=== PATIENT | female | born 1955 | race Caucasian/White ===

== ENCOUNTER → 2024-07-04 | Outpatient (CLI) | payer MEDICARE, SELFPAY ==
--- NOTE | 2024-07-04 11:53 | US_ITS ---
EXAM: US Retroperitoneal Limited, Renal CLINICAL INDICATION: UTI TECHNIQUE: Real-time limited ultrasound of the retroperitoneum with image documentation. COMPARISON: No relevant prior studies available. FINDINGS: RIGHT KIDNEY: 4 mm right renal pelvic calculus without obstruction. Right renal cyst measuring up to 1.9 cm. The right kidney measures 11.5 x 5.1 x 5.0 cm. LEFT KIDNEY: Unremarkable. No stones. No hydronephrosis. The left kidney measures 12.2 x 4.6 x 5.3 cm. BLADDER: Anechoic lesion anterior to the urinary bladder measuring up to 0.9 cm could be a cyst or diverticulum. Bladder wall thickening which may be due to the decompressed state of the bladder or due to cystitis. Urinary bladder wall measures up to 5.5 mm thick. OTHER FINDINGS: Prevoid volume 187 cc. Postvoid volume 28 cc. US/Kidney and Bladder IMPRESSION: 1. Anechoic lesion anterior to the urinary bladder measuring up to 0.9 cm coul d be a cyst or diverticulum. 2. Bladder wall thickening which may be due to the decompressed state of the b ladder or due to cystitis. 3. 4 mm right renal pelvic calculus without obstruction. Reading [facility]
== END | disposition home or self-care (01) ==
PROVIDERS: PCP Family Medicine; Referring Provider Urology; Visit Provider Urology
DX: N39.0 Urinary tract infection, site not specified (principal)
CPT/HCPCS: 76770

== ENCOUNTER → 2024-12-11 | Outpatient (CLI) | payer MEDICARE, SELFPAY ==
--- NOTE | 2024-12-11 06:34 | CT_ITS ---
PROCEDURE: CT ABD/PELVIS W/WO CONTRAST 12/11/2024 REASON FOR EXAM: ABNORMAL ULTRASOUND, UTI TECHNIQUE: CT ABD/PELVIS W/WO CONTRAST Coronal and Sagittal reconstruction series were provided. CONTRAST: Isovue-300 VOLUME: 100 mL One or more dose reduction techniques were used (e.g., Automated exposure control, adjustment of the mA and/or kV according to patient size, use of iterative reconstruction technique. RADIATION DOSE SUMMARY: CTDlvol: 24.1 mGy DLP: 2441.86 mGycm COMPARISON: Prior ultrasound of the kidneys dated July 04, 2024. FINDINGS: Lung bases: Findings suggestive of localized scarring in the left lower lobe. Liver: Small hepatic cysts. Gallbladder: Unremarkable Spleen: Normal size. Pancreas: Normal size without evidence of mass surrounding inflammation or ductal dilation. Adrenals: Unremarkable Kidneys: There is a 1.8 cm cyst in the upper pole of the right kidney. Layering calcific density seen along its dependent portion. Bladder: The urinary bladder is not completely distended. No abnormality is seen. Reproductive Organs: Prior hysterectomy. Adnexal regions are unremarkable. Bowel: Colonic diverticulosis without diverticulitis. Appendix: Unremarkable Lymph nodes: Unremarkable. Vasculature: Mild diffuse atherosclerotic calcifications are noted. Peritoneum / Retroperitoneum: Unremarkable Bones: Mild degenerative changes. Loss of the normal lumbar lordosis. CT/CT Abd/Pelvis W/WO Contrast IMPRESSION: Small cyst in the upper pole of the right kidney with layering calcification. The urinary bladder is not completely distended although it is unremarkable. Sigmoid diverticulosis. Small hepatic cysts. Reading Location: [id number]
--- OUTSIDE RECORDS SUMMARY | 2024-12-11 06:36 | XMS RPT_ITS | CCD ---
Author Organization [facility] Care Team Providers Care Aluminum Hydroxide Process Operator Name Role Phone Pearl Jasper Cotton Primary Care Provider TU, FLORA Attending Unavailable RODRÍGUEZ OLIVO Consulting Unavailable PEARL JASPER Cotton Primary Care Unavailable TU, FLORA Admitting Unavailable RODRÍGUEZ CHANDRA Consulting Unavailable SHYLA WRIGHT, CODING CLERK Admitting Unavailable CENSHYLA Baeza, CODING CLERK Attending Unavailable PEARL JASPER Cotton Primary Care Unavailable CENESHYLA, CODING CLERK Admitting Unavailable CENSHYLA Baeza, CODING CLERK Attending Unavailable PEARL JASPER Cotton Primary Care Unavailable SOUTH, FLORA Attending Unavailable SOUTH, FLORA Admitting Unavailable SOUTH, FLORA Attending Unavailable PAERL JASPER Cotton Primary Care Unavailable TU, FLORA Admitting Unavailable Pearl Jasper Cotton Primary Care Provider Leonor Rodas PA-C Unavailable Flora Mae MD Unavailable Pearl XIAO Jasper Cotton Primary Care Provider Pearl Jasper Cotton Primary Care Provider Leonor Rodas PA-C Unavailable Flora Mae MD Unavailable Pearl Jasper Cotton Primary Care Provider Leonor Rodas PA-C Unavailable Flora Mae MD Unavailable Pearl XIAO Jasper Cotton Primary Care Provider Pearl XIAO Jasper Cotton Primary Care Provider Pearl XIAO Jasper Cotton Primary Care Provider [phone] Pearl XIAO, Jasper Harry Primary Care Provide r Pearl XIAO, Jasper Primary Care Provider MIOJASPER Linda Primary Care Unavail able JOSSELYN OWUSU Referring Unavailable PETRILLA, JASPER HARRY Primary Care Unavail able JOSSELYN OWUSU Referring Unavailable Sung GARCIA, Shanel Rutherford Unavailable Pearl XIAO, Dr. Hutchinson Primary Care Provider [phone] Sung GARCIA, Dr. Ugarte Attending Provider Sung GARCIA, Dr. Ugarte Referring Provider [phone] Tu GARCIA, Flora Bernard Unavailable Pearl XIAO, Dr. Hutchinson Primary Care Provider Sung GARCIA, Dr. Ugarte Attending Provider Pearl XIAO, Dr. Hutchinson Referring Provider PETRIEVAA, JASPER Primary Care Unavailable PETRILLA, JASPER Attending Unavailable [facility]LL[facility], [facility] Primary Care Unavailable PETRILLA, JASPER Attending Unavailable PETRILLA, [facility] Primary Care Unavailable PETRILLA, JASPER Attending Unavailable PETRILLA, JASPER Referring Unavailable PETRILLA, [facility] Primary Care Unavailable PETRILLA, JASPER Attending Unavailable PETRILLA, JASPER Primary Care Unavailable PETRILLA, [facility] Primary Care Unavailable Petrilla, [place] Primary Care Unavailable Shanel Almaraz Referring Unavailable Shanel Almaraz Attending Unavailable Hieulla, Jasper Primary Care Unavailable Shanel Almaraz Referring Unavailable Shanel Almaraz Attending Unavailable Petrilla, Jasper Referring Unavailable Petrilla, [place] Primary Care Unavailable Shanel Almaraz Attending Unavailable Allergies Allergy Classification Reported Allergen(s) Allergy Type Date of Onset Reaction(s) Facility (20 sources) Chlorpheniramine / Phenylephrine Drug Allergy 6 [facility] Work Phone: (2 sources) Chlorpheniramine Drug Allergy 5 mouth sores [facility] (2 sources) Codeine Drug Allergy 5 mouth sores [facility] (2 sources) dihydrocodeine Drug Allergy 5 mouth sores [facility] (2 sources) Phenylephrine Drug Allergy 5 mouth sores [facility] (2 sources) Pseudoephedrine Drug Allergy 5 mouth sores [facility] (1 source) Chlorpheniramine Drug Allergy 5 [facility] Repository (1 source) Codeine Drug Allergy 5 [facility] (1 source) dihydrocodeine Drug Allergy 5 [facility] (1 source) Phenylephrine Drug Allergy 5 [facility] (1 source) Pseudoephedrine Drug Allergy 5 [facility] Repository Medications Current Medications Medication Drug Class(es) Dates Sig (Normalized) Sig (Original) 8 hr acetaminophen 650 mg extended release oral tablet (20 sources) acetaminophen (Tylenol 8 Hour) 650 MG ER tablet Active alendronic acid 35 mg oral tablet (7 sources) Bisphosphonate Start: 06-05-2024 End: 06-05-2025 take 1 tablet by mouth in the morning alendronate (Fosamax) 35 MG tablet Take 1 tablet (35 mg) by mouth every 7 days. Take in the morning with a full glass of water, on an empty stomach, and do not take anything else by mouth or lie down for the next 30 min. 12 tablet 3 06/05/2024 06/05/2025 Active aspirin 81 mg delayed release oral tablet (20 sources) Platelet Aggregation Inhibitor, Nonsteroidal Anti-inflammatory Drug aspirin 81 MG EC tablet Every 24 hours. Active take 1 tablet by mouth once payal y aspirin, enteric coated (ASPIRIN, ENTERIC COATED) 81 mg EC tablet Take 1 tablet by mouth once daily. Active take 1 tablet by mouth once payal y aspirin 81 MG tablet Take 81 mg by mouth daily 0 Active Comment on above: Take 1 tablet by suzanne th once daily. atenolol 50 mg oral tablet (5 sources) beta-Adrenergic Abhinav Start: 04-03-20 End: 01-19-20 atenolol (TENORMIN) 50 MG tablet One each AM 90 tablet 1 10/01/2021 Active Comment on above: Take 50 mg by mouth once daily. atorvastatin 40 mg oral tablet (20 sources) HMG-CoA Reductase Inhibitor Start: 09-02-19 End: 06-05-19 25 take 1 tablet by mouth once daily Atorvastatin 40 mg tablet Active 40 mg PO daily November 19, 2024 12:00am Comment on above: Take 1 tablet by suzanne th daily at bedtime. calcium ascorbate 500 mg oral tablet (1 source) Start: 11-20-19 25 take 1 tablet by mouth twice daily Ascorbate Calcium (Vitamin C) 500 mg tablet Active 500 mg PO TWICE A DAY November 19, 2024 12:00am celecoxib 100 mg oral capsule (20 sources) Nonsteroidal Anti-inflammatory Drug Start: 12-04-19 23 take 1 capsule by mouth once daily as needed celecoxib (CeleBREX) 100 MG capsule take 1 capsule by mouth q day prn with food 90 capsule 1 12/03/2022 Active Start: 06-25-2022 End: 12-03-2022 take 1 capsule by mouth twice daily celecoxib (CeleBREX) 100 MG capsule take 1 capsule by mouth twice a day if needed 0 06/25/2022 12/03/2022 Discontinued (Reorder) cholecalciferol 0.125 mg ora l tablet (20 sources) Vitamin D cholecalciferol (D3-5) 5,000 Units tablet Take by mouth. Active End: 05-30-2024 take 1 tablet by mouth once daily cholecalciferol (VITAMIN D3) 5,000 unit tab Take 5,000 Units by mouth daily 05/30/2024 Discontinued (Other) Comment on above: Take 5,000 Units by mouth daily chondroitin sulfates 40 mg/ml / glucosamine hydrochloride 50 mg/ml oral solution (1 source) Glucosamine-Jorge droitin 7994-0949 MG/30ML LIQD Take by mouth 0 Active clotrimazole 10 mg/ml topical cream (20 sources) Azole Antifungal Start: 06-05-2024 clotrimazole (Lotrimin) 1 % cream Apply topically 2 times daily. 60 g 1 06/05/2024 Active End: 06-05-2024 clotrimazole (Lotrimin) 1 % cream Apply topically 2 times daily. 06/05/2024 Discontinued (Reorder) fluticasone propionate 0.05 mg/actuat metered dose nasal spray (20 sources) Corticosteroid Start: 06-06-2024 End: 06-06-2025 take 1 spray(s) nasal route once daily fluticasone (Flonase) 50 MCG/ACT nasal spray Administer 1 spray into each nostril daily. Shake gently. Before first use, prime pump. After use, clean tip and replace cap. 16 g 3 06/06/2024 06/06/2025 Active Start: 06-05-2024 End: 06-05-2025 take 27.5 ug nasal route once daily fluticasone (Flonase Sensimist) 27.5 MCG/SPRAY nasal spray Administer 1-2 sprays into each nostril daily. 10 g 3 06/05/2024 06/06/2024 Discontinued (Formulary change) Start: 09-21-2019 End: 05-25-2023 fluticasone (FLONASE) 50 mcg/actuation nasal spray Use 1 [place] in each nostril as needed. 0 09/21/2019 05/25/2023 Discontinued Start: 09-21-2019 fluticasone (F LONASE) 50 MCG/ACT nasal spray 2 sprays by Nasal route daily 3 Bottle 3 03/21/2020 Active Comment on above: Use 1 [place] in each nostril as needed. hydrALAZINE hydrochloride 25 mg oral tablet (20 sources) Arteriolar Vasodilator Start: End: take 1 tablet by mouth three times daily Hydralazine 25 mg tablet Active 25 mg PO THREE TIMES A DAY November 19, 2024 12:00am Start: 01-10-2024 End: 06-05-2024 hydrALAZINE (Apresoline) 25 MG tablet Indications: Essential hypertension Increase to one TID 270 tablet 1 01/10/2024 06/05/2024 Discontinued (Therapy completed) Start: 12-06-2023 End: 01-10-2024 hydrALAZINE (Apresoline) 25 MG tablet Indications: Essential hypertension One BID 180 tablet 1 12/06/2023 01/10/2024 Discontinued Start: 11-08-2023 End: 01-07-2024 take 1 tablet by mouth twice daily hydrALAZINE (Apresoline) 10 MG tablet Indications: Essential hypertension Take 1 tablet (10 mg) by mouth 2 times daily. 60 tablet 1 11/08/2023 12/06/2023 Discontinued (Reorder) hydroCHLOROthiazide 25 mg oral tablet (11 sources) Thiazide Diuretic Start: 06-08-2024 hydroCHLOROthiazide (HYDRODiuril) 25 MG tablet Decrease to 1 every morning only 90 tablet 1 06/08/2024 Active Start: 06-05-2024 End: 06-08-2024 take 1 tablet by mouth twice daily hydroCHLOROthiazide (HYDRODiuril) 25 MG tablet Take 1 tablet (25 mg) by mouth 2 times daily. 180 tablet 1 06/05/2024 06/08/2024 Discontinued (Dose adjustment) Lutein (20 sources) LUTEIN PO Take b y mouth daily. Active mecobalamin (1 source) Start: 11-20-19 Mecobalamin (Vitamin B12) 500 mcg tablet,chewable Active ug PO November 19, 2024 12:00am 24 hr mirabegron 50 mg extended release oral tablet (1 source) beta3-Adrenergic Agonist Start: 11-13-19 take 1 tablet by mouth once daily, then take 1 tablet by mouth every twenty-four hours mirabegron ER (Myrbetriq) 50 MG 24 hr tablet Take 50 mg by mouth daily. 11/12/2024 Active montelukast 10 mg oral tablet (20 sources) Leukotriene Receptor Antagonist Start: 09-21-19 End: 06-05-19 take 1 tablet by mouth once daily Montelukast 10 mg tablet Active 10 mg PO daily November 19, 2024 12:00am Comment on above: Take 10 mg by mouth daily at bedtime. Multiple Vitamin (multivitamin) tablet (20 sources) take 1 tablet by mouth once daily Multiple Vitamin (multivitamin) tablet Take 1 tablet by mouth daily. Active multivit with minerals/lutein (MULTIVITAMIN 50 PLUS ORAL) (3 sources) multivit with minerals/lutein (MULTIVITAMIN 50 PLUS ORAL) Take 1 tablet by mouth as needed. Active Multivitamin tablet (1 source) Start: 11-20-19 Multivitamin tablet Active 1 {tbl} PO daily November 19, 2024 12:00am nitrofurantoin, macrocrystals 25 mg / nitrofurantoin, monohydrate 75 mg oral capsule (1 source) Nitrofuran Antibacterial Start: 11-20-19 take 1 capsule by mouth twice daily Nitrofurantoin Monohyd/M-Cryst 100 mg capsule Active 1 NMA PO TWICE A DAY 14 0 November 19, 2024 9:57am Farrell-3 Fatty Acids (OMEGA-3 FISH OIL PO) (3 sources) take 1 tablet by mouth once daily Farrell-3 Fatty Acids (OMEGA-3 FISH OIL PO) Take 1 tablet by mouth daily 0 Active omeprazole 40 mg delayed release oral capsule (20 sources) Proton Pump Inhibitor Start: 09-24-19 End: 06-05-19 take 1 capsule by mouth once daily omeprazole (PriLOSEC) [address] capsule Take 1 capsule (40 mg) by mouth daily. 90 capsule 1 06/05/2024 Active Start: 09-21-2019 take 1 capsule by mo uth once daily omeprazole 40 mg capsule Take 40 mg by mouth once daily. 0 09/21/2019 Active Comment on above: Take 40 mg by mouth once daily. Take 1 capsule by mo uth once daily. This will decrease the efficacy of your Plavix so you should not take this until after you are off Plavix. Omeprazole 40 mg capsule,delayed release(DR/EC) (1 source) Start: 5 take 1 capsule by mouth once daily Omeprazole 40 mg capsule,delayed release(DR/EC) Active 40 mg PO daily November 19, 2024 12:00am perindopril erbumine 8 mg oral tablet (20 sources) Angiotensin Converting Enzyme Inhibitor Start: 3 End: 5 Perindopril Erbumine 8 mg tablet Active mg PO November 19, 2024 12:00am Start: 12-24-2021 End: 06-11-2022 perindopril (Aceon) 8 MG tab let Every 24 hours. 0 12/24/2021 06/11/2022 Discontinued (Reorder) Start: 10-01-2021 perindopril (A CEON) 8 MG tablet Increase to one q AM and one half q PM 135 tablet 1 10/01/2021 Active Start: 09-21-2019 take 1 tablet by suzanne th once daily perindopril (ACEON) 8 MG tablet Take 1 tablet by mouth daily 90 tablet 1 09/21/2019 Active take 4 mg by mouth twice daily p erindopril (ACEON) 8 mg tablet Take 4 mg by mouth twice daily. Active Comment on above: Take 8 mg by mouth o nce daily. Take 4 mg by mouth t wice daily. red yeast rice 600 mg oral capsule (3 sources) Start: 09-21-2019 Red Yeast Rice Extract 600 MG CAPS 2 bid 100 capsule 5 09/21/2019 Active End: 05-25-2023 Red Yeast Rice Extract 600 m g cap 1 capsule. 0 05/25/2023 Discontinued Comment on above: 1 capsule. saccharomyces boulardii 250 mg oral capsule (1 source) Start: take 1 capsule by mouth twice daily Saccharomyces Boulardii (Daily Probiotic (S. Boulardii)) 250 mg capsule Active 250 mg PO TWICE A DAY November 19, 2024 12:00am sulfamethoxazole 800 mg / trimethoprim 160 mg oral tablet (4 sources) Dihydrofolate Reductase Inhibitor Antibacterial, Sulfonamide Antimicrobial Start: End: take 1 tablet by mouth twice daily sulfamethoxazole-tri methoprim (Bactrim DS) 800-160 MG tablet Indications: Acute cystitis without hematuria Take 1 tablet by mouth 2 times daily for 7 days. 14 tablet 11/11/2023 11/18/2023 Active tamsulosin hydrochloride 0.4 mg oral capsule (10 sources) alpha-Adrenergic Abhinav Start: End: take 1 capsule by mouth once daily tamsulosin (Flomax) 0.4 MG 24 hr capsule Take 0.4 mg by mouth daily. 0 06/12/2021 Active Comment on above: take [address] [facility] once daily Take 0.4 mg by mouth . triamcinolone acetonide 5 mg/ml topical cream (20 sources) Corticosteroid Start: End: triamcinolone (Kenalog) 0.5 % cream Apply topically 3 times daily. 45 g 1 06/05/2024 Active Start: 11-26-2021 End: 06-07-2023 triamcinolone (Kenalog) 0.5 % cream Apply 1 application topically 3 times daily. 0 11/26/2021 06/07/2023 Discontinued (Reorder) Comment on above: Apply 1 Application to affected area. ubidecarenone 100 mg oral tablet (20 sources) End: 05-30-2024 Coenzyme Q10 100 MG tablet Take by mouth daily. Active Comment on above: Take by mouth once d aily. Completed/Discontinued Medications Medication Drug Class(es) Dates Sig (Normalized) Sig (Original) aspirin 81 mg / calcium carbonate 777 mg oral tablet (2 sources) Platelet Aggregation Inhibitor, Nonsteroidal Anti-inflammatory Drug aspirin-calcium carbonate 81 mg-300 mg calcium(777 mg) tab Take 81 mg by mouth. 0 Active Comment on above: Take 81 mg by mouth. azelastine hydrochloride 0.5 mg/ml ophthalmic solution (2 sources) Histamine-1 Receptor Antagonist Start: 09-03-2019 take 1 drop(s) into the eye(s) twice daily Azelastine HCl (OPTIVAR) 0.05 % ophthalmic solution instill 1 drop into both eyes twice a day if needed 0 09/03/2019 Active Comment on above: instill 1 drop into both eyes twice a day if needed clindamycin 20 mg/ml vaginal cream (15 sources) Lincosamide Antibacterial Start: 05-29-2023 End: 12-06-2023 clindamycin (Cleocin) 2 % vaginal cream insert 1 applicatorful vaginally at bedtime for 7 days 05/30/2023 12/06/2023 Discontinued (Therapy completed) Comment on above: Use 1 Applicatorful vaginally daily at bedtime for 7 days. clopidogrel 75 mg oral tablet (1 source) [id number] Platelet Inhibitor Start: 09-01-2021 End: 01-18-2022 take 1 tablet by mouth once daily clopidogrel (PLAVIX) 75 mg tablet Take 1 tablet by mouth once daily for 21 days. 21 tablet 0 09/01/2021 01/18/2022 Discontinued Comment on above: Take 1 tablet by suzanne th once daily for 21 days. docosahexaenoic acid 120 mg / eicosapentaenoic acid 180 mg oral capsule (12 sources) End: 11-18-2023 omega-3 (Fish Oil) 1000 MG capsule 1 capsule Every 24 hours. 11/18/2023 Discontinued (Discontinued by another clinician) docosahexaenoic acid/epa (FISH OIL ORAL) (8 sources) End: 05-25-2023 docosahexaenoic acid/epa (FISH OIL ORAL) Take 1 tablet by mouth. 0 05/25/2023 Discontinued docosahexaenoic acid/epa (FISH OIL ORAL) Take 1 tablet by mouth. 0 Active Comment on above: Take 1 tablet by suzanne th. doxazosin 1 mg oral tablet (6 sources) alpha-Adrenergic Abhinav Start: 2021 End: 2023 take 1 tablet by mouth once daily doxazosin (CARDURA) 1 mg tablet TAKE 1 TABLET BY MOUTH NIGHTLY. 0 01/04/2022 05/25/2023 Discontinued Comment on above: TAKE 1 TABLET BY SUZANNE TH NIGHTLY. iopamidol (Isovue-370) 76 % injection 75 mL (2 sources) Start: 2023 End: 2023 take 75 mL intravenously once as needed 75 mL, IntraVENous, IMG once PRN, contrast, Starting on Lucila 11/10/23 at 1303, For 1 dose ketorolac tromethamine 10 mg oral tablet (3 sources) Nonsteroidal Anti-inflammatory Drug, Cyclooxygenase Inhibitor Start: 2021 take 1 tablet by mouth every six hours as needed keTORolac (TORADOL) 10 mg tablet Indications: Left ureteral stone , Hydronephrosis with urinary obstruction due to ureteral calculus Take 1 tablet by mouth every 6 hours as needed for up to 15 doses. 10 tablet 0 05/13/2021 Active Comment on above: Take 1 tablet by suzanne th every 6 hours as needed for up to 15 doses. lisinopril 5 mg oral tablet (5 sources) Angiotensin Converting Enzyme Inhibitor End: 2023 lisinopril (ZESTRIL, PRINIVIL) 5 mg tablet Take 1 tablet by mouth. 0 05/25/2023 Discontinued Comment on above: Take 1 tablet by suzanne th. naproxen sodium 220 mg oral tablet (3 sources) Nonsteroidal Anti-inflammatory Drug Start: 2021 Naproxen Sodium (ALEVE) 220 mg ORAL Tab Take by mouth as needed. 0 08/20/2021 Active Start: 08-31-2006 Naproxen Sodiu m (ALEVE) 220 mg ORAL Tab prn 0 08/31/2006 Active Comment on above: prn Take by mouth as nee ded. Nitrofurantoin Monohyd/M-Cryst 100 mg capsule (1 source) Start: End: take 1 capsule by mouth twice daily Nitrofurantoin Monohyd/M-Cryst 100 mg capsule Discontinued 1 NMA PO TWICE A DAY November 19, 2024 12:00am November 19, 2024 9:58am Potassium Chloride (2 sources) POTASSIUM CHLORI DE (KLOR-CON ORAL) Take by mouth. 0 Active Comment on above: Take by mouth. vitamin b12 0.1 mg oral tablet (5 sources) Vitamin B12 End: 4 cyanocobalamin (Vitamin B-12) 100 MCG tablet Take by mouth daily. 12/06/2023 Discontinued (Therapy completed) Problems Active Problems Problem Classification Problem Date Documented Date Episodic/Chronic Allergic reactions (3 sources) Atopic dermatitis; Translations: [Intrinsic (allergic) eczema] Onset: 2 06-05-2024 Chronic Cardiac dysrhythmias (1 source) Palpitations; Translations: [Palpitations] 06-07-2023 Episodic Conduction disorders (20 sources) Left bundle branch block; Translations: [Left bundle-branch block, unspecified] Onset: 0 02-14-2020 Chronic Disorders of lipid metabolism (20 sources) Mixed hypercholesterolemia and hypertriglyceridemia; Translations: [Hyperlipidemia, unspecified] Onset: 0 09-21-2019 Chronic Esophageal disorders (20 sources) Gastroesophageal reflux disease; Translations: [Gastro-esophageal reflux disease without esophagitis] Onset: 5 02-17-2015 Chronic Essential hypertension (20 sources) Essential hypertension; Translations: [Essential (primary) hypertension] Onset: 0 09-21-2019 Chronic Genitourinary congenital anomalies (20 sources) Multiple renal cysts; Translations: [Congenital multiple renal cysts] Onset: 5 10-10-2019 Chronic Genitourinary symptoms and ill-defined conditions (2 sources) Stress incontinence (female) (male); Translations: [Urge incontinence of urine] Onset: 1 11-13-2024 Chronic Genitourinary symptoms and ill-defined conditions (5 sources) Dysuria; Translations: [Dysuria] 11-08-2023 Episodic Heart valve disorders (20 sources) Non-rheumatic mitral regurgitation ; Translations: [Nonrheumatic mitral (valve) insufficiency] Onset: 4 06-07-2023 Chronic Heart valve disorders (1 source) Functional heart murmur ; Translations: [Benign and innocent cardiac murmurs] 11-13-2024 Episodic Menopausal disorders (2 sources) Atrophy of vagina; Translations: [Postmenopausal atrophic vaginitis] 05-25-2023 Chronic Nonspecific chest pain (5 sources) Chest pain; Translations: [Chest pain, unspecified] 11-08-2023 Episodic Osteoarthritis (20 sources) Degenerative joint disease of shoulder region; Translations: [Unspecified osteoarthritis, unspecified site] Onset: 5 02-17-2015 Chronic Other bone disease and musculoskeletal deformities (1 source) Osteopenia; Translations: [Other specified disorders of bone density and structure, unspecified site] 06-05-2024 Episodic Other circulatory disease (1 source) History of transient ischemic attack; Translations: [Personal history of transient ischemic attack (TIA), and cerebral infarction without residual deficits] 12-03-2022 Episodic Other congenital anomalies (1 source) Herniated urinary bladder 11-13-2024 Chroni c Other connective tissue disease (2 sources) Plantar fasciitis of left foot; Translations: [Plantar fasciitis of left foot] Onset: 4 02-16-2016 Other diseases of bladder and urethra (20 sources) Overactive bladder; Translations: [Overactive bladder] Onset: 0 02-14-2020 Chronic Other female genital disorders (1 source) Vaginal discharge; Translations: [Other specified noninflammatory disorders of vagina] 05-25-2023 Episodic Other lower respiratory disease (5 sources) Cough; Translations: [Subacute cough] 12-06-2023 Episodic Other nervous system disorders (20 sources) Carpal tunnel syndrome; Translations: [Carpal tunnel syndrome, unspecified upper limb] Onset: 5 02-17-2015 Chronic Other nutritional; endocrine; and metabolic disorders (4 sources) Obesity; Translations: [Other obesity due to excess calories] Onset: 2 09-01-2021 Chronic Other nutritional; endocrine; and metabolic disorders (9 sources) Obesity caused by energy imbalance; Translations: [Other obesity due to excess calories] Onset: 2 09-01-2021 Chronic Other nutritional; endocrine; and metabolic disorders (2 sources) Failure to lose weight; Translations: [Other symptoms and signs concerning food and fluid intake] 06-07-2023 Episodic Other screening for suspected conditions (not mental disorders or infectious disease) (4 sources) Imaging of genitourinary system abnormal; Translations: [Abnormal findings on diagnostic imaging of other specified body structures] Onset: 5 11-19-2024 Chronic Other screening for suspected conditions (not mental disorders or infectious disease) (20 sources) Patient encounter status; Translations: [Encounter for screening for malignant neoplasm of vagina] Onset: 4 Episodic Other upper respiratory disease (20 sources) Allergic rhinitis; Translations: [Allergic rhinitis, unspecified] Onset: 5 02-17-2015 Chronic Other upper respiratory disease (2 sources) Other allergic rhinitis; Translations: [Other allergic rhinitis] Onset: 2 Chronic Residual codes; unclassified (4 sources) Menopause present; Translations: [Asymptomatic menopausal state] Episodic Residual codes; unclassified (1 source) Asymptomatic menopausal state; Translations: [Menopause] Onset: 4 Episodic Transient cerebral ischemia (20 sources) Cerebral ischemia; Translations: [Transient cerebral ischemic attack, unspecified] Onset: 2 Chronic Unclassified (16 sources) Injury of cartilage; Translations: [Torn cartilage] Onset: 5 10-10-2019 Unclassified (2 sources) Blood Pressure Check; Translations: [Blood Pressure Check] Onset: 4 Unclassified (1 source) Subacute cough; Translations: [Subacute cough] Onset: 4 Urinary tract infections (3 sources) Recurrent urinary tract infection; Translations: [Urinary tract infection, site not specified] Onset: 5 11-13-2024 Episodic Past or Other Problems Problem Classification Problem Date Documented Da te Episodic/Chronic Allergic reactions (20 sources) Eczema; Translations: [Dermatitis, unspecified] Onset: 02-16-2016 02-16-2016 Episodic Benign neoplasm of uterus (1 source) Leiomyoma of uterus, unspecified; Translations: [LEIOMYOMA OF UTERUS UNSPECIFIED] Onset: 06-18-2020 Episodic Biliary tract disease (20 sources) Polyp of gallbladder; Translations: [Cholesterolosis of gallbladder] Onset: 02-16-2016 02-16-2016 Episodic Calculus of urinary tract (16 sources) Kidney stone; Translations: [Calculus of kidney] Onset: 08-31-2021 Episodic Diabetes mellitus without complication (20 sources) Prediabetes; Translations: [Prediabetes] Onset: 09-01-2021 09-01-2021 Episodic Genitourinary congenital anomalies (2 sources) Multiple renal cysts; Translations: [Multiple renal cysts] 02-17-2015 Episodic Immunizations and screening for infectious disease (2 sources) Contact with and (suspected) exposure to other viral communicable diseases; Translations: [CONTCT EXPS OT VIRL COMMUNICABL DZ] Onset: 06-16-2020 Episodic Inflammatory diseases of female pelvic organs (1 source) Inflammatory disease of cervix uteri; Translations: [INFLAMMATORY DISEASE CERVIX UTERI] Onset: 06-18-2020 Episodic Joint disorders and dislocations; trauma-related (3 sources) Tear of meniscus of knee; Translations: [Unspecified tear of unspecified meniscus, current injury, right knee, initial encounter] Onset: 02-17-2015 Resolved: 09-24-2016 09-24-2016 Episodic Malaise and fatigue (4 sources) Fatigue; Translations: [Other fatigue] Onset: 02-08-2024 02-08-2024 Episodic Other aftercare (1 source) FPC (current) use of aspirin; Translations: [RESIDENTIAL CURRENT USE OF ASPIRIN] Onset: 06-18-2020 Episodic Other aftercare (1 source) Other snf (current) drug therapy; Translations: [[facility] CUSTODIAN MANAGER CURRENT DRUG THERAPY] Onset: 06-18-2020 Episodic Other aftercare (14 sources) FPC current use of non-steroidal anti-inflammatory drug; Translations: [Encounter for therapeutic drug level monitoring] Onset: 06-07-2023 06-07-2023 Episodic Other bone disease and musculoskeletal deformities (3 sources) Other specified disorders of bone density and structure, unspecified site; Translations: [[facility] D/O BONE DEN STRUCT UNS SITE] Onset: 06-18-2020 Episodic Other connective tissue disease (16 sources) Calcaneal spur; Translations: [Calcaneal spur, unspecified foot] Onset: 03-28-2006 03-28-2006 Episodic Other connective tissue disease (16 sources) Plantar fasciitis; Translations: [Plantar fascial fibromatosis] Onset: 08-04-2006 10-10-2019 Episodic Other connective tissue disease (20 sources) Plantar fasciitis of left foot; Translations: [Plantar fascial fibromatosis] Onset: 04-18-2013 02-16-2016 Episodic Other connective tissue disease (7 sources) Weakness of face muscles; Translations: [Facial weakness] Onset: 08-31-2021 Resolved: 09-01-2021 09-01-2021 Episodic Other nervous system disorders (7 sources) Slurred speech; Translations: [Slurred speech] Onset: 08-31-2021 Resolved: 09-01-2021 09-01-2021 Episodic Prolapse of female genital organs (20 sources) Uterine prolapse; Translations: [Incomplete uterovaginal prolapse] Onset: 02-14-2020 Resolved: 06-07-2023 02-14-2020 Chronic Residual codes; unclassified (20 sources) Family history of malignant neoplasm of lung; Translations: [Family history of malignant neoplasm of trachea, bronchus and lung] Onset: 02-16-2016 02-16-2016 Episodic Residual codes; unclassified (20 sources) FH: Diabetes mellitus; Translations: [Family history of diabetes mellitus] Onset: 02-16-2016 02-16-2016 Episodic Residual codes; unclassified (20 sources) Family history of ischemic heart disease and other diseases of the circulatory system; Translations: [Family history of coronary arteriosclerosis] Onset: 02-16-2016 02-16-2016 Episodic Residual codes; unclassified (1 source) Family history of diabetes mellitus; Translations: [Family history of diabetes mellitus] Onset: 01-28-2022 Episodic Unclassified (3 sources) Patient encounter status 05-30-2024 Unclassified (1 source) Subacute cough; Translations: [Subacute cough] Onset: 12-06-2023 Results Test Name Value Interpretation Reference Range Facility 37 12-03-2024 37 Personalized Preventative Plan for Jovany OconnorKaleigh - 12/03/2024 Medicare offers a range of preventative health benefits. Some of the tests and screenings are paid in full while others may be subject to a deductible, co-insurance, and / or copay. Some of these benefits include a comprehensive review of your medical history including lifestyle, illnesses that may run in your family, and various assessments and screenings as appropriate. After reviewing your medical record and screening and assessments performed today, your provider may have ordered immunizations, labs, imaging, and / or referrals for you. A list of these orders (if applicable) as well as your Preventative Care list are included within your After Visit Summary for your review. Other Preventative Recommendations: A preventive eye exam by an seeing eye dog trainer is recommended every 1-2 years to screen for glaucoma, cataracts, macular degeneration, and other eye disorders. A preventive dental visit is recommended every 6 months. Try to get at least 150 minutes of exercise per week or 10,000 steps per day on a pedometer. You need 1200-1500mg of calcium and 9356-5540 international units of vitamin D per day. It is possible to meet your calcium requirement with diet alone, but a vitamin D supplement is usually necessary to meet this goal. When exposed to the sun, use a sunscreen that protects against both UVA and UVB radiation with an SPF of 30 or greater. Reapply every 2-3 hours or after sweating, drying off with a towel, or swimming. Always wear a seat belt when traveling in a car. Always wear a helmet when riding a bicycle or a motorcycle [facility] Office Visiton 12-03-2024 Follow-up visit [id number] Jovany Sommers 1955 F [facility] Provider Department Center 12/03/2024 [id number] ZAPIEN [facility] Family History Problem Relation Age of Onset Lung cancer Mother 60 Hypertension Mother Diabetes type II Mother Comments: oral rx Dementia Mother Colon polyps Mother COPD Mother 77 Comments: smoker Pacemaker Mother Lung cancer Father 64 Comments: smoker, age 67 Hypertension Sister Comments: alive age 77 Other Sister Comments: Spinal DDD w/neuropathy, alive age 60 Arthritis Sister Hypertension Sister Coronary artery disease Sister 55 Comments: CABG, alive age 74 Hypertension Sister Kidney disease Sister Diabetes Sister Comments: oral rx Cancer Sister Comments: ? primary stomach to liver at age 60 Prostate cancer Brother Coronary artery disease Brother Comments: stent, alive age 72, TAA Rheum arthritis Brother Hypertension Brother Comments: hx of Thor AA Cancer Maternal Grandmother Comments: breast Breast cancer Maternal Grandmother Diabetes type II Maternal Grandfather Diabetes Maternal Grandfather Diabetes type II Paternal Grandmother Diabetes Paternal Grandmother COPD Paternal Grandfather Family Status - Relation Status Age at Mother 67 Father 77 Sister Alive Sister Alive Sister Alive Sister 60 Brother Alive Maternal Grandmother Maternal Grandfather Paternal Grandmother Paternal Grandfather Level of Service:G0439 SD PPPS, SUBSEQ VISIT Reason for Visit and Comments: Medicare Annual Wellness Visit Subsequent [677] [facility] Progress Noteon 12-03-2024 Progress Note Orders: Lipid panel; Future TSH; Future Normal [facility] Progress Note Orders: Magnesium; Future Normal [facility] Progress Note [facility] [address] [address] [facility] [address] Dept: [phone] Dept Chief Complaint: Jovany Sommers is an 68 y.o. female here for an annual wellness visit. Patient with history of stable hypertension, hyperlipidemia and left bundle branch block. Dealing with overactive bladder issues. Will be getting a CT of her pelvis to eval a bladder diverticulum or mass. Assessment/Plan : Assessment & Plan LBBB (left bundle branch block) Orders: Magnesium; Future Essential hypertension Orders: CBC auto differential; Future Comprehensive metabolic panel; Future Gastroesophageal reflux disease without esophagitis Mixed hypercholesterolemia and hypertriglyceridemia Orders: Lipid panel; Future TSH; Future Encounter for subsequent annual wellness visit (AWV) in Medicare patient OAB (overactive bladder) Non-seasonal allergic rhinitis due to other allergic trigger Colon cancer screening Routine general medical examination at health care facility I have reviewed and reconciled the medication list with the patient today. Current Medications[1] Also reviewed during this visit: Med Hx The following health maintenance schedule was reviewed with the patient and provided in printed form in the after visit summary: Health Maintenance Topic Date Due Hepatitis C Screening Never done DTaP/Tdap/Td Vaccines (1 - Tdap) Never done Zoster Vaccines (1 of 2) Never done RSV Immunization for Adults (1 - Risk 60-74 years 1-dose series) Never done Diabetes Screening 09/01/2022 COVID-19 Vaccine ( - 2023- season) Never done Medicare Advantage Annual Wellness Visit 04/18/2024 Colorectal Cancer Screening 04/23/2024 Influenza Vaccine (1) 12/17/2024 Mammogram 03/30/2025 Depression Screening 11/30/2025 Lipid Panel 06/05/2029 Pneumococcal Vaccine: 50+ Years Completed Bone Density Scan Completed RSV Immunization under 20 Months Aged Out HIB Vaccines Aged Out Hepatitis B Vaccines Aged Out IPV Vaccines Aged Out Hepatitis A Vaccines Aged Out Meningococcal Vaccine Aged Out Rotavirus Vaccines Aged Out HPV Vaccines Aged Out Meningococcal B Vaccine Aged Out List of current healthcare providers: Patient Care Team: Jasper Zeng DO as PCP - General Orders Placed This Encounter Procedures CBC auto differential Standing Status: Future Number of Occurrences: 1 Expected Date: 12/03/2024 Expiration Date: 12/03/2025 Comprehensive metabolic panel Standing Status: Future Number of Occurrences: 1 Expected Date: 12/03/2024 Expiration Date: 12/03/2025 Lipid panel Standing Status: Future Number of Occurrences: 1 Expected Date: 12/03/2024 Expiration Date: 12/03/2025 Magnesium Standing Status: Future Number of Occurrences: 1 Expected Date: 12/03/2024 Expiration Date: 12/03/2025 TSH Standing Status: Future Number of Occurrences: 1 Expected Date: 12/03/2024 Expiration Date: 12/03/2025 Review of Systems overall she feels well. No constitutional symptoms. Allergies are well treated. No purulent phlegm or rhinorrhea. Denies exertional chest pain jaw pain or dyspnea. Blood pressure well at home. No breakthrough heartburn but she is due for colonoscopy and upper endoscopy. Bowels are regular. No melena or blood. No postmenopausal vaginal bleeding. Mammogram due in March. No new arthralgias. Physical Exam The physical exam is generally normal. Patient appears well, alert and oriented x 3, pleasant, cooperative. Vitals are as noted. Neck supple, no abnormal adenopathy, thyroid lesions or masses. No carotid bruits.. Lungs are clear to auscultation. Heart is regular, without murmurs, gallops or ectopy. Abdomen is soft, non tender, without masses, hepatosplenomegaly, or bruits. Normal BS evident. Extremities are normal without edema. Peripheral pulses are good. No worrisome skin lesions. Screening neurological exam is normal without focal deficits. Objective : BP 136/81 Pulse 77 Temp 36.5 ?C (97.7 ?F) (Temporal) Ht 5' 1.5 (1.562 m) Wt 157 lb (71.2 kg) SpO2 99% BMI 29.18 kg/m? No results found. Subjective : Health Risk Assessment: General: General In general, how would you say your health is?: (Patient-Rptd) (P) Good In the past 7 days, have you experienced any of the following: New or Increased Pain, New or Increased Fatigue, Loneliness, Social Isolation, Stress or Anger?: (Patient-Rptd) (P) No Do you get the social and emotional suppport you need?: (Patient-Rptd) (P) Yes Health Habits/Nutrition: Health Habits / Nutrition On average, how many days per week do you engage in moderate to strenous exercise (like a brisk walk)?: (Patient-Rptd) (P) 5 days On average, how man minutes do you engage in exercise at this level?: (Patient-Rptd) (P) 60 min Have you lost any weight without trying in the past 3 months? : (Patient-Rptd) (P) No (more content not included)... Normal [facility] Progress Note Orders: CBC auto differential; Future Comprehensive metabolic panel; Future Normal [facility] MR/Yvrose 11-19-2024 MR/LAURA [facility] [address], [address] [place] [address] OFFICE VISIT Date of Service: 11/19/24 MR#: [id number] Acct: [id number] Name: JOVANY SOMMERS Rep #: [id number] : 1955 Provider: Dr. Shanel Rangel i, MD Age/Sex: 68/F Location: [facility] Status: Signed Intake Vital Signs 11/19/24 09:43 Height 5 ft 1.5 in Weight: 160 lb BMI 29.7 BP 136/79 H Blood Pressure Location Lt radial Pulse 78 Intake Visit Reasons: MED F/U 3MO Chief Complaint: 3month medication and uti follow up Crm Administrator Required: No Accompanied by: Self Is patient in pain?: No Allergies chlorpheniramine (From [facility]) Allergy (Verified 11/19/24 09:38) mouth sores codeine (From [facility]) Allergy (Verified 11/19/24 09:38) mouth sores dihydrocodeine (From [facility]) Allergy (Verified 11/19/24 09:38) mouth sores phenylephrine (From [facility]) Allergy (Verified 11/19/24 09:38) mouth sores pseudoephedrine (From [facility]) Allergy (Verified 11/19/24 09:38) mouth sores Medications ???Medication ???Instructions ???Recorded ???Confirmed ???Type Saccharomyces boulardii 250 mg 250 mg PO BID 11/19/24 11/19/24 Hi story capsule (Daily Probiotic (S. boulardii)) ascorbate calcium (vitamin C) 500 500 mg PO BID 11/19/24 11/19/24 H istory mg tablet atorvastatin 40 mg tablet 40 mg PO QDAY 11/19/24 11/19/24 Hi story fluticasone propionate 50 1 spray intranasal QDAY 11/19/24 0 11/19/24 History mcg/actuation nasal spray,suspension hydralazine 25 mg tablet 25 mg PO TID 11/19/24 11/19/24 His tory mecobalamin (vitamin B12) 500 mcg mcg PO 11/19/24 11/19/24 History chewable tablet montelukast 10 mg tablet 10 mg PO QDAY 11/19/24 11/19/24 Hi story multivitamin 1 tab PO QDAY 11/19/24 11/19/24 Hi story nitrofurantoin 1 cap PO BID #14 caps 11/19/2408/10 Rx monohydrate/macrocrystal s 100 mg capsule omeprazole 40 mg capsule,delayed 40 mg PO QDAY 11/19/24 11/19/24 Hi story release perindopril erbumine 8 mg tablet mg PO 11/19/24 11/19/24 History Have you fallen in the past year?: No PFSH Medical History H/O mammogram Kidney stones Surgical History History of vaginal hysterectomy H/O colonoscopy History of carpal tunnel release Status post embolization of uterine artery S/P tonsillectomy H/O tubal ligation H/O knee surgery Family History Grandmother Breast cancer Mother Lung cancer Diabetes Cardiac pacemaker Heart disease Father Lung cancer Brother Prostate cancer Status post double vessel coronary artery bypass Heart disease Sister Liver cancer Diabetes Status post double vessel coronary artery bypass Heart disease Social History Smoking Status: Never smoker alcohol intake: never substance use type: does not use what type of physical activity do you participate in: walking frequency: 5-6 times per week duration: other do you feel safe at home: Yes HPI HPI Urology Chief Complaint: 3month medication and uti follow up Details: JOVANY SOMMERS, is a 68 F. She is here for medication follow up. She has been taking Gemtesa 75mg daily. She thinks this is what she is taking, but not 100% sure. She will check at home and call us with an update. She is not having side effects from the medication. She is able to walk and not wet her pants now! She is now voiding about 6-8 times during the day, and at least 2 times at night. She is dry! She would like to continue with this medication. She has not had any urinary tract infections since the last visit. She has not had any blood in the urine since the last visit. She stopped the estradiol cream as it caused her pain and bloating. She is taking vitamin C and probiotics. She has no new urologic concerns to discuss today. ROS Const Constitutional: No chills, fatigue, fever(s), headache(s), night sweats, weakness, weight change, abnormal sleep pattern or change in appetite Eyes Eyes: No change in vision ENT ENT: No headache(s) or dry mouth Resp Respiratory: No cough, chest congestion, shortness of breath or wheezing Cardio Cardiology: Positive for other (No chest pain.); No shortness of breath, irregular heart rhythm or lightheadedness Gastro GI: Positive for other (No nausea.); No abdominal pain, change in bowel habits, constipation, diarrhea or vomiting Musc Musculoskeletal: No abnormal gait Skin Skin: No yellowing of the eye, lesions, itchy eyes, rash or skin ulcer Neuro Neurology: No abnormal gait, confusion, dizziness, weakness, headache(s) or memory loss Psy (more content not included)... [facility] 36on 07-04-2024 36 Pt. Called and does not want to schedule screening colonoscopy at this time. Pt. States she will call back when she is ready to schedule. [facility] Kidney and Bladderon 025 Kidney and Bladder [facility] [address] [place] [address] Kidney and Bladder MR#: [id number] Acct: [id number] Name: JOVANY SOMMERS Rep #: [id number] : 1955 F 68 From: Rodríguez Husain MD PCP: Dr. Jasper Zeng DO Status: REG CLI Study: Kidney and Bladder Date of Exam: 07/04/24 Exam# [id number] Ordering Dr: Shanel Almaraz MD EXAM: US Retroperitoneal Limited, Renal CLINICAL INDICATION: UTI TECHNIQUE: Real-time limited ultrasound of the retroperitoneum with image documentation. COMPARISON: No relevant prior studies available. FINDINGS: RIGHT KIDNEY: 4 mm right renal pelvic calculus without obstruction. Right renal cyst measuring up to 1.9 cm. The right kidney measures 11.5 x 5.1 x 5.0 cm. LEFT KIDNEY: Unremarkable. No stones. No hydronephrosis. The left kidney measures 12.2 x 4.6 x 5.3 cm. BLADDER: Anechoic lesion anterior to the urinary bladder measuring up to 0.9 cm could be a cyst or diverticulum. Bladder wall thickening which may be due to the decompressed state of the bladder or due to cystitis. Urinary bladder wall measures up to 5.5 mm thick. OTHER FINDINGS: Prevoid volume 187 cc. Postvoid volume 28 cc. US/Kidney and Bladder IMPRESSION: 1. Anechoic lesion anterior to the urinary bladder measuring up to 0.9 cm could be a cyst or diverticulum. 2. Bladder wall thickening which may be due to the decompressed state of the bladder or due to cystitis. 3. 4 mm right renal pelvic calculus without obstruction. Reading Location: [facility] CC: Dr. Jasper Zeng DO; Dr. Shanel Almaraz MD Tunnel Heading Supervisor: Signed [facility] 36on 06-08-2024 36 Spoke with patient a nd advised, patient stated she needs refill on hydralazine. Medication pended for you're review. [facility] 36 S: [facility] nurse regarding medication question and concern B: Onset of symptoms/concern KEN 06/05/24 A: Calls regarding medication confusion. At [facility] 06/05/24, she was clarifying medication on arrival, and is home now and reviewing her medications and found a discrepancy. Thought she was taking hydrochlorothiazide and when she went home, she found she has been taking hydralazine 25 mg twice daily, and notes bottle reads three times daily. (Has 1 month left left of this) She was prescribed hydrochlorothiazide with this visit, but states she has not taken this since perhaps a cardiology [facility] visit? R: Message to provider for review and recommendation. Advised she will continue hydralazine twice daily until she hears back from provider. Patient understands care advice. No further needs at this time. Patient instructed to call back with new or worsening symptoms. Reason for Disposition Caller has NON-URGENT medicine question about med that PCP or specialist prescribed and triager unable to answer question Protocols used: Medication Question [facility] 36on 06-06-2024 36 Name of caller: [facility] Contact phone number: [phone] Relationship to Patient: [facility] Provider: [facility] Practice: [facility] Chief Complaint/Reason for Call: Tenisha called stating the Flonase sensimist is not covered by the patient's insurance. The covered brand is Fluticasone SD nasal spray 16gm rx 50 mcg. Ref #[id number] Best time of day caller can be reached: [phone] Patient advised that office/PCP has 24-48 business hours to return their call: no [facility] Office Visiton 06-05-2024 Follow-up visit [id number] Jovany Sommers 1955 F Date Provider Department Center 06/05/2024 [id number] ZENG [facility] Family History Problem Relation Age of Onset Lung cancer Mother 60 Hypertension Mother Diabetes type II Mother Comments: oral rx Dementia Mother Colon polyps Mother COPD Mother 77 Comments: smoker Pacemaker Mother Lung cancer Father 64 Comments: smoker Hypertension Sister Comments: alive age 77 Other Sister Comments: Spinal DDD w/neuropathy, alive age 60 Coronary artery disease Sister 55 Comments: CABG, alive age 74 Hypertension Sister Kidney disease Sister Diabetes Sister Comments: oral rx Cancer Sister Comments: ? primary stomach to liver at age 60 Prostate cancer Brother Coronary artery disease Brother Comments: stent, alive age 72, TAA Rheum arthritis Brother Hypertension Brother Cancer Maternal Grandmother Comments: breast Diabetes type II Maternal Grandfather Diabetes type II Paternal Grandmother COPD Paternal Grandfather Family Status - Relation Status Age at Mother 67 Father 77 Sister Alive Sister Alive Sister Alive Sister 60 Brother Alive Maternal Grandmother Maternal Grandfather Paternal Grandmother Paternal Grandfather Level of Service:25592 SD OFFICE/OUTPATIENT ESTABLISHED MOD MDM 30 MIN Reason for Visit and Comments: Follow-up [519238] - Med check Normal [facility] Progress Noteon 06-05-2024 Progress Note [facility] [address] [facility] [address] Visit type: Established Patient Reason for Visit: Follow-up (Med check) Assessment / Plan: Jovany was seen today for follow-up. Diagnoses and all orders for this visit: Essential hypertension (Primary) Comments: Stable, continue Aceon and hydrochlorothiazide Orders: - CBC auto differential; Future - Comprehensive metabolic panel; Future - CBC auto differential - Comprehensive metabolic panel Intrinsic eczema Gastroesophageal reflux disease without esophagitis Comments: Stable, continue Prilosec and GI referral Mixed hypercholesterolemia and hypertriglyceridemia Comments: Stable on Lipitor Orders: - Lipid panel; Future - Lipid panel Colon cancer screening Non-seasonal allergic rhinitis due to other allergic trigger Comments: Stable on Flonase and Singulair Osteopenia, unspecified location Comments: Noted, risk of bisphosphonate as discussed, begin Fosamax Family history of diabetes mellitus Other orders - atorvastatin (Lipitor) 40 MG tablet; Take 1 tablet (40 mg) by mouth daily. - hydroCHLOROthiazide (HYDRODiuril) 25 MG tablet; Take 1 tablet (25 mg) by mouth 2 times daily. - montelukast (Singulair) 10 MG tablet; Take 1 tablet (10 mg) by mouth Nightly. - omeprazole (PriLOSEC) [address] capsule; Take 1 capsule (40 mg) by mouth daily. - perindopril (Aceon) 8 MG tablet; Take 1 tablet (8 mg) by mouth 2 times daily. - clotrimazole (Lotrimin) 1 % cream; Apply topically 2 times daily. - triamcinolone (Kenalog) 0.5 % cream; Apply topically 3 times daily. - fluticasone (Flonase Sensimist) 27.5 MCG/SPRAY nasal spray; Administer 1-2 sprays into each nostril daily. - alendronate (Fosamax) 35 MG tablet; Take 1 tablet (35 mg) by mouth every 7 days. Take in the morning with a full glass of water, on an empty stomach, and do not take anything else by mouth or lie down for the next 30 min. Subjective: Patient ID: Jovany Sommers is a 68 y.o. female. HPI hypertension lipid management for patient that was found to have no coronary disease last year. She feels well. Recent mammogram noted. Did have a bone density showed persistent osteopenia. Has been on vitamin D and calcium and was not offered any alternate med. She is tries to stay active and stays healthy overall Review of Systems no recent earache sore throat or cough. Denies chest pain palpitations PND orthopnea claudication or edema. No breakthrough heartburn on her meds. Does not smoke or drink. Bowels are regular. Overdue for colonoscopy. No melena or blood constipation diarrhea. No postmenopausal vaginal bleeding. No breast complaints. Extreme rare use of Celebrex. Perhaps a half a dozen pills a year. Allergies Allergen Reactions Chlorpheniramine-Phenyle phrine Current Outpatient Medications on File Prior to Visit Medication Sig Dispense Refill acetaminophen (Tylenol 8 Hour) 650 MG ER tablet aspirin 81 MG EC tablet Every 24 hours. cholecalciferol (D3-5) 5,000 Units tablet Take by mouth. Coenzyme Q10 100 MG tablet Take by mouth daily. LUTEIN PO Take by mouth daily. Multiple Vitamin (multivitamin) tablet Take 1 tablet by mouth daily. [DISCONTINUED] atorvastatin (Lipitor) 40 MG tablet TAKE 1 TABLET DAILY 90 tablet 3 [DISCONTINUED] clotrimazole (Lotrimin) 1 % cream Apply topically 2 times daily. [DISCONTINUED] hydroCHLOROthiazide (HYDRODiuril) 25 MG tablet Take 25 mg by mouth twice a day. [DISCONTINUED] montelukast (Singulair) 10 MG tablet Take 1 tablet (10 mg) by mouth Nightly. 90 tablet 1 [DISCONTINUED] omeprazole (PriLOSEC) [address] capsule TAKE 1 CAPSULE DAILY 90 capsule 3 [DISCONTINUED] perindopril (Aceon) 8 MG tablet Take 1 tablet (8 mg) by mouth 2 times daily. 180 tablet 1 [DISCONTINUED] triamcinolone (Kenalog) 0.5 % cream Apply topically 3 times daily. 45 g 1 celecoxib (CeleBREX) 100 MG capsule take 1 capsule by mouth q day prn with food (Patient not taking: Reported on 06/05/2024) 90 capsule 1 [DISCONTINUED] hydrALAZINE (Apresoline) 25 MG tablet Increase to one TID (Patient not taking: Reported on 06/05/2024) 270 tablet 1 No current facility-administered medications on file prior to visit. Patient Active Problem List Diagnosis LBBB (left bundle branch block) OAB (overactive bladder) Osteoarthritis, shoulder Plantar fasciitis of left foot Allergic rhinitis Eczema Multiple renal cysts Family history of coronary artery disease Carpal tunnel syndrome Family history of diabetes mellitus Essential hypertension GERD (gastroesophageal reflux disease) Gall bladder polyp Family history of lung cancer Mixed hypercholesterolemia and hypertriglyceridemia TIA (transient ischemic attack) Nonrheumatic mitral valve regurgitation Encounter for monitoring NSAID therapy Primary osteoarthritis of knee Prediabetes Agatston CAC score, <100 Social History Tobacco (more content not included)... [facility] 36 05-15-2024 36 Recent Visits Date Type Provider Dept 12/06/23 Office Visit Jasper Zeng DO [facility] 11/08/23 Office Visit Thomas Fields PA-C [facility] 06/07/23 Office Visit Jasper Zeng DO [facility] Showing recent visits within past 365 days and meeting all other requirements Future Appointments Date Type Provider Dept 06/05/24 Appointment Jasper Zeng DO [facility] Showing future appointments within next 90 days and meeting all other requirements Requested Prescriptions Pending Prescriptions Disp Refills atorvastatin (Lipitor) 40 MG tablet [Pharmacy Med Name: ATORVASTATIN TABS 40MG] 90 tablet 3 Sig: TAKE 1 TABLET DAILY omeprazole (PriLOSEC) [address] capsule [Pharmacy Med Name: OMEPRAZOLE DR CAPS 40MG] 90 capsule 3 Sig: TAKE 1 CAPSULE DAILY Provider: Jasper Zeng DO Verified pharmacy: yes Verified day(s) supplied: yes Verified refill(s) needed (previous prescription showing no refills in chart): Yes Have you received any controlled medications from any other provider? No Overdue for visit: No If yes - patient scheduled? Yes Most recent labs completed in chart? Yes Cholesterol: Lab Results Component Value Date CHOLESTEROLT 144 12/06/2023 HDLCHOLESTER 52 12/06/2023 TRIGLYCERIDE 120 12/06/2023 LDLCHOLESTER 71 12/06/2023 CHOLHDLCRATI 2.8 12/06/2023 NONHDLCHOLES 92 12/06/2023 Normal [facility] 36on 05-01-2024 36 noted Normal [facility] 36 S: pt calling [facility] urinary frequency B: ongoing A: frequent urination. Pt states if she drinks enough water she does not have this problem. Has been ongoing since October 2023. Does not happen every day. Pushing fluids. Does urinate a lot when she does go. R: RN scheduled pt for first available on 05/08, also advised pt to call her urologist at [facility] for appt as well, pt voiced understanding. Reason for Disposition All other urine symptoms Protocols used: Urinary [id number]-FM Normal [facility] BD DXA - AXIAL SKELETONon BD DXA - AXIAL SKELETON * * *Final Report* * * DATE OF EXAM: Mar 30 2024 8:03AM [id number] - BD DXA - AXIAL SKELETON / PROCEDURE REASON: multiple diagnoses * * * * Physician Interpretation * * * * EXAMINATION: DXA BONE DENSITOMETRY BD DXA - AXIAL SKELETON PATIENT DEMOGRAPHICS: Age: 68 years, Gender: Female SCANNER INFORMATION: DXA Model: Placeword - TuTanda [id number] Date Scanned: 03/30/2024 8:03 AM CLINICAL HISTORY: DIAGNOSTIC Screening for osteoporosis Menopause . Postmenopausal. RISK FACTORS FOR OSTEOPOROSIS AND ASSOCIATED FRACTURES REPORTED BY THIS PATIENT: Please refer to Bone Health Questionnaire in the EMR CURRENT THERAPY: Please refer to Bone Health Questionnaire in the EMR TECHNICAL LIMITATIONS: Degenerative disease of the spine RESULTS: Lumbar spine (L1, L2, L4): 0.969 g/cm2, T-score -1.7, Z-score -0.3 Lumbar spine: 2021: 1.059 g/cm2 Statistically significant decrease Right Femoral Neck: 0.796 g/cm2, T-score -1.7, Z-score -0.3 Right Femoral Neck: 2021: 0.725 g/cm2 Statistically significant increase Right Total Hip: 0.878 g/cm2, T-score -1.0, Z-score 0.2 Right Total Hip: 2021: 0.811 g/cm2 Statistically significant increase Left Femoral Neck: 0.837 g/cm2, T-score -1.4, Z-score 0.0 Left Femoral Neck: 2021: 0.861 g/cm2 No statistically significant change Left Total Hip: 0.923 g/cm2, T-score -0.7, Z-score 0.5 Left Total Hip: 2021: 0.961 g/cm2 Statistically significant decrease CHANGE IS STATISTICALLY SIGNIFICANT IN THE SPINE OR HIP IF GREATER THAN OR EQUAL TO 0.04 g/cm2 VERTEBRAL FRACTURE ASSESSMENT Not performed. TRABECULAR BONE ASSESSMENT TBS not performed: not ordered IMPRESSION: THE LOWEST T-SCORE IS -1.7 IN THE SPINE AND RIGHT HIP 1) DIAGNOSIS (based on BMD alone): OSTEOPENIA Caution: Medical conditions other than osteoporosis may cause low bone density, such as osteomalacia or renal osteodystrophy. Clinical correlation is necessary. 2) FRACTURE RISK (based on FRAX): 10-year absolute fracture risk: - major osteoporotic fracture = 10.1 % - hip fracture = 1.5 % - A diagnosis of Osteoporosis, a 10 year probability of hip fracture greater than or equal to 3% or a 10 year probability of any major osteoporosis-related fracture greater than or equal to 20% should be considered for treatment. - DXA scanner generated FRAX calculations may slightly differ from online FRAX calculations due to differences in software versions. - All recommendations and calculations are to be considered as guidelines and should not replace sound clinical judgement - Caution: Fracture risk may be increased independent of BMD in patients with corticosteroid use, age greater than 65 years, or a history of prior fragility fracture. RECOMMENDATIONS: Follow-up in 2 years or as clinically indicated. Patients that are taking corticosteroids, are transplant recipients or have hyperparathyroidism should have annual follow-up. Follow-up scans should always be done on the same machine for accurate comparison. FOR MORE INFORMATION ABOUT DIAGNOSIS AND TREATMENT: [facility] Center for Osteoporosis and Metabolic Bone Disease:? www.ccf.org/arthritis/os addis National Osteoporosis Foundation:? www.nof.org International Society of Clinical Densitometry www.iscd.org Tunnel Heading Supervisor: MIKI Transcribe Date/Time: Apr 02 2024 10:44P Dictated by : CAITIE DOBBS MD This examination was interpreted and the report reviewed and electronically signed by: CAITIE DOBBS MD on Apr 02 2024 10:46PM EST [id number] -1.7 Normal [facility] MARIAJOSE SCREENING W TOMOon 03-30 MARIAJOSE SCREENING W DAVE * * *Final Report* * * DATE OF EXAM: Mar 30 2024 8:35AM [id number] - MARIAJOSE SCREENING W DAVE / PROCEDURE REASON: multiple diagnoses * * * * Physician Interpretation * * * * [facility] [address] [place] [address] #[id number] - MARIAJOSE SCREENING W DAVE HISTORY: Patient is 68 years old and is seen for screening and is asymptomatic in both breasts. Patient states no personal history of breast cancer. Patient states no personal history of other cancers. COMPARISON STUDIES: The present examination has been compared to a prior imaging study dated 03/26/2022 (mammogram). MAMMOGRAM TECHNIQUE: The study was acquired using full field digital technology and interpreted from soft copy. Digital Breast Tomosynthesis (DBT) images were obtained and used to assist in the interpretation of this examination. Computer-aided detection was utilized by the radiologist in the interpretation of this examination. MAMMOGRAM FINDINGS: The breasts are heterogeneously dense, which may obscure small masses. No suspicious masses, calcifications or other abnormalities are seen in either breast. There are no significant interval changes. IMPRESSION: There is no mammographic evidence of malignancy. Routine screening mammogram is recommended. Annual mammogram will be due in 1 year. BI-RADS Category 1: Negative RISK: Based on the Tyrer-Cuzick (TC) risk assessment model, this patient has a 5.6% lifetime risk of developing breast cancer, meaning they are at average risk for developing breast cancer. However, this is only an estimate based on available history provided on the patient's questionnaire. We encourage all patients to talk with their providers about these results, further recommendations for managing breast health, and appropriate supplemental screening options if the patient has dense breast tissue. Interpreting Radiologist: Joanna Flynn M.D. Electronically signed on: 04/02/2024 Tunnel Heading Supervisor: MONIQUE Transcribe Date/Time: Mar 30 2024 8:07A Dictated by : JOANNA FLYNN MD This examination was interpreted and the report reviewed and electronically signed by: JOANNA FLYNN MD on Apr 02 2024 7:12AM EST [id number] Normal [facility] Cobalamin (Vitamin B12) [Mas s/Vol]on 02-09-2024 [facility] - Chemistry and C hemistry - challengeon 02-09-2024 Cobalamin (Vitamin B12) [Mass/Vol] 430 pg/mL 200 - 1100 pg/mL [facility] Progress Noteon 02-08-2024 Progress Note The patient, Jovany Sommers, identity was verified by name and . Supervising provider for clinic visit: Dr. Jasper Zeng Chief Complaint Patient presents with Blood Pressure Check Reason for visit: Elevated BP Reading at last visit Jovany Sommers has validated current medications Patient states compliant with medications as written: Yes BP medication taken prior to this visit? Yes Are you having any symptoms? Yes - Current Blood Pressure: 138/76 Current Heart Rate:71 Did Blood Pressure need rechecked: no Second Blood Pressure Reading: Second Heart Rate: Assessment/Plan: Jovany was seen today for blood pressure check. Diagnoses and all orders for this visit: Essential hypertension - Vitamin B12; Future - Vitamin B12 normal Future Appointments Date Time Provider Department Center 06/05/2024 7:00 AM Jasper Zeng DO [facility] 12/06/2024 7:00 AM Jasper Zeng DO [facility] Cc'd provider blood pressure readings? Yes Normal [facility] Progress Note Blood pressure stabl e, no med changes Normal [facility] Progress Note Talked to patient an d relayed message and she verbalized understanding. Normal [facility] Progress Noteon 01-10-2024 Progress Note The patient, Jovany Sommers, identity was verified by name and . Supervising provider for clinic visit: Dr. Zeng Chief Complaint Patient presents with Blood Pressure Check Reason for visit: follow up on BP Jovany Sommers is taking medication list verified for HTN Patient states compliant with medications as written: Yes BP medication taken prior to this visit? Yes Are you having any symptoms? No Current Blood Pressure:139/82 Current Heart Rate:60 Did Blood Pressure need rechecked: no Second Blood Pressure Reading: Second Heart Rate: Assessment/Plan: There are no diagnoses linked to this encounter. normal Future Appointments Date Time Provider Department Center 06/05/2024 7:00 AM Jasper Zeng, DO [facility] 12/06/2024 7:00 AM Jasper Zeng, DO [facility] Cc'd provider blood pressure readings? Yes Patient came in today for BP: BP: 139/82 P- 60 Normal [facility] Progress Note Placed call to keshawn meléndez. Two patient identifers confirmed. Was able to speak to patient. All concerns in message have been addressed and she will increase her medication. Patient is scheduled for BP recheck 02/08/24 Normal [facility] Progress Note Blood pressure impro linda but her goal should be systolic less than 130 and diastolic less than 80. I recommend increasing hydralazine to 25 mg 3 times daily. Recheck blood pressure and pulse in another 4 weeks Normal [facility] - Chemistry and C hemistry - challengeon 12-07-2023 TSH Qn 1.23 m[IU]/L [facility] Lipid 1996 panelon 4 Cholesterol [Mass/Vol] 144 mg/dL [facility] - 200 mg/dL [facility] Cholesterol in HDL [Mass/Vol] 52 mg/dL > OR = 50 [facility] Cholesterol in LDL [Mass/Vol] 71 mg/dL mg/dL (calc) [facility] Comment on above: Reference range: <10 0 Desirable range <100 mg/dL for primary prevention; <70 mg/dL for patients with CHD or diabetic patients with > or = 2 CHD risk factors. LDL-C is now calculated using the Roshan-Mark calculation, which is a validated novel method providing better accuracy than the Friedewald equation in the estimation of LDL-C. Roshan SS et al. MARIA VICTORIA. 2013;310(19): 2470-4983 (http://education.[employer]/faq/TOB389) Cholesterol non HDL [Mass/Vol] 92 mg/dL [facility] Comment on above: For patients with di abetes plus 1 major ASCVD risk factor, treating to a non-HDL-C goal of <100 mg/dL (LDL-C of <70 mg/dL) is considered a therapeutic option. Cholesterol.total/Cho lesterol in HDL [Mass ratio] 2.8 {ratio} [facility] Triglyceride [Mass/Vol] 120 mg/dL [facility] - 150 mg/dL [facility] No Panel Informationon 12-06 [facility] XR Chest 2 Viewson No acute cardiopulmonary disease. Report Dictated on Electronically Signed By: Rj Cardozo MD Electronically Signed Date/Time: 12/07/2023 7:44 PM EDT [facility] Patient Name: JOVANY SOMMERS : 1955 Exam Date/Time: 12/06/2023 08:57 Procedure: XR CHEST 2 VIEWS Ordering Provider: ZENG EUGENE Reason For Exam: chest pain CHEST X-RAY PA/LATERAL CLINICAL INDICATION: chest pain Frontal and lateral plain films of the chest were obtained. COMPARISON: None FINDINGS: The cardiac silhouette is within normal limits. No focal consolidation is seen within the lungs. No pleural effusion or pneumothorax is identified. Degenerative changes of the thoracic spine are noted. [facility] Rj Cardozo MD - 12/07/2023 Patient Name: JOVANY SOMMERS : 1955 Exam Date/Time: 12/06/2023 08:57 Procedure: XR CHEST 2 VIEWS Ordering Provider: ZENG EUGENE Reason For Exam: chest pain CHEST X-RAY PA/LATERAL CLINICAL INDICATION: chest pain Frontal and lateral plain films of the chest were obtained. COMPARISON: None FINDINGS: The cardiac silhouette is within normal limits. No focal consolidation is seen within the lungs. No pleural effusion or pneumothorax is identified. Degenerative changes of the thoracic spine are noted. IMPRESSION: No acute cardiopulmonary disease. Report Dictated on Electronically Signed By: Rj Cardozo MD Electronically Signed Date/Time: 12/07/2023 7:44 PM EDT [facility] XR Chest 2 ViewsOrdered By: Rj Cardozo on 12-07-2023 [facility] Office Visiton 12-06-2023 Follow-up visit [id number] Jovany Sommers 1955 F Date Provider Department Center 12/06/2023 [id number] ZAPIEN [facility] Family History Problem Relation Age of Onset Lung cancer Mother 60 Hypertension Mother Diabetes type II Mother Comments: oral rx Dementia Mother Colon polyps Mother COPD Mother 77 Comments: smoker Pacemaker Mother Lung cancer Father 64 Comments: smoker Hypertension Sister Comments: alive age 77 Other Sister Comments: Spinal DDD w/neuropathy, alive age 60 Coronary artery disease Sister 55 Comments: CABG, alive age 74 Hypertension Sister Kidney disease Sister Diabetes Sister Comments: oral rx Cancer Sister Comments: ? primary stomach to liver at age 60 Prostate cancer Brother Coronary artery disease Brother Comments: stent, alive age 72 Rheum arthritis Brother Hypertension Brother Cancer Maternal Grandmother Comments: breast Diabetes type II Maternal Grandfather Diabetes type II Paternal Grandmother COPD Paternal Grandfather Family Status - Relation Status Age at Mother 67 Father 77 Sister Alive Sister Alive Sister Alive Sister 60 Brother Alive Maternal Grandmother Maternal Grandfather Paternal Grandmother Paternal Grandfather Level of Service:[id number] SD PPPS, SUBSEQ VISIT Reason for Visit and Comments: Medicare Annual Wellness Visit Subsequent [677] Normal [facility] SHS PATINSon 12-06-2023 PATINS BP ch 4 wks Personalized Preventative Plan for Jovany Sommers - 12/06/2023 Medicare offers a range of preventative health benefits. Some of the tests and screenings are paid in full while others may be subject to a deductible, co-insurance, and / or copay. Some of these benefits include a comprehensive review of your medical history including lifestyle, illnesses that may run in your family, and various assessments and screenings as appropriate. After reviewing your medical record and screening and assessments performed today, your provider may have ordered immunizations, labs, imaging, and / or referrals for you. A list of these orders (if applicable) as well as your Preventative Care list are included within your After Visit Summary for your review. Other Preventative Recommendations: A preventive eye exam by an seeing eye dog trainer is recommended every 1-2 years to screen for glaucoma, cataracts, macular degeneration, and other eye disorders. A preventive dental visit is recommended every 6 months. Try to get at least 150 minutes of exercise per week or 10,000 steps per day on a pedometer. You need 1200-1500mg of calcium and [id number] international units of vitamin D per day. It is possible to meet your calcium requirement with diet alone, but a vitamin D supplement is usually necessary to meet this goal. When exposed to the sun, use a sunscreen that protects against both UVA and UVB radiation with an SPF of 30 or greater. Reapply every 2-3 hours or after sweating, drying off with a towel, or swimming. Always wear a seat belt when traveling in a car. Always wear a helmet when riding a bicycle or a motorcycle Normal [facility] Progress Noteon 12-06-2023 Progress Note [facility] [address] [facility] [address] Dept: [phone] Dept Chief Complaint: Jovany Sommers is an 67 y.o. female here for an annual wellness visit. Hypertension lipid management patient with history of left bundle branch block. Recent cardiac workup noted. Normal renal Doppler as well. Overall she feels well. Blood pressure better at home in the 120 range. Assessment/Plan : Problem List Items Addressed This Visit LBBB (left bundle branch block) Essential hypertension Relevant Medications hydrALAZINE (Apresoline) 25 MG tablet GERD (gastroesophageal reflux disease) Mixed hypercholesterolemia and hypertriglyceridemia Relevant Orders TSH Lipid panel Nonrheumatic mitral valve regurgitation Other Visit Diagnoses Encounter for subsequent annual wellness visit (AWV) in Medicare patient - Primary Subacute cough Relevant Orders XR chest 2 views I have reviewed and reconciled the medication list with the patient today. Current Outpatient Medications Medication Sig Dispense Refill acetaminophen (Tylenol 8 Hour) 650 MG ER tablet aspirin 81 MG EC tablet Every 24 hours. atorvastatin (Lipitor) 40 MG tablet TAKE 1 TABLET DAILY (Patient taking differently: Take 40 mg by mouth every other day.) 90 tablet 1 celecoxib (CeleBREX) 100 MG capsule take 1 capsule by mouth q day prn with food 90 capsule 1 cholecalciferol (D3-5) 5,000 Units tablet Take by mouth. clotrimazole (Lotrimin) 1 % cream Apply topically 2 times daily. Coenzyme Q10 100 MG tablet Take by mouth daily. LUTEIN PO Take by mouth daily. Multiple Vitamin (multivitamin) tablet Take 1 tablet by mouth daily. omeprazole (PriLOSEC) [address] capsule TAKE 1 CAPSULE DAILY 90 capsule 1 triamcinolone (Kenalog) 0.5 % cream Apply topically 3 times daily. 45 g 1 hydrALAZINE (Apresoline) 25 MG tablet One BID 180 tablet 1 montelukast (Singulair) 10 MG tablet Take 1 tablet (10 mg) by mouth Nightly. 90 tablet 1 perindopril (Aceon) 8 MG tablet Take 1 tablet (8 mg) by mouth 2 times daily. 180 tablet 1 No current facility-administered medications for this visit. Also reviewed during this visit: Tobacco Surg Hx The following health maintenance schedule was reviewed with the patient and provided in printed form in the after visit summary: Health Maintenance Topic Date Due Hepatitis C Screening Never done DTaP/Tdap/Td Vaccines (1 - Tdap) Never done Zoster Vaccines (1 of 2) Never done RSV Immunization aged 60 or older (1 - 1-dose 60+ series) Never done Mammogram 11/14/2020 Diabetes Screening 09/01/2022 COVID-19 Vaccine ( - 2022-24 season) Never done Medicare Advantage Annual Wellness Visit Never done Colorectal Cancer Screening 04/23/2024 Influenza Vaccine (1) 12/18/2023 Depression Screening 12/05/2024 Lipid Panel 06/07/2028 Pneumococcal Vaccine: 65+ Years Completed Bone Density Scan Completed RSV Immunization under 20 Months Aged Out HIB Vaccines Aged Out Hepatitis B Vaccines Aged Out IPV Vaccines Aged Out Hepatitis A Vaccines Aged Out Meningococcal Vaccine Aged Out Rotavirus Vaccines Aged Out HPV Vaccines Aged Out List of current healthcare providers: Patient Care Team: Jasper Zeng DO as PCP - General Orders Placed This Encounter Procedures XR chest 2 views Standing Status: Future Standing Expiration Date: 12/05/2024 TSH Standing Status: Future Number of Occurrences: 1 Standing Expiration Date: 12/05/2024 Lipid panel Standing Status: Future Number of Occurrences: 1 Standing Expiration Date: 12/05/2024 Review of Systems no constitutional symptoms. Allergies and sometimes a dry cough. No pleuritic pain. No purulent phlegm or fever or wheezing. Takes Singulair daily. Due for panendoscopy in April. No dysphagia. History of acid reflux but minimal use of Celebrex. PPI is effective. No early satiety melena or blood. Bowels are regular. No lower abdominal pain. History of osteoporosis and will be getting bone density and mammogram this winter. No breast complaints. Some knee arthralgias. Otherwise trying to do exercise and eat properly. LDL is at goal. Physical Exam The physical exam is generally normal. Patient appears well, alert and oriented x 3, pleasant, cooperative. Vitals are as noted. No carotid bruits. Neck supple, no abnormal adenopathy, thyroid lesions or masses. Ears, nose and throat are normal without acute findings. Lungs are clear to auscultation. Heart is regular, without murmurs, gallops or ectopy. Abdomen is soft, non tender, without masses, hepatosplenomegaly, or bruits. Normal BS evident. Extremities are normal without edema. Peripheral pulses are fair. No worrisome skin lesions. Screening neurological exam is normal without focal deficits. Objective : BP (!) 148/88 Pulse 71 Temp 36.1 ?C (97 ?F) (Temporal) Ht 5' 1.5 (1.562 m (more content not included)... Normal [employer] [facility] XR Chest 2 Viewson 4 Radiology Study observation (narrative) [email or web address] No Panel InformationOrdered By: James Rodriguez on 11-14-2023 Ao mid PSV 78.4 cm/s [facility] Phone: L renal orig RI 0.63 [employer] [facility] Work Phone: Left Arcuate Renal Artery EDV 10.8 cm/s [facility] Phone: [phone] Left Arcuate Renal Artery PSV 27.8 cm/s [email or web address] Work Phone: [phone] Left Arcuate Renal Artery RI 0.61 [facility] Phone: [phone] Left kidney length 11.67 cm [email or web address] Work Phone: [phone] Left renal dist EDV 28.4 cm/s [facility] Phone: [phone] Left renal dist PSV 77.8 cm/s [facility] Phone: [phone] Left renal dist RAR 0.99 [facility] Phone: Left Renal Dist RI 0.63 [facility] Work Phone: Left renal mid EDV 27.9 cm/s [facility] Work Phone: Left renal mid PSV 93.7 cm/s [facility] Work Phone: Left renal mid RAR 1.20 [facility] Work Phone: Left Renal Mid RI 0.70 [facility] Work Phone: Left renal middle parenchyma EDV 9.6 cm/s [facility] Work Phone: Left renal middle parenchyma PSV 26.6 cm/s [facility] Work Phone: Left renal middle parenchyma RI 0.64 [facility] Work Phone: Left renal origin EDV 23.8 cm/s [facility] Work Phone: Left renal origin PSV 64.9 cm/s [facility] Work Phone: Left renal origin RAR 0.83 [facility] Work Phone: Left renal prox EDV 24.5 cm/s [facility] Work Phone: Left renal prox PSV 71.0 cm/s [facility] Work Phone: Left renal prox RAR 0.91 [facility] Work Phone: Left Renal Prox RI 0.65 [facility] Work Phone: Left Renal RAR 1.20 [facility] Work Phone: Left Renal Segmental Accel Time 0.05 s [facility] Work Phone: Left Segmental Renal Artery EDV 9.6 cm/s [facility] Work Phone: Left Segmental Renal Artery PSV 26.6 cm/s [facility] Work Phone: Left Segmental Renal Artery RI 0.64 [facility] Work Phone: Right Arcuate Renal Artery EDV 6.9 cm/s [facility] Work Phone: Right Arcuate Renal Artery PSV 22.4 cm/s [facility] Work Phone: Right Arcuate Renal Artery RI 0.69 [facility] Work Phone: Right kidney length 12.31 cm [facility] Work Phone: Right renal dist EDV 30.3 cm/s [facility] Work Phone: Right renal dist PSV 121.6 cm/s [facility] Work Phone: Right renal dist RAR 1.55 [facility] Work Phone: Right Renal Dist RI 0.75 [facility] Work Phone: Right renal mid EDV 25.6 cm/s [facility] Work Phone: Right renal mid PSV 78.7 cm/s [facility] Work Phone: Right renal mid RAR 1.00 [facility] Work Phone: Right Renal Mid RI 0.67 [facility] Work Phone: Right renal middle parenchyma EDV 7.4 cm/s [facility] Work Phone: Right renal middle parenchyma PSV 25.3 cm/s [facility] Work Phone: Right renal middle parenchyma RI 0.71 [facility] Work Phone: Right renal origin EDV 28.5 cm/s [facility] Work Phone: Right renal origin PSV 97.9 cm/s [facility] Work Phone: Right renal origin RAR 1.25 [facility] Work Phone: Right Renal Origin RI 0.71 [facility] Work Phone: Right renal prox EDV 28.4 cm/s [facility] Work Phone: Right renal prox PSV 106.6 cm/s [facility] Work Phone: Right renal prox RAR 1.36 [facility] Work Phone: Right Renal Prox RI 0.73 [facility] Work Phone: [phone] Right Renal RAR 1.55 [facility] Work Phone: [phone] Right Renal Segmental Accel Time 0.04 s [facility] Work Phone: [phone] Right Segmental Renal Artery EDV 7.4 cm/s [facility] Work Phone: [phone] Right Segmental Renal Artery PSV 25.3 cm/s [facility] Work Phone: [phone] Right Segmental Renal Artery RI 0.71 [facility] Work Phone: No Panel Informationon 11-13 No hemodynamically significant stenosis involving bilateral renal arteries. Right renal vein is patent and demonstrates normal phasicity. Left renal vein is patent and demonstrates normal phasicity. Renal Study is negative for hemodynamically significant stenosis involving bilateral renal arteries. Right Renal Findings: Patent origin, proximal, mid and distal artery without evidence of a significant stenosis. Right renal vein is patent and demonstrates normal phasicity. Left Renal Findings: Patent origin, proximal, mid and distal artery without evidence of a significant stenosis. Left renal vein is patent and demonstrates normal phasicity. Technical Support Professional Details A mayer scale, color Doppler imaging and spectral Doppler analysis ultrasound was performed. During the study longitudinal and transverse views were obtained. The exam was performed with the patient in the supine and decubitus position. Overall the study quality was good. [facility] CTA Heart and Coronary arter ies WO and W contrast Yogesh 11-10-2023 [facility] 1955 [id number] Exam Date/Time: 11/10/2023 14:24 Procedure: CT CORONARY CTA WITH PROV FFR-CT Ordering Provider: FIELDS JAMES Reason For Exam: ECG abnormal, intermediate CAD risk Coronary CTA Indication: 67 year-old woman with chest discomfort. Study performed to evaluate for coronary artery disease. Technique: Computed tomography of the heart and surrounding structures was performed using a Wynot multidetector scanner with cardiac gating and dose reduction techniques. Images were reconstructed and analyzed on an advanced post-processing 3D workstation. Sublingual nitroglycerin was administered for coronary dilation and oral metoprolol was taken in advance for heart rate optimization. See nursing notes for additional details of medications given in the CT department. Contrast: 75 ml Total DLP = 344.4 mGy-cm Study Quality: fair. Motion artifact Extracardiac Findings: The visualized portions of the chest wall, lungs, and mediastinum are unremarkable. For a complete description of extracardiac structures, please refer to the accompanying radiology addendum. Cardiac Chambers and Valves: The pericardium is unremarkable. The left and right ventricles are normal in size. The left and right atria are normal in size. The left atrial appendage is normal in appearance. The mitral valve is unremarkable by CT appearance. The aortic valve is trileaflet. Great Vessels: The ascending aorta is mildly dilated, the mid ascending aorta diameter is 3.7 cm. The sinuses of valsalva diameter is 3.2 cm and STJ 3.0 cm in diameter. The aortic arch is not included in the present study. The included portions of the descending thoracic aorta are normal in size. Coronary Anatomy: The coronaries have normal origins. There is a pattern of right coronary dominance. Coronary artery calcium score: total score 55.4 AU. Score per vessel (LAD 19.9 AU, LCx 0 AU and RCA 35.5 AU). Left Main Trunk: This is a large vessel that bifurcates normally into the LAD and LCx. There is no atherosclerotic plaque and no luminal stenosis in the left main trunk. Left Anterior Descending Artery: This is a large vessel that wraps around the apex after providing 2 diagonal branches. There is a calcified plaque in the ostium of the LAD without significant stenosis. There is a noncalcified plaque in the mid LAD with 10% stenosis. There is mild myocardial bridging in the distal LAD without significant stenosis. The distal LAD tapers into a small vessel (1.5 mm caliber). There is no significant stenosis in the diagonal branches. Left Circumflex Artery: This is a medium-sized non-dominant vessel that gives rise to 2 obtuse marginal branches. There is no significant disease in LCx, technically difficult assessment. Right Coronary Artery: This is a large dominant vessel. It gives rise to a medium-sized PDA and small posterior ventricular branch. There is a partially calcified plaque in the mid RCA with <10% stenosis. CONCLUSIONS: 1. Trivial nonobstructive coronary atherosclerosis, technically difficult study. 2. The coronary calcium score is 55.4 (Agatston method). 3. Mildly dilated ascending aorta CAD-RADS 1 Recommendation: Preventive pharmacotherapy and risk factor modification. Consider non-atherosclerotic causes of symptoms. Sirisha Dwyer MD Report Dictated on Electronically Signed By: Sirisha Dwyer Electronically Signed Date/Time: 11/10/2023 3:57 PM [facility] Sirisha Dwyer MD - 11/10/2023 Patient Name: [facility]ERS : 1955 [id number] Exam Date/Time: 11/10/2023 14:24 Procedure: CT CORONARY CTA WITH PROV FFR-CT Ordering Provider: FIELDS JAMES Reason For Exam: ECG abnormal, intermediate CAD risk Coronary CTA Indication: 67 year-old woman with chest discomfort. Study performed to evaluate for coronary artery disease. Technique: Computed tomography of the heart and surrounding structures was performed using a Linda multidetector scanner with cardiac gating and dose reduction techniques. Images were reconstructed and analyzed on an advanced post-processing 3D workstation. Sublingual nitroglycerin was administered for coronary dilation and oral metoprolol was taken in advance for heart rate optimization. See nursing notes for additional details of medications given in the CT department. Contrast: 75 ml Total DLP = 344.4 mGy-cm Study Quality: fair. Motion artifact Extracardiac Findings: The visualized portions of the chest wall, lungs, and mediastinum are unremarkable. For a complete description of extracardiac structures, please refer to the accompanying radiology addendum. Cardiac Chambers and Valves: The pericardium is unremarkable. The left and right ventricles are normal in size. The left and right atria are normal in size. The left atrial appendage is normal in appearance. The mitral valve is unremarkable by CT appearance. The aortic valve is trileaflet. Great Vessels: The ascending aorta is mildly dilated, the mid ascending aorta diameter is 3.7 cm. The sinuses of valsalva diameter is 3.2 cm and STJ 3.0 cm in diameter. The aortic arch is not included in the present study. The included portions of the descending thoracic aorta are normal in size. Coronary Anatomy: The coronaries have normal origins. There is a pattern of right coronary dominance. Coronary artery calcium score: total score 55.4 AU. Score per vessel (LAD 19.9 AU, LCx 0 AU and RCA 35.5 AU). Left Main Trunk: This is a large vessel that bifurcates normally into the LAD and LCx. There is no atherosclerotic plaque and no luminal stenosis in the left main trunk. Left Anterior Descending Artery: This is a large vessel that wraps around the apex after providing 2 diagonal branches. There is a calcified plaque in the ostium of the LAD without significant stenosis. There is a noncalcified plaque in the mid LAD with 10% stenosis. There is mild myocardial bridging in the distal LAD without significant stenosis. The distal LAD tapers into a small vessel (1.5 mm caliber). There is no significant stenosis in the diagonal branches. Left Circumflex Artery: This is a medium-sized non-dominant vessel that gives rise to 2 obtuse marginal branches. There is no significant disease in LCx, technically difficult assessment. Right Coronary Artery: This is a large dominant vessel. It gives rise to a medium-sized PDA and small posterior ventricular branch. There is a partially calcified plaque in the mid RCA with <10% stenosis. CONCLUSIONS: 1. Trivial nonobstructive coronary atherosclerosis, technically difficult study. 2. The coronary calcium score is 55.4 (Agatston method). 3. Mildly dilated ascending aorta CAD-RADS 1 Recommendation: Preventive pharmacotherapy and risk factor modification. Consider non-atherosclerotic causes of symptoms. Sirisha Dwyer MD Report Dictated on Electronically Signed By: Sirisha Dwyer Electronically Signed Date/Time: 11/10/2023 3:57 PM EDT [facility] [email or web address] Radiology Study observation (narrative) [facility] [email or web address] CTA Heart and Coronary arter ies WO and W contrast IVOrdered By: Sirisha Dwyer on 11-10-2023 [email or web address] Work Phone: CBC W Auto Differential pane l (Bld)on 11-08-2023 Basophils (Bld) [#/Vol] 0.0 10*3/uL 0.0 - 0.2 10*3/uL [facility] [email or web address] Basophils/100 WBC (Bld) 0.3 % 0.0 - 2.0 % [facility] [email or web address] Eosinophils (Bld) [#/Vol] 0.1 10*3/uL 0.0 - 0.5 10*3/uL [facility] Eosinophils/100 WBC (Bld) 1.5 % 0.0 - 6.0 % [facility] Erythrocyte distribution width (RBC) [Ratio] 12.4 % 11.5 - 15.0 % [facility] Hematocrit (Bld) [Volume fraction] 40.0 % 35.0 - 47.0 % [facility] Hemoglobin (Bld) [Mass/Vol] 13.3 g/dL 11.7 - 16.0 g/dL [facility] Immature granulocytes (Bld) [#/Vol] 0.0 10*3/uL NINF - 0.1 10*3/uL [facility] Immature granulocytes/100 WBC (Bld) 0.3 % 0.0 - 2.0 % [facility] Interpretation and review of laboratory results Normal [facility] Lymphocytes (Bld) [#/Vol] 2.3 10*3/uL 1.0 - 4.3 10*3/uL [facility] Lymphocytes/100 WBC (Bld) 25.0 % 15.0 - 45.0 % [facility] MCH (RBC) [Entitic mass] 29.2 pg 26.0 - 34.0 pg [facility] MCHC (RBC) [Mass/Vol] 33.3 % 30.5 - 36.0 % [facility] MCV (RBC) [Entitic vol] 87.9 fL 77.0 - 99.0 fL [facility] Monocytes (Bld) [#/Vol] 0.6 10*3/uL 0.0 - 0.9 10*3/uL [facility] Monocytes/100 WBC (Bld) 6.0 % 5.0 - 13.0 % [facility] Neutrophils (Bld) [#/Vol] 6.2 10*3/uL 1.8 - 7.5 10*3/uL [facility] Neutrophils/100 WBC (Bld) 66.9 % 38.0 - 82.0 % [facility] Nucleated RBC/100 WBC (Bld) [Ratio] 0.0 % [facility] Platelet mean volume (Bld) [Entitic vol] 9.5 fL 9.0 - 12.7 fL [facility] Comment on above: MPV is a calculated measurement using platelet volume ratio Platelets (Bld) [#/Vol] 230 10*3/uL 140 - 440 10*3/uL [facility] RBC (Bld) [#/Vol] 4.55 10*6/uL 3.80 - 5.2 0 10*6/uL [facility] WBC (Bld) [#/Vol] 9.2 10*3/uL 3.6 - 10.7 10*3/uL [facility] Comprehensive metabolic 1998 panelon 11-08-2023 Albumin [Mass/Vol] 4.4 g/dL 3.5 - 5.0 g/dL [facility] ALP [Catalytic activity/Vol] 89 U/L 38 - 126 U/L [facility] ALT [Catalytic activity/Vol] 23 U/L 0 - 34 U/L [facility] Anion gap [Moles/Vol] 9 mmol/L 3 - 13 mmol/L [facility] AST [Catalytic activity/Vol] 31 U/L 15 - 46 U/L [facility] Bilirubin [Mass/Vol] 0.7 mg/dL 0.2 - 1 .3 mg/dL [facility] Calcium [Mass/Vol] 9.5 mg/dL 8.4 - 10. 4 mg/dL [facility] Chloride [Moles/Vol] 102 mmol/L 98 - 10 7 mmol/L [facility] CO2 [Moles/Vol] 28 mmol/L 22 - 30 mmol/L [facility] Creatinine [Mass/Vol] 0.63 mg/dL 0.52 - 1.04 mg/dL [facility] GFR/1.73 sq M.predicted MDRD (S/P/Bld) [Vol rate/Area] - PINF [facility] Comment on above: Calculation based on the Chronic Kidney Disease Epidemiology Collaboration (CKD-EPI) equation refit without adjustment for race Glucose [Mass/Vol] 94 mg/dL 70 - 100 mg/dL [facility] Interpretation and review of laboratory results Normal [facility] Potassium [Moles/Vol] 3.6 mmol/L 3.5 - 5.1 mmol/L [facility] Protein [Mass/Vol] 7.0 g/dL 6.3 - 8.2 g/dL [facility] Sodium [Moles/Vol] 139 mmol/L 135 - 145 mmol/L [facility] Urea nitrogen [Mass/Vol] 10 mg/dL 7 - 17 mg/dL [facility] No Panel Informationon 11-07 Bil[facility], [facility]-Intact [facility] Glucose, UA Negative [facility] Ketones, UA (mg/dL) Negative Negative mg/dL [facility] Leukocytes, UA Small [facility] th Nitrite, UA Negative [facility] pH, UA 6.0 [facility] Protein, UA Negative [facility] Spec Grav, UA 1.020 [facility]alt [facility] Urobilinogen, UA 0.2 [facility] ECG 12 leadon 06-07-2023 [facility] CNCOon 09-02-2021 [facility] HNO ID: [id number] Author: RT Philly(R) Service: Radiology Author Type: Technologist Type: [facility] Filed: 09/01/2021 11:23 AM Note Text: Radiology Service Progress Note PATIENT NAME: Jovany Sommers DATE OF SERVICE: September 01, 2021 TIME: 11:22 AM PATIENT IDENTITY VERIFICATION COMPLETED USING TWO (2) IDENTIFIERS: Name and Date of confirmed by patient verbally and Name and Date of confirmed by identification band. FALL SCREENING: Has the patient had 2 falls in the last year or 1 fall with injury or currently using an Ambulatory Assistive Device (Walker, Cane, Wheelchair, Crutches, etc.)? Inpatient: Screened on floor PATIENT GENDER DATA: Female. status: : No status: NO. PATIENT RELEVANT IMPLANT DATA REVIEWED: Yes RADIOLOGY DEPARTMENT: MR; Exam(s) Completed: Head: Routine Brain [place] MRA Neck: Carotids MRA, bilateral PERIPHERAL IV DATA: Not applicable SIGNED BY: VASILE Olea September 01, 2021 11:22 AM [facility] CASE MANAGEMon 09-01-2021 CASE MANAGEM HNO ID: [id number] Author: YUMIKO Herrera Service: ASSESSMENT Author Type: Regulatory Specialist Type: Care Mgt Progress Note Filed: 09/01/2021 6:19 PM Note Text: CARE MANAGEMENT DISCHARGE NOTE SERVICE DATE: 09/01/2021 SERVICE TIME: 6:18 PM LOS: 0 days Admission Date: 08/31/2021 DISCHARGE ARRANGEMENT (list agency and phone number) Discharge Arrangement: Home with Self Care Provider Name: N/A Phone: N/A CAREGIVER ASSESSMENT: Caregiver is ready, willing and able to meet the patient's needs as recommended by the inter-professional team:: No Caregiver needed Does the patient have an acute stroke diagnosis, or has the patient had a stroke during this admission?: No Patient's transition needs and plan for meeting these needs: Pt. able to meet her own basic needs upon discharge. HANDOFF COMMUNICATION: Handoff to: Primary Care Physician Primary Care Physician Name/Phone: Dr. Zeng [phone] TRANSPORTATION ARRANGEMENTS: Transportation Arrangements: Car (Family to transport pt. home.) ADDITIONAL CONTACT RESOURCES: N/A Needs Prior to Discharge: None;Ready for Discharge Discharge Time Out Yes Pt. Will discharge home today w/basic needs. Pts. Family will transport her home. SW will remain available should any further discharge planning needs arise. SIGNATURE: Jackson Engel DRIVER MERCHANDISER, WOUND CARE CENTER CONSULTANT, FUNMI PATIENT NAME: Jovany Sommers DATE: September 01, 2021 TIME: 6:18 PM PAGER/CONTACT #: Normal [facility] CBC panel Auto (Bld)on 09-01 Erythrocyte distribution width (RBC) [Ratio] 12.4 % Normal 11.5-15.0 [facility] Comment on above: Order Comment: James bergeron Type: BLOOD SPECIMENOrdering Facility: [facility] Address: [address] [place] [address] Performed By: #### U AMIC UA #### [facility] Laboratory [address] [place] [address] Hematocrit (Bld) [Volume fraction] 40.2 % Normal 36.0-46.0 [facility] Comment on above: Order Comment: James bergeron Type: BLOOD SPECIMENOrdering Facility: [facility] Address: [address] [place] [address] Performed By: #### U AMIC, UA #### [facility] Laboratory [address] [place] [address] Hemoglobin (Bld) [Mass/Vol] 13.2 g/dL Normal 11.5-15.5 [facility] Comment on above: Order Comment: James bergeron Type: BLOOD SPECIMENOrdering Facility: [facility] Address: [address] [place], [place] [id number] Performed By: #### U AMIC, UA #### [facility] Laboratory [address] [address] MCH (RBC) [Entitic mass] 29.1 pg Normal 26.0-34.0 [facility] Comment on above: Order Comment: Speci men Type: BLOOD SPECIMENOrdering Facility: [facility] Address: [address] [place], [place] [id number] Performed By: #### U AMIC, UA #### [facility] [address] [facility] [phone] MCHC (RBC) [Mass/Vol] 32.8 g/dL Normal 30.5-36.0 [facility] Comment on above: Order Comment: Speci men Type: BLOOD SPECIMENOrdering Facility: [facility] Address: [address] [place], [place] [id number] Performed By: #### U AMIC, UA #### [facility] [address] MCV (RBC) [Entitic vol] 88.7 fL Normal 80.0-100.0 [facility] Comment on above: Order Comment: Speci men Type: BLOOD SPECIMENOrdering Facility: [facility] Address: [address] [place], [place] [id number] Performed By: #### U AMIC, UA #### [facility] [address] [id number] Nucleated RBC (Bld) [#/Vol] 10*3/uL Normal <0.01 [facility] Comment on above: Order Comment: Speci men Type: BLOOD SPECIMENOrdering Facility: [facility] Address: [address] [place], [place] [id number] Performed By: #### U AMIC, UA #### [facility] [address] Platelet mean volume (Bld) [Entitic vol] 9.8 fL Normal 9.0-12.7 [facility] Comment on above: Order Comment: Speci men Type: BLOOD SPECIMENOrdering Facility: [facility] Address: [address] [place], [place] [id number] Performed By: #### U AMIC, UA #### [facility] [address] [facility] [phone] Platelets (Bld) [#/Vol] 193 10*3/uL Normal 150-400 [facility] Comment on above: Order Comment: Speci men Type: BLOOD SPECIMENOrdering Facility: [facility] Address: [address] [place] [address] Performed By: #### U AMIC, UA #### [facility] [address] [facility] [phone] RBC (Bld) [#/Vol] 4.53 10*6/uL Normal 3.90-5.20 [facility] Comment on above: Order Comment: Speci men Type: BLOOD SPECIMENOrdering Facility: [facility] Address: [address] [place] [address] Performed By: #### U AMIC, UA #### [facility] [address] [facility] [phone] WBC (Bld) [#/Vol] 7.54 10*3/uL Normal 3.70-11.00 [facility] Comment on above: Order Comment: Speci men Type: BLOOD SPECIMENOrdering Facility: [facility] Address: [address] [place] [address] Performed By: #### U AMIC, UA #### [facility] [address] [facility] [phone] CNCOon 09-01-2021 CNCO Letter Text Normal [facility] CNDSon 09-01-2021 CNDS HNO ID: [id number] Author: Jhonny Florence MD Service: Hospital Medicine Author Type: Physician Type: Discharge Summary Filed: 09/02/2021 8:22 AM Note Text: DISCHARGE SUMMARY PATIENT NAME: Jovany Sommers Code Status: Full Code Highest Readmission Risk Score: 9 The 30 day readmissions risk score is derived from an internally validated risk model which evaluates patient level characteristics, utilization history, medication orders and lab results up until the day of discharge. Patients with a score of 40 or above are considered highest risk for readmission. Specific patient level drivers will be listed at the bottom of the summary. Admission Information Admission Information ADMIT DATE: 08/31/2021 DISCHARGE DATE:09/01/2021 [facility] Doctor: Jhonny Florence MD Primary Care Provider: Jasper Zeng [facility] Team Members: Treatment Team: Attending Provider: Jhonny Florence MD MY CONDITION AT DISCHARGE: Stable REASON I WAS IN THE HOSPITAL: TIA SUMMARY OF WHAT HAPPENED WHILE I WAS IN THE HOSPITAL: Symptoms have resolved need to be sure this will not recur. Initial treatment as aspirin daily and 21 days of Plavix. We will need to notify your urologist that you will not be able to hold the aspirin and that you will be on the Plavix for 3 weeks at least. OTHER PROBLEMS/DIAGNOSIS: Principal Problem: TIA (transient ischemic attack) Active Problems: GERD (gastroesophageal reflux disease) Hypertension Multiple renal cysts Mixed hypercholesterolemia and hypertriglyceridemia Nephrolithiasis Prediabetes Class 1 obesity due to excess calories with serious comorbidity and body mass index (BMI) of 30.0 to 30.9 in adult Resolved Problems: Slurred speech Facial droop OPERATIONS PERFORMED WHILE IN THE HOSPITAL: None IMPORTANT TEST/PROCEDURES: Echocardiogram TEST RESULTS NOT AVAILABLE AT THIS TIME: No pending results Discharge Disposition Discharge Disposition: Home With Self Care Activity When You Leave the Hospital Resume pre-hospital activity Diet Instructions Resume your pre-hospital diet For Pain When You Leave the Hospital Use acetaminophen (Tylenol) as recommended on the bottle Follow Up Appointments Follow-Up Appointment When: In 1 week Patient/Parents to call for appointment?: Yes Jasper Cotton Hieuevamaddi [phone] [facility] [place] [phone] PCP Requested Referral Additional Provider to Provider Information: ASSESSMENT - TIA okay for discharge by neurology PLAN - Aspirin and Plavix for 21 days and then aspirin indefinitely - Need to delay lithotripsy until after off Plavix and then have neurology clearance to stop aspirin for the lithotripsy which is elective not emergent. - Close follow-up with stroke neurology - Dr. Carpenter is arranging 30 day youth nutritional monitor Reason for Admission: TIA Consultants: Dr. Carpenter for neurology PROCEDURES: NONE Disposition: Home EKG: ECHO: 09/01/2021 - The left ventricle is normal in size. Left ventricular systolic function is mildly decreased. EF = 53 ? 5% (2D biplane) - The right ventricle is normal in size. Right ventricular systolic function is normal. - Mild 1+ mitral regurgitation. - Mild 1+ tricuspid regurgitation. - Estimated right ventricular systolic pressure is 29 mmHg consistent with normal pulmonary artery pressures. Estimated right atrial pressure is 8 mmHg based on IVC assessment. - There is no patent foramen ovale as detected by Doppler and saline contrast with valsalva. HOSPITAL COURSE: Jovany Sommers is a 65 year old female presented with past medical history of hypertension, hyperlipidemia, kidney stone, who presented to the emergency department of [facility] on 08/31 for evaluation of fleeting neurological symptoms that occurred the evening prior. 08/30/21 ~ 7 p : I was over at my sister in law doing laundry. Just sitting on the table talking. Then all of a sudden I started slurring and I could hear myself slurring and I thought she probably cant even understand me. And about that quick it was over. She said my face started drooping on the left side. She thought I was having a stroke. When I first got up, I sort of veered to the right like when you get out of bed and You're off balance. I went downstairs picked up the laundry. Then I drove home then went to bed then woke up the next day and went to work. Had to meet a realtor after work . I called the doctor and he told me to go to the emergency department I did drool a bit on the left side. Symptom duration maybe 3 or 4 minutes. Course in the Emergency Department column urinalysis with pyuria. Given ceftriaxone in the emergency department. CT brain without any acute findings. 171/81 blood pressure in the ER. Heart rate 53. She had already taken her aspirin at [facility] (more content not included)... Normal [facility] CONSULTon 09-01-2021 CONSULT HNO ID: [id number] Author: Jim Carpenter MD Service: Neurology General Author Type: Physician Type: Consults Filed: 09/01/2021 8:27 AM Note Text: [facility] ASSESSMENT: Transient episode of lasting under 5 minutes of speech disturbance and L facial droop consistent with clinically definite TIA. Medical diagnoses that include hypertension, hyperlipidemia, kidney stone with planned US kidney ablation 09/01/21 - was off of ASA for 1 week. Elevated BP readings. Bradycardia, LBBB. Low HDL 39 and high LDL 134 PLAN: Best to delay kidney procedure if this is not medically urgent Continue ASA 81 mg. Plavix for 21 days to further reduce short term risk of recurrent TIA (per POINT and CHANCE trials) and recent AHA/ASA guidelines. (ordered) MRI/A brain and MRA carotids are ordered and pending. Irrespective if MRI shows an acute punctate infarct or not, recommend outpatient 30 day hear rhythm monitoring. Added ECHO Agreeable with atorvastatin (ordered) Anticipated discharge in coming 24 hours. If ECHO is delayed, can be done on OP basis. Total time on encounter - inclusive of documentation and same day chart review : 50 minutes. More than 50% of the time spent in discussing differential diagnosis and coordinating care in addition to patient counseling. Jim Carpenter MD Staff Neurologist [facility] September 01, 2021 PRIMARY CARE PHYSICIAN: Jasper Zeng MD CURRENT ATTENDING PROVIDER: Jhonny Florence MD Subjective HISTORY OF PRESENT ILLNESS / CHIEF COMPLAINT: Jovany Sommers is a 65 year old RIGHT handed woman with medical diagnoses that include hypertension, hyperlipidemia, kidney stone, who presented to the emergency department of [facility] on 08/31 for evaluation of fleeting neurological symptoms that occurred the evening prior. 08/30/21 ~ 7 p : I was over at my sister in law doing laundry. Just sitting on the table talking. Then all of a sudden I started slurring and I could hear myself slurring and I thought she probably cant even understand me. And about that quick it was over. She said my face started drooping on the left side. She thought I was having a stroke. When I first got up, I sort of veered to the right like when you get out of bed and You're off balance. I went downstairs picked up the laundry. Then I drove home then went to bed then woke up the next day and went to work. Had to meet a realtor after work . I called the doctor and he told me to go to the emergency department I did drool a bit on the left side. Symptom duration maybe 3 or 4 minutes. Course in the Emergency Department column urinalysis with pyuria. Given ceftriaxone in the emergency department. CT brain without any acute findings. 171/81 blood pressure in the ER. Heart rate 53. She had already taken her aspirin at home. She was given lisinopril. The emergency Department physician spoke with the on-call neurology and the decision was made to observe the patient in the hospital and obtain Neuro imaging for a possible TIA. ASA at home - was supposed to have surgery today - was off of it for a week for US kidney stone surgery - yesterday, she took excedrin. to replenish her ASA PAST MEDICAL HISTORY Diagnosis Date - Abnormal Pap smear of cervix 11/2011 ascus/-HPV 10/02 pap wnl/-HPV - Calculus, renal - Cystocele, midline - Esophageal reflux - GERD (gastroesophageal reflux disease) - Hematuria - Hemorrhoids - HLD (hyperlipidemia) - Hypertension - LBBB (left bundle branch block) - Menopause - Other atopic dermatitis - Rectocele - Short-term memory loss - Stress incontinence - Uterine fibroid - Uterovaginal prolapse PAST SURGICAL HISTORY Procedure Laterality Date - CARPAL TUNNEL 2013 - COLONOSCOPY 2013 due in 5 years - KNEE SURGERY HX 2014 - PAST SURGICAL HISTORY OF 06/2021 kidney stone - TONSILLECTOMY HX - TUBAL LIGATION - UTERINE ARTERY EMBOLIZ 10/2003 - VAGINAL HYSTERECTOMY 2020 partial FAMILY HISTORY Problem Relation Age of Onset - Hypertension Mother - Diabetes Mother - COPD Mother - other (lung cancer) Mother 67 - other (lung cancer) Father 65 - Cancer Sister 59 stomach/liver - Prostate Cancer Brother 56 - Heart Brother enlarged heart - Breast Cancer Maternal Grandmother - Diabetes Paternal Grandmother - Hypertension Sister - Heart disease Sister - Coronary Artery Disease Sister - Diabetes Sister - Drug abuse Son - No Known Problems Granddaughter Social History Tobacco Use - Smoking status: Never Smoker - Smokeless tobacco: Never Used Vaping Use - Vaping Use: Never used Substance Use Topics - Alcohol use: No - Drug use: No ubidecarenone (COENZYME Q10) 100 mg tab, Take by mouth once daily., Disp: , Rfl: , Past Week at 0600 aspirin, enteric coated (ASPIRIN, ENTERIC COATED) 81 mg EC tablet, Take 1 tablet (more content not included)... Normal [facility] Comprehensive metabolic 2000 panelon 09-01-2021 Albumin [Mass/Vol] 4.1 g/dL Normal 3.9-4.9 [facility] Comment on above: Order Comment: Speci men Type: BLOOD SPECIMENOrdering Facility: [facility] Address: [address] Performed By: #### U AMIC, UA #### [facility] Laboratory [address] [place] [phone] ALP [Catalytic activity/Vol] 75 U/L Normal 34-123 [facility] Comment on above: Order Comment: Speci men Type: BLOOD SPECIMENOrdering Facility: [facility] Address: [address] Performed By: #### U AMIC, UA #### [facility] Laboratory [address] [place] [place] [phone] ALT [Catalytic activity/Vol] 16 U/L Normal 7-38 [facility] Comment on above: Order Comment: Speci men Type: BLOOD SPECIMENOrdering Facility: [facility] Address: [address] Performed By: #### U AMIC, UA #### [facility] Laboratory [address] Anion gap [Moles/Vol] 10 mmol/L Normal 9-18 [facility] Comment on above: Order Comment: Speci men Type: BLOOD SPECIMENOrdering Facility: [facility] Address: [address] Performed By: #### U AMIC, UA #### [facility] [address] AST [Catalytic activity/Vol] 17 U/L Normal 13-35 [facility] Comment on above: Order Comment: Speci men Type: BLOOD SPECIMENOrdering Facility: [facility] Address: [address] Performed By: #### U AMIC, UA #### [facility] [address] [place] [phone] Bilirubin [Mass/Vol] 0.2 mg/dL Normal 0.2-1.[address] [facility] Comment on above: Order Comment: Speci men Type: BLOOD SPECIMENOrdering Facility: [facility] Address: [address] [address] [address] Performed By: #### U AMIC, UA #### [facility] [address] [place] [phone] Calcium [Mass/Vol] 9.4 mg/dL Normal 8.5-10.2 [facility] Comment on above: Order Comment: Speci men Type: BLOOD SPECIMENOrdering Facility: [facility] Address: [address] [place] [address] Performed By: #### U AMIC, UA #### [facility] [address] [place] [address] Chloride [Moles/Vol] 108 mmol/L High 97-[address] [facility] Comment on above: Order Comment: Speci men Type: BLOOD SPECIMENOrdering Facility: [facility] Address: [address] [place] [address] Performed By: #### U AMIC, UA #### [facility] [address] [place] [phone] CO2 [Moles/Vol] 26 mmol/L Normal 22-30 [facility] Comment on above: Order Comment: Speci men Type: BLOOD SPECIMENOrdering Facility: [facility] Address: [address] [place] [address] Performed By: #### U AMIC, UA #### [facility] [address] [place] [address] Creatinine [Mass/Vol] 0.64 mg/dL Normal 0.58-0.96 [facility] Comment on above: Order Comment: Speci men Type: BLOOD SPECIMENOrdering Facility: [facility] Address: [address] [place] [address] Performed By: #### U AMIC, UA #### [facility] [address] [place] [phone] ESTIMATED GLOMERULAR FILTRATION RATE 98 mL/min/1.73m??? Normal >=60 [facility] Comment on above: Order Comment: Speci men Type: BLOOD SPECIMENOrdering Facility: [facility] Address: [address] [place] [address] Result Comment: Meg mated Glomerular Filtration Rate (eGFR) is calculated using the 2020 CKD-EPI creatinine equation. This equation utilizes serum creatinine, sex, and age as parameters. The creatinine assay has traceable calibration to isotope dilution-mass spectrometry. Refer to KDIGO guidelines for clinical interpretation. In patients with unstable renal function, e.g. those with acute kidney injury, the eGFR may not accurately reflect actual GFR. Performed By: #### U AMIC, UA #### [facility] [address] [facility] [phone] Glucose [Mass/Vol] 128 mg/dL High 74-99 [facility] Comment on above: Order Comment: James bergeron Type: BLOOD SPECIMENOrdering Facility: [facility] Address: [address] [place] [address] Result Comment: The [place] Diabetes Association (ADA) provides guidance for cutoff values for fasting glucose and random glucose. The ADA defines fasting as no caloric intake for at least 8 hours. Fasting plasma glucose results between 100 to 125 mg/dL indicate increased risk for diabetes (prediabetes). Fasting plasma glucose results greater than or equal to 126 mg/dL meet the criteria for diagnosis of diabetes. In the absence of unequivocal hyperglycemia, results should be confirmed by repeat testing. In a patient with classic symptoms of hyperglycemia or hyperglycemic crisis, random plasma glucose results greater than or equal to 200 mg/dL meet the criteria for diagnosis of diabetes. Reference: Standards of Medical Care in Diabetes 2016, [place] Diabetes Association. Diabetes Care. 2016.39(Suppl 1). Performed By: #### U AMIC, UA #### [facility] [address] [place] [address] Potassium [Moles/Vol] 3.9 mmol/L Normal 3.7-5.1 [facility] Comment on above: Order Comment: James bergeron Type: BLOOD SPECIMENOrdering Facility: [facility] Address: [address] [address] Performed By: #### U AMIC, UA #### [facility] [address] [facility] [phone] Protein [Mass/Vol] 5.9 g/dL Low 6.3-8.0 [facility] Comment on above: Order Comment: James bergeron Type: BLOOD SPECIMENOrdering Facility: [facility] Address: [address] [id number] Performed By: #### U AMIC, UA #### [facility] [address] [facility] [phone] Sodium [Moles/Vol] 144 mmol/L Normal 136-144 [facility] Comment on above: Order Comment: James bergeron Type: BLOOD SPECIMENOrdering Facility: [facility] Address: [address] [place] [address] Performed By: #### U AMIC, UA #### [facility] [address] [facility] [phone] Urea nitrogen [Mass/Vol] 16 mg/dL Normal 7-21 [facility] Comment on above: Order Comment: James bergeron Type: BLOOD SPECIMENOrdering Facility: [facility] Address: [address] [place] [address] Performed By: #### U AMIC, UA #### [facility] [address] [facility] [phone] HGB A1Con 09-01-2021 Average glucose Estimated from glycated hemoglobin (Bld) [Mass/Vol] 120 mg/dL Normal [facility] Comment on above: Order Comment: James elyssa Type: BLOOD SPECIMEN [facility] Address: [address] [place] [address] Result Comment: eAG: (Estimated average glucose) is a calculated value from HgbA1c and is business representative of the average blood glucose level in the last 2-3 month period. Performed By: #### H BA1C #### [facility] CLIA [id number] [address] [place] [address] [place] HbA1c (Bld) [Mass fraction] 5.8 % High 4.3-5.6 [facility] Comment on above: Order Comment: James elyssa Type: BLOOD SPECIMEN [facility] Address: [address] [place] [address] Result Comment: [place] Diabetes Association guidelines indicate that patients with HgbA1c in the range 5.7-6.4% are at increased risk for development of diabetes, and intervention by lifestyle modification may be beneficial. HgbA1c greater or equal to 6.5% is considered diagnostic of diabetes. Performed By: #### H BA1C #### [facility] CLIA [id number] [address] [place] [address] [place] LIPID PANEL BASICon 09-02-19 22 Cholesterol [Mass/Vol] 211 mg/dL High <200 [facility] Comment on above: Order Comment: Speci men Type: BLOOD SPECIMENOrdering Facility: [facility] Address: [address] [place] [address] Result Comment: <200 mg/dL, Desirable 200-239 mg/dL, Borderline high >239 mg/dL, High Performed By: #### U AMIC, UA #### [facility] [address] [facility] [phone] Cholesterol in HDL [Mass/Vol] 39 mg/dL Low >39 [facility] Comment on above: Order Comment: Speci men Type: BLOOD SPECIMENOrdering Facility: [facility] Address: [address] [place] [address] Result Comment: 40-5 9 mg/dL, Acceptable >59 mg/dL, High: Negative risk factor for coronary heart disease <40 mg/dL, Low: Positive risk factor for coronary heart disease Performed By: #### U AMIC, UA #### [facility] [address] [facility] [phone] Cholesterol in LDL [Mass/Vol] 134 mg/dL High <100 [facility] Comment on above: Order Comment: Speci elyssa Type: BLOOD SPECIMENOrdering Facility: [facility] Address: [address] [place] [address] Result Comment: <100 mg/dL, Optimal 100-129 mg/dL, Near optimal/above optimal 130-159 mg/dL, Borderline high 160-189 mg/dL, High >189 mg/dL, Very high Secondary prevention optimal LDL Cholesterol levels are recommended to be < 70 mg/dL Performed By: #### U AMIC, UA #### [facility] [address] [facility] [phone] Cholesterol in LDL/Cholesterol in HDL [Mass ratio] 3.44 {ratio} High <2.54 [facility] Comment on above: Order Comment: James bergeron Type: BLOOD SPECIMENOrdering Facility: [facility] Address: [address] [place] [address] Result Comment: Refe rence: 1. National Cholesterol Education Program ATP III Guideline At-A-Glance Quick Desk Reference: National Heart, Lung, and Blood [place]. National Institutes of Health. 2001: NIH Publication No. 01-3305. 2. An International Atherosclerosis Society position paper: global recommendations for the management of dyslipidemia: executive summary, Atherosclerosis. 2014: 232(2):410-413. Performed By: #### U AMIC, UA #### [facility] [address] [place] [address] Cholesterol in VLDL [Mass/Vol] 38 mg/dL High <30 [facility] Comment on above: Order Comment: Speci [facility] Type: BLOOD SPECIMENOrdering Facility: [facility] Address: [address] [address] Performed By: #### U AMIC, UA #### [facility] [address] [place] [address] Cholesterol non HDL [Mass/Vol] 172 mg/dL High <130 [facility] Comment on above: Order Comment: [facility] Type: BLOOD SPECIMENOrdering Facility: [facility] Address: [address] [address] Result Comment: <130 mg/dL, Optimal 130-159 mg/dL, Near optimal/above optimal 160-189 mg/dL, Borderline high 190-219 mg/dL, High >219 mg/dL, Very high Secondary prevention optimal non HDL Cholesterol levels are recommended to be <100 mg/dL Performed By: #### U AMIC, UA #### [facility] [address] [place] [address] Cholesterol.total/Cho lesterol in HDL [Mass ratio] 5.41 {ratio} High <5.10 [facility] Comment on above: Order Comment: [facility] Type: BLOOD SPECIMENOrdering Facility: [facility] Address: [address] [address] Performed By: #### U AMIC, UA #### [facility] [address] [place] [phone] FASTING TIME 6 hrs Normal [facility] Comment on above: Order Comment: [facility] Type: BLOOD SPECIMENOrdering Facility: [facility] Address: [address] [address] Performed By: #### U AMIC, UA #### [facility] [address] Triglyceride [Mass/Vol] 192 mg/dL High <150 [facility] Comment on above: Order Comment: Speci men Type: BLOOD SPECIMENOrdering Facility: [facility] Address: [address] [place] [address] Result Comment: <150 mg/dL, Normal 150-199 mg/dL, Borderline high 200-499 mg/dL, High >499 mg/dL, Very high Performed By: #### U AMIC, UA #### [facility] [address] [facility] [phone] MRA BRAIN WO IVCONon 022 MRA BRAIN WO IVCON * * *Final Report* * * DATE OF EXAM: Sep 01 2021 11:59AM [facility] 0272 - MRA BRAIN WO IVCON / PROCEDURE REASON: Transient ischemic attack (TIA) * * * * Physician Interpretation * * * * EXAMINATION: MRI BRAIN WO IVCON, MRA BRAIN WO IVCON, MRA CAROTID WO IVCON CLINICAL HISTORY: Stroke: Acute, carotid artery stenosis. TIA, initial exam. TECHNIQUE: Routine noncontrast MRI brain protocol including diffusion images. Intracranial and extracranial 3D [id number] MRA. 3D maximum intensity projection images were created, reviewed and archived . MQ: [id number] MQ: [id number] COMPARISON: 08/31/[address] RESULT: BRAIN MRI: Acute Change: No abnormal restricted diffusion to suggest an acute infarct. Hemorrhage: Punctate foci of susceptibility in the right and left thalami and right lentiform nucleus which may reflect altered foci of remote microhemorrhage. There is a small focus of T2 hyperintensity associated with the larger focus in the right thalamus suggesting sequelae remote lacunar insult with microhemorrhage. Mass Lesion/ Mass Effect: No evidence of an intracranial mass or extra-axial fluid collection. No significant mass effect. Chronic Change: Multiple scattered foci of T2/FLAIR signal hyperintensity in the supratentorial white matter, some of which appear to have associated callosal involvement. Additional infratentorial T2/FLAIR hyperintense lesion in the left cerebellar hemisphere, more conspicuous on the T2-weighted acquisition. Overall the appearances nonspecific although suspicious for sequelae prior demyelination or alternatively may reflect chronic microvascular ischemic changes. Parenchyma: No significant volume loss for age. The brain parenchyma is otherwise within normal limits of signal intensity and morphology. Ventricles: Ventricular calibers are commensurate with the parenchymal volume and normal in configuration. Skull Base and calvarium: Hypothalamic and pituitary region are grossly normal. Craniocervical junction is normal. No significant marrow replacement process. Incidental areas of hyperostosis along the inner table of the superior paramedian bifrontal calvarium. Vasculature: Major intracranial arterial structures, and dural venous sinuses show typical flow void, suggesting patency by spin echo criteria. Other: The visualized paranasal sinuses and mastoid air cells are clear. Mild rightward deviation of the nasal septum. The orbits are unremarkable. The extracranial soft tissues are within normal limits. Intracranial MRA: Anterior Circulation: The intracranial ICAs are patent. Patent imaged portions of the ACAs with dominant left A1 segment and patent anterior communicating artery. Patent appearance of the MCAs bilaterally. Posterior Circulation: Patent codominant intracranial vertebral arteries. Patent appearance of the proximal posterior inferior cerebellar arteries bilaterally with extradural origin noted on the right. Patent appearance of the basilar artery, proximal anterior-inferior cerebellar arteries, and proximal superior cerebellar arteries. Unremarkable appearance of the posterior cerebral arteries. No evidence of high grade stenosis, occlusion, or aneurysm in the visualized vessels. Extracranial MRA: Cervical Carotid Arteries: Right Common Carotid: The visualized portions of the mid and distal right common carotid artery appear patent. Right Internal Carotid: No significant plaque formation. Right Internal Carotid Stenosis (% by NASCET Criteria): 0% Left Common Carotid: The visualized portions of the mid and distal left common carotid artery appear patent. Left Internal Carotid: No significant plaque formation. Left Internal Carotid Stenosis (% by NASCET Criteria): 0% Cervical Vertebral Arteries: The vertebral origins are excluded, but the visualized portions of the distal V1 and the V2 segments appear patent. Mild tortuosity of the left V2 segment. Suboptimal assessment of the V3 segments due to flow artifact. Patency: Bilateral Dominance: Codominant IMPRESSION: No acute intracranial abnormality. Multiple white matter lesions which are nonspecific in appearance, although suspicious for sequelae of prior demyelination. Alternatively, this may reflect sequelae of chronic microvascular ischemic changes. No apparent cervical or intracranial arterial occlusion, aneurysm, or high-grade stenosis. Tunnel Heading Supervisor: MIKI Transcribe Date/Time: Sep 01 2021 12:38P Dictated by : SHON JIMENEZ MD This examination was interpreted and the report reviewed and electronically signed by: SHON JIMENEZ MD on Sep 01 2021 12:52PM EST [id number] [facility] MRA CAROTID WO IVCONon 09-01 MRA CAROTID WO IVCON * * *Final Report* * * DATE OF EXAM: Sep 01 2021 11:59AM [facility] 0275 - MRA CAROTID WO IVCON / PROCEDURE REASON: Transient ischemic attack (TIA) * * * * Physician Interpretation * * * * EXAMINATION: MRI BRAIN WO IVCON, MRA BRAIN WO IVCON, MRA CAROTID WO IVCON CLINICAL HISTORY: Stroke: Acute, carotid artery stenosis. TIA, initial exam. TECHNIQUE: Routine noncontrast MRI brain protocol including diffusion images. Intracranial and extracranial 3D dsrw-ol-zmqufh MRA. 3D maximum intensity projection images were created, reviewed and archived . MQ: MRBWO_2 MQ: MRAB_4 COMPARISON: 08/31/[address] RESULT: BRAIN MRI: Acute Change: No abnormal restricted diffusion to suggest an acute infarct. Hemorrhage: Punctate foci of susceptibility in the right and left thalami and right lentiform nucleus which may reflect altered foci of remote microhemorrhage. There is a small focus of T2 hyperintensity associated with the larger focus in the right thalamus suggesting sequelae remote lacunar insult with microhemorrhage. Mass Lesion/ Mass Effect: No evidence of an intracranial mass or extra-axial fluid collection. No significant mass effect. Chronic Change: Multiple scattered foci of T2/FLAIR signal hyperintensity in the supratentorial white matter, some of which appear to have associated callosal involvement. Additional infratentorial T2/FLAIR hyperintense lesion in the left cerebellar hemisphere, more conspicuous on the T2-weighted acquisition. Overall the appearances nonspecific although suspicious for sequelae prior demyelination or alternatively may reflect chronic microvascular ischemic changes. Parenchyma: No significant volume loss for age. The brain parenchyma is otherwise within normal limits of signal intensity and morphology. Ventricles: Ventricular calibers are commensurate with the parenchymal volume and normal in configuration. Skull Base and calvarium: Hypothalamic and pituitary region are grossly normal. Craniocervical junction is normal. No significant marrow replacement process. Incidental areas of hyperostosis along the inner table of the superior paramedian bifrontal calvarium. Vasculature: Major intracranial arterial structures, and dural venous sinuses show typical flow void, suggesting patency by spin echo criteria. Other: The visualized paranasal sinuses and mastoid air cells are clear. Mild rightward deviation of the nasal septum. The orbits are unremarkable. The extracranial soft tissues are within normal limits. Intracranial MRA: Anterior Circulation: The intracranial ICAs are patent. Patent imaged portions of the ACAs with dominant left A1 segment and patent anterior communicating artery. Patent appearance of the MCAs bilaterally. Posterior Circulation: Patent codominant intracranial vertebral arteries. Patent appearance of the proximal posterior inferior cerebellar arteries bilaterally with extradural origin noted on the right. Patent appearance of the basilar artery, proximal anterior-inferior cerebellar arteries, and proximal superior cerebellar arteries. Unremarkable appearance of the posterior cerebral arteries. No evidence of high grade stenosis, occlusion, or aneurysm in the visualized vessels. Extracranial MRA: Cervical Carotid Arteries: Right Common Carotid: The visualized portions of the mid and distal right common carotid artery appear patent. Right Internal Carotid: No significant plaque formation. Right Internal Carotid Stenosis (% by NASCET Criteria): 0% Left Common Carotid: The visualized portions of the mid and distal left common carotid artery appear patent. Left Internal Carotid: No significant plaque formation. Left Internal Carotid Stenosis (% by NASCET Criteria): 0% Cervical Vertebral Arteries: The vertebral origins are excluded, but the visualized portions of the distal V1 and the V2 segments appear patent. Mild tortuosity of the left V2 segment. Suboptimal assessment of the V3 segments due to flow artifact. Patency: Bilateral Dominance: Codominant IMPRESSION: No acute intracranial abnormality. Multiple white matter lesions which are nonspecific in appearance, although suspicious for sequelae of prior demyelination. Alternatively, this may reflect sequelae of chronic microvascular ischemic changes. No apparent cervical or intracranial arterial occlusion, aneurysm, or high-grade stenosis. Tunnel Heading Supervisor: MIKI Transcribe Date/Time: Sep 01 2021 12:38P Dictated by : SHON JIMENEZ MD This examination was interpreted and the report reviewed and electronically signed by: SHON JIMENEZ MD on Sep 01 2021 12:52PM EST [id number] [facility] MRI BRAIN WO IVCONon 022 MRI BRAIN WO IVCON * * *Final Report* * * DATE OF EXAM: Sep 01 2021 11:59AM [facility] 0294 - MRI BRAIN WO IVCON / PROCEDURE REASON: TIA, initial exam * * * * Physician Interpretation * * * * EXAMINATION: MRI BRAIN WO IVCON, MRA BRAIN WO IVCON, MRA CAROTID WO IVCON CLINICAL HISTORY: Stroke: Acute, carotid artery stenosis. TIA, initial exam. TECHNIQUE: Routine noncontrast MRI brain protocol including diffusion images. Intracranial and extracranial 3D aizl-qd-uvirch MRA. 3D maximum intensity projection images were created, reviewed and archived . MQ: MRBWO_2 MQ: MRAB_4 COMPARISON: 08/31/[address] RESULT: BRAIN MRI: Acute Change: No abnormal restricted diffusion to suggest an acute infarct. Hemorrhage: Punctate foci of susceptibility in the right and left thalami and right lentiform nucleus which may reflect altered foci of remote microhemorrhage. There is a small focus of T2 hyperintensity associated with the larger focus in the right thalamus suggesting sequelae remote lacunar insult with microhemorrhage. Mass Lesion/ Mass Effect: No evidence of an intracranial mass or extra-axial fluid collection. No significant mass effect. Chronic Change: Multiple scattered foci of T2/FLAIR signal hyperintensity in the supratentorial white matter, some of which appear to have associated callosal involvement. Additional infratentorial T2/FLAIR hyperintense lesion in the left cerebellar hemisphere, more conspicuous on the T2-weighted acquisition. Overall the appearances nonspecific although suspicious for sequelae prior demyelination or alternatively may reflect chronic microvascular ischemic changes. Parenchyma: No significant volume loss for age. The brain parenchyma is otherwise within normal limits of signal intensity and morphology. Ventricles: Ventricular calibers are commensurate with the parenchymal volume and normal in configuration. Skull Base and calvarium: Hypothalamic and pituitary region are grossly normal. Craniocervical junction is normal. No significant marrow replacement process. Incidental areas of hyperostosis along the inner table of the superior paramedian bifrontal calvarium. Vasculature: Major intracranial arterial structures, and dural venous sinuses show typical flow void, suggesting patency by spin echo criteria. Other: The visualized paranasal sinuses and mastoid air cells are clear. Mild rightward deviation of the nasal septum. The orbits are unremarkable. The extracranial soft tissues are within normal limits. Intracranial MRA: Anterior Circulation: The intracranial ICAs are patent. Patent imaged portions of the ACAs with dominant left A1 segment and patent anterior communicating artery. Patent appearance of the MCAs bilaterally. Posterior Circulation: Patent codominant intracranial vertebral arteries. Patent appearance of the proximal posterior inferior cerebellar arteries bilaterally with extradural origin noted on the right. Patent appearance of the basilar artery, proximal anterior-inferior cerebellar arteries, and proximal superior cerebellar arteries. Unremarkable appearance of the posterior cerebral arteries. No evidence of high grade stenosis, occlusion, or aneurysm in the visualized vessels. Extracranial MRA: Cervical Carotid Arteries: Right Common Carotid: The visualized portions of the mid and distal right common carotid artery appear patent. Right Internal Carotid: No significant plaque formation. Right Internal Carotid Stenosis (% by NASCET Criteria): 0% Left Common Carotid: The visualized portions of the mid and distal left common carotid artery appear patent. Left Internal Carotid: No significant plaque formation. Left Internal Carotid Stenosis (% by NASCET Criteria): 0% Cervical Vertebral Arteries: The vertebral origins are excluded, but the visualized portions of the distal V1 and the V2 segments appear patent. Mild tortuosity of the left V2 segment. Suboptimal assessment of the V3 segments due to flow artifact. Patency: Bilateral Dominance: Codominant IMPRESSION: No acute intracranial abnormality. Multiple white matter lesions which are nonspecific in appearance, although suspicious for sequelae of prior demyelination. Alternatively, this may reflect sequelae of chronic microvascular ischemic changes. No apparent cervical or intracranial arterial occlusion, aneurysm, or high-grade stenosis. Tunnel Heading Supervisor: MIKI Transcribe Date/Time: Sep 01 2021 12:38P Dictated by : SHON JIMENEZ MD This examination was interpreted and the report reviewed and electronically signed by: SHON JIMENEZ MD on Sep 01 2021 12:52PM EST [id number] [facility] NURSING PROGon 09-01-2021 NURSING PROG HNO ID: [id number] Author: Petty Rodas RN Service: ? Author Type: Registered Nurse Type: Nursing Progress Note Filed: 09/01/2021 1:49 PM Note Text: Nursing Progress Note Patient Name: Jovany Sommers Patient Location: [id number] Daily Note: 1350: OK to DC neuros per Dr. Florence This note was completed by: Petty Rodas [facility] THERAPY NTon 09-01-2021 THERAPY NT HNO ID: [id number] Author: Kathy Ulloa PT Service: Physical Therapy Author Type: Physical Therapist Type: Therapy (PT/OT/Speech/Resp) Filed: 09/01/2021 3:11 PM Note Text: PHYSICAL THERAPY MISSED VISIT SERVICE DATE: 09/01/2021 SERVICE TIME: 1507 to 1507 ROOM: [place] [address] Patient not seen due to No Skilled Needs. Per OT pt independent within room, symptoms fully resolved and has no concerns with ambulation or stair negotiation upon return home. PT order to be discontinued as pt at baseline, physician made aware. SIGNATURE: Kathy Ulloa PT PATIENT NAME: Jovany Sommers DATE: September 01, 2021 TIME: 3:09 PM [facility] THERAPY NT HNO ID: [id number] Author: Rula Mckeon OT/Boris Service: Occupational Therapy Author Type: Occupational Therapist Type: Therapy (PT/OT/Speech/Resp) Filed: 09/01/2021 2:04 PM Note Text: OCCUPATIONAL THERAPY MISSED VISIT SERVICE DATE: 09/01/2021 SERVICE TIME: 1348 to 1357 ROOM: [place] [address] Patient not seen due to No Skilled Needs. Patient reports to be up independently in room and functioning at baseline and denies OT-related needs/concerns for home-going.. RN confirms patient up independently and does not report of any concerns. Patient in agreement with discontinuation of OT order and instructed to notify MD/RN if needs change, indicating need for OT evaluation. Patient also reports no need for PT evaluation and is in agreement with PT discontinuing the PT order as well. ? Will discontinue OT order. RN, Hospitialist and PT notified of plan. SIGNATURE: Rula Mckeon OT/L PATIENT NAME: Jovany Sommers DATE: September 01, 2021 TIME: 1:57 PM [facility] THERAPY NT HNO ID: [id number] Author: Kathy Ulloa PT Service: Physical Therapy Author Type: Physical Therapist Type: Therapy (PT/OT/Speech/Resp) Filed: 09/01/2021 11:18 AM Note Text: PHYSICAL THERAPY MISSED VISIT SERVICE DATE: 09/01/2021 SERVICE TIME: 1118 to 1118 ROOM: [id number] ([facility] MRI) Patient not seen due to Test/Procedure (out for MRI). SIGNATURE: Kathy Ulloa PT PATIENT NAME: Jovany Sommers DATE: September 01, 2021 TIME: 11:18 AM Normal [facility] THERAPY NT HNO ID: [id number] Author: Mary Liang CCC-BANKING OFFICER Service: Speech/Swallow Author Type: Speech Language Pathologist Type: Therapy (PT/OT/Speech/Resp) Filed: 09/01/2021 11:36 AM Note Text: Speech Therapy Speech Evaluation, Clinical Swallow Evaluation SERVICE DATE: 09/01/2021 SERVICE TIME: 1040 to 1058 ROOM: [id number] IMPRESSION: Functional communication without limitations in: Speech, Language, Cognition Functional oropharyngeal phases of swallowing: without identified risk for aspiration Diet Recommendations: Regular Consistency;Thin Liquids IDDSI Level 0 Recommended Discharge Disposition: No further skilled speech therapy services anticipated Reason for Hospital Admission: 65 year old female admitted with slurred speech and left facial droop Reason for Speech Therapy Consult: ST evial ordered per CVA/TIA to assess speech/swallowing Relevant Past Medical History: GERD, esophageal reflux, short term memory loss Response to Therapy Interventions: Good Participation in activities Patient Report: 'I am doing fine' Current Status Oral Hygiene: Clear, moist oral cavity Dentition: Retains Natural Dentition Current Feeding Method: Oral Current Diet Textures: Regular Consistency;Thin Liquids IDDSI Level 0 Current Level Of Communication: Verbal Current Management Of Secretions: Able to self-manage Oral Motor Exam: Within Functional Limits Cognition Cognitive Status: Within Functional Limits For Current Session Speech/Voice/Language Speech Production: Within Functional Limits Expressive and Receptive Language: Within Functional Limits Swallow Position Of Patient During Assessment: Upright In Bed Consistencies Presented: Thin Liquids IDDSI Level 0, Pureed IDDSI Level 4, Solid Response to Consistencies Presented: -Patient readily consumes p.o. trials for assessment; mastication functional; onset of swallow timely; no overt coughing or throat clearing noted; clear vocal quality Compensatory Strategies Utilized During Assessment: Self-monitoring Clinical Swallow [place] Swallow Protocol: Pass Oral Pharyngeal Swallow Assessment: Within Functional Limits Suspected Esophageal Deficits: history of GERD Patient /Caregiver Goals: Go Home Goals for Plan of Care: evaluation only, no skilled ST needs Patient will be discontinued from speech therapy when no further skilled needs are identified in this setting. PLAN: ST Frequency: Discontinue therapy services Reasons Inpatient Therapy Services Discontinued: Patient appears safe and appropriate re: communication, cognition, and swallow function with the ability to return to a baseline level of function Results and Recommendations Discussed With: Patient;Nurse TREATMENT INTERVENTIONS: Therapy Diagnosis: Cognitive deficits following cerebral infarction;Aphasia following cerebral infarction;Dysphagia following cerebral infarction;No Skilled Need Interventions Provided: Speech Language Eval (33823);Clinical Swallow Evaluation (53185) $ Speech Language Eval (19516) Billed Units: 1 unit $ Clinical Swallow Evaluation (95929) Billed Units: 1 unit Training and education provided in: Dietary Consistencies The following therapeutic skills were used:: Education on role of discipline / importance of activity, Family / caregiver counseling / training Skilled Treatment Time (minutes): 18 Home Environment Prior Functional Level: Within Functional Limits Patient Lives With: Spouse Prior Swallowing Function/Diet Textures: Regular Consistency;Thin Liquids IDDSI Level 0 Please see discipline specific clinical documentation flowsheet for complete details for this therapy evaluation/treatment. SIGNATURE: Mary Liang CCC-BANKING OFFICER PATIENT NAME: Jovany Sommers DATE: September 01, 2021 TIME: 11:04 AM [facility] 08-31-2021 [facility] HNO ID: [id number] Author: RT Damir(R) Service: Radiology Author Type: Industrial Cleaning Technician Type: Allied Health Filed: 08/31/2021 4:55 PM Note Text: Radiology Service Progress Note PATIENT NAME: Jovany Sommers DATE OF SERVICE: August 31, 2021 TIME: 4:55 PM PATIENT IDENTITY VERIFICATION COMPLETED USING TWO (2) IDENTIFIERS: Name and Date of confirmed by patient verbally and Name and Date of confirmed by identification band. FALL SCREENING: Has the patient had 2 falls in the last year or 1 fall with injury or currently using an Ambulatory Assistive Device (Walker, Cane, Wheelchair, Crutches, etc.)? Emergency Room Patient: Screened in ED PATIENT GENDER DATA: Female. status: : No status: NO. PATIENT RELEVANT IMPLANT DATA REVIEWED: Not Applicable RADIOLOGY DEPARTMENT: CT; Exam(s) Completed: Brain PERIPHERAL IV DATA: Not applicable SIGNED BY: RT Damir(R) August 31, 2021 4:55 PM Normal [facility] HNO ID: [id number] Author: SOUMYA Wilson Service: Radiology Author Type: Technologist Type: Allied Health Filed: 08/31/2021 4:41 PM Note Text: Radiology Service Progress Note PATIENT NAME: Jovany Sommers DATE OF SERVICE: August 31, 2021 TIME: 4:41 PM PATIENT IDENTITY VERIFICATION COMPLETED USING TWO (2) IDENTIFIERS: Name and Date of confirmed by patient verbally and Name and Date of confirmed by identification band. FALL SCREENING: Has the patient had 2 falls in the last year or 1 fall with injury or currently using an Ambulatory Assistive Device (Walker, Cane, Wheelchair, Crutches, etc.)? Emergency Room Patient: Screened in ED PATIENT GENDER DATA: Female. status: : No status: NO. PATIENT RELEVANT IMPLANT DATA REVIEWED: Not Applicable RADIOLOGY DEPARTMENT: General X-ray: Exam(s) Completed: Chest X-Ray PERIPHERAL IV DATA: Not applicable SIGNED BY: SOUMYA Wilson August 31, 2021 4:41 PM [facility] Bacteria Ur Culton 2 Bacteria identified Cx Nom (U) ORGANISM ID: 1 <10,000 CFU/ml Normal urogenital adrian Normal [facility] Comment on above: Performed By: #### 6 30-4 ####[facility] LABCLIA [id number] [address] [place] CBC W Auto Differential pane l (Bld)on 08-31-2021 Basophils (Bld) [#/Vol] 0.03 10*3/uL Normal <0.11 [facility] Comment on above: Order Comment: Speci men Type: BLOOD SPECIMENOrdering Facility: [facility] Address: [address] [place] [address] Performed By: #### 5 7021-8 ####[facility]ORATORYCLIA [id number] [address] [place] Basophils/100 WBC (Bld) 0.4 % Normal [facility] Comment on above: Order Comment: Speci men Type: BLOOD SPECIMENOrdering Facility: [facility] Address: [address] [place] [address] Performed By: #### 5 7021-8 ####[facility]ATORYCLIA [id number] [address] [place] Differential cell count method Nom (Bld) Auto Normal [facility] Comment on above: Order Comment: Speci men Type: BLOOD SPECIMENOrdering Facility: [facility] Address: [address] [place] [address] Performed By: #### 5 7021-8 ####[facility]ORATORYCLIA [id number] [place] [address] [place] Eosinophils (Bld) [#/Vol] 0.08 10*3/uL Normal <0.46 [facility] Comment on above: Order Comment: Speci men Type: BLOOD SPECIMENOrdering Facility: [facility] Address: [address] [place] [address] Performed By: #### 5 7021-8 ####[facility]ORATORYCLIA [id number] [address] Eosinophils/100 WBC (Bld) 1.0 % Normal [facility] Comment on above: Order Comment: Speci men Type: BLOOD SPECIMENOrdering Facility: [facility] Address: [address] [place] [address] Performed By: #### 5 7021-8 ####[facility]ORATORYCLIA [id number] [address] [place] Erythrocyte distribution width (RBC) [Ratio] 12.2 % Normal 11.5-15.0 [facility] Comment on above: Order Comment: Speci men Type: BLOOD SPECIMENOrdering Facility: [facility] Address: [address] [place] [address] Performed By: #### 5 7021-8 ####[facility]ORATORYCLIA [id number] [address] [place] Hematocrit (Bld) [Volume fraction] 40.9 % Normal 36.0-46.0 [facility] Comment on above: Order Comment: Speci men Type: BLOOD SPECIMENOrdering Facility: [facility] Address: [address] [place] [address] Performed By: #### 5 7021-8 ####[facility]ORATORYCLIA [id number] [address] Hemoglobin (Bld) [Mass/Vol] 13.5 g/dL Normal 11.5-15.5 [facility] Comment on above: Order Comment: Speci men Type: BLOOD SPECIMENOrdering Facility: [facility] Address: [address] [place] [address] Performed By: #### 5 7021-8 ####[facility]ORATORYCLIA [id number] [address] [place] IMMATURE GRAN % 0.4 % Normal [facility] Comment on above: Order Comment: Speci men Type: BLOOD SPECIMENOrdering Facility: [facility] Address: [address] [place] [address] Performed By: #### 5 7021-8 ####[facility]ORATORYCLIA [id number] [address] [place] IMMATURE GRAN ABS 0.03 k/uL Normal <0.10 [facility] Comment on above: Order Comment: Speci men Type: BLOOD SPECIMENOrdering Facility: [facility] Address: [address] [place] [address] Performed By: #### 5 7021-8 ####BULL LABORATORYCLIA [id number] [place] [address] [place] Lymphocytes (Bld) [#/Vol] 2.42 10*3/uL Normal 1.00-4.00 [facility] Comment on above: Order Comment: Speci men Type: BLOOD SPECIMENOrdering Facility: [facility] Address: [address] [place] [address] Performed By: #### 5 7021-8 ####BULL LABORATORYCLIA [id number] [address] [place] Lymphocytes/100 WBC (Bld) 29.1 % Normal [facility] Comment on above: Order Comment: Speci men Type: BLOOD SPECIMENOrdering Facility: [facility] Address: [address] [place] [address] Performed By: #### 5 7021-8 ####BULL LABORATORYCLIA [id number] [address] MCH (RBC) [Entitic mass] 29.2 pg Normal 26.0-34.0 [facility] Comment on above: Order Comment: Speci men Type: BLOOD SPECIMENOrdering Facility: [facility] Address: [address] [place] [address] Performed By: #### 5 7021-8 ####BULL LABORATORYCLIA [id number] [address] MCHC (RBC) [Mass/Vol] 33.0 g/dL Normal 30.5-36.0 [facility] Comment on above: Order Comment: Speci men Type: BLOOD SPECIMENOrdering Facility: [facility] Address: [address] [place] [address] Performed By: #### 5 7021-8 ####BULL LABORATORYCLIA [id number] [address] MCV (RBC) [Entitic vol] 88.3 fL Normal 80.0-100.0 [facility] Comment on above: Order Comment: Speci men Type: BLOOD SPECIMENOrdering Facility: [facility] Address: [address] [place] [address] Performed By: #### 5 7021-8 ####BULL LABORATORYCLIA [id number] [address] Monocytes (Bld) [#/Vol] 0.56 10*3/uL Normal <0.87 [facility] Comment on above: Order Comment: Speci men Type: BLOOD SPECIMENOrdering Facility: [facility] Address: [address] [place] [address] Performed By: #### 5 7021-8 ####BULL LABORATORYCLIA [id number] [address] Monocytes/100 WBC (Bld) 6.7 % Normal [facility] Comment on above: Order Comment: Speci men Type: BLOOD SPECIMENOrdering Facility: [facility] Address: [address] [place] [address] Performed By: #### 5 7021-8 ####BULL LABORATORYCLIA [id number] [place] [address] [place] Neutrophils (Bld) [#/Vol] 5.20 10*3/uL Normal 1.45-7.50 [facility] Comment on above: Order Comment: Speci men Type: BLOOD SPECIMENOrdering Facility: [facility] Address: [address] [place] [address] Performed By: #### 5 7021-8 ####BULL LABORATORYCLIA [id number] [place] [address] [place] Neutrophils/100 WBC (Bld) 62.4 % Normal [facility] Comment on above: Order Comment: Speci men Type: BLOOD SPECIMENOrdering Facility: [facility] Address: [address] [place] [address] Performed By: #### 5 7021-8 ####BULL LABORATORYCLIA [id number] [place] [address] [place] Nucleated RBC (Bld) [#/Vol] 10*3/uL Normal <0.01 [facility] Comment on above: Order Comment: Speci men Type: BLOOD SPECIMENOrdering Facility: [facility] Address: [address] [place] [address] Performed By: #### 5 7021-8 ####BULL LABORATORYCLIA [id number] [place] [address] [place] Nucleated RBC/100 WBC (Bld) [Ratio] 0.0 /100 WBC Normal [facility] Comment on above: Order Comment: Speci men Type: BLOOD SPECIMENOrdering Facility: [facility] Address: [address] [place] [address] Performed By: #### 5 7021-8 ####BULL LABORATORYCLIA [id number] [place] [address] [place] Platelet mean volume (Bld) [Entitic vol] 9.8 fL Normal 9.0-12.7 [facility] Comment on above: Order Comment: Speci men Type: BLOOD SPECIMENOrdering Facility: [facility] Address: [address] [place] [address] Performed By: #### 5 7021-8 ####BULL LABORATORYCLIA [id number] [address] [place] Platelets (Bld) [#/Vol] 204 10*3/uL Normal 150-400 [facility] Comment on above: Order Comment: Speci men Type: BLOOD SPECIMENOrdering Facility: [facility] Address: [address] [place] [address] Performed By: #### 5 7021-8 ####BULL LABORATORYCLIA [id number] [address] RBC (Bld) [#/Vol] 4.63 10*6/uL Normal 3.90-5.20 [facility] Comment on above: Order Comment: Speci men Type: BLOOD SPECIMENOrdering Facility: [facility] Address: [address] [place] [address] Performed By: #### 5 7021-8 ####BULL LABORATORYCLIA [id number] [address] WBC (Bld) [#/Vol] 8.32 10*3/uL Normal 3.70-11.00 [facility] Comment on above: Order Comment: Speci men Type: BLOOD SPECIMENOrdering Facility: [facility] Address: [address] [place] [address] Performed By: #### 5 7021-8 ####BULL LABORATORYCLIA [id number] [address] BRAIN WO IVCONon 09-01-[address] BRAIN WO IVCON * * *Final Report* * * DATE OF EXAM: Aug 31 2021 4:58PM [facility] [place] - CT BRAIN WO IVCON / PROCEDURE REASON: TIA, initial exam * * * * Physician Interpretation * * * * EXAMINATION: CT BRAIN WO IVCON CLINICAL HISTORY: TIA, initial exam TECHNIQUE: Serial axial images without IV contrast were obtained from the vertex to the foramen magnum. MQ: CTBWO_3 CT Radiation dose: Integrated Dose-Length Product (DLP) for this visit = 637 mGy*cm CT Dose Reduction Employed: No dose reduction techniques were required COMPARISON: None. RESULT: Post-operative change: None. Acute change: No evidence of an acute infarct or other acute parenchymal process. Hemorrhage: No evidence of acute intracranial hemorrhage. ECASS hemorrhagic transformation score: Not Applicable Mass Lesion / Mass Effect: There is no evidence of an intracranial mass or extraaxial fluid collection. No significant mass effect. Chronic change: None apparent. Parenchyma: There is no significant volume loss. The brain parenchyma is otherwise within normal limits for age. Ventricles: The ventricles are within normal limits of size and configuration for age. Paranasal sinuses and skull base: The visualized paranasal sinuses are grossly clear. The skull base and imaged soft tissues are unremarkable. Coagulating Drying Supervisor (topogram) images: Unremarkable. IMPRESSION: NO EVIDENCE OF AN ACUTE INTRACRANIAL PROCESS Tunnel Heading Supervisor: PSCB Transcribe Date/Time: Aug 31 2021 5:01P Dictated by : THOMAS LOPEZ MD This examination was interpreted and the report reviewed and electronically signed by: THOMAS LOPEZ MD on Aug 31 2021 5:02PM EST [id number] Normal [facility] Comprehensive metabolic 2000 panelon 08-31-2021 Albumin [Mass/Vol] 4.4 g/dL Normal 3.9-4.9 [facility] Comment on above: Order Comment: James bergeron Type: BLOOD SPECIMENOrdering Facility: [facility] Address: [address] [id number] Performed By: #### 2 4323-8, VICENTE, ####ELDORA LABORATORYCLIA [id number] [address] STATES OF [facility] ALP [Catalytic activity/Vol] 74 U/L Normal 34-123 [facility] Comment on above: Order Comment: James bergeron Type: BLOOD SPECIMENOrdering Facility: [facility] Address: [address] [id number] Performed By: #### 2 4323-8, VICENTE, ####BULL LABORATORYCLIA [id number] [place] [address] [place] ALT [Catalytic activity/Vol] 16 U/L Normal 7-38 [facility] Comment on above: Order Comment: Speci men Type: BLOOD SPECIMENOrdering Facility: [facility] Address: [address] [place] [address] Performed By: #### 2 4323-8, VICENTE, ####BULL LABORATORYCLIA [id number] [place] [address] [place] Anion gap [Moles/Vol] 8 mmol/L Low 9-18 [facility] Comment on above: Order Comment: Speci men Type: BLOOD SPECIMENOrdering Facility: [facility] Address: [address] [place] [address] Performed By: #### 2 4323-8, VICENTE, ####BULL LABORATORYCLIA [id number] [place] [address] [place] AST [Catalytic activity/Vol] 19 U/L Normal 13-35 [facility] Comment on above: Order Comment: Speci men Type: BLOOD SPECIMENOrdering Facility: [facility] Address: [address] [place] [address] Performed By: #### 2 4323-8, VICENTE, ####BULL LABORATORYCLIA [id number] [place] [address] [place] Bilirubin [Mass/Vol] 0.2 mg/dL Normal 0.2-1.[address] [facility] Comment on above: Order Comment: Speci men Type: BLOOD SPECIMENOrdering Facility: [facility] Address: [address] [place] [address] Performed By: #### 2 4323-8, VICENTE, ####BULL LABORATORYCLIA [id number] [address] [place] Calcium [Mass/Vol] 9.4 mg/dL Normal 8.5-10.2 [facility] Comment on above: Order Comment: Speci men Type: BLOOD SPECIMENOrdering Facility: [facility] Address: [address] [place] [address] Performed By: #### 2 4323-8, VICENTE, ####BULL LABORATORYCLIA [id number] [place] [address] [place] Chloride [Moles/Vol] 104 mmol/L Normal 97-[address] [facility] Comment on above: Order Comment: Speci men Type: BLOOD SPECIMENOrdering Facility: [facility] Address: [address] [place] [address] Performed By: #### 2 4323-8, VICENTE, ####BULL LABORATORYCLIA [id number] [place] [address] [place] CO2 [Moles/Vol] 28 mmol/L Normal 22-30 [facility] Comment on above: Order Comment: Speci men Type: BLOOD SPECIMENOrdering Facility: [facility] Address: [address] [place] [address] Performed By: #### 2 4323-8, VICENTE, ####BULL LABORATORYCLIA [id number] [place] [address] [place] Creatinine [Mass/Vol] 0.62 mg/dL Normal 0.58-0.96 [facility] Comment on above: Order Comment: Speci men Type: BLOOD SPECIMENOrdering Facility: [facility] Address: [address] [place] [address] Performed By: #### 2 4323-8, VICENTE, ####BULL LABORATORYCLIA [id number] [address] [place] ESTIMATED GLOMERULAR FILTRATION RATE 99 mL/min/1.73m??? Normal >=60 [facility] Comment on above: Order Comment: Speci men Type: BLOOD SPECIMENOrdering Facility: [facility] Address: [address] [place] [address] Result Comment: Meg mated Glomerular Filtration Rate (eGFR) is calculated using the 2020 CKD-EPI creatinine equation. This equation utilizes serum creatinine, sex, and age as parameters. The creatinine assay has traceable calibration to isotope dilution-mass spectrometry. Refer to KDIGO guidelines for clinical interpretation. In patients with unstable renal function, e.g. those with acute kidney injury, the eGFR may not accurately reflect actual GFR. Performed By: #### 2 4323-8, VICENTE, ####BULL LABORATORYCLIA [id number] [place] [address] [place] Glucose [Mass/Vol] 88 mg/dL Normal 74-99 [facility] Comment on above: Order Comment: James bergeron Type: BLOOD SPECIMENOrdering Facility: [facility] Address: [address] [place], [place] [id number] Result Comment: The [place] Diabetes Association (ADA) provides guidance for cutoff values for fasting glucose and random glucose. The ADA defines fasting as no caloric intake for at least 8 hours. Fasting plasma glucose results between 100 to 125 mg/dL indicate increased risk for diabetes (prediabetes). Fasting plasma glucose results greater than or equal to 126 mg/dL meet the criteria for diagnosis of diabetes. In the absence of unequivocal hyperglycemia, results should be confirmed by repeat testing. In a patient with classic symptoms of hyperglycemia or hyperglycemic crisis, random plasma glucose results greater than or equal to 200 mg/dL meet the criteria for diagnosis of diabetes. Reference: Standards of Medical Care in Diabetes 2016, [place] [employer] Association. Diabetes Care. 2016.39(Suppl 1). Performed By: #### 2 4323-8, VICENTE, ####BULL LABORATORYCLIA [id number] [place] [id number] [place] Potassium [Moles/Vol] 3.5 mmol/L Low 3.7-5.1 [facility] Comment on above: Order Comment: James bergeron Type: BLOOD SPECIMENOrdering Facility: [facility] Address: [address] [place] [address] Performed By: #### 2 4323-8, VICENTE, ####BULL LABORATORYCLIA [id number] [place] [address] [place] Protein [Mass/Vol] 6.5 g/dL Normal 6.3-8.0 [facility] Comment on above: Order Comment: James bergeron Type: BLOOD SPECIMENOrdering Facility: [facility] Address: [address] [phone] Performed By: #### 2 4323-8, VICENTE, ####BULL LABORATORYCLIA [id number] [address] Sodium [Moles/Vol] 140 mmol/L Normal 136-144 [facility] Comment on above: Order Comment: Speci men Type: BLOOD SPECIMENOrdering Facility: [facility] Address: [address] [place] [address] Performed By: #### 2 4323-8, VICENTE, ####BULL LABORATORYCLIA [id number] [address] Urea nitrogen [Mass/Vol] 15 mg/dL Normal 7-21 [facility] Comment on above: Order Comment: Speci men Type: BLOOD SPECIMENOrdering Facility: [facility] Address: [address] [place] [address] Performed By: #### 2 4323-8, VICENTE, ####BULL LABORATORYCLIA [id number] [address] ED NOTEon 08-31-2021 ED NOTE HNO ID: [id number] Author: Latia Tirado RN Service: ? Author Type: Registered Nurse Type: ED Notes Filed: 08/31/2021 8:36 PM Note Text: Report called to Emily LEDESMA on [address] [place] [address] ED NOTE HNO ID: [id number] Author: Crystal Gonzalez RN Service: Nursing Author Type: Registered Nurse Type: ED Notes Filed: 08/31/2021 4:22 PM Note Text: Patient ambulates to [facility] ED NOTE HNO ID: [id number] Author: Nneka Zepeda RN Service: Nursing Author Type: Registered Nurse Type: ED Notes Filed: 08/31/2021 3:46 PM Note Text: Patient was talking with her BRODERICK last night at 1900 when she and her family noted slurred speech and left facial droop. It resolved and she went home and took her blood pressure. Patient then worked all day and decided to come to ER for eval. She has not had any symptoms since last night. accu check 109. EKG done and handed to MARII MACE who was at for exam. Placed on con't monitoring. Normal [facility] ED PROV NOTEon 08-31-2021 ED PROV NOTE HNO ID: [id number] Author: Stella Buckley MD Service: Emergency Medicine Author Type: Physician Type: ED Provider Notes Filed: 08/31/2021 8:12 PM Note Text: ED Provider Note Patient Name: Jovany Sommers : 1955 SERVICE DATE: 08/31/21 History Patient presents with: Slurred Speech: 1899 last night Facial Droop: 1899 last night 65 yo WF who presents to the ED with her family concerns of a stroke. The patient states that last night at 7:00 she was talking to her [id number] when she had a sudden onset of slurred speech and left-sided facial droop. She states that when she stood up she was walking to the right. She was not actually falling. The patient states that as fast as her symptoms came on is as fast as they went away. The patient denies any headache at the time. The patient states that she had no chest pain, palpitations or shortness of breath. She is due to have surgery tomorrow for a kidney stone and when she called the surgery center today they instructed her to come to the emergency room for evaluation. Patient has a past medical and surgical history of: PAST MEDICAL HISTORY Diagnosis Date - Abnormal Pap smear of cervix 11/2011 ascus/-HPV 10/02 pap wnl/-HPV - Calculus, renal - Cystocele, midline - Esophageal reflux - GERD (gastroesophageal reflux disease) - Hematuria - Hemorrhoids - HLD (hyperlipidemia) - Hypertension - LBBB (left bundle branch block) - Menopause - Other atopic dermatitis - Rectocele - Short-term memory loss - Stress incontinence - Uterine fibroid - Uterovaginal prolapse PAST SURGICAL HISTORY Procedure Laterality Date - CARPAL TUNNEL 2013 - COLONOSCOPY 2013 due in 5 years - KNEE SURGERY HX 2014 - PAST SURGICAL HISTORY OF 06/2021 kidney stone - TONSILLECTOMY HX - TUBAL LIGATION - UTERINE ARTERY EMBOLIZ 10/2003 - VAGINAL HYSTERECTOMY 2020 partial Pain scale 0/10. Review of systems were reviewed and patient denies fever, chills, headache, visual changes, sore throat or dental complaints, neck pain or stiffness, chest pain, shortness of breath, cough, abdominal pain, nausea, vomiting, or diarrhea. Patient denies genitourinary symptoms, skin rash, musculoskeletal issues. Patient denies any mental health concerns to include anxiety, depression, SI, HI or hallucinations. Symptoms not improved with home or OTC medications. No other medical complaints or injuries. No other aggravating or alleviating symptoms other than described as above. History provided by: Patient and medical records japanese interpreter used: No PAST MEDICAL HISTORY Diagnosis Date - Abnormal Pap smear of cervix 11/2011 ascus/-HPV 10/02 pap wnl/-HPV - Calculus, renal - Cystocele, midline - Esophageal reflux - GERD (gastroesophageal reflux disease) - Hematuria - Hemorrhoids - HLD (hyperlipidemia) - Hypertension - LBBB (left bundle branch block) - Menopause - Other atopic dermatitis - Rectocele - Short-term memory loss - Stress incontinence - Uterine fibroid - Uterovaginal prolapse PAST SURGICAL HISTORY Procedure Laterality Date - CARPAL TUNNEL 2013 - COLONOSCOPY 2013 due in 5 years - KNEE SURGERY HX 2014 - PAST SURGICAL HISTORY OF 06/2021 kidney stone - TONSILLECTOMY HX - TUBAL LIGATION - UTERINE ARTERY EMBOLIZ 10/2003 - VAGINAL HYSTERECTOMY 2020 partial FAMILY HISTORY Problem Relation Age of Onset - Hypertension Mother - Diabetes Mother - COPD Mother - other (lung cancer) Mother 67 - other (lung cancer) Father 65 - Cancer Sister 59 stomach/liver - Prostate Cancer Brother 56 - Heart Brother enlarged heart - Breast Cancer Maternal Grandmother - Diabetes Paternal Grandmother - Hypertension Sister - Heart disease Sister - Coronary Artery Disease Sister - Diabetes Sister - Drug abuse Son - No Known Problems Granddaughter Social History Tobacco Use - Smoking status: Never Smoker - Smokeless tobacco: Never Used Vaping Use - Vaping Use: Never used Substance and Sexual Activity - Alcohol use: No - Drug use: No - Sexual activity: Not Currently control/protection: Tubal Ligation ALLERGIES No Known Allergies Review of Systems Constitutional: Negative. HENT: Negative. Eyes: Negative. Respiratory: Negative. Cardiovascular: Negative. Gastrointestinal: Negative. Genitourinary: Negative. Musculoskeletal: Negative. Skin: Negative. Neurological: Positive for facial asymmetry (left facial droop) and speech difficulty (garbled). Walking to the right Psychiatric/Behavioral: Negative. All other systems reviewed and are negative. Physical Exam Vitals [08/31/21 1531] BP Pulse Temp Temp src Resp SpO2 Weight Height 171/81 (!) 53 36.5 ?C (97.7 ?F) Oral 16 98 % 71.2 kg (157 lb) -- Physical Exam Vitals and nursing note reviewed. Exam conducted with a mutuel machine operator present (Family). Constitutional: General: (more content not included)... Normal [facility] HISTORY PHYSICALon HISTORY PHYSICAL HNO ID: [id number] Author: Satinder Kaur MD Service: Hospital Medicine Author Type: Physician Type: HANDP Filed: 08/31/2021 7:08 PM Note Text: DEPARTMENT OF HOSPITAL MEDICINE HISTORY AND PHYSICAL EXAM SERVICE DATE: 08/31/2021 Code Status: FULL CODE SERVICE TIME: 6:34 PM Primary Care Physician: Jasper Zeng NIGHT AND WEEKEND COVERAGE: [place] COVERAGE: Days: [phone], please page attending physician. Nights: [phone], please page [facility] Night coverage pager [phone]. Subjective CHIEF COMPLAINT: Stroke-like symptoms HPI: This is a 65 year old female who presents with stroke-like symptoms. Patient reports that around 7pm last night, patient was speaking with her sister and begin slurring her speech; her sister was immediately concerned, and noticed left sided facial drooping at that time. Her sister recommended that she be taken to ER, but patient declined. Within 5-10 minutes patient reported improvement in her symptoms. She reports that when she stood up she began veering to the right before having immediate improvement. She was recommended to go to the ER, but declined, instead choosing to work this morning. She took an Excedrin this morning because it has aspirin in it believing that may help if she had had a stroke. She denied numbness, weakness. She was taken to work, and directed immediately to the ER by her colleagues. On arrival, AVSS, HR 53, SB. BP 175/85. CBC, CMP, troponin unremarkable. CXR WNL, CT brain WNL. Case discussed with Neuro, recommended low dose aspirin (deferred as patient had already taken aspirin containing excedrin), MRI/MRA and Neuro consult in AM. Patient admitted to [facility] for further care. UA with 2+ LE, negative nitrites. WBC 11-25/HPF. Of note, patient scheduled for lithotripsy tomorrow at [facility], denies flank pain/hematuria. PAST MEDICAL HISTORY Diagnosis Date - Abnormal Pap smear of cervix 11/2011 ascus/-HPV 10/02 pap wnl/-HPV - Calculus, renal - Cystocele, midline - Esophageal reflux - GERD (gastroesophageal reflux disease) - Hematuria - Hemorrhoids - HLD (hyperlipidemia) - Hypertension - LBBB (left bundle branch block) - Menopause - Other atopic dermatitis - Rectocele - Short-term memory loss - Stress incontinence - Uterine fibroid - Uterovaginal prolapse PAST SURGICAL HISTORY Procedure Laterality Date - CARPAL TUNNEL 2013 - COLONOSCOPY 2013 due in 5 years - KNEE SURGERY HX 2014 - PAST SURGICAL HISTORY OF 06/2021 kidney stone - TONSILLECTOMY HX - TUBAL LIGATION - UTERINE ARTERY EMBOLIZ 10/2003 - VAGINAL HYSTERECTOMY 2020 partial FAMILY HISTORY Problem Relation Age of Onset - Hypertension Mother - Diabetes Mother - COPD Mother - other (lung cancer) Mother 67 - other (lung cancer) Father 65 - Cancer Sister 59 stomach/liver - Prostate Cancer Brother 56 - Heart Brother enlarged heart - Breast Cancer Maternal Grandmother - Diabetes Paternal Grandmother - Hypertension Sister - Heart disease Sister - Coronary Artery Disease Sister - Diabetes Sister - Drug abuse Son - No Known Problems Granddaughter Social History Tobacco Use - Smoking status: Never Smoker - Smokeless tobacco: Never Used Vaping Use - Vaping Use: Never used Substance Use Topics - Alcohol use: No - Drug use: No PRIOR TO ADMISSION MEDICATIONS: (Not in a hospital admission) ALLERGIES No Known Allergies REVIEW OF SYSTEM: PAIN ASSESSMENT: Negative for pain, history of chronic pain, or current treatment for a chronic pain condition. GENERAL: No weight loss, malaise or fevers HEENT: Negative for frequent or significant headaches, No changes in hearing or vision, no nose bleeds or other nasal problems NECK: Negative for lumps, goiter, pain and significant neck swelling RESPIRATORY: Negative for cough, hemoptysis, wheezing, COPD, dyspnea or shortness of breath CARDIOVASCULAR: +HTN, Negative for chest pain, leg swelling, CHF or palpitations GI: No nausea, vomiting, or diarrhea : No history of dysuria, frequency or incontinence SLATE HANDLER: Negative for abnormal vaginal bleeding, abnormal vaginal discharge MUSCULOSKELETAL: +Arthritis in shoulders SKIN: Negative for lesions, rash, and itching PSYCH: Negative for sleep disturbance, mood disorder and recent psychosocial stressors HEMATOLOGY/LYMPHOLOGY: +Easy bruising per patient. NEURO: No history of headaches, syncope, paralysis, seizures or tremors Objective PHYSICAL EXAM: BP 175/85 Pulse 53 Temp (Src) 97.7 (Oral) Resp 16 Wt 157 lb (71.2kg) SpO2 97% O2 Therapy: Room Air Physical Exam Performed: GENERAL: Alert, no distress, cooperative SKIN: Skin color, texture, turgor normal. No rashes or lesions. HEAD/SINUSES: No significant findings EYES: EOMI BACK: Back symmetric, Normal curvature, ROM normal LUNGS: Lungs clear to auscultation, Good diaphragmatic excursion CARDIAC: Normal S1 and S2; n (more content not included)... Normal [facility] Magnesium SerPl-mCncon 08-31 Magnesium [Mass/Vol] 2.0 mg/dL Normal 1.7-2.[address] [facility] Comment on above: Order Comment: Speci elyssa Type: BLOOD SPECIMENOrdering Facility: [facility] Address: [address] [place] [address] Performed By: #### 2 4323-8, VICENTE, 06637-2 ####ELDORA LABORATORYCLIA [id number] [place] [address] [place] TROPONIN Ton 08-31-2021 Troponin T.cardiac [Mass/Vol] ug/L Normal 0.000-0.029 [facility] Comment on above: Order Comment: Specdane bergeron Type: BLOOD SPECIMENOrdering Facility: [facility] Address: [address] [place] [address] Performed By: #### 2 4323-8, VICENTE, 25885-7 ####ELDORA LABORATORYCLIA [id number] [place] [id number] [place] URINALYSIS, REFLEX MICROSCOP ICon 08-31-2021 Bacteria LM.HPF (Urine sed) [#/Area] Few Abnormal None Seen [facility] Comment on above: Order Comment: Catrachitai elyssa Type: URINE SPECIMENOrdering Facility: [facility] Address: [address] [place] [address] Performed By: #### L [id number] ####BULL LABORATORYCLIA [id number] [place] [address] [place] Bilirubin Ql (U) Negative Normal Negative [facility] Comment on above: Order Comment: Speci men Type: URINE SPECIMENOrdering Facility: [facility] Address: [address] [place] [address] Performed By: #### L [id number] ####BULL LABORATORYCLIA [id number] [address] [place] Clarity (Unsp spec) Clear Normal Clear [facility] Comment on above: Order Comment: Speci men Type: URINE SPECIMENOrdering Facility: [facility] Address: [address] [place] [address] Performed By: #### L [id number] ####BULL LABORATORYCLIA [id number] [address] Color (U) Yellow Normal Yellow [facility] Comment on above: Order Comment: Speci men Type: URINE SPECIMENOrdering Facility: [facility] Address: [address] [place] [address] Performed By: #### L [id number] ####BULL LABORATORYCLIA [id number] [address] Epithelial cells LM.HPF (Urine sed) [#/Area] Few Normal [facility] Comment on above: Order Comment: Speci men Type: URINE SPECIMENOrdering Facility: [facility] Address: [address] [place] [address] Performed By: #### L [id number] ####BULL LABORATORYCLIA [id number] [address] [place] Glucose Test strip (U) [Mass/Vol] Negative Normal Negative [facility] Comment on above: Order Comment: Speci men Type: URINE SPECIMENOrdering Facility: [facility] Address: [address] [place] [address] Performed By: #### L [id number] ####BULL LABORATORYCLIA [id number] [place] [address] [place] Hemoglobin Ql (U) Negative Normal Negative [facility] Comment on above: Order Comment: Speci men Type: URINE SPECIMENOrdering Facility: [facility] Address: [address] [place] [address] Performed By: #### L [id number] ####BULL LABORATORYCLIA [id number] [address] OF [facility] Ketones Ql (U) Negative Normal Negative [facility] Comment on above: Order Comment: Speci men Type: URINE SPECIMENOrdering Facility: [facility] Address: [address] [place] [address] Performed By: #### L [id number] ####BULL LABORATORYCLIA [id number] [address] Leukocyte esterase Test strip Ql (U) 2+ Abnormal Negative [facility] Comment on above: Order Comment: Speci men Type: URINE SPECIMENOrdering Facility: [facility] Address: [address] [place] [address] Performed By: #### L [id number] ####BULL LABORATORYCLIA [id number] [place] [address] [place] Nitrite Ql (U) Negative Normal Negative [facility] Comment on above: Order Comment: Speci men Type: URINE SPECIMENOrdering Facility: [facility] Address: [address] [place] [address] Performed By: #### L [id number] ####BULL LABORATORYCLIA [id number] [place] [address] [place] pH (U) 6.5 [pH] Normal 5.0-8.0 [facility] Comment on above: Order Comment: Speci men Type: URINE SPECIMENOrdering Facility: [facility] Address: [address] [place] [address] Performed By: #### L [id number] ####BULL LABORATORYCLIA [id number] [address] Protein (U) [Mass/Vol] Negative Normal Negative [facility] Comment on above: Order Comment: Speci men Type: URINE SPECIMENOrdering Facility: [facility] Address: [address] [place] [address] Performed By: #### L [id number] ####BULL LABORATORYCLIA [id number] [address] RBC LM.HPF (Urine sed) [#/Area] 0-3 /HPF Normal 0-3 /HPF [facility] Comment on above: Order Comment: Speci men Type: URINE SPECIMENOrdering Facility: [facility] Address: [address] [place] [address] Performed By: #### L [id number] ####BULL LABORATORYCLIA [id number] [address] Specific gravity (U) [Rel density] 1.010 Normal 1.005-1.030 [facility] Comment on above: Order Comment: Speci men Type: URINE SPECIMENOrdering Facility: [facility] Address: [address] [place] [address] Performed By: #### L [id number] ####BULL LABORATORYCLIA [id number] [address] Urobilinogen Ql (U) 0.2 EU/dL Normal 0.2-1.0 EU/dL [facility] Comment on above: Order Comment: Speci men Type: URINE SPECIMENOrdering Facility: [facility] Address: [address] [place] [address] Performed By: #### L [id number] ####BULL LABORATORYCLIA [id number] [address] WBC LM.HPF (Urine sed) [#/Area] 11-25 /HPF Abnormal 0-5 /HPF [facility] Comment on above: Order Comment: Speci men Type: URINE SPECIMENOrdering Facility: [facility] Address: [address] [place] [address] Performed By: #### L [id number] ####BULL LABORATORYCLIA [id number] [address] XR CHEST 1V FRONTAL PORTon 0 - XR CHEST 1V FRONTAL PORT * * *Final Report* * * DATE OF EXAM: Aug 31 2021 4:40PM MDX [id number] - XR CHEST 1V FRONTAL PORT / PROCEDURE REASON: Chest pain * * * * Physician Interpretation * * * * EXAMINATION: CHEST RADIOGRAPH (PORTABLE SINGLE VIEW AP) Exam Date/Time: 08/31/2021 4:40 PM CLINICAL HISTORY: Chest pain MQ: XCPR_5 Comparison: 02/26/2020 RESULT: Lines, tubes, and devices: None. Lungs and pleura: Clear Cardiomediastinal silhouette: Stable cardiomediastinal silhouette. Other: . IMPRESSION: Unremarkable portable chest Tunnel Heading Supervisor: PSCB Transcribe Date/Time: Aug 31 2021 4:42P Dictated by : MATHEW LY MD This examination was interpreted and the report reviewed and electronically signed by: MATHEW LY MD on Aug 31 2021 4:43PM EST [id number] [facility] ALLIED HEALTHon 05-05-2021 ALLIED HEALTH HNO ID: [id number] Author: SOUMYA Wayne Service: Radiology Author Type: Technologist Type: Allied Health Filed: 05/05/2021 4:37 PM Note Text: Radiology Service Progress Note PATIENT NAME: Jovany Sommers DATE OF SERVICE: May 05, 2021 TIME: 4:36 PM PATIENT IDENTITY VERIFICATION COMPLETED USING TWO (2) IDENTIFIERS: Name and Date of confirmed by patient verbally and Name and Date of confirmed by identification band. FALL SCREENING: Has the patient had 2 falls in the last year or 1 fall with injury or currently using an Ambulatory Assistive Device (Walker, Cane, Wheelchair, Crutches, etc.)? Emergency Room Patient: Screened in ED PATIENT GENDER DATA: Female. status: : No status: NO. PATIENT RELEVANT IMPLANT DATA REVIEWED: Not Applicable RADIOLOGY DEPARTMENT: CT; Exam(s) Completed: Abdomen/Pelvis PERIPHERAL IV DATA: Not applicable SIGNED BY: SOUMYA Wayne May 05, 2021 4:36 PM [facility] Basic Metabolic Panlon 05-05 Anion gap [Moles/Vol] 11 mmol/L Normal - [facility] Comment on above: Performed By: #### U AMI, UA #### [facility] [address] [place] [address] Calcium [Mass/Vol] 9.3 mg/dL Normal 8.5-10.2 [facility] Comment on above: Performed By: #### U AMIC, UA #### [facility] [address] Chloride [Moles/Vol] 100 mmol/L Normal 97-[address] [facility] Comment on above: Performed By: #### U AMIC, UA #### [facility] [address] [place] [address] CO2 [Moles/Vol] 27 mmol/L Normal 22-30 [facility] Comment on above: Performed By: #### U AMIC, UA #### [facility] [address] [place] [address] Creatinine [Mass/Vol] 0.76 mg/dL Normal 0.58-0.96 [facility] Comment on above: Performed By: #### U AMIC, UA #### [facility] [address] [place] [address] eGFR- Amer. >60 Normal [facility] Comment on above: Performed By: #### U AMIC, UA #### [facility] [address] [place] [address] eGFR-All Other Races >[address] [facility] Comment on above: Result Comment: eGFR (Estimated GFR) Units of measure: mL/min/1.73 meters squared eGFR is derived from the reexpressed MDRD Study equation using the following parameters: serum creatinine, age, gender and race. The creatinine assay has been calibrated to be traceable to IDMS. An eGFR <60 mL/min/1.73m2 for >3 months is consistent with chronic kidney disease. Refer to KDOQI guidelines for clinical interpretation. In patients with unstable renal function, e.g. those with acute kidney injury, the eGFR may not accurately reflect actual GFR. Note: On 06/13/2021, the eGFR calculation will be updated to the NKF-ASN Task Force recommended 2020 CKD-EPI creatinine equation which does not include a race variable. For more information or to access a 2020 CKD-EPI calculator, visit the National Kidney Foundation website at kidney.org/professionals/kdoqi/gfr_calculator. Performed By: #### U AMIC, UA #### [facility] [address] [place] [address] Glucose [Mass/Vol] 126 mg/dL High 74-99 [facility] Comment on above: Result Comment: The [place] Diabetes Association (ADA) provides guidance for cutoff values for fasting glucose and random glucose. The ADA defines fasting as no caloric intake for at least 8 hours. Fasting plasma glucose results between 100 to 125 mg/dL indicate increased risk for diabetes (prediabetes). Fasting plasma glucose results greater than or equal to 126 mg/dL meet the criteria for diagnosis of diabetes. In the absence of unequivocal hyperglycemia, results should be confirmed by repeat testing. In a patient with classic symptoms of hyperglycemia or hyperglycemic crisis, random plasma glucose results greater than or equal to 200 mg/dL meet the criteria for diagnosis of diabetes. Reference: Standards of Medical Care in Diabetes 2016, [place] [employer] Association. Diabetes Care. 2016.39(Suppl 1). Performed By: #### U [facility] UA #### [facility] [address] [place] [address] Potassium [Moles/Vol] 3.7 mmol/L Normal 3.7-5.1 [facility] Comment on above: Performed By: #### U [facility], UA #### [facility] [address] [place] [address] Sodium [Moles/Vol] 138 mmol/L Normal 136-144 [facility] Comment on above: Performed By: #### [facility] #### [facility] [address] [place] [address] Urea nitrogen [Mass/Vol] 19 mg/dL Normal 7-21 [facility] Comment on above: Performed By: #### U AMIC, UA #### [facility] [address] [place] [address] CBC and Differentialon 05-05 Abs Baso 0.05 k/uL Normal <0.11 [facility] Comment on above: Performed By: #### U AMIC, UA #### [facility] [address] [place] [address] Abs Eosin <0.03 Normal <0.46 [facility] Comment on above: Performed By: #### U AMIC, UA #### [facility] [address] [place] [address] Abs Ventura 0.64 k/uL Normal <0.87 [facility] Comment on above: Performed By: #### U AMIC, UA #### [facility] [address] [place] [address] Abs Neut 12.27 k/uL High 1.45-7.50 [facility] Comment on above: Performed By: #### U AMIC, UA #### [facility] [address] [place] [address] Absolute nRBC <0.01 Normal <0.01 [facility] Comment on above: Performed By: #### U AMIC, UA #### [facility] [address] [place] [address] Basophils/100 WBC (Bld) 0.4 % Normal [facility] Comment on above: Performed By: #### U AMIC, UA #### [facility] [address] [place] [address] DTYPE Auto Diff Normal [facility] Comment on above: Performed By: #### U AMIC, UA #### [facility] [address] [place] [address] Eosinophils/100 WBC (Bld) 0.1 % Normal [facility] Comment on above: Performed By: #### U AMIC, UA #### [facility] [address] [place] [address] Erythrocyte distribution width (RBC) [Ratio] 12.2 % Normal 11.5-15.0 [facility] Comment on above: Performed By: #### U AMIC, UA #### [facility] [address] [place] [address] Hematocrit (Bld) [Volume fraction] 41.5 % Normal 36.0-46.0 [facility] Comment on above: Performed By: #### U AMIC, UA #### [facility] [address] [place] [address] Hemoglobin (Bld) [Mass/Vol] 13.7 g/dL Normal 11.5-15.5 [facility] Comment on above: Performed By: #### U AMIC, UA #### [facility] [address] [place] [address] Lymphocytes (Bld) [#/Vol] 1.30 10*3/uL Normal 1.00-4.00 [facility] Comment on above: Performed By: #### U AMIC, UA #### [facility] [address] [place] [address] Lymphocytes/100 WBC (Bld) 9.1 % Normal [facility] Comment on above: Performed By: #### U AMIC, UA #### [facility] [address] [place] [address] MCH 29.4 pG Normal 26.0-34.0 [facility] Comment on above: Performed By: #### U AMIC, UA #### [facility] [address] [place] [address] MCHC (RBC) [Mass/Vol] 33.0 g/dL Normal 30.5-36.0 [facility] Comment on above: Performed By: #### U AMIC, UA #### [facility] [address] [place] [address] MCV (RBC) [Entitic vol] 89.1 fL Normal 80.0-100.0 [facility] Comment on above: Performed By: #### U AMIC UA #### [facility] [address] [place] [address] Monocytes/100 WBC (Bld) 4.5 % Normal [facility] Comment on above: Performed By: #### U AMIC, UA #### [facility] [address] [place] [address] Neutrophils/100 WBC (Bld) 85.9 % Normal [facility] Comment on above: Performed By: #### U AMIC, UA #### [facility] [address] [place] [address] NRBCs 0.0 /100 WBC Normal 0 [facility] Comment on above: Performed By: #### U AMIC, UA #### [facility] [address] [place] [address] Platelet mean volume (Bld) [Entitic vol] 9.7 fL Normal 9.0-12.7 [facility] Comment on above: Performed By: #### U AMIC, UA #### [facility] [address] Platelets (Bld) [#/Vol] 223 10*3/uL Normal 150-400 [facility] Comment on above: Performed By: #### U AMI, UA #### [facility] [address] [facility] [phone] RBC (Bld) [#/Vol] 4.66 10*6/uL Normal 3.90-5.20 [facility] Comment on above: Performed By: #### U AMIC, UA #### [facility] [address] [facility] [phone] WBC (Bld) [#/Vol] 14.27 10*3/uL High 3.70-11.[address] [facility] Comment on above: Performed By: #### U [facility], UA #### [facility] [address] [facility] [phone] CT FLANK WO IVCONon 05-05-19 CT FLANK WO IVCON * * *Final Report* * * DATE OF EXAM: May 05 2021 4:38PM [facility] 0529 - CT FLANK WO IVCON / PROCEDURE REASON: Flank pain, stone disease suspected * * * * Physician Interpretation * * * * EXAMINATION: CT ABDOMEN AND PELVIS WITHOUT IV CONTRAST (Renal stone protocol) CLINICAL HISTORY: Unspecified flank pain. Hematuria. TECHNIQUE: Non-contrast imaging of the abdomen and pelvis was performed through the urinary tract. Study performed without intravenous or oral contrast to evaluate for urinary tract calculus. MQ: CTAbdPelvF_1 Contrast: IV contrast: None Oral contrast: None CT Radiation dose: Integrated dose-length product (DLP) for this visit = 369 mGy*cm. CT Dose Reduction Employed: Automated exposure control(AEC) and iterative recon COMPARISON: None. RESULT: Limitations: Unenhanced imaging is limited for the evaluation of some renal and other intra-abdominal and pelvic pathology. Urinary Tract: Right kidney and ureter: Upper pole cyst containing some calcification measuring 2.5 cm. No calculus. No hydronephrosis. Left kidney and ureter: 6 mm distal left ureteral calculus. Moderate left hydronephrosis. No finding to suggest cyst or mass in the unenhanced kidney. Left-sided perinephric and periureteral fat stranding. 6 mm calculus in the upper pole. Bladder: No calculus. Abdomen and Pelvis: Liver: Simple cysts in the right lobe of the liver. Biliary: The gallbladder is unremarkable. Spleen: No splenomegaly. Pancreas: Unremarkable. Adrenals: Normal. GI Tract: No bowel dilation. Normal appendix. There is diverticulosis. No changes of diverticulitis. Lymph Nodes: No lymphadenopathy. Mesentery/peritoneum: No ascites. Vasculature: Arterial atherosclerotic disease without aneurysm. Pelvis: No mass or ascites. Bones and Soft Tissues: No acute abnormality. Lower thorax: Left lower lobe atelectasis Coagulating Drying Supervisor (topogram) images: No additional findings. IMPRESSION: 1. Moderate left hydroureteronephrosis secondary to a 6 mm distal left ureteral stone. 2. There is a 6 mm calculus in the upper pole of the left kidney.. 3. Mildly complicated cyst in the upper pole of the right kidney containing some calcification. Consider nonemergent follow-up ultrasound in 6-12 months Tunnel Heading Supervisor: MIKI Transcribe Date/Time: May 05 2021 4:43P Dictated by : BELLO SIDDIQI MD This examination was interpreted and the report reviewed and electronically signed by: BELLO SIDDIQI MD on May 05 2021 5:03PM EST [id number] [facility] ED NOTEon 05-05-2021 ED NOTE HNO ID: [id number] Author: Nicol Mercado RN Service: ? Author Type: Registered Nurse Type: ED Notes Filed: 05/05/2021 7:26 PM Note Text: Pt discharged with verbal and written instructions. Verbalized understanding. Instructed pt to follow up with urology. No acute distress. Instructed pt to follow up immediately if conditions worsens, verbalized understanding. [facility] ED NOTE HNO ID: [id number] Author: Nicol Mercado RN Service: ? Author Type: Registered Nurse Type: ED Notes Filed: 05/05/2021 2:05 PM Note Text: Pt to ED with left flank pain and nausea. Denies any vomiting. Denies any problems with urination. [facility] ED PROV NOTEon 05-05-2021 ED PROV NOTE HNO ID: [id number] Author: Tristan Merlos MD Service: Emergency Medicine Author Type: Physician Type: ED Provider Notes Filed: 05/05/2021 9:35 PM Note Text: ED Provider Note Patient Name: Jovany Sommers SERVICE DATE: 05/05/21 History Patient presents with: Flank Pain This is a 65-year-old female with acute onset of flank pain. Was preceded by bloating. Radiates to the groin. Everything makes it worse. Associated with this she has had some nausea. She has had no fevers or chills no gross hematuria. No urinary symptoms. This is her second episode. She was seen by her primary care physician had a urinalysis and thought she possibly had a UTI. She is not having burning frequency urgency or UTI symptoms. She had some nausea associated with this no fevers or shaking chills. She has no known history of kidney stones. She concerned that she could have a kidney stone. History provided by: Patient and spouse japanese interpreter used: No PAST MEDICAL HISTORY Diagnosis Date - Abnormal Pap smear of cervix 11/2011 ascus/-HPV 10/02 pap wnl/-HPV - Cystocele, midline - Esophageal reflux - Hematuria - Hemorrhoids - Hypertension - Menopause - Rectocele - Stress incontinence - Uterine fibroid - Uterovaginal prolapse PAST SURGICAL HISTORY Procedure Laterality Date - CARPAL TUNNEL 2013 - COLONOSCOPY 2013 due in 5 years - KNEE SURGERY HX 2015 - TONSILLECTOMY HX - TUBAL LIGATION - UTERINE ARTERY EMBOLIZ 10/2003 FAMILY HISTORY Problem Relation Age of Onset - Hypertension Mother - Diabetes Mother - COPD Mother - other (lung cancer) Mother 67 - other (lung cancer) Father 65 - Cancer Sister 59 stomach/liver - Prostate Cancer Brother 56 - Heart Brother enlarged heart - Breast Cancer Maternal Grandmother - Diabetes Paternal Grandmother - Hypertension Sister - Heart disease Sister - Coronary Artery Disease Sister - Diabetes Sister - Drug abuse Son - No Known Problems Granddaughter Social History Tobacco Use - Smoking status: Never Smoker - Smokeless tobacco: Never Used Vaping Use - Vaping Use: Never used Substance and Sexual Activity - Alcohol use: No - Drug use: No - Sexual activity: Not Currently control/protection: Tubal Ligation ALLERGIES Allergen Reactions - Novahistine [Chlorp* canker sore Review of Systems Constitutional: Negative for chills and fever. HENT: Negative for congestion and sore throat. Eyes: Negative for pain and discharge. Respiratory: Negative for cough and shortness of breath. Cardiovascular: Negative for chest pain, palpitations and leg swelling. Gastrointestinal: Negative for abdominal pain, blood in stool, diarrhea, nausea and vomiting. Genitourinary: Positive for flank pain. Negative for difficulty urinating. Musculoskeletal: Negative for arthralgias. Skin: Negative for rash. Neurological: Negative for facial asymmetry, weakness, numbness and headaches. Physical Exam Vitals BP Pulse Temp Temp src Resp SpO2 Weight Height 05/05/21 1404 05/05/21 1403 05/05/21 1403 05/05/21 1403 05/05/21 1403 05/05/21 1403 05/05/21 1403 -- 171/86 60 36.3 ?C (97.4 ?F) Temporal 18 97 % 72.6 kg (160 lb) Physical Exam Vitals and nursing note reviewed. Constitutional: Appearance: Normal appearance. Comments: Patient is in pain. HENT: Head: Normocephalic and atraumatic. Mouth/Throat: Mouth: Mucous membranes are moist. Eyes: Extraocular Movements: Extraocular movements intact. Conjunctiva/sclera: Conjunctivae normal. Pupils: Pupils are equal, round, and reactive to light. Cardiovascular: Rate and Rhythm: Normal rate and regular rhythm. Pulses: Normal pulses. Heart sounds: Normal heart sounds. Pulmonary: Effort: Pulmonary effort is normal. Breath sounds: Normal breath sounds. Abdominal: General: Abdomen is flat. Bowel sounds are normal. There is no distension. Palpations: Abdomen is soft. There is no hepatomegaly, splenomegaly, mass or pulsatile mass. Tenderness: There is left CVA tenderness. Hernia: No hernia is present. Musculoskeletal: General: Normal range of motion. Cervical back: Neck supple. Skin: General: Skin is warm and dry. Capillary Refill: Capillary refill takes less than 2 seconds. Neurological: General: No focal deficit present. Mental Status: She is alert. Psychiatric: Behavior: Behavior normal. Diagnostic Testing ED Labs Ordered and Reviewed - No data to display Procedures ED Course / Clinical Impression ED Course as of 05/05/212134 Tristan Rodriguez yemi's Documentation TueMay 05, 2021 1705 Hemoglobin/Blood,Ur(!): 3+ 1706 IMPRESSION: ? 1. Moderate left hydroureteronephrosis secondary to a 6 mm distal left ureteral stone. 2. There is a 6 mm calculus in the upper pole of the left kidney.. 3. Mildly complicated cyst in the upper pole of the right kidney containing some calcification. Consider nonemerg (more content not included)... Normal [facility] Urinalysison 05-05-2021 Bilirubin, Urine Negative Normal Negative [facility] Comment on above: Performed By: #### U AMIC, UA #### [facility] Laboratory [address] [address] Clarity (U) Cloudy Critically abnormal Clear [facility] Comment on above: Performed By: #### U AMIC, UA #### [facility] [address] [address] Color (U) Yellow Normal Yellow [facility] Comment on above: Performed By: #### U AMIC, UA #### [facility] [address] [place] [address] Comments SEE COMMENT Normal [facility] Comment on above: Result Comment: Best practice alert: to ensure optimal and accurate results, transfer urine specimens to an appropriate urine preservative tube. Performed By: #### U AMIC, UA #### [facility] [address] [place] [address] Glucose Ql (U) Trace Critically abnormal Negative [facility] Comment on above: Performed By: #### U AMIC, UA #### [facility] [address] [place] [address] Hemoglobin/Blood,Ur 3+ Critically abnormal Negative [facility] Comment on above: Performed By: #### U AMIC, UA #### [facility] [address] [place] [address] Ketones Ql (U) Negative Normal Negative [facility] Comment on above: Performed By: #### U AMIC, UA #### [facility] [address] [place] [address] Leukest Negative Normal Negative [facility] Comment on above: Performed By: #### U AMIC, UA #### [facility] [address] [place] [address] Nitrite Ql (U) Negative Normal Negative [facility] Comment on above: Performed By: #### U AMIC, UA #### [facility] [address] [place] [address] pH (U) 7.5 [pH] Normal 5.0-8.0 [facility] Comment on above: Performed By: #### U AMIC, UA #### [facility] [address] [place], [place] [id number] Protein, Urine Negative Normal Negative [facility] Comment on above: Performed By: #### U AMIC, UA #### [facility] [address] [place] [address] Specific Clio, Ur 1.015 Normal 1.005-1.030 [facility] Comment on above: Performed By: #### U AMIC, UA #### [facility] [address] [place] [address] Urobilinogen Qn (U) 0.2 {Soo'U}/dL Normal 0.2-1.0 [facility] Comment on above: Performed By: #### U AMIC, UA #### [facility] [address] [place] [address] Urine Microscopic (FOR LAB U SE ONLY)on 05-05-2021 Cast SEE COMMENT Normal 0 [facility] Comment on above: Result Comment: 0 Performed By: #### U AMIC, UA #### [facility] [address] [place] [address] Crystals LM Nom (Urine sed) SEE COMMENT Critically abnormal 0 [facility] Comment on above: Result Comment: Mode rate Amorphous Performed By: #### U AMIC, UA #### [facility] [address] [place] [address] Epithelial cells LM Ql (Urine sed) SEE COMMENT Normal [facility] Comment on above: Result Comment: 0-5 Squamous Epithelial Cells Performed By: #### U AMIC, UA #### [facility] [address] [place] [address] RBC 5-10 Critically abnormal 0-3 [facility] Comment on above: Performed By: #### U AMIC, UA #### [facility] [address] [place] [address] WBC 0-5 Normal 0-5 [facility] Comment on above: Performed By: #### U AMIC, UA #### [facility] [address] [place] [address] Operative Reporton 1 Operative Report [facility] [address] [id number] RECORD OF PROCEDURE PATIENT NAME: JOVANY SOMMERS DATE OF : 1955 MED REC #: [id number] PT LOCATION: OR PACU PT TYPE: OPS AGE: 64 SEX: F ADMISSION DATE: 06/09/2020 DATE OF SERVICE: 06/09/2020 SURGEON: Flora Mae MD 1ST MARINE FIRE FIGHTER: Shmuel Shah DO ESTIMATED BLOOD LOSS: 100 mL. INTRAVENOUS FLUIDS: 1500 mL Lactated Ringers. DRAINS: Shaikh to PACU. PREPROCEDURE DIAGNOSES: 1. Uterovaginal prolapse. 2. Stress urinary incontinence. POSTPROCEDURE DIAGNOSES: 1. Uterovaginal prolapse. 2. Stress urinary incontinence. NAME OF PROCEDURE: 1. Total vaginal hysterectomy. 2. Uterosacral ligament suspension. 3. Anterior and posterior colporrhaphy, midurethral sling, and cystoscopy. Of note, the patient did not have a salpingectomy. FINDINGS: Bilateral ureteral orifices were noted to be patent with Pyridium-stained urine. No bladder, urethral or rectal injury. No tubes were visible. DESCRIPTION OF PROCEDURE: The patient was taken to the operating room where general anesthesia was initiated. The patient was placed in dorsal lithotomy position and prepped and draped in sterile fashion. A surgical timeout occurred. A Shaikh catheter was placed in the patient's bladder. A lone star retractor was used for retraction. Total vaginal hysterectomy: A weighted speculum was placed in the patient's vagina. A curved Arti was used to retract the anterior vaginal wall and bladder out of the field. The cervix was grasped with two Luis traction forceps. The cervix was then injected with 0.25% Marcaine mixed with epinephrine. Bovie electrocautery was used to perform a circumferential incision on the vagina mucosa down to the body of the cervix. The posterior vaginal epithelium was then dissected off the cervix until the peritoneum of the pouch of Marcelo was reached. This was then grasped and cut with Harmon scissors entering the peritoneal cavity. A right-angle retractor was then placed in the posterior cul-de-sac. Attention was then turned to the anterior vaginal wall epithelium which was grasped with pickups and dissected, along with the bladder, off the cervix and the uterus until the peritoneal reflection was visualized. This was then grasped with pickups and incised with Metzenbaum scissors, entering the peritoneal cavity anteriorly. The Shaikh bulb was palpated to confirm that the bladder was not perforated. The Arti was then used to retract the bladder out of the operative field. A curved Yuki clamp was then used to clamp, cut and suture ligate the uterosacral ligament on the patient's left side. This was repeated on the contralateral side. Next, the vessels of the broad ligament including the uterine vessels were clamped, cut and suture ligated bilaterally. Finally, the utero-ovarian ligament was clamped cut and suture ligated; first with a tie on a passer and then with a Yuki stitch. The uterus and cervix were passed off the sterile field and sent to pathology. Uterosacral ligament suspension: With two Breisky-Navratil retractors placed anteriorly and posteriorly in the vagina, the bowel was packed out of the cul-de-sac using a moist Kerlix sponge. A 0-Maxon with an HGU-46 needle on a long needle tow motor driver was passed through the uterosacral ligament on the patients right side. This was followed by a 2-0 Prolene suture using an SH needle. This was repeated on the contralateral side. The instruments and packing were removed from the vagina. The patient was given 5 mg of Lasix IV and 5 cc of Indigo Peck. Cystoscopy was then performed while holding tension on the uterosacral ligament suspensions sutures. Bilateral efflux of blue urine was seen from ureteral orifices. The sutures were then bought through the corners of the vaginal cuff. The cuff was closed with interrupted 0-Vicryl sutures. The uterosacral ligament sutures were then tied, elevating the vaginal vault. Anterior Repair: The vaginal epithelium overlying the anterior vaginal wall was grasped with two Allis clamps, injected with 0.5% Marcaine with epinephrine and a midline incision was made over the herniation of the anterior vaginal wall. The underlying pubocervical fascia was dissected off the overlying vaginal epithelium until the herniation of the pubocervical fascia was completely exposed. Hemostasis was achieved with electrosurgical cautery. The herniation was repaired in the traditional fashion using imbricating horizontal mattress sutures of 2-O PDS on a CT-1 needle. Once the herniation was completely repaired, the redundant vaginal epithelium was excised and the incision was closed with a running, locking 3-O Vicryl suture. Excellent hemostasis was noted. Posterior repair: A self-retaining retractor was used to retract the labia and vagina for adequate visualization and exposure. The vaginal epithel (more content not included)... [facility] Surgical Pathology Depar tmenton 06-09-2020 [facility] Surgical Pathology Department Name JOVANY SOMMERS Pathologist: JOHNATHON FRANCISCO MD Date of Procedure: 06/09/2020 Date Received: 06/09/2020 Date Reported 06/17/2020 Submitting Physician: FLORA MAE MD Location: [facility] Copy To/Referring/Attending: JASPER ZENG DO Other External # [id number] FINAL DIAGNOSIS A. UTERUS AND CERVIX, TOTAL HYSTERECTOMY: -- CERVIX WITH PARAKERATOSIS AND FOCAL CHRONIC INFLAMMATION. -- INACTIVE ENDOMETRIUM. -- MYOMETRIUM WITH CALCIFIED LEIOMYOMATA AND EMBOLIZATION MICROSPHERES CONSISTENT WITH PRIOR EMBOLIZATION. -- SEROSA WITH FOCAL EMBOLIZATION MICROSPHERES AND CHRONIC INFLAMMATION. Select slides (A4, A5) were shown at the [facility] consensus conference via Zoom on 06/16/2020 Attending: Sara Alvarado, Hao Beaulieu. The gross and/or microscopic findings were reviewed in conjunction with pathology resident, Ridge Fontanez MD. Electronically Signed Out By JOHNATHON FRANCISCO MD/YAMINI By the signature on this report, the individual or group listed as making the Final Interpretation/Diagnosis certifies that they have reviewed this case. Clinical History: stress incontinence, uterovaginal prolapse, rectocele Specimens Submitted As: A: UTERUS,CERVIX Other Case Numbers [id number] Gross Description: A: Received in formalin, labeled with the patient's name and hospital number and uterus, cervix, is a uterus attached cervix. The uterus is received intact, weighs 46.3 g, and measures 3.2 cm (cornu to cornu) x 7.1 cm (fundus to cervix) x 3.6 cm (anterior to posterior). The cervix measures 3.8 cm from 12:00 to 6:00 and 2.9 cm from 9:00 to 3:00, and the cervical os is round, 0.3 cm. The ectocervix is pink-kelley, smooth, and glistening. The endocervical canal measures 2.1 cm in length and appears unremarkable. The endometrial cavity is 2.6 cm in length and 0.5 cm in width. The endometrium is kelley-red, hemorrhagic, and velvety and measures up to 0.1 cm in greatest thickness. No gross lesions are identified. The myometrium is pink, rubbery and measures up to 1.2 cm in greatest thickness. The myometrium is distorted by multiple submucosal and subserosal kelley-white nodules ranging from 1.1 to 1.4 cm. Areas of calcification are identified throughout these nodules. The serosal surface is kelley-red, smooth, and glistening. There is a granular area on the lateral aspect of the uterus marked by a suture and measures 1.2 x 0.8 x 0.6 cm. Travel Service Consultant sections are submitted in 5 cassettes. WXK Summary of Cassettes: Specimen Label Site A 1 cervix 12:00 2 cervix 6:00 3 anterior uterine wall, full thickness 4 posterior uterine wall, full thickness 5 granular area, bisected wxk/06/11/2020 [facility] Department of Pathology [address] [place] [address] Normal [facility] Comment on above: Performed By: #### U [facility] #### [facility] Surgical Pathology Department [address] [place] [address] CORONAVIRUS 2019 BY PCRon CORONAVIRUS 2019,PCR NOT DETECTED Normal Not Detected [facility] Comment on above: Result Comment: . This assay is designed to detect the N, ORF1ab and/or S genes of SARS-CoV-2 via nucleic acid amplification. A Negative (NOT DETECTED) result does not preclude 2019-nCoV infection since the adequacy of sample collection and/or low viral burden may result in presence of viral nucleic acids below the clinical sensitivity of this test method. Negative (NOT DETECTED) result should not be used as the sole basis for treatment or other patient management decisions. Rather negative results should be combined with clinical observations, patient history, and epidemiological information to make patient management decisions. Fact sheet for providers: https://www.fda.gov/media/308393/download Fact sheet for patients: https://www.fda.gov/media/015171/download This test has received FDA Emergency Use Authorization (EUA) and has been verified by [facility] ([facility]). This test is only authorized for the duration of time that circumstances exist to justify the authorization of the emergency use of in vitro diagnostic tests for the detection of SARS-CoV-2 virus and/or diagnosis of COVID-19 infection under section 564(b)(1) of the Act, 21 U.S.C. 360bbb-3(b)(1), unless the authorization is terminated or revoked sooner. [facility] is certified under CLIA-88 as qualified to perform high complexity testing. Testing is performed in the [facility] laboratories located at [address] [place] [address]. Performed By: #### C OV19 #### [facility] [id number] [place] [address]. [place] [address] Covid 19 Resultson 1 Covid 19 Results NEGATIVE COVID-[address] Coronaviruses are common world-wide and are the cause of many common colds. SARS-COV2 is a new coronavirus that began circulating worldwide in 2019 so we are calling it COVID-19. It has been estimated that four out of five patients with COVID-19 will recover at home without the need for medical attention. Symptoms of COVID-19 include cough, fever, shortness of breath, loss of taste or smell and other flu-like symptoms including chills, sore muscles, sore throat, and headache. Severe illness is more common in older people and people with other health problems such as high blood pressure, obesity, and immune system problems. If the test is positive, you have COVID-19. You will be contacted by the ordering physicians office and instructed to remain on home isolation, in accordance with CDC guidelines. You may also be contacted by the [facility] to see if any of your close contacts may have been exposed to the virus and need to quarantine. If the test is negative, you likely do not have COVID-19 at this time, but you still may have a different illness that can spread to other people (like Influenza, or the Flu) and could still be at risk for getting COVID-19. We recommend that you stay away from other people to limit the spread of illness until your symptoms are improving and you are fever-free for 24 hours without the use of fever lowering medications such as acetaminophen or ibuprofen. No test is 100% accurate so if you are still concerned you may have COVID-19, talk to your doctor about the need to continue to stay away from others. Medicines Acetaminophen (Tylenol and others) is generally safe. Anti-inflammatory medications, such as Ibuprofen (Advil or Motrin) or Naproxen (Aleve) can also be used. Thvm-mmi-ycgrxcz cough and cold medicines can be used according to the instructions on the package. Some crmz-enm-crscgmn medicines also contain acetaminophen. Make sure you are not taking more than your recommended dose For those not hospitalized, there is no specific treatment available for this illness. Antibiotics do not treat Coronaviruses. Follow-Up Follow up with your doctor by scheduling a virtual visit or consider follow-up at one of our urgent care fever clinics. If you are having difficulty breathing, or are very weak and having difficulty standing, this is a medical emergency. Call 911 or have someone take you to the nearest emergency room immediately. If possible, wear a facemask. Additional guidance from the CDC for patients who tested POSITIVE for COVID-19 How to isolate: Isolate yourself in a specific room at home and limit your contact with others. Use a separate bathroom from other members of the household, when possible. Leave home only to get essential medical care. Do not go to work, school or public areas. Avoid using public transportation, ride-sharing, or taxis. Restrict contact with pets and other animals. If you must care for your pet or be around animals while you are sick, wash your hands before and after your interaction and wear a facemask. Make sure that shared spaces in the home have good airflow, such as by an air conditioner or an opened window, weather permitting. Personal Hygiene Procedures: Wear a face mask when in the same room as other people or pets. If a face mask interferes with your breathing, others should wear a mask when sharing space with you. Frequent hand-washing: wash your hands with soap and water for at least 20 seconds. If soap and water are not available, use alcohol-based hand field services director. Avoid touching your eyes, nose, and mouth with unwashed hands. Household Hygiene Procedures: Avoid sharing personal household items such as dishes, glassware, cups, eating utensils, towels or bedding with other people or pets in your home. After use, these items should be washed with soap and hot water. Disinfect all high-touch surfaces every day with antibacterial cleaning solutions such as Lysol wipes, bleach, cleansers, etc. High-touch surfaces include tabletops, doorknobs, bathroom fixtures, toilets, phones, keyboards, tablets and bedside tables. Immediately clean any surfaces that may have blood, poop or body fluids on them, using antibacterial cleaning solutions such as Lysol wipes, bleach, cleansers, etc. If clothing or bedding come into contact with blood, poop or body fluids, they should be washed immediately. Follow the directions on the laundry detergent and clothing labels but hot water is recommended when possible. Stopping home isolation precautions: If possible, consult your doctor before stopping home isolation precautions. According to the CDC, you can discontinue home isolation precautions when you have met both of these criteria: Your fever and respiratory symptoms have been gone for 24 hours without the use of any medicines like ibuprofen (Motrin) and acetaminophen (Tylenol). It has been at least 10 days since your symptoms first appeared. If you are immunosuppressed OR you were admitted to the hospital for this, you should wait until it has been 14 days since your symptoms first appeared. Guidelines for Those Living With and/or Caring For Persons with COVID-19: Read and follow all the recommendations outlined in this handout. Do not permit visitors in the home unless there is an essential need. Wear a facemask when in the same room as the patient. Wear a facemask and gloves (disposable if available) when you touch or have contact with the patient's blood, poop, or body fluids including saliva, phlegm, nasal mucus, vomit or urine. Clean or throw away facemasks and gloves after use and wash your hands with soap and water. You will need to quarantine (stay away from others) for 14 days after your last contact with your family member with COVID-19. The person with COVID-19 is considered contagious 48 hours prior to symptoms beginning (or starting with the day of the positive test if they have no symptoms) for a total of 10 days. Additional resources: [facility] COVID Hotline at 6-868-0KPQCPI ( ). COVID-19 Careline at (available 24 hours per day, seven days a week if you or a loved one is experiencing anxiety related to the coronavirus pandemic). Clinical research opportunities: is conducting research studies to develop better testing and treatments for COVID. Do you want any information on how to participate Call [phone]. Websites: hospitals.org or www.CDC.gov Follow My Health / My [facility] (for other test results): Revised 03/04/2020 Electronic Signatures: Chacorta Whatley (ADMIN) (Signature pending) Authored Last Updated: 06-Jun-2020 23:44 by Chacorta [employer] (ADMIN) Normal [facility] Basic Metabolic Panelon 05-19 Anion gap [Moles/Vol] 6 mmol/L Low 8-15 [facility] Comment on above: Performed By: #### B MP #### [facility] [address] [place] [id number] Calcium [Mass/Vol] 9.4 mg/dL Normal 8.6-10.6 [facility] Comment on above: Performed By: #### B MP #### [facility] [address] [place] [id number] Chloride [Moles/Vol] 104 mmol/L Normal 98-107 [facility] Comment on above: Performed By: #### B MP #### [facility] [address] [place] [id number] CO2 [Moles/Vol] 29 mmol/L Normal 22-29 [facility] Comment on above: Performed By: #### B MP #### [facility] [address] [place] [address] [phone] Creatinine [Mass/Vol] 0.8 mg/dL Normal 0.5-1.2 [facility] Comment on above: Performed By: #### B MP #### [facility] [address] [place] [address] [phone] eGFR -Amer >=60 Normal >=60 [facility] Comment on above: Performed By: #### B MP #### [facility] [address] [place] [address] 34194 GFR/1.73 sq M.predicted among non-blacks MDRD (S/P/Bld) [Vol rate/Area] mL/min/{1.73_m2} Normal >=60 [facility] Comment on above: Performed By: #### B MP #### [facility] [address] [place] [address] 62882 Glucose [Mass/Vol] 83 mg/dL Normal 74-109 [facility] Comment on above: Performed By: #### B MP #### [facility] [address] [place] [address] [phone] Potassium [Moles/Vol] 3.6 mmol/L Normal 3.4-5.1 [facility] Comment on above: Performed By: #### B MP #### [facility] [address] [place] [address] 21084 Sodium [Moles/Vol] 139 mmol/L Normal 136-145 [facility] Comment on above: Performed By: #### B MP #### [facility] [address] [place] [address] [phone] Urea nitrogen [Mass/Vol] 18 mg/dL Normal 6-23 [facility] Comment on above: Performed By: #### B MP #### [facility] [address] [place] [address] [phone] CBC with Diffon 06-06-2020 BA# 0.1 x(10)3/cumm Normal 0.0-0.1 [facility] Comment on above: Performed By: #### C BCDIFF #### [facility] [address] [place] [address] 54670 Basophils/100 WBC (Bld) 0.8 % Normal 0.0-1.0 [facility] Comment on above: Performed By: #### C BCDIFF #### [facility] [address] [place] [address] 43739 EO# 0.1 x(10)3/cumm Normal 0.0-0.4 [facility] Comment on above: Performed By: #### C BCDIFF #### [facility] [address] [place] [address] 06918 Eosinophils/100 WBC (Bld) 1.1 % Normal 0.0-6.1 [facility] Comment on above: Performed By: #### C BCDIKIRBY #### [facility] [address] [place] [address] 13727 Erythrocyte distribution width (RBC) [Ratio] 13.2 % Normal 11.1-15.3 [facility] Comment on above: Performed By: #### C BCDIFF #### [facility] [address] [place] [address] 70254 Hematocrit (Bld) [Volume fraction] 41.9 % Normal 34.6-45.0 [facility] Comment on above: Performed By: #### C BCDIKIRBY #### [facility] [address] [place] [address] 51204 Hemoglobin (Bld) [Mass/Vol] 14.0 g/dL Normal 11.5-15.5 [facility] Comment on above: Performed By: #### C BCDIKIRBY #### [facility] [address] [place] [address] 88859 LY# 1.7 x(10)3/cumm Normal 0.8-2.9 [facility] Comment on above: Performed By: #### C BCDIKIRBY #### [facility] [address] [place] [address] 74308 Lymphocytes/100 WBC (Bld) 23.7 % Normal 12.2-42.6 [facility] Comment on above: Performed By: #### C BCDIFF #### [facility] [address] [place] [address] 97440 MCH (RBC) [Entitic mass] 29.4 pg Normal 27.2-33.6 [facility] Comment on above: Performed By: #### C BCDIFF #### [facility] [address] [place] [address] 60592 MCHC (RBC) [Mass/Vol] 33.5 g/dL Normal 32.9-35.3 [facility] Comment on above: Performed By: #### C BCDIFF #### [facility] [address] [place] [address] 58029 MCV (RBC) [Entitic vol] 87.8 fL Normal 81.3-96.7 [facility] Comment on above: Performed By: #### C BCDIFF #### [facility] [address] [place] [address] 39750 MO# 0.4 x(10)3/cumm Normal 0.2-0.8 [facility] Comment on above: Performed By: #### C BCDIFF #### [facility] [address] [place] [address] 88818 Monocytes/100 WBC (Bld) 5.5 % Normal 3.3-11.6 [facility] Comment on above: Performed By: #### C BCDIFF #### [facility] [address] [place] [address] 87924 NE# 4.9 x(10)3/cumm Normal 1.3-7.4 [facility] Comment on above: Performed By: #### C BCDIFF #### [facility] [address] [place] [address] 73731 Neutrophils/100 WBC (Bld) 68.9 % Normal 44.9-78.8 [facility] Comment on above: Performed By: #### C BCDIFF #### [facility] [address] [place] [address] 41855 Platelet mean volume (Bld) [Entitic vol] 8.6 fL Normal 6.4-10.0 [facility] Comment on above: Performed By: #### C BCDIFF #### [facility] [address] [place] [address] 46294 PLT 211 x(10)3/cumm Normal 138-367 [facility] Comment on above: Performed By: #### C BCDIFF #### [facility] [address] [place] [address] 49639 Plt Morph Normal [facility] Comment on above: Performed By: #### C BCDIFF #### [facility] [address] [place] [address] 33277 RBC 4.78 X(10)6/cumm Normal 3.90-5.10 [facility] Comment on above: Performed By: #### C BCDIFF #### [facility] [address] [place] [address] 05758 RBC Morph cont Normal [facility] Comment on above: Performed By: #### C BCDIFF #### [facility] [address] [place] [address] 90984 RBC morphology finding Nom (Bld) Normal [facility] Comment on above: Performed By: #### C BCDIFF #### [facility] [address] [place] [address] 53733 WBC 7.1 x(10)3/cumm Normal 3.6-10.3 [facility] Comment on above: Performed By: #### C BCDIFF #### [facility] [address] [place] [address] 56941 WBC Morph Normal [facility] Comment on above: Performed By: #### C BCDIFF #### [facility] [address] [place] [address] [phone] CORONAVIRUS 2019 BY PCRon Lab Specimen Source Nasal, Nasopharyngeal Normal [facility] Comment on above: Performed By: #### C OV19 #### [facility] [address] [place] [address] CTA CORONARY W IVCONon 05-06 CTA CORONARY W IVCON Final Report DATE OF EXAM: May 06 2020 8:58AM [facility] 0470 - CTA CORONARY W IVCON / PROCEDURE REASON: R07.9: CHEST PAIN, I20.9: ANGINA Physician Interpretation EXAM TITLE: CTA OF THE CARDIAC STRUCTURES WITHOUT AND WITH INTRAVENOUS CONTRAST DATE: 05/06/2020 8:58 AM COMPARISON: None. CLINICAL INDICATION/HISTORY: Chest pain TECHNIQUE: EKG gated helical scanning of the heart was obtained without intravenous contrast. Transaxial images reconstructed at 2.5-mm intervals. The patient then received a sublingual doses or 0.4 mg of nitroglycerin. The patient then received a rapid intravenous bolus of iodinated contrast and EKG gated prospectively triggered scan of the heart was obtained. Transaxial images are reconstructed at 0.625 mm intervals. In addition 2-D and 3-D reconstruction and vessel analysis was performed at a separate workstation. 3-D shaded surface and MIP images as well as curved multiplanar reconstructed images are presented. IV: 125 ml of Omnipaque 350 CT Radiation dose: Integrated Dose-length product (DLP) for this visit = [address] Dose Reduction Employed: Automated exposure control (AEC) and iterative reconstruction was used. FINDINGS: 1 speck of coronary artery calcification is visualized in the proximal left anterior descending artery. The patient's coronary calcium score is 1. This score places the patient at the 35th percentile of age and gender matched controls for coronary artery calcifications. The right coronary artery arises from the right coronary sinus. It courses in the the right atrioventricular groove, and then gives rise to some RV acute marginals. It then continues posteriorly in the right atrio ventricular groove, and ends by bifurcating into a posterior descending and a posterior lateral branch. . The patient has a right dominant coronary system. The left coronary artery arises from the left coronary sinus. The left main artery bifurcates into a left anterior descending and circumflex branch.. No significant atherosclerosis is identified within the left main artery The left anterior descending artery is a large artery which gives rise to two diagonal branches. No occlusive atherosclerotic plaques are identified within the left anterior descending artery or its branches. A 10% calcific plaque is identified in the very proximal left anterior descending artery. The circumflex artery is a small artery that can not be well tracked beyond the origin of the first obtuse marginal artery. . No significant atherosclerosis is identified within the circumflex artery system . The aortic valve is trileaflet and unremarkable. The mitral valve is within normal limits. The pulmonic and tricuspid valves are not visualized. There is no evidence of pericardial thickening or paracardial effusion. The visualized portions of the right and left atria and ventricles are within normal limits. The interventricular septum measures 11 millimeters in thickness. The lateral wall the left ventricle measures 10 millimeters in thickness. The visualized portions of the thoracic aorta are without evidence of aneurysmal dilatation or dissection. The thoracic aorta measures 3.3 x 3.2 cm in diameter at its root and up to 3.7 x 3.6 cm at the proximal aspect of the assess ascending aorta. The pulmonary artery measures 3.1 x 2.9 cm. The visualized portions of the pulmonary arteries show no evidence of filling defect or abrupt cutoff. The visualized pulmonary parenchyma demonstrates no suspicious focal consolidation, mass or effusion. Visualized portions of the trachea and proximal bronchi appear to be patent without suspicious filling defect. The visualized portions of the abdomen demonstrate indeterminate hypoattenuating lesion in the anticipated region of the right superior renal pole, likely representing cyst. Partially visualized is 5 mm calcification, likely representing nonobstructive stone at the left superior renal pole. No suspicious lytic or sclerotic osseous lesions. IMPRESSION: 1. The technical quality of the study is fair to good. 2.Only one speck of coronary artery calcification is identified in the very proximal left anterior descending artery. The patient's overall calcium score is calculated at 1, 35th percentile of age and gender matched controls for coronary artery calcifications. This score is generally associated with a 0.4% or less, annual risk of myocardial infarction and from coronary artery disease. 3. The patient has a right dominant dominant coronary system. 4. No significant occlusive coronary atherosclerosis is seen. 5. 5 mm calcification within the left superior renal pole, likely representing calyceal stone. 6. Partially visualized is cystic lesion at the right superior renal pole. Further characterization with dedicated ultrasound examination of the kidneys would be useful, if clinical concern. 7. Otherwise normal CT coronary angiography without and with intravenous contrast. The cardiac portion of the study was interpreted by Dr. Deepak Houston from cardiology Department , and the extracardiac portion was interpreted by Dr Raisa Jaramillo from the Radiology department. Tunnel Heading Supervisor: [facility] Transcribe Date/Time: May 06 2020 3:33P Dictated by : RAISA JARAMILLO MD This examination was interpreted and the report reviewed and electronically signed by: RAISA JARAMILLO MD on May 07 2020 7:42AM EST Normal [facility] ECHO Complete 2D W Doppler W Coloron 02-27-2020 TRANSTHORACIC ECHOCARDIOGRAM PATIENT: Jovany Sommers STUDY DATE: 02/27/2020 : 1955 AGE: 64 HT/WT: 154.9 cm (61 70.3 kg in) (154.7 lb) GENDER: F BP: 164 / 81 LOCATION: [facility]IENT [facility] STATUS: *ORDERING PHYSICIAN: * Jasper Zeng *READING PHYSICIAN: * Reymundo, *GUM MAKER: * Jo Zaldivar RDCS, Sirisha AE, RVT, VT INDICATIONS: Left bundle branch block (I44.7). Hypertension - Essential (primary) (I10). CONCLUSIONS SUMMARY: 1. Left ventricle: Average myocardial peak systolic LV global longitudinal strain is -14 (Mildly impaired, pattern suggestive of LV dyssynchrony). The cavity size is normal. Wall thickness is mildly increased. Systolic function is mildly decreased by visual assessment. The estimated ejection fraction is 45%. Mild global hypokinesis with paradoxical septal motion due to LBBB. Doppler parameters are consistent with abnormal left ventricular relaxation (grade 1 diastolic dysfunction). 2. Right ventricle: The cavity size is normal. Systolic function is normal. Right ventricular systolic pressure is within the normal range. 3. No significant valve disease. STUDY DATA: Complete transthoracic echocardiogram. Procedure: Image quality was adequate. M-mode, complete 2D, strain rate, complete spectral Doppler, and color flow Doppler images were acquired and archived for permanent storage and are available for subsequent review. Study status: Routine. Patient status: Outpatient. ECG RHYTHM: NSR FINDINGS LEFT VENTRICLE: Average myocardial peak systolic LV global longitudinal strain is -14 (Mildly impaired, pattern suggestive of LV dyssynchrony). The cavity size is normal. Wall thickness is mildly increased. Systolic function is mildly decreased by visual assessment. The estimated ejection fraction is 45%. Mild global hypokinesis with paradoxical septal motion due to LBBB. Doppler parameters are consistent with abnormal left ventricular relaxation (grade 1 diastolic dysfunction). RIGHT VENTRICLE: The cavity size is normal. Systolic function is normal. Right ventricular systolic pressure is within the normal range. VENTRICULAR SEPTUM: Abnormal septal motion due to intraventricular conduction delay. LEFT ATRIUM: The atrium is mildly dilated. RIGHT ATRIUM: The atrium is normal in size. ATRIAL SEPTUM: The interatrial septum is normal. Doppler shows no shunt. MITRAL VALVE: Structurally normal valve. Leaflet separation is normal. Doppler: Transvalvular velocity is within the normal range. There is no evidence for stenosis. There is mild, 1+ regurgitation. ERO: 0.1 cm^2. AORTIC VALVE: Structurally normal valve. Trileaflet. Cusp separation is normal. Doppler: Transvalvular velocity is within the normal range. There is no stenosis. There is trivial, less than 1+ regurgitation. TRICUSPID VALVE: Structurally normal valve. Leaflet separation is normal. Doppler: Transvalvular velocity is within the normal range. There is no evidence for stenosis. There is mild, 1+ regurgitation. PULMONIC VALVE: Structurally normal valve. Cusp separation is normal. Doppler: Transvalvular velocity is within the normal range. There is trivial, less than 1+ regurgitation. AORTA: Aortic root: The aortic root is normal in size. Ascending aorta: The ascending aorta is normal in size. PERICARDIUM: There is no pericardial effusion. SYSTEMIC VEINS: Inferior vena cava: The vessel is normal in size. The IVC collapses by greater than 50% with inspiration. Measurements Value Reference Aortic root ID, ED (sinus) 2.9 cm <4.0 Value Reference Ascending aorta ID, A-P, S 3.3 cm Ascending aorta ID/bsa, A-P, S 1.9 cm/m^2 Value Reference Aortic arch ID 2.7 cm Aortic arch ID/bsa 1.5 cm/m^2 IVC Value Reference ID 1.6 cm Left ventricle Value Reference GLS, 2D 14.18 % LV ID, ED 4.6 cm 3.8 - 5.2 LV ID, ES 3.5 cm 2.2 - 3.5 LV ID/bsa, ED 2.6 cm/m^2 2.3 - 3.1 LV ID/bsa, ES 2.0 cm/m^2 1.3 - 2.1 LV PW thickness, ED (H) 1.2 cm 0.6 - 0.9 LV PW/LV ID ratio, ED 0.25 LV wall mass (H) 202 g 66 - 150 LV wall mass/bsa (H) 115 g/m^2 44 - 88 Stroke volume/bsa, 1-p A2C 29.3 ml/m^2 LV end-diastolic volume, 1-p A4C 134 ml 48 - 140 LV end-systolic volume, 1-p A4C (H) 73 ml 12 - 60 LV ejection fraction, 1-p A4C 46 % 46 - 78 LV end-diastolic volume/bsa, 1-p A4C 76 ml/m^2 30 - 82 LV end-systolic volume/bsa, 1-p A4C (H) 41 ml/m^2 7 - 35 LV end-systolic volume, 2-p (H) 78 ml 14 - 42 LV ejection fraction, 2-p (L) 45 % 54 - 74 LV end-diastolic volume/bsa, 2-p (H) 74 ml/m^2 29 - 61 LV E/e', lateral 10.2 LV E/e', medial 12.4 LV E/e', average 11.2 Ventricular septum Value Reference IVS thickness, ED (H) 1.2 cm 0.6 - 0.9 LVOT Value Reference LVOT ID, A-P 1.8 cm LVOT mean velocity, S 0.5 m/sec LVOT peak gradient, S 2 mm Hg Stroke volume (SV), LVOT DP 48 ml Stroke index (SV/bsa), LVOT DP 27 ml/m^2 Left atrium Value Reference LA area, ES, A2C 20 cm^2 LA vol/bsa A/L (ml/m2) (H) 35 ml/m^2 16 - 34 Mitral valve Value Reference Mitral E-wave peak velocity 0.5 m/sec Mitral A-wave peak velocity 0.9 m/sec Mitral deceleration time 379 ms Mitral E/A ratio, peak 0.6 Aliasing velocity, MR PISA 0.36 m/sec Mitral regurg PISA radius 0.46 cm Mitral maximal regurg velocity, PISA 4.9 m/sec Mitral regurg VTI, PISA 138.8 cm ERO 0.1 cm^2 Mitral regurg volume, PISA 14 ml Mitral regurg fraction, PISA 23 % Tricuspid valve Value Reference Tricuspid regurg peak velocity 2.4 m/sec <=2.8 Tricuspid peak RV-RA gradient 24 mm Hg Right atrium Value Reference RA area, ES, A4C 12 cm^2 10 - 18 Right ventricle Value Reference RV ID, minor axis, ED, A4C base 3.3 cm 2.5 - 4.1 RV ID, minor axis, ED, A4C mid 2.7 cm 1.9 - 3.5 TAPSE, 2D 2.8 cm 1.7 - 3.1 RV s', lateral 13.3 cm/sec 6.0 - 13.4 Pulmonic valve Value Reference Pulmonic regurg gradient, ED 3 mm Hg Legend: (L) and (H) rodríguez values outside specified reference range. Electronically signed by Sirisha Dwyer 02/27/2020 09:50 Prior Signatures: [facility], [facility] Incoming Cardiology Results From [employer] - 02/27/2020 9:50 AM EST TRANSTHORACIC ECHOCARDIOGRAM PATIENT: Jovany Sommers STUDY DATE: 02/27/2020 : 1955 AGE: 64 HT/WT: 154.9 cm (61 70.3 kg in) (154.7 lb) GENDER: F BP: 164 / 81 LOCATION: [facility] PATIENT [facility] STATUS: *ORDERING PHYSICIAN: * Jasper Zeng *READING PHYSICIAN: * Reymundo, *GUM MAKER: * Sirisha Ardon RDCS AE, RVT, VT INDICATIONS: Left bundle branch block (I44.7). Hypertension - Essential (primary) (I10). CONCLUSIONS SUMMARY: 1. Left ventricle: Average myocardial peak systolic LV global longitudinal strain is -14 (Mildly impaired, pattern suggestive of LV dyssynchrony). The cavity size is normal. Wall thickness is mildly increased. Systolic function is mildly decreased by visual assessment. The estimated ejection fraction is 45%. Mild global hypokinesis with paradoxical septal motion due to LBBB. Doppler parameters are consistent with abnormal left ventricular relaxation (grade 1 diastolic dysfunction). 2. Right ventricle: The cavity size is normal. Systolic function is normal. Right ventricular systolic pressure is within the normal range. 3. No significant valve disease. STUDY DATA: Complete transthoracic echocardiogram. Procedure: Image quality was adequate. M-mode, complete 2D, strain rate, complete spectral Doppler, and color flow Doppler images were acquired and archived for permanent storage and are available for subsequent review. Study status: Routine. Patient status: Outpatient. ECG RHYTHM: NSR FINDINGS LEFT VENTRICLE: Average myocardial peak systolic LV global longitudinal strain is -14 (Mildly impaired, pattern suggestive of LV dyssynchrony). The cavity size is normal. Wall thickness is mildly increased. Systolic function is mildly decreased by visual assessment. The estimated ejection fraction is 45%. Mild global hypokinesis with paradoxical septal motion due to LBBB. Doppler parameters are consistent with abnormal left ventricular relaxation (grade 1 diastolic dysfunction). RIGHT VENTRICLE: The cavity size is normal. Systolic function is normal. Right ventricular systolic pressure is within the normal range. VENTRICULAR SEPTUM: Abnormal septal motion due to intraventricular conduction delay. LEFT ATRIUM: The atrium is mildly dilated. RIGHT ATRIUM: The atrium is normal in size. ATRIAL SEPTUM: The interatrial septum is normal. Doppler shows no shunt. MITRAL VALVE: Structurally normal valve. Leaflet separation is normal. Doppler: Transvalvular velocity is within the normal range. There is no evidence for stenosis. There is mild, 1+ regurgitation. ERO: 0.1 cm^2. AORTIC VALVE: Structurally normal valve. Trileaflet. Cusp separation is normal. Doppler: Transvalvular velocity is within the normal range. There is no stenosis. There is trivial, less than 1+ regurgitation. TRICUSPID VALVE: Structurally normal valve. Leaflet separation is normal. Doppler: Transvalvular velocity is within the normal range. There is no evidence for stenosis. There is mild, 1+ regurgitation. PULMONIC VALVE: Structurally normal valve. Cusp separation is normal. Doppler: Transvalvular velocity is within the normal range. There is trivial, less than 1+ regurgitation. AORTA: Aortic root: The aortic root is normal in size. Ascending aorta: The ascending aorta is normal in size. PERICARDIUM: There is no pericardial effusion. SYSTEMIC VEINS: Inferior vena cava: The vessel is normal in size. The IVC collapses by greater than 50% with inspiration. Measurements Value Reference Aortic root ID, ED (sinus) 2.9 cm <4.0 Value Reference Ascending aorta ID, A-P, S 3.3 cm Ascending aorta ID/bsa, A-P, S 1.9 cm/m^2 Value Reference Aortic arch ID 2.7 cm Aortic arch ID/bsa 1.5 cm/m^2 IVC Value Reference ID 1.6 cm Left ventricle Value Reference GLS, 2D 14.18 % LV ID, ED 4.6 cm 3.8 - 5.2 LV ID, ES 3.5 cm 2.2 - 3.5 LV ID/bsa, ED 2.6 cm/m^2 2.3 - 3.1 LV ID/bsa, ES 2.0 cm/m^2 1.3 - 2.1 LV PW thickness, ED (H) 1.2 cm 0.6 - 0.9 LV PW/LV ID ratio, ED 0.25 LV wall mass (H) 202 g 66 - 150 LV wall mass/bsa (H) 115 g/m^2 44 - 88 Stroke volume/bsa, 1-p A2C 29.3 ml/m^2 LV end-diastolic volume, 1-p A4C 134 ml 48 - 140 LV end-systolic volume, 1-p A4C (H) 73 ml 12 - 60 LV ejection fraction, 1-p A4C 46 % 46 - 78 LV end-diastolic volume/bsa, 1-p A4C 76 ml/m^2 30 - 82 LV end-systolic volume/bsa, 1-p A4C (H) 41 ml/m^2 7 - 35 LV end-systolic volume, 2-p (H) 78 ml 14 - 42 LV ejection fraction, 2-p (L) 45 % 54 - 74 LV end-diastolic volume/bsa, 2-p (H) 74 ml/m^2 29 - 61 LV E/e', lateral 10.2 LV E/e', medial 12.4 LV E/e', average 11.2 Ventricular septum Value Reference IVS thickness, ED (H) 1.2 cm 0.6 - 0.9 LVOT Value Reference LVOT ID, A-P 1.8 cm LVOT mean velocity, S 0.5 m/sec LVOT peak gradient, S 2 mm Hg Stroke volume (SV), LVOT DP 48 ml Stroke index (SV/bsa), LVOT DP 27 ml/m^2 Left atrium Value Reference LA area, ES, A2C 20 cm^2 LA vol/bsa A/L (ml/m2) (H) 35 ml/m^2 16 - 34 Mitral valve Value Reference Mitral E-wave peak velocity 0.5 m/sec Mitral A-wave peak velocity 0.9 m/sec Mitral deceleration time 379 ms Mitral E/A ratio, peak 0.6 Aliasing velocity, MR PISA 0.36 m/sec Mitral regurg PISA radius 0.46 cm Mitral maximal regurg velocity, PISA 4.9 m/sec Mitral regurg VTI, PISA 138.8 cm ERO 0.1 cm^2 Mitral regurg volume, PISA 14 ml Mitral regurg fraction, PISA 23 % Tricuspid valve Value Reference Tricuspid regurg peak velocity 2.4 m/sec <=2.8 Tricuspid peak RV-RA gradient 24 mm Hg Right atrium Value Reference RA area, ES, A4C 12 cm^2 10 - 18 Right ventricle Value Reference RV ID, minor axis, ED, A4C base 3.3 cm 2.5 - 4.1 RV ID, minor axis, ED, A4C mid 2.7 cm 1.9 - 3.5 TAPSE, 2D 2.8 cm 1.7 - 3.1 RV s', lateral 13.3 cm/sec 6.0 - 13.4 Pulmonic valve Value Reference Pulmonic regurg gradient, ED 3 mm Hg Legend: (L) and (H) rodríguez values outside specified reference range. Electronically signed by Sirisha Dwyer 02/27/2020 09:50 Prior Signatures: [facility] [place], [place] Echo Complete w/wo Contrasto n 02-27-2020 Echo Complete w/wo Contrast Patient Name: JOVANY SOMMERS [facility]: [id number] Ultrasound Exam Date/Time 02/27/2020 09:09:32 EST Exam Echo Complete w/wo Contrast Ordering Physician DO ZENG EUGENE F. Accession Number [id number] Reason For Exam asymptomatic Left BBB, hx of HTN Report TRANSTHORACIC ECHOCARDIOGRAM PATIENT: Jovany Sommers STUDY DATE: 02/27/2020 : 1955 AGE: 64 HT/WT: 154.9 cm (61 70.3 kg in) (154.7 lb) GENDER: F BP: 164 / 81 LOCATION: [facility] STATUS: *ORDERING PHYSICIAN: * Jasper Zeng *READING PHYSICIAN: * Reymundo, *GUM MAKER: * Jo Zaldivar [facility], Sirisha AE, RVT, [place] INDICATIONS: Left bundle branch block (I44.7). Hypertension - Essential (primary) (I10). CONCLUSIONS SUMMARY: 1. Left ventricle: Average myocardial peak systolic LV global longitudinal strain is -14 (Mildly impaired, pattern suggestive of LV dyssynchrony). The cavity size is normal. Wall thickness is mildly increased. Systolic function is mildly decreased by visual assessment. The estimated ejection fraction is 45%. Mild global hypokinesis with paradoxical septal motion due to LBBB. Doppler parameters are consistent with abnormal left ventricular relaxation (grade 1 diastolic dysfunction). 2. Right ventricle: The cavity size is normal. Systolic function is normal. Right ventricular systolic pressure is within the normal range. 3. No significant valve disease. STUDY DATA: Complete transthoracic echocardiogram. Procedure: Image quality was adequate. M-mode, complete 2D, strain rate, complete spectral Doppler, and color flow Doppler images were acquired and archived for permanent storage and are available for subsequent review. Study status: Routine. Patient status: Outpatient. ECG RHYTHM: NSR FINDINGS LEFT VENTRICLE: Average myocardial peak systolic LV global longitudinal strain is -14 (Mildly impaired, pattern suggestive of LV dyssynchrony). The cavity size is normal. Wall thickness is mildly increased. Systolic function is mildly decreased by visual assessment. The estimated ejection fraction is 45%. Mild global hypokinesis with paradoxical septal motion due to LBBB. Doppler parameters are consistent with abnormal left ventricular relaxation (grade 1 diastolic dysfunction). RIGHT VENTRICLE: The cavity size is normal. Systolic function is normal. Right ventricular systolic pressure is within the normal range. VENTRICULAR SEPTUM: Abnormal septal motion due to intraventricular conduction delay. LEFT ATRIUM: The atrium is mildly dilated. RIGHT ATRIUM: The atrium is normal in size. ATRIAL SEPTUM: The interatrial septum is normal. Doppler shows no shunt. MITRAL VALVE: Structurally normal valve. Leaflet separation is normal. Doppler: Transvalvular velocity is within the normal range. There is no evidence for stenosis. There is mild, 1+ regurgitation. ERO: 0.1 cm^2. AORTIC VALVE: Structurally normal valve. Trileaflet. Cusp separation is normal. Doppler: Transvalvular velocity is within the normal range. There is no stenosis. There is trivial, less than 1+ regurgitation. TRICUSPID VALVE: Structurally normal valve. Leaflet separation is normal. Doppler: Transvalvular velocity is within the normal range. There is no evidence for stenosis. There is mild, 1+ regurgitation. PULMONIC VALVE: Structurally normal valve. Cusp separation is normal. Doppler: Transvalvular velocity is within the normal range. There is trivial, less than 1+ regurgitation. AORTA: Aortic root: The aortic root is normal in size. Ascending aorta: The ascending aorta is normal in size. PERICARDIUM: There is no pericardial effusion. SYSTEMIC VEINS: Inferior vena cava: The vessel is normal in size. The IVC collapses by greater than 50% with inspiration. Measurements Value Reference Aortic root ID, ED (sinus) 2.9 cm <4.0 Value Reference Ascending aorta ID, A-P, S 3.3 cm Ascending aorta ID/bsa, A-P, S 1.9 cm/m^2 Value Reference Aortic arch ID 2.7 cm Aortic arch ID/bsa 1.5 cm/m^2 IVC Value Reference ID 1.6 cm Left ventricle Value Reference GLS, 2D 14.18 % LV ID, ED 4.6 cm 3.8 - 5.2 LV ID, ES 3.5 cm 2.2 - 3.5 LV ID/bsa, ED 2.6 cm/m^2 2.3 - 3.1 LV ID/bsa, ES 2.0 cm/m^2 1.3 - 2.1 LV PW thickness, ED (H) 1.2 cm 0.6 - 0.9 LV PW/LV ID ratio, ED 0.25 LV wall mass (H) 202 g 66 - 150 LV wall mass/bsa (H) 115 g/m^2 44 - 88 Stroke volume/bsa, 1-p A2C 29.3 ml/m^2 LV end-diastolic volume, 1-p A4C 134 ml 48 - 140 LV end-systolic volume, 1-p A4C (H) 73 ml 12 - 60 LV ejection fraction, 1-p A4C 46 % 46 - 78 LV end-diastolic volume/bsa, 1-p A4C 76 ml/m^2 30 - 82 LV end-systolic volume/bsa, 1-p A4C (H) 41 ml/m^2 7 - 35 LV end-systolic volume, 2-p (H) 78 ml 14 - 42 LV ejection fraction, 2-p (L) 45 % 54 - 74 LV end-diastolic volume/bsa, 2-p (H) 74 ml/m^2 29 - 61 LV E/e', lateral 10.2 LV E/e', medial 12.4 LV E/e', average 11.2 Ventricular septum Value Reference IVS thickness, ED (H) 1.2 cm 0.6 - 0.9 LVOT Value Reference LVOT ID, A-P 1.8 cm LVOT mean velocity, S 0.5 m/sec LVOT peak gradient, S 2 mm Hg Stroke volume (SV), LVOT DP 48 ml Stroke index (SV/bsa), LVOT DP 27 ml/m^2 Left atrium Value Reference LA area, ES, A2C 20 cm^2 LA vol/bsa A/L (ml/m2) (H) 35 ml/m^2 16 - 34 Mitral valve Value Reference Mitral E-wave peak velocity 0.5 m/sec Mitral A-wave peak velocity 0.9 m/sec Mitral deceleration time 379 ms Mitral E/A ratio, peak 0.6 Aliasing velocity, MR PISA 0.36 m/sec Mitral regurg PISA radius 0.46 cm Mitral maximal regurg velocity, PISA 4.9 m/sec Mitral regurg VTI, PISA 138.8 cm ERO 0.1 cm^2 Mitral regurg volume, PISA 14 ml Mitral regurg fraction, PISA 23 % Tricuspid valve Value Reference Tricuspid regurg peak velocity 2.4 m/sec <=2.8 Tricuspid peak RV-RA gradient 24 mm Hg Right atrium Value Reference RA area, ES, A4C 12 cm^2 10 - 18 Right ventricle Value Reference RV ID, minor axis, ED, A4C base 3.3 cm 2.5 - 4.1 RV ID, minor axis, ED, A4C mid 2.7 cm 1.9 - 3.5 TAPSE, 2D 2.8 cm 1.7 - 3.1 RV s', lateral 13.3 cm/sec 6.0 - 13.4 Pulmonic valve Value Reference Pulmonic regurg gradient, ED 3 mm Hg Legend: (L) and (H) rodríguez values outside specified reference range. Electronically signed by Sirisha Dwyer 02/27/2020 09:50 Prior Signatures: Final Dictated: 02/27/2020 9:50 am Dictating Physician: MD DWYER WISSAM Signed Date and Time: 02/27/2020 9:50 am Signed by: MD DWYER WISSAM [facility] Basic Metabolic Panelon 10-2 Anion gap [Moles/Vol] 11 mmol/L Normal 8-15 [facility] Comment on above: Performed By: #### B MP #### [facility] [address] [place] [address] 22887 Calcium [Mass/Vol] 9.3 mg/dL Normal 8.6-10.6 [facility] Comment on above: Performed By: #### B MP #### [facility] [address] [place] [address] 44731 Chloride [Moles/Vol] 105 mmol/L Normal 98-107 [facility] Comment on above: Performed By: #### B MP #### [facility] [address] [place] [address] 16208 CO2 [Moles/Vol] 26 mmol/L Normal 22-29 [facility] Comment on above: Performed By: #### B MP #### [facility] [address] [place] [address] 55225 Creatinine [Mass/Vol] 0.7 mg/dL Normal 0.5-1.2 [facility] Comment on above: Performed By: #### B MP #### [facility] [address] [place] [address] 85328 eGFR -Amer >=60 Normal >=60 [facility] Comment on above: Performed By: #### B MP #### [facility] [address] [place] [address] 81125 GFR/1.73 sq M.predicted among non-blacks MDRD (S/P/Bld) [Vol rate/Area] mL/min/{1.73_m2} Normal >=60 [facility] Comment on above: Performed By: #### B MP #### [facility] [address] [place] [address] 30306 Glucose [Mass/Vol] 105 mg/dL Normal 74-109 [facility] Comment on above: Performed By: #### B MP #### [facility] [address] [place] [address] 16981 Potassium [Moles/Vol] 3.6 mmol/L Normal 3.4-5.1 [facility] Comment on above: Performed By: #### B MP #### [facility] [address] [place] [address] 77067 Sodium [Moles/Vol] 142 mmol/L Normal 136-145 [facility] Comment on above: Performed By: #### B MP #### [facility] [address] [place] [address] 10646 Urea nitrogen [Mass/Vol] 18 mg/dL Normal 6-23 [facility] Comment on above: Performed By: #### B MP #### [facility] [address] [place] [address] 90545 CBC with Diffon 02-06-2020 BA# 0.0 x(10)3/cumm Normal 0.0-0.1 [facility] Comment on above: Performed By: #### C BCDIFF #### [facility] [address] [place] [address] 86340 Basophils/100 WBC (Bld) 0.5 % Normal 0.0-1.0 [facility] Comment on above: Performed By: #### C BCDIFF #### [facility] [address] [place] [address] 87382 EO# 0.1 x(10)3/cumm Normal 0.0-0.4 [facility] Comment on above: Performed By: #### C BCDIFF #### [facility] [address] [place] [address] 18763 Eosinophils/100 WBC (Bld) 0.8 % Normal 0.0-6.1 [facility] Comment on above: Performed By: #### C BCDIFF #### [facility] [address] [place] [address] 77630 Erythrocyte distribution width (RBC) [Ratio] 13.2 % Normal 11.1-15.3 [facility] Comment on above: Performed By: #### C BCDIFF #### [facility] [address] [place] [address] 81348 Hematocrit (Bld) [Volume fraction] 42.5 % Normal 34.6-45.0 [facility] Comment on above: Performed By: #### C BCDIFF #### [facility] [address] [place] [address] 97395 Hemoglobin (Bld) [Mass/Vol] 14.0 g/dL Normal 11.5-15.5 [facility] Comment on above: Performed By: #### C BCDIFF #### [facility] [address] [place] [address] 48068 LY# 1.6 x(10)3/cumm Normal 0.8-2.9 [facility] Comment on above: Performed By: #### C BCDIFF #### [facility] [address] [place] [address] 00141 Lymphocytes/100 WBC (Bld) 25.4 % Normal 12.2-42.6 [facility] Comment on above: Performed By: #### C BCDIFF #### [facility] [address] [place] [address] 11198 MCH (RBC) [Entitic mass] 29.4 pg Normal 27.2-33.6 [facility] Comment on above: Performed By: #### C BCDIFF #### [facility] [address] [place] [address] 76966 MCHC (RBC) [Mass/Vol] 33.0 g/dL Normal 32.9-35.3 [facility] Comment on above: Performed By: #### C BCDIFF #### [facility] [address] [place] [address] 24346 MCV (RBC) [Entitic vol] 88.9 fL Normal 81.3-96.7 [facility] Comment on above: Performed By: #### C BCDIFF #### [facility] [address] [place] [address] 45270 MO# 0.4 x(10)3/cumm Normal 0.2-0.8 [facility] Comment on above: Performed By: #### C BCDIFF #### [facility] [address] [place] [address] 49402 Monocytes/100 WBC (Bld) 6.3 % Normal 3.3-11.6 [facility] Comment on above: Performed By: #### C BCDIFF #### [facility] [address] [place] [address] 12186 NE# 4.2 x(10)3/cumm Normal 1.3-7.4 [facility] Comment on above: Performed By: #### C BCDIFF #### [facility] [address] [place] [address] 91851 Neutrophils/100 WBC (Bld) 67.0 % Normal 44.9-78.8 [facility] Comment on above: Performed By: #### C BCDIFF #### [facility] [address] [place] [address] 91115 Platelet mean volume (Bld) [Entitic vol] 8.5 fL Normal 6.4-10.0 [facility] Comment on above: Performed By: #### C BCDIFF #### [facility] [address] [place], [place] [phone] PLT 227 x(10)3/cumm Normal 138-367 [facility] Comment on above: Performed By: #### C BCDIFF #### [facility] [address] [place] [address] 40036 Plt Morph Normal [facility] Comment on above: Performed By: #### C BCDIFF #### [facility] [address] [place], [place] [phone] RBC 4.78 X(10)6/cumm Normal 3.90-5.10 [facility] Comment on above: Performed By: #### C BCDIFF #### [facility] [address] [place], [place] [phone] RBC Morph cont Normal [facility] Comment on above: Performed By: #### C BCDIFF #### [facility] [address] [place] [address] RBC morphology finding Nom (Bld) Normal [facility] Comment on above: Performed By: #### C BCDIFF #### [facility] [address] [place], [place] [phone] WBC 6.3 x(10)3/cumm Normal 3.6-10.3 [facility] Comment on above: Performed By: #### C BCDIFF #### [facility] [address] [place], [place] [phone] WBC Morph Normal [facility] Comment on above: Performed By: #### C BCDIFF #### [place] [phone] DEXA BONE DENSITY AXIAL SKEL ETONon 11-15-2019 Patient Name: JOVANY SOMMERS ---Bone Density--- Exam Date/Time 11/15/2019 11:16:29 EDT Exam OT Bone Density DEXA Axial Skeleton Ordering Physician LEONOR RODAS Accession Number [id number] CPT4 Codes 02798 () Reason For Exam menopause, osteoporosis screening Report DXA BONE DENSITOMETRY: CLINICAL INDICATION: Screening for osteoporosis. Menopause. COMPARISON: November 18, 2016 TECHNIQUE: Quantitative bone mineral densitometry of the hip and lumbar spine was performed with a dual energy x-ray observed absorptiometry device - [employer] Horizon W. Regions of interest were obtained through the left proximal femur and compared to the normal value of the young adult. Regions of interest were also obtained through the lumbar vertebrae with an average value determined and compared with the young adult. The measured bone density minus the bone density of the young normal reference divided by the reference standard deviation is expressed as the T score. Using the same formula adjusting the reference density and standard deviation for age and race determines the Z score. According to World Health Organization criteria: T-score of -1.0 or higher is normal. T-score between -1.0 and -2.5 is low bone density or osteopenia. T-score of -2.5 or lower is abnormally low, compatible with osteoporosis. T-score of -2.5 or less plus fragility fracture indicates severe osteoporosis. FINDINGS: Hip: Femoral neck Density: 0.654 g/cm2. T-score: -1.8 Z-score: -0.3 Hip: Total hip Density: 0.860 g/cm2. T-score: -0.7 Z-score: 0.5 Comparison from prior examination: The prior comparison exam left total hip bone mineral density was measured as 0.928 g /cm2. Spine: L1-L4 Density 0.933 g/cm2. T-score: -1.0 Z-score: 0.6 Comparison from prior examination: The prior comparison exam lumbar L1-L4 bone mineral density was measured as 0.929 g /cm2. IMPRESSION: Bone mineral density within the left femoral neck indicative of osteopenia. FRACTURE RISK: The estimated 10 year risk for a hip fracture is 1.0 % and for a major osteoporosis-related fracture is 9.1 %. (FRAX web version 3.11). RECOMMENDATIONS: General recommendations for prevention of bone loss include: 3680-7103 mg calcium intake per day for adults >50yrs, and no history of renal calculi 800-1000 IU of vitamin D3 per day for adults >50yrs, and no history of renal calculi Weight bearing exercise Discontinue smoking Avoid excessive use of caffeine, soft drinks, and alcoholic beverages. In addition, balance training and fall prevention programs can help reduce the risk of fractures. Pharmacologic treatment recommendations: Initiate pharmacologic treatment in patients with: -Hip or vertebral fracture. -In those with T scores spine by DXA -In postmenopausal women and men age 50 or older with low bone mass (T score between -1.0 and -2.5 [osteopenia]) at the femoral neck, total hip, or lumbar spine by DXA and a 10 year hip fracture probability >/= 3% or a 10 year major osteoporosis-related fracture probability >/= 20% based on the [place]-adapted WHO fracture risk model (FRAX). Current FDA-approved pharmacologic options for osteoporosis treatment include bisphosphonates (Fosamax), ibandronate (Boniva), risedronate (Actonel), zoledronic acid (Reclast), estrogens and other hormonal therapies (Evista), parathyroid hormone (Forteo), and denosumab (Prolia). Initiation of pharmacologic therapy should happen only after thorough medical evaluation, discussion of risks and benefits, and with regular monitoring of the therapeutic regimen. FOLLOW-UP RECOMMENDATIONS: Patients with osteoporosis or or at high risk for fracture should have follow-up bone density tests. For Medicare patients, routine testing is allowed every 2 years. Patients who have low bone mass (T score -2.0 to -2.49), who are currently on treatment for low bone mass, or having risk factors for accelerated bone loss (glucocorticoids, aromatase inhibitors, etc.), consider repeat DXA in 1-2 years. Patients with osteopenia and no risk factors may consider follow-up every 3-5 years. REFERENCES: National Osteoporosis Foundation. Clinician's Guide to Prevention and Treatment of Osteoporosis. Osteoporosis International. Drew, 2014. DXA Scan Screening, Reporting (FRAX Score) and Follow-up. Selene [employer] Knowledge Evidence - based Summaries. [employer] [place] for Education and Research. 2017 Report Dictated on Workstation: [id number] --- Final --- Dictating Physician: MD ARAGON BRIAN Signed Date and Time: 11/15/2019 11:32 am Signed by: MD ARAGON BRIAN Transcribed Date and Time: 11/15/2019 11:33 [facility] [place] [place], [place] Incoming Radiology Results From [facility] - 11/15/2019 11:34 AM EDT Patient Name: JOVANY SOMMERS ---Bone Density--- Exam Date/Time 11/15/2019 11:16:29 EDT Exam OT Bone Density DEXA Axial Skeleton Ordering Physician MARGARET RODASSAJanett Ochoa Accession Number [id number] CPT4 Codes 19383 () Reason For Exam menopause, osteoporosis screening Report DXA BONE DENSITOMETRY: CLINICAL INDICATION: Screening for osteoporosis. Menopause. COMPARISON: November 18, 2016 TECHNIQUE: Quantitative bone mineral densitometry of the hip and lumbar spine was performed with a dual energy x-ray observed absorptiometry device - [employer] Horizon W. Regions of interest were obtained through the left proximal femur and compared to the normal value of the young adult. Regions of interest were also obtained through the lumbar vertebrae with an average value determined and compared with the young adult. The measured bone density minus the bone density of the young normal reference divided by the reference standard deviation is expressed as the T score. Using the same formula adjusting the reference density and standard deviation for age and race determines the Z score. According to World Health Organization criteria: T-score of -1.0 or higher is normal. T-score between -1.0 and -2.5 is low bone density or osteopenia. T-score of -2.5 or lower is abnormally low, compatible with osteoporosis. T-score of -2.5 or less plus fragility fracture indicates severe osteoporosis. FINDINGS: Hip: Femoral neck Density: 0.654 g/cm2. T-score: -1.8 Z-score: -0.3 Hip: Total hip Density: 0.860 g/cm2. T-score: -0.7 Z-score: 0.5 Comparison from prior examination: The prior comparison exam left total hip bone mineral density was measured as 0.928 g /cm2. Spine: L1-L4 Density 0.933 g/cm2. T-score: -1.0 Z-score: 0.6 Comparison from prior examination: The prior comparison exam lumbar L1-L4 bone mineral density was measured as 0.929 g /cm2. IMPRESSION: Bone mineral density within the left femoral neck indicative of osteopenia. FRACTURE RISK: The estimated 10 year risk for a hip fracture is 1.0 % and for a major osteoporosis-related fracture is 9.1 %. (FRAX web version 3.11). RECOMMENDATIONS: General recommendations for prevention of bone loss include: 5177-9793 mg calcium intake per day for adults >50yrs, and no history of renal calculi 800-1000 IU of vitamin D3 per day for adults >50yrs, and no history of renal calculi Weight bearing exercise Discontinue smoking Avoid excessive use of caffeine, soft drinks, and alcoholic beverages. In addition, balance training and fall prevention programs can help reduce the risk of fractures. Pharmacologic treatment recommendations: Initiate pharmacologic treatment in patients with: -Hip or vertebral fracture. -In those with T scores spine by DXA -In postmenopausal women and men age 50 or older with low bone mass (T score between -1.0 and -2.5 [osteopenia]) at the femoral neck, total hip, or lumbar spine by DXA and a 10 year hip fracture probability >/= 3% or a 10 year major osteoporosis-related fracture probability >/= 20% based on the [place]-adapted WHO fracture risk model (FRAX). Current FDA-approved pharmacologic options for osteoporosis treatment include bisphosphonates (Fosamax), ibandronate (Boniva), risedronate (Actonel), zoledronic acid (Reclast), estrogens and other hormonal therapies (Evista), parathyroid hormone (Forteo), and denosumab (Prolia). Initiation of pharmacologic therapy should happen only after thorough medical evaluation, discussion of risks and benefits, and with regular monitoring of the therapeutic regimen. FOLLOW-UP RECOMMENDATIONS: Patients with osteoporosis or or at high risk for fracture should have follow-up bone density tests. For Medicare patients, routine testing is allowed every 2 years. Patients who have low bone mass (T score -2.0 to -2.49), who are currently on treatment for low bone mass, or having risk factors for accelerated bone loss (glucocorticoids, aromatase inhibitors, etc.), consider repeat DXA in 1-2 years. Patients with osteopenia and no risk factors may consider follow-up every 3-5 years. REFERENCES: National Osteoporosis Foundation. Clinician's Guide to Prevention and Treatment of Osteoporosis. Osteoporosis International. Drew, 2014. DXA Scan Screening, Reporting (FRAX Score) and Follow-up. [employer] Knowledge Evidence - based Summaries. [employer] [place] for Education and Research. 2017 Report Dictated on Workstation: [id number] --- Final --- Dictating Physician: MD ARAGON BRIAN Signed Date and Time: 11/15/2019 11:32 am Signed by: ARAGON, MD, BOSTON Transcribed Date and Time: 11/15/2019 11:33 [facility] [place] MG Breast Tomosynthesis Scr Blon 11-15-2019 MG Breast Tomosynthesis Scr Bl Patient Name: JOVANY SOMMERS Mammography Exam Date/Time 11/15/2019 11:30:00 EDT Exam MG Breast Tomosynthesis BI Scr Ordering Physician LEONOR RODAS Accession Number [id number] CPT4 Codes 68777 (MG Breast Tomosynthesis Scr Bl), 85613 (MG MAMMO 2D SCREENING) Reason For Exam screening Report TIME SINCE LAST MAMMOGRAM: Last mammogram was performed 3 years ago. REASON FOR EXAM: screening, asymptomatic. PROCEDURE: MG BREAST TOMOSYNTHESIS BL SCR: NOVEMBER 15, 2019 - 2D/3D Procedure 3D Bilateral CC and MLO view(s) were taken. 2D Bilateral CC and MLO view(s) were taken. Prior study comparison: November 18, 2016, bilateral MG mammogram digital screening performed at [facility]. October 30, 2013, bilateral screening mammogram performed at [facility]. TISSUE DENSITY: BIRADS B - There are scattered fibroglandular densities. . FINDINGS: No suspicious masses, architectural distortions or suspiciously clustered microcalcifications are identified. There is no evidence of skin thickening or nipple retraction. There are no significant changes when compared with prior studies. Markings on images: BB's = Nipples; skin lesions Open united a[place] = Palpable Line = Scar 2D digital mammography and tomosynthesis imaging were performed and reviewed with CAD. ASSESSMENT: Category 1 Negative RECOMMENDATION: Routine screening mammogram of both breasts in 1 year. . Report Dictated on Cancer Risk Assessment: This risk assessment is based on patient provided information collected in a risk survey taken at the time of this examination. Lifetime breast cancer risk: 9.89% - If greater than or equal to 20%, consider annual mammogram and annual screening Breast MRI or follow up in high risk clinic. Is the patient at elevated risk based on the HBOC criteria? No (Hereditary Breast and Ovarian Cancer) - If yes, consider genetic counseling and testing with high risk follow up. HNPCC mutation risk (Hammond Syndrome): 1% - if greater than or equal to 5%, consider genetic counseling, testing and screening colonoscopy. Final Signed Date and Time: 11/15/2019 3:56 pm Signed by: MD BOSCH DIANE [facility] OT Bone Density DEXA Axial S kamran 11-15-2019 OT Bone Density DEXA Axial Skeleton Patient Name: JOVANY SOMMERS Bone Density Exam Date/Time 11/15/2019 11:16:29 EDT Exam OT Bone Density DEXA Axial Skeleton Ordering Physician LEONOR RODAS Accession Number [id number] CPT4 Codes 25206 () Reason For Exam menopause, osteoporosis screening Report DXA BONE DENSITOMETRY: CLINICAL INDICATION: Screening for osteoporosis. Menopause. COMPARISON: November 18, 2016 TECHNIQUE: Quantitative bone mineral densitometry of the hip and lumbar spine was performed with a dual energy x-ray observed absorptiometry device - [employer] Horizon W. Regions of interest were obtained through the left proximal femur and compared to the normal value of the young adult. Regions of interest were also obtained through the lumbar vertebrae with an average value determined and compared with the young adult. The measured bone density minus the bone density of the young normal reference divided by the reference standard deviation is expressed as the T score. Using the same formula adjusting the reference density and standard deviation for age and race determines the Z score. According to World Health Organization criteria: T-score of -1.0 or higher is normal. T-score between -1.0 and -2.5 is low bone density or osteopenia. T-score of -2.5 or lower is abnormally low, compatible with osteoporosis. T-score of -2.5 or less plus fragility fracture indicates severe osteoporosis. FINDINGS: Hip: Femoral neck Density: 0.654 g/cm2. T-score: -1.8 Z-score: -0.3 Hip: Total hip Density: 0.860 g/cm2. T-score: -0.7 Z-score: 0.5 Comparison from prior examination: The prior comparison exam left total hip bone mineral density was measured as 0.928 g /cm2. Spine: L1-L4 Density 0.933 g/cm2. T-score: -1.0 Z-score: 0.6 Comparison from prior examination: The prior comparison exam lumbar L1-L4 bone mineral density was measured as 0.929 g /cm2. IMPRESSION: Bone mineral density within the left femoral neck indicative of osteopenia. FRACTURE RISK: The estimated 10 year risk for a hip fracture is 1.0 % and for a major osteoporosis-related fracture is 9.1 %. (FRAX web version 3.11). RECOMMENDATIONS: General recommendations for prevention of bone loss include: 5593-4779 mg calcium intake per day for adults >50yrs, and no history of renal calculi 800-1000 IU of vitamin D3 per day for adults >50yrs, and no history of renal calculi Weight bearing exercise Discontinue smoking Avoid excessive use of caffeine, soft drinks, and alcoholic beverages. In addition, balance training and fall prevention programs can help reduce the risk of fractures. Pharmacologic treatment recommendations: Initiate pharmacologic treatment in patients with: -Hip or vertebral fracture. -In those with T scores spine by DXA -In postmenopausal women and men age 50 or older with low bone mass (T score between -1.0 and -2.5 [osteopenia]) at the femoral neck, total hip, or lumbar spine by DXA and a 10 year hip fracture probability >/= 3% or a 10 year major osteoporosis-related fracture probability >/= 20% based on the [place]-adapted WHO fracture risk model (FRAX). Current FDA-approved pharmacologic options for osteoporosis treatment include bisphosphonates (Fosamax), ibandronate (Boniva), risedronate (Actonel), zoledronic acid (Reclast), estrogens and other hormonal therapies (Evista), parathyroid hormone (Forteo), and denosumab (Prolia). Initiation of pharmacologic therapy should happen only after thorough medical evaluation, discussion of risks and benefits, and with regular monitoring of the therapeutic regimen. FOLLOW-UP RECOMMENDATIONS: Patients with osteoporosis or or at high risk for fracture should have follow-up bone density tests. For Medicare patients, routine testing is allowed every 2 years. Patients who have low bone mass (T score -2.0 to -2.49), who are currently on treatment for low bone mass, or having risk factors for accelerated bone loss (glucocorticoids, aromatase inhibitors, etc.), consider repeat DXA in 1-2 years. Patients with osteopenia and no risk factors may consider follow-up every 3-5 years. REFERENCES: National Osteoporosis Foundation. Clinician's Guide to Prevention and Treatment of Osteoporosis. Osteoporosis International. Drew, 2014. DXA Scan Screening, Reporting (FRAX Score) and Follow-up. Selene of Knowledge Evidence - based Summaries. Health Lit Building Directory [place] for Education and Research. 2017 Report Dictated on Final Dictating Physician: MD ARAGON BRIAN Signed Date and Time: 11/15/2019 11:32 am Signed by: MD ARAGON BRIAN Transcribed Date and Time: 11/15/2019 11:33 Normal [facility] Vital Signs Date Time Vital Sign Value Performing Clinician Facility 11-19-2024 09:43-0400 Body height 156.[address] Jasper Zeng DO Work Phone: [facility] 11-19-2024 09:43-0400 Body mass index (BMI) [Ratio] 29.7 kg/m2 Dr. Jasper Zeng DO Work Phone: [facility] 11-19-2024 09:43-0400 Body weight 72.[address] Jasper Zeng DO Work Phone: [facility] 11-19-2024 09:43-0400 Diastolic blood pressure 79 mm[Hg] Dr. Jasper Zeng DO Work Phone: [facility] 11-19-2024 09:43-0400 Heart rate 78 /min Dr. Jasper Zeng DO Work Phone: [facility] 11-19-2024 09:43-0400 Systolic blood pressure 136 mm[Hg] Dr. Jasper Zeng DO Work Phone: [facility] 06-05-2024 06:54-0500 Body height 154.9 cm Jasper Zeng DO Work Phone: [facility] 06-05-2024 06:54-0500 Body mass index (BMI) [Ratio] 30.8 kg/m2 Jasper Zeng DO Work Phone: [facility] 06-05-2024 06:54-0500 Body temperature 98.91 [degF] Jasper Zeng DO Work Phone: [facility] [employer] 06-05-2024 06:54-0500 Body weight 73.94 kg Jasper Zeng DO Work Phone: [facility] [employer] 06-05-2024 06:54-0500 Diastolic blood pressure 76 mm[Hg] Jasper Zeng DO Work Phone: [facility] [employer] 06-05-2024 06:54-0500 Heart rate 68 /min Jasper Zeng DO Work Phone: [facility] [employer] 06-05-2024 06:54-0500 SaO2% (BldA) [Mass fraction] 98 % Jasper Zeng DO Work Phone: [facility] [employer] 06-05-2024 06:54-0500 Systolic blood pressure 138 mm[Hg] Jasper Zeng DO Work Phone: [facility] 05-30-2024 08:48-0500 Body height 154.9 cm Josselyn Owusu MD Work Phone: [facility] 05-30-2024 08:48-0500 Body mass index (BMI) [Ratio] 31.74 kg/m2 Josselyn Owusu MD Work Phone: [facility] 05-30-2024 08:48-0500 Body weight 76.2 kg Josselyn Owusu MD Work Phone: [facility] 05-30-2024 08:48-0500 Diastolic blood pressure 86 mm[Hg] Josselyn Owusu MD Work Phone: [facility] 05-30-2024 08:48-0500 Systolic blood pressure 138 mm[Hg] Josselyn Owusu MD Work Phone: [facility] 03-30-2024 08:04-0500 Body height 154.9 cm [facility] 01-10-2024 09:08-0400 Diastolic blood pressure 82 mm[Hg] [facility] 01-10-2024 09:08-0400 Heart rate 60 /min [facility] 01-10-2024 09:08-0400 SaO2% (BldA) [Mass fraction] 98 % [facility] Schedule [facility] [employer] 01-10-2024 09:08-0400 Systolic blood pressure 139 mm[Hg] [facility] Schedule [facility] [employer] 12-06-2023 07:41-0400 Diastolic blood pressure 88 mm[Hg] Jasper Zeng DO Work Phone: [facility] [employer] 12-06-2023 07:41-0400 Systolic blood pressure 148 mm[Hg] Jasper Zeng DO Work Phone: [facility] [employer] 12-06-2023 07:01-0400 Body height 156.2 cm Jasper Zeng DO Work Phone: [facility] [employer] 12-06-2023 07:01-0400 Body mass index (BMI) [Ratio] 29.93 kg/m2 Jasper Zeng DO Work Phone: [facility] [employer] 12-06-2023 07:01-0400 Body temperature 97 [degF] Jasper Zeng DO Work Phone: [facility] [employer] 12-06-2023 07:01-0400 Body weight 73.03 kg Jasper Zeng DO Work Phone: [facility] [employer] 12-06-2023 07:01-0400 Heart rate 71 /min Jasper Zeng DO Work Phone: [facility] [employer] 12-06-2023 07:01-0400 SaO2% (BldA) [Mass fraction] 98 % Jasper Zeng DO Work Phone: [facility] [employer] 11-18-2023 08:24-0400 Body height 154.9 cm Rj Fields MD Work Phone: [facility] [employer] 11-18-2023 08:24-0400 Body mass index (BMI) [Ratio] 29.89 kg/m2 Rj Fields MD Work Phone: [facility] [employer] 11-18-2023 08:24-0400 Body weight 71.76 kg Rj Fields MD Work Phone: [facility] [employer] 11-18-2023 08:24-0400 Diastolic blood pressure 78 mm[Hg] Rj Fields MD Work Phone: [facility] [employer] 11-18-2023 08:24-0400 Heart rate 80 /min Rj Fields MD Work Phone: [facility] [employer] 11-18-2023 08:24-0400 SaO2% (BldA) [Mass fraction] 96 % Rj Fields MD Work Phone: [facility] [employer] 11-18-2023 08:24-0400 Systolic blood pressure 110 mm[Hg] Rj Fields MD Work Phone: [facility] [employer] 11-10-2023 14:05-0400 Diastolic blood pressure 72 mm[Hg] Thomas Fields PA-C Work Phone: [facility] [employer] 11-10-2023 14:05-0400 Heart rate 52 /min Thomas Fields PA-C Work Phone: [facility] [employer] 11-10-2023 14:05-0400 Systolic blood pressure 139 mm[Hg] Thomas Fields PA-C Work Phone: [facility] [employer] 11-08-2023 14:40-0400 Body height 156.2 cm Thomas Fields PA-C Work Phone: [facility] [employer] 11-08-2023 14:40-0400 Body mass index (BMI) [Ratio] 29.56 kg/m2 Thomas Fields PA-C Work Phone: [facility] [employer] 11-08-2023 14:40-0400 Body temperature 97.5 [degF] Thomas Fields PA-C Work Phone: [facility] [employer] 11-08-2023 14:40-0400 Body weight 72.12 kg Thomas Fields PA-C Work Phone: [facility] [employer] 11-08-2023 14:40-0400 Diastolic blood pressure 94 mm[Hg] Thomas Fields PA-C Work Phone: [facility] [employer] 11-08-2023 14:40-0400 Heart rate 74 /min Thomas Fields PA-C Work Phone: [facility] [employer] 11-08-2023 14:40-0400 SaO2% (BldA) [Mass fraction] 98 % Thomas Fields PA-C Work Phone: [facility] [employer] 11-08-2023 14:40-0400 Systolic blood pressure 170 mm[Hg] Thomas Fields PA-C Work Phone: [facility] [employer] 06-07-2023 07:07-0500 Body height 156.2 cm Jasper Zeng DO Work Phone: [facility] [employer] 06-07-2023 07:07-0500 Body mass index (BMI) [Ratio] 29.93 kg/m2 Jasper Liebermana Work Phone: [facility] [employer] 06-07-2023 07:07-0500 Body temperature 97.11 [degF] Jasper Liebermana DO Work Phone: [facility] [employer] 06-07-2023 07:07-0500 Body weight 73.03 kg Jasper Liebermana DO Work Phone: [facility] [employer] 06-07-2023 07:07-0500 Diastolic blood pressure 71 mm[Hg] Jasper Liebermana DO Work Phone: [facility] [employer] 06-07-2023 07:07-0500 Heart rate 69 /min Jasper Liebermana DO Work Phone: [facility] [employer] 06-07-2023 07:07-0500 SaO2% (BldA) [Mass fraction] 97 % Jasper Liebermana DO Work Phone: [facility] [employer] 06-07-2023 07:07-0500 Systolic blood pressure 122 mm[Hg] Jasper Liebermana DO Work Phone: [facility] [employer] 05-25-2023 08:48-0500 Body height 154.9 cm Josselyn Owusu MD Work Phone: [facility] 05-25-2023 08:48-0500 Body weight 72.58 kg Josselyn Owusu MD Work Phone: [facility] 05-25-2023 08:48-0500 Diastolic blood pressure 74 mm[Hg] Josselyn Owusu MD Work Phone: [facility] 05-25-2023 08:48-0500 Systolic blood pressure 118 mm[Hg] Josselyn Owusu MD Work Phone: [facility] 12-03-2022 06:57-0400 Body height 156.2 cm Jasper Liebermana DO Work Phone: [facility] [employer] 12-03-2022 06:57-0400 Body mass index (BMI) [Ratio] 29.67 kg/m2 Jasper Hagenlla DO Work Phone: [facility] [employer] 12-03-2022 06:57-0400 Body temperature 97.81 [degF] Jasper Hagenlla DO Work Phone: [facility] [employer] 12-03-2022 06:57-0400 Body weight 72.39 kg Jasper Hagenlla DO Work Phone: [facility] [employer] 12-03-2022 06:57-0400 Diastolic blood pressure 77 mm[Hg] Jasper Hagenlla DO Work Phone: [facility] [employer] 12-03-2022 06:57-0400 Heart rate 72 /min Jasper Hagenlla DO Work Phone: [facility] [employer] 12-03-2022 06:57-0400 SaO2% (BldA) [Mass fraction] 96 % Jasper Hagenlla DO Work Phone: [facility] [employer] 12-03-2022 06:57-0400 Systolic blood pressure 127 mm[Hg] Jasper Hagenlla DO Work Phone: [facility] [employer] 06-11-2022 07:20-0500 Body height 156.2 cm Jasper Hagenlla DO Work Phone: [facility] [employer] 06-11-2022 07:20-0500 Body mass index (BMI) [Ratio] 30.82 kg/m2 Jasper Hagenlla DO Work Phone: [facility] [employer] 06-11-2022 07:20-0500 Body temperature 97.81 [degF] Jasper Hieulla DO Work Phone: [facility] 06-11-2022 07:20-0500 Body weight 75.21 kg Jasper Zeng DO Work Phone: [facility] 06-11-2022 07:20-0500 Diastolic blood pressure 86 mm[Hg] Jasper Zeng DO Work Phone: [facility] 06-11-2022 07:20-0500 Heart rate 67 /min Jasper Zeng DO Work Phone: [facility] 06-11-2022 07:20-0500 SaO2% (BldA) [Mass fraction] 98 % Jasper Zeng DO Work Phone: [facility] 06-11-2022 07:20-0500 Systolic blood pressure 135 mm[Hg] Jasper Zeng DO Work Phone: [facility] 01-18-2022 15:06-0400 Body height 154.9 cm Josselyn Owusu MD Work Phone: [facility] 01-18-2022 15:06-0400 Body weight 73.94 kg Josselyn Owusu MD Work Phone: [facility] 01-18-2022 15:06-0400 Diastolic blood pressure 78 mm[Hg] Josselyn Owusu MD Work Phone: [facility] 01-18-2022 15:06-0400 Systolic blood pressure 128 mm[Hg] Josselyn Owusu MD Work Phone: [facility] 08-21-2021 07:59-0400 Body height 154.9 cm P[address] 1 [facility] 08-21-2021 07:59-0400 Body temperature 98.8 [degF] Pst 1 [facility] 08-21-2021 07:59-0400 Body weight 69.85 kg Pst 1 [facility] 08-21-2021 07:59-0400 Diastolic blood pressure 79 mm[Hg] Pst 1 [facility] 08-21-2021 07:59-0400 Heart rate 54 /min Pst 1 [facility] 05-06-2022 07:59-0400 Respiratory rate 18 /min Pst 1 [facility] 08-21-2021 07:59-0400 SaO2% (BldA) [Mass fraction] 97 % Pst 1 [facility] 08-21-2021 07:59-0400 Systolic blood pressure 146 mm[Hg] Pst 1 [facility] Encounters Encounter Date Encounter Type Care Provider Facility Start: 12-11-2024 ambulatory Jasper Zeng Facilit y:[facility] Start: 12-03-2024 End: 12-03-2024 Telephone encounter Jasper Lula Pearl DO Work Phone: [facility] Comment on above: Referral ([employer]) Start: 12-03-2024 End: 12-03-2024 ambulatory JASPER [facility] Start: 12-03-2024 End: 12-03-2024 Encounter for general adult medical examination without abnormal findings [facility] Start: 11-19-2024 End: 11-19-[address] Shanel Almaraz MD -[facility] Work Phone: Start: 11-19-2024 End: 11-19-[address] Jasper Zeng DO Work Phone: -[facility] Start: 10-31-2024 End: 10-31-2024 Refill Jasper Zeng DO Work Phone: [facility] Clinical Communication Comment on above: Essential hypertensi on Start: 10-16-2024 Non-patient / Non-visit Dr. Piotr Almaraz MD -[facility] Work Phone: Start: 07-04-2024 End: 07-04-[address] Jasper Zeng DO Work Phone: [facility] Work Phone: Start: 07-04-2024 End: 07-04-[address] Shanel Almaraz MD -Ultrasound, [facility] Work Phone: Start: 07-04-2024 End: 07-04-2024 ambulatory Jasper Zeng Facility:[facility] Start: 06-08-2024 End: 06-08-2024 ambulatory Liliana Mack RN [facility] Clinical Communication Start: 06-08-2024 End: 06-08-2024 Patient encounter procedure Liliana Mack RN [facility] Clinic al Communication Comment on above: Essential hypertensi on Start: 06-06-2024 End: 06-06-2024 Orders Only Jasper Zeng DO Work Phone: [facility] Start: 06-05-2024 End: 06-05-2024 Telephone encounter Jasper Zeng DO Work Phone: [facility] Comment on above: Referral ([facility]) Start: 06-05-2024 End: 06-05-2024 Office outpatient visit 25 minutes Jasper Zeng DO Work Phone: [facility] Comment on above: Essential hypertensi on (Primary Dx); Intrinsic eczema; Gastroesophageal reflux disease without esophagitis; Mixed hypercholesterolemia and hypertriglyceridemia; Colon cancer screening; Non-seasonal allergic rhinitis due to other allergic trigger; Osteopenia, unspecified location; Family history of diabetes mellitus Start: 06-05-2024 End: 06-05-2024 ambulatory [facility] Start: 06-01-2024 End: 08-01-2024 Follow-up encounter Josselyn Owusu MD Work Phone: [employer] [facility] Start: 05-30-2024 End: 05-30-2024 Female genitalia finding Josselyn Owusu MD Work Phone: [facility] Start: 05-30-2024 End: 05-30-2024 Patient encounter procedure Josselyn Owusu MD Work Phone: [employer] [facility] Comment on above: Gynecologic exam nor mal (Primary Dx); Encounter for screening for malignant neoplasm of vagina; Breast cancer screening by mammogram; Menopause; Dysuria; Urinary frequency; Screening for depression Start: 05-14-2024 End: 05-15-2024 Refill Jasper Zeng DO Work Phone: [facility] Start: 05-01-2024 End: 06-03-2024 ambulatory Cee Spain RN [facility] Clinical Communication Start: 05-01-2024 End: 06-03-2024 Patient encounter procedure Cee Spain RN [facility] Clinic al Communication Start: 04-03-2024 End: 04-03-2024 Telephone encounter Josselyn Owusu MD Work Phone: [facility] Comment on above: Results Start: 03-30-2024 Encounter for gyneco logical examination (general) (routine) without abnormal findings [facility] Start: 03-30-2024 End: 03-30-2024 Female genitalia finding [facility] Start: 03-30-2024 ambulatory JASPER HAGENLUCY Facility:[facility] Start: 03-30-2024 End: 03-30-2024 Subsequent hospital visit by physician Bone Density [facility]ENS[facility] Comment on above: Screening for osteop orosis [Z13.820] Gynecologic exam nor mal [Z01.419] Start: 02-08-2024 End: 02-08-2024 Clinical Support [facility] Comment on above: Essential hypertensi on; Fatigue, unspecified type Start: 01-10-2024 End: 01-10-2024 Clinical Support [facility] [place] Comment on above: Essential hypertensi on Start: 12-06-2023 End: 12-06-2023 Subsequent hospital visit by physician Jasper Zeng DO Work Phone: [facility] Radiology Comment on above: Subacute cough Start: 12-06-2023 End: 12-06-2023 ambulatory [facility] Start: 12-06-2023 End: 12-06-2023 Assay of hemosiderin, quant Jasper Zeng DO Work Phone: [facility] Start: 12-06-2023 End: 12-06-2023 Patient encounter procedure Jasper Zeng DO Work Phone: [facility] Comment on above: [facility] in Medicare patient (Primary Dx); Essential hypertension; LBBB (left bundle branch block); Mixed hypercholesterolemia and hypertriglyceridemia; Gastroesophageal reflux disease without esophagitis; Nonrheumatic mitral valve regurgitation; Subacute cough; Routine general medical examination at health care facility Start: 12-06-2023 End: 12-06-2023 ambulatory JASPER ZENG [facility] Start: 11-28-2023 End: 11-28-2023 Refill Jasper Zeng DO Work Phone: [facility] Start: 11-18-2023 End: 11-18-2023 Office outpatient new 45 minutes Rj Fiedls MD Work Phone: [facility] Cardiology Comment on above: Mixed hypercholester olemia and hypertriglyceridemia (Primary Dx); Chest pain, unspecified type; Left bundle branch block; Nonrheumatic mitral valve regurgitation Start: 11-16-2023 End: 11-16-2023 Refill Jasper Cotton Pearl DO Work Phone: [facility] Start: 11-14-2023 End: 11-14-2023 Subsequent hospital visit by physician Thomas Fields PA-C Work Phone: [facility] Comment on above: Essential hypertensi on Start: 11-10-2023 End: 11-10-2023 Subsequent hospital visit by physician Thomas Fields PA-C Work Phone: [facility] [address] Comment on above: Chest pain, unspecif ied type; Left bundle branch block Start: 11-08-2023 End: 11-08-2023 Office outpatient visit 40 minutes Thomas Fields PA-C Work Phone: [facility] Comment on above: Dysuria (Primary Dx) ; Chest pain, unspecified type; Essential hypertension; Left bundle branch block Start: 06-07-2023 Telephone encounter Jasper weber DO Work Phone: [facility] Comment on above: Referral (Radiation / Chemistry Technician / Nutrition) Start: 06-07-2023 End: 06-07-2023 Office outpatient visit 25 minutes Jasper Zeng DO Work Phone: [facility] Comment on above: Essential hypertensi on (Primary Dx); Mixed hypercholesterolemia and hypertriglyceridemia; Gastroesophageal reflux disease without esophagitis; Encounter for monitoring NSAID therapy; Palpitations; Nonrheumatic mitral valve regurgitation; Primary osteoarthritis of knee, unspecified laterality; Unable to lose weight Start: 05-30-2023 Telephone encounter Josselyn Owusu MD Work Phone: [employer] Comment on above: Results Start: 05-25-2023 End: 05-25-2023 Female genitalia finding Josselyn Owusu MD Work Phone: [facility] Work Phone: Start: 05-25-2023 End: 05-25-2023 Patient encounter procedure Josselyn Owusu MD Work Phone: [employer] Comment on above: Gynecologic exam nor mal (Primary Dx); Breast cancer screening by mammogram; Screening for osteoporosis; Menopause; Vaginal discharge; Colon cancer screening; Vaginal atrophy Start: 12-03-2022 End: 12-03-2022 Office outpatient visit 15 minutes Jasper Zeng DO Work Phone: [facility] Medicine Comment on above: Essential hypertensi on (Primary Dx); Mixed hypercholesterolemia and hypertriglyceridemia; Gastroesophageal reflux disease without esophagitis; Encounter for monitoring NSAID therapy; History of TIA (transient ischemic attack) Start: 06-11-2022 End: 06-11-2022 Office outpatient visit 15 minutes Jasper Zeng DO Work Phone: [facility] Comment on above: Essential hypertensi on (Primary Dx); Gastroesophageal reflux disease without esophagitis; Mixed hypercholesterolemia and hypertriglyceridemia; Colon cancer screening Start: 04-29-2022 Telephone encounter Josselyn Owusu MD Work Phone: 1calendar Comment on above: Appointment Start: 03-29-2022 Orders Only Josselyn Owusu MD Work Phone: 1calendar Comment on above: Abnormal mammogram ( Primary Dx) Start: 03-26-2022 End: 03-26-2022 Female genitalia finding Screen Bath [facility] Start: 03-26-2022 End: 03-26-2022 Subsequent hospital visit by physician Screen Mammo Bath [facility] Comment on above: Gynecologic exam nor mal [Z01.419] Start: 01-18-2022 End: 01-18-2022 Female genitalia finding Josselyn Owusu MD Work Phone: 1calendar Start: 01-18-2022 End: 01-18-2022 Patient encounter procedure Josselyn Owusu MD Work Phone: 1calendar Comment on above: Gynecologic exam nor mal (Primary Dx); Encounter for screening for malignant neoplasm of vagina; Breast cancer screening by mammogram; Screening for osteoporosis; Menopause Start: 10-20-2021 End: 10-20-2021 Subsequent hospital visit by physician Jasper Zeng DO Work Phone: [facility] Comment on above: Transient cerebral i schemic attack, unspecified; TIA (transient ischemic attack) Start: 08-21-2021 End: 08-21-2021 Admission to [facility] Bath 1 [facility] Start: 08-21-2021 End: 08-21-2021 [address] Pst 1 Pre Surgical Testing Comment on above: Preop examination (P rimary Dx); Calculus, renal; Hypertension, unspecified type; Hyperlipidemia, unspecified hyperlipidemia type; Left bundle branch block Start: 08-21-2021 End: 08-21-2021 Preprocedural examination done Pst 1 Pre Surgical Testing Start: 07-30-2021 Orders Only Janes Cooney MD Work Phone: Urology Comment on above: Left ureteral stone (Primary Dx) Start: 07-15-2021 End: 07-15-2021 ambulatory Janes Cooney MD Work Phone: Urology Comment on above: Left renal stone (Pr imary Dx) Start: 07-15-2021 End: 07-15-2021 Telemedicine consultation with patient Janes Cooney MD Work Phone: [employer] Start: 06-16-2020 Encounter for other preprocedural examination [facility] Start: 06-09-2020 Encounter for other preprocedural examination SHYLA Escalante NP [facility] Start: 06-09-2020 End: 06-09-2020 ambulatory [facility] Start: 06-06-2020 End: 06-07-2020 ambulatory SHYLA Escalante NP [facility] Start: 02-27-2020 End: 02-27-2020 Subsequent hospital visit by physician [facility]eng [facility] Comment on above: Essential hypertensi on; Left bundle branch block Start: 02-08-2020 End: 02-08-2020 ambulatory [facility] Start: 02-06-2020 End: 02-07-2020 ambulatory SHYLA Escalante NP [facility] Start: 11-15-2019 End: 11-15-2019 Subsequent hospital visit by physician Leonor Rodas Work Phone: [facility] Comment on above: Arrived Procedures Date Procedure Procedure Detail Performing Clinician Start: 11-30-2024 Adult depression scr eening assessment Jasper Zeng DO Work Phone: Start: 07-04-2024 Complete ultrasound of kidneys and bladder Dr. Jasper Zeng DO Work Phone: Start: 06-05-2024 Adult depression scr eening assessment Jasper Zeng DO Work Phone: Start: 06-05-2024 Lipid 1996 panel - S miladys or Plasma Jasper Zeng DO Work Phone: Start: 05-30-2024 Adult depression scr eening assessment Josselyn Owusu MD Work Phone: Start: 03-30-2024 Mammography Jasper mehta DO Work Phone: Start: 02-08-2024 Cyanocobalamin vitamin b-12 Jasper Zeng DO Work Phone: Start: 12-06-2023 Lipid panel Jasper Guerrero etrilla DO Work Phone: Start: 12-06-2023 Thyrotropin [Units/v olume] in Serum or Plasma Jasper Zeng DO Work Phone: Start: 12-06-2023 Adult depression scr eening assessment Jasper Zeng DO Work Phone: Start: 12-06-2023 Lipid 1996 panel - S miladys or Plasma Jasper Zeng DO Work Phone: Start: 11-14-2023 Dup-scan artl juan abdl/pel/scrot&/rpr orgn com Thomas Fields PA-C Work Phone: Start: 11-10-2023 Cta hrt cornry art/b ypass grfts contrst 3d post Thomas Fields PA-C Work Phone: Start: 11-08-2023 Urnls dip stick/tabl et rgnt non-auto w/o micrscp Thomas Fields PA-C Work Phone: Start: 11-08-2023 Ecg routine ecg w/le ast 12 lds w/i&r Thomas Fields PA-C Work Phone: Start: 06-07-2023 Ecg routine ecg w/le ast 12 lds w/i&r Jasper Zeng DO Work Phone: Start: 06-07-2023 Lipid 1996 panel - S miladys or Plasma Thomas Fields PA-C Work Phone: Start: 12-03-2022 Lipid 1995 panel - S miladys or Plasma Josselyn Owusu MD Work Phone: Start: 06-11-2022 Lipid 1995 panel - S miladys or Plasma Jasper Zeng DO Work Phone: Start: 03-26-2022 Mammography Josselyn carreno MD Work Phone: Start: 12-10-2021 Lipid 1996 panel - S miladys or Plasma Jasper Zeng DO Work Phone: Start: 02-27-2020 Echo tthrc r-t 2d w/wom-mode compl spec&colr d Jasper Zeng Work Phone: Start: 11-15-2019 Dxa bone density jem dy 1/> sites axial skel Leonor Rodas Work Phone: Start: 11-15-2019 Mammography Janes basilio MD Work Phone: Start: 10-10-2019 Adult depression scr eening assessment Janes Cooney MD Work Phone: Start: 10-10-2019 Colonoscopy Janes basilio MD Work Phone: Start: 05-02-2014 Colonoscopy Jasper mehta DO Work Phone: Start: 04-23-2014 Colonoscopy Jasper Pet janine DO Work Phone: Plan of Treatment Date Care Activity Detail Author Start: 12-29-2030 RSV Vaccine (1 - 1-dose 75+ series) RSV Vaccine (1 - 1-dose 75+ series) [facility] Start: 10-09-2029 Screening for malignant neoplasm of colon [facility] Start: 06-05-2029 Lipid panel Lipid Panel [facility] Start: 12-05-2028 Lipid panel [facility] Start: 06-07-2028 Lipid panel Lipid Panel [facility] Start: 12-04-2027 Lipid panel [facility] Start: 06-11-2027 Lipid panel Lipid Panel [facility] Start: 12-10-2026 Lipid panel Lipid Panel [facility] Start: 11-07-2026 Diabetes Screening Diabetes Screening [facility] Start: 09-01-2026 LIPID SCREEN LIPID SCREEN [facility] Start: 12-03-2025 Diabetes Screening Diabetes Screening [facility] Start: 11-30-2025 Depression Screening Depression Screening [facility] Start: 06-05-2025 Depression Screening Depression Screening [facility] Start: 05-31-2025 End: 05-31-2025 Patient encounter procedure [facility] Comment on above: annual exam Start: 05-30-2025 Depression Screening Depression Screening [facility] Start: 03-30-2025 Screening for malignant neoplasm of breast [facility] Start: 12-17-2024 Influenza vaccination Influenza Vaccine (#1) [facility] Start: 12-06-2024 End: 12-06-2024 Patient encounter procedure [facility] Start: 12-05-2024 Depression Screening Depression Screening [facility] Start: 12-03-2024 End: 12-03-2024 Patient encounter procedure 12/03/2024 7:20 AM EDT Office Visit [facility] [address] [place] [address] MioJasper linda, [address] [place] [address] [facility] Start: 10-15-2024 Influenza vaccination Influenza Vaccine (#1) [facility] Comment on above: Postponed from 12/18/2023 (Declined at t his time) Start: 10-09-2024 Screening for malignant neoplasm of colon Colorectal Cancer Screening [facility] Comment on above: Postponed from 12/29/2000 (Declined at t his time) Start: 09-20-2024 Lipid panel Lipid screen [place] Start: 09-01-2024 DIABETES SCREEN DIABETES SCREEN [facility] Start: 06-05-2024 End: 06-05-2025 CBC W Auto Differential panel - Blood CBC auto differential Lab Routine Essential hypertension Expected: 06/05/2024 (Approximate), Expires: 06/05/2025 [facility] Work Phone: Comment on above: Expected: 06/05/2024 (Approximate), Expi res: 06/05/2025 Start: 06-05-2024 End: 06-05-2025 Comprehensive metabolic 1998 panel - Serum or Plasma Comprehensive metabolic panel Lab Routine Essential hypertension Expected: 06/05/2024 (Approximate), Expires: 06/05/2025 [facility] Comment on above: Expected: 06/05/2024 (Approximate), Expi res: 06/05/2025 Start: 06-05-2024 End: 06-05-2025 Lipid 1996 panel - Serum or Plasma Lipid panel Lab Routine Mixed hypercholesterolemia and hypertriglyceridemia Expected: 06/05/2024 (Approximate), Expires: 06/05/2025 [facility] Comment on above: Expected: 06/05/2024 (Approximate), Expi res: 06/05/2025 Start: 06-05-2024 End: 06-05-2024 Patient encounter procedure [facility] Start: 05-30-2024 End: 05-30-2024 Patient encounter procedure 05/30/2024 8:45 AM EST Office Visit [facility] [address] [place] [address] Josselyn Owusu MD [address] [place] [address] Annual [facility] Comment on above: Annual Start: 05-25-2024 BP Controlled (<130/80) BP Controlled (<130/80) [facility] Start: 05-05-2024 DIABETES SCREEN DIABETES SCREEN [facility] Start: 05-02-2024 Screening for malignant neoplasm of colon [facility] Start: 04-23-2024 Screening for malignant neoplasm of colon [facility] Start: 04-18-2024 Advance Directive Discussion Advance Directive Discussion [facility] Start: 04-18-2024 Medicare Replaced By [facility] Annual Wellness Visit Medicare Advantage Annual Wellness Visit [facility] Start: 02-08-2024 End: 02-08-2024 Clinical Support 02/08/2024 8:00 AM EDT Clinical Support [facility] [address] [place] [id number] [facility] Start: 01-10-2024 End: 01-10-2024 Clinical Support 01/10/2024 9:00 AM EDT Clinical Support [facility] [address] [place] [phone] [facility] Start: 12-18-2023 COVID-19 Vaccine ( season) COVID-19 Vaccine ( season) [facility] Start: 12-18-2023 COVID-19 Vaccine ( season) COVID-19 Vaccine ( season) [facility] Start: 12-18-2023 Influenza vaccination Influenza Vaccine (#1) [facility] Start: 12-06-2023 End: 12-05-2024 Lipid 1996 panel - Serum or Plasma Lipid panel Lab Routine Mixed hypercholesterolemia and hypertriglyceridemia Expected: 12/06/2023 (Approximate), Expires: 12/05/2024 [facility] [email or web address] Comment on above: Expected: 12/06/2023 (Approximate), Expi res: 12/05/2024 Start: 12-06-2023 End: 12-05-2024 Thyrotropin [Units/volume] in Serum or Plasma TSH Lab Routine Mixed hypercholesterolemia and hypertriglyceridemia Expected: 12/06/2023 (Approximate), Expires: 12/05/2024 [facility] Comment on above: Expected: 12/06/2023 (Approximate), Expi res: 12/05/2024 Start: 12-06-2023 End: 12-05-2024 XR Chest 2 Views [facility] [email or web address] [facility] Work Phone: Comment on above: Expected: 12/06/2023, Expires: Once for 1 Occurrenc es starting 12/06/2023 until 12/06/2023 Start: 12-06-2023 End: 12-06-2023 Patient encounter procedure 12/06/2023 7:00 AM EDT Office Visit [facility] [address] [place] [address] Jasper Zeng F, DO [address] [place] [address] [facility] Start: 11-18-2023 End: 11-18-2023 Patient encounter procedure [facility] Start: 11-14-2023 End: 11-14-2023 Patient encounter procedure 11/14/2023 11:20 AM EDT Appointment [facility] [address] [place] [address] Thomas Fields PA-C [address] [place] [address] [facility] Start: 11-10-2023 End: 11-10-2023 Patient encounter procedure 11/10/2023 1:40 PM EDT Appointment [facility] [address] [place] [address] Thomas Fields PA-C [address] [place] [address] [facility] [address] Start: 11-08-2023 End: 11-07-2024 Bacteria identified in Urine by Culture Urine culture (clean catch) Microbiology Routine Dysuria Expected: 11/08/2023 (Approximate), Expires: 11/07/2024 [facility] [employer] Work Phone: Comment on above: Expected: 11/08/2023 (Approximate), Expi res: 11/07/2024 Start: 11-08-2023 End: 11-07-2024 CTA Heart and Coronary arteries WO and W contrast IV CTA HEART CORONARY ANGIOGRAM WITH PROV FFR-CT Imaging STAT Chest pain, unspecified type Left bundle branch block Expected: 11/08/2023, Expires: 11/07/2024 [email or web address] Comment on above: Expected: 11/08/2023, Expires: Start: 10-16-2023 Influenza vaccination Influenza Vaccine (#1) [facility] Comment on above: Postponed from 12/17/2022 (Declined at t his time) Start: 06-07-2023 End: 06-07-2024 CBC W Auto Differential panel - Blood CBC auto differential Lab Routine Essential hypertension Expected: 06/07/2023 (Approximate), Expires: 06/07/2024 [email or web address]: Comment on above: Expected: 06/07/2023 (Approximate), Expi res: 06/07/2024 Start: 06-07-2023 End: 06-07-2024 Comprehensive metabolic 1998 panel - Serum or Plasma Comprehensive metabolic panel Lab Routine Essential hypertension Expected: 06/07/2023 (Approximate), Expires: 06/07/2024 [facility] [place] Comment on above: Expected: 06/07/2023 (Approximate), Expi res: 06/07/2024 Start: 06-07-2023 End: 06-07-2024 Lipid 1996 panel - Serum or Plasma Lipid panel Lab Routine Mixed hypercholesterolemia and hypertriglyceridemia Expected: 06/07/2023 (Approximate), Expires: 06/07/2024 [facility] Comment on above: Expected: 06/07/2023 (Approximate), Expi res: 06/07/2024 Start: 06-07-2023 End: 06-07-2024 Magnesium [Mass/volume] in Serum or Plasma Magnesium Lab Routine Palpitations Expected: 06/07/2023 (Approximate), Expires: 06/07/2024 [facility] Comment on above: Expected: 06/07/2023 (Approximate), Expi res: 06/07/2024 Start: 06-07-2023 End: 06-07-2023 Patient encounter procedure 06/07/2023 7:00 AM EST Office Visit [facility] [address] [place] [address] [phone] Jasper Zeng DO [address] [place] [address] [facility] Start: 05-25-2023 End: 08-24-2023 CULTURE, AEROBIC BACTERIA CULTURE, AEROBIC BACTERIA Microbiology Routine Vaginal discharge Expected: 05/25/2023, Expires: 08/24/2023 [facility] Work Phone: Comment on above: Expected: 05/25/2023, Expires: Start: 04-18-2023 Advance Directive Discussion Advance Directive Discussion [facility] Start: 04-18-2023 Medicare Advantage Annual Wellness Visit Medicare Advantage Annual Wellness Visit [facility] Start: 03-26-2023 Mammography MAMMOGRAM [facility] Start: 03-26-2023 Screening for malignant neoplasm of breast Mammogram Screening [facility] Start: 01-18-2023 BP CONTROLLED (<130/80) BP CONTROLLED (<130/80) [facility] Start: 01-18-2023 COLORECTAL CANCER SCREENING COLORECTAL CANCER SCREENING [facility] Start: 01-18-2023 FECAL OCCULT BLOOD FECAL OCCULT BLOOD [facility] Start: 01-18-2023 Screening for malignant neoplasm of colon [facility] Start: 12-17-2022 COVID-19 Vaccine (1 - 2023-24 season) COVID-19 Vaccine ( season) [facility] Start: 12-17-2022 Influenza vaccination Influenza Vaccine (#1) [facility] Start: 12-03-2022 End: 12-04-2023 CBC W Auto Differential panel - Blood CBC auto differential Lab Routine Essential hypertension Expected: 12/03/2022 (Approximate), Expires: 12/04/2023 [facility] Work Phone: Comment on above: Expected: 12/03/2022 (Approximate), Expi res: 12/04/2023 Start: 12-03-2022 End: 12-04-2023 Comprehensive metabolic 1998 panel - Serum or Plasma Comprehensive metabolic panel Lab Routine Essential hypertension Expected: 12/03/2022 (Approximate), Expires: 12/04/2023 [facility] Comment on above: Expected: 12/03/2022 (Approximate), Expi res: 12/04/2023 Start: 12-03-2022 End: 12-04-2023 Lipid 1996 panel - Serum or Plasma Lipid panel Lab Routine Mixed hypercholesterolemia and hypertriglyceridemia Expected: 12/03/2022 (Approximate), Expires: 12/04/2023 [facility] [email or web address] Comment on above: Expected: 12/03/2022 (Approximate), Expi res: 12/04/2023 Start: 12-03-2022 End: 12-04-2023 Thyrotropin [Units/volume] in Serum or Plasma TSH Lab Routine Mixed hypercholesterolemia and hypertriglyceridemia Expected: 12/03/2022 (Approximate), Expires: 12/04/2023 [facility] Comment on above: Expected: 12/03/2022 (Approximate), Expi res: 12/04/2023 Start: 12-03-2022 End: 12-03-2022 Patient encounter procedure 12/03/2022 Office Visit Family Medicine Jasper Zeng, DO [facility] [place] [address] [facility] Start: 10-01-2022 Depression Screen Depression Screen [facility] Start: 09-01-2022 Diabetes mellitus screening Diabetes Screening [facility] Start: 09-01-2022 Lipid panel Lipids [facility] Start: 06-11-2022 End: 06-11-2023 CBC W Auto Differential panel - Blood CBC auto differential Lab Routine Essential hypertension Expected: 06/11/2022 (Approximate), Expires: 06/11/2023 [facility] Work Phone: Comment on above: Expected: 06/11/2022 (Approximate), Expi res: 06/11/2023 Start: 06-11-2022 End: 06-11-2023 Comprehensive metabolic 1998 panel - Serum or Plasma Comprehensive metabolic panel Lab Routine Essential hypertension Expected: 06/11/2022 (Approximate), Expires: 06/11/2023 [facility] Comment on above: Expected: 06/11/2022 (Approximate), Expi res: 06/11/2023 Start: 06-11-2022 End: 06-11-2023 Lipid 1996 panel - Serum or Plasma Lipid panel Lab Routine Mixed hypercholesterolemia and hypertriglyceridemia Expected: 06/11/2022 (Approximate), Expires: 06/11/2023 [facility] Comment on above: Expected: 06/11/2022 (Approximate), Expi res: 06/11/2023 Start: 04-18-2022 ADVANCE DIRECTIVE DISCUSSION ADVANCE DIRECTIVE DISCUSSION [facility] Start: 04-18-2022 DEPRESSION ASSESSMENT DEPRESSION ASSESSMENT [facility] Start: 04-02-2022 Pneumococcal 65+ years Vaccine (2 - PCV) Pneumococcal 65+ years Vaccine (2 - PCV) [facility] Start: 04-02-2022 PNEUMOCOCCAL: 65+ (2 - PCV) PNEUMOCOCCAL: 65+ (2 - PCV) [facility] Start: 12-17-2021 Influenza vaccination [facility] Start: 12-10-2021 End: 12-10-2021 Patient encounter procedure 12/10/2021 Office Visit Family Medicine Jasper Zeng, DO [address] [place] [address] [facility] Start: 12-01-2021 COVID-19 Vaccine (1) COVID-19 Vaccine (1) [facility] Comment on above: Postponed from 12/29/1960 (Patient Refus ed) Start: 11-14-2021 Screening for malignant neoplasm of breast Breast cancer screen [facility] Start: 08-21-2021 End: 10-21-2021 Bacteria identified in Urine by Culture [facility] Work Phone: Comment on above: Expected: 08/21/2021, Expires: 2 Start: 08-19-2021 End: 10-19-2021 Bacteria identified in Urine by Culture URINE CULTURE Microbiology Routine Preop examination Expected: 08/19/2021, Expires: 10/19/2021 [facility] Comment on above: Expected: 08/19/2021, Expires: 2 Start: 07-16-2021 End: 09-15-2021 Bacteria identified in Urine by Culture URINE CULTURE Microbiology Routine Left renal stone Expected: 07/16/2021, Expires: 09/15/2021 [facility] Work Phone: Comment on above: Expected: 07/16/2021, Expires: 2 Start: 06-10-2021 LIPID SCREEN LIPID SCREEN [facility] Start: 04-18-2021 ADVANCE DIRECTIVE DISCUSSION ADVANCE DIRECTIVE DISCUSSION [facility] Start: 04-18-2021 DEPRESSION ASSESSMENT DEPRESSION ASSESSMENT [facility] Start: 12-29-2020 BONE DENSITY BONE DENSITY [facility] Start: 12-29-2020 PNEUMOVAX AGE 65 AND OVER WITH 5YR LOOKBACK (#1) PNEUMOVAX AGE 65 AND OVER WITH 5YR LOOKBACK (#1) [facility] Start: 11-14-2020 Mammography MAMMOGRAM [facility] Start: 11-14-2020 Screening for malignant neoplasm of breast Mammogram [facility] Start: 10-09-2020 Adult depression screening assessment DEPRESSION SCREENING [facility] Start: 10-09-2020 Colonoscopy COLONOSCOPY [facility] Start: 10-09-2020 COLORECTAL CANCER SCREENING COLORECTAL CANCER SCREENING [facility] Start: 10-09-2020 Screening for malignant neoplasm of colon Colonoscopy [facility] Start: 09-20-2020 Creatinine measurement Creatinine monitoring [facility] [place] Start: 09-20-2020 Potassium monitoring Potassium monitoring [facility] [place] Start: 03-21-2020 End: 03-21-2020 Office Visit 03/21/2020 Office Visit Family Medicine Jasper Zeng DO [address] [place] [address] [phone] [facility] Start: 12-18-2019 Influenza vaccination Flu vaccine (#1) [place], [place] Start: 11-18-2018 Screening for malignant neoplasm of breast Breast cancer screen [place], [place] Start: 2015 RSV Immunization aged 60 or older (1 - 1-dose 60+ series) RSV Immunization aged 60 or older (1 - 1-dose 60+ series) [facility] Start: 2015 RSV Immunization for Adults (1 - Risk 60-74 years 1-dose series) RSV Immunization for Adults (1 - Risk 60-74 years 1-dose series) [facility] Start: 2015 RSV Vaccine (1 - 1-dose 60+ series) RSV Vaccine (1 - 1-dose 60+ series) [facility] Start: 12-29-2005 Shingles Vaccine (1 of 2) Shingles Vaccine (1 of 2) [facility] Start: 12-29-2005 SHINGRIX VACCINE (1 of 2) SHINGRIX VACCINE (1 of 2) [facility] Start: 12-29-2005 Zoster Vaccines (1 of 2) Zoster Vaccines (1 of 2) [facility] Start: 12-29-2000 COLOGUARD (FIT-DNA) COLOGUARD (FIT-DNA) [facility] Start: 12-29-[address] COLONOGRAPHY [facility] Start: 12-29-2000 FECAL OCCULT BLOOD FECAL OCCULT BLOOD [facility] Start: 12-29-2000 Screening for malignant neoplasm of colon [facility] Start: 12-29-2000 SIGMOIDOSCOPY SIGMOIDOSCOPY [facility] Start: 12-29-1976 Screening for malignant neoplasm of cervix Cervical cancer screen [place] Start: 12-29-1974 DTaP/Tdap/Td vaccine (1 - Tdap) DTaP/Tdap/Td vaccine (1 - Tdap) [facility] Start: 12-29-1974 DTaP/Tdap/Td Vaccines (1 - Tdap) DTaP/Tdap/Td Vaccines (1 - Tdap) [facility] Start: 12-29-1974 Urine microalbumin profile [facility] Start: 12-29-1973 ANNUAL PCP TEAM CHRONIC DISEASE VISIT ANNUAL PCP TEAM CHRONIC DISEASE VISIT [facility] Start: 12-29-1973 Anxiety Screening Anxiety Screening [facility] Start: 12-29-1973 BP CONTROLLED (<130/80) BP CONTROLLED (<130/80) [facility] Start: 12-29-1973 Depression Screening Depression Screening [facility] Start: 12-29-1973 Diabetes mellitus screening Diabetes Screening [facility] Start: 12-29-1973 HEPATITIS C SCREENING HEPATITIS C SCREENING [facility] Start: 12-29-1973 Hepatitis C screening [facility] Start: 12-29-1973 HIV SCREENING HIV SCREENING [facility] Start: 12-29-1970 HIV screening HIV screen [facility] Start: 1967 Depression Screening Depression Screening [facility] Start: 12-29-1960 COVID-19 VACCINE (1) COVID-19 VACCINE (1) [facility] Start: 06-28-1956 COVID-19 VACCINE (#1) COVID-19 VACCINE (#1) [facility] Start: 1955 Annual Wellness Visit (AWV) Annual Wellness Visit (AWV) [facility] Start: 1955 Hepatitis B Vaccines (1 of 3 - 3-dose series) Hepatitis B Vaccines (1 of 3 - 3-dose series) [facility] Start: 1955 Hepatitis C screening Hepatitis C screen [place], [place] Start: 1955 Medicare Advantage Annual Wellness Visit (AWV) Medicare Advantage Annual Wellness Visit (AWV) [facility] Start: 1955 Screening for malignant neoplasm of colon [facility] Bacteria identified in Urine by Culture BACTERIAL CULTURE, URINE Microbiology Routine Dysuria Urinary frequency Ordered: 05/30/2024 [employer] Work Phone: Comment on above: Ordered: 05/30/2024 COLOGUARD COLOGUARD Lab Ro utine Colon cancer screening Ordered: 05/25/2023 [employer] Work Phone: Comment on above: Ordered: 05/25/2023 CT Abdomen WO and W contrast IV [facility] DBT Breast - bilater al screening MARIAJOSE SCREENING W DAVE Radiology Routine Gynecologic exam normal Breast cancer screening by mammogram 03/30/2024 8:35 AM EST [facility] Work Phone: DBT Breast - bilater al screening MARIAJOSE SCREENING W DAVE Radiology Routine Breast cancer screening by mammogram 1 Occurrences starting 05/30/2024 [facility] Comment on above: 1 Occurrences starting 05/30/2024 End: 04-28-2023 Diagnostic mammography computer-aided detcj uni CP [employer] Phone: Comment on above: 1 Occurrences starting 03/29/2022 until 04/28/2023 End: 02-18-2023 Dxa bone density study 1/> sites axial skel DXA-AXIAL SKELETON Radiology Routine Screening for osteoporosis Menopause 1 Occurrences starting 01/18/2022 until 02/18/2023 CP [employer] Phone: Comment on above: 1 Occurrences starting 01/18/2022 until 02/18/2023 End: 03-30-2024 DXA Skeletal system.axial Views for bone density [employer] Work Phone: Comment on above: 1 Occurrences starting 03/30/2024 until 03/30/2024 End: 06-23-2024 DXA-AXIAL SKELETON DXA-AXIAL SKELETON Radiology Routine Screening for osteoporosis Menopause 1 Occurrences starting 05/25/2023 until 06/23/2024 [employer] Phone: Comment on above: 1 Occurrences starting 05/25/2023 until 06/23/2024 H&P for surgery H&P FOR SURGERY Procedures Routine Left ureteral stone Ordered: 08/10/2021 [employer] Work Phone: Comment on above: Ordered: 08/10/2021 End: 02-17-2023 MARIAJOSE SCREENING W DAVE MARIAJOSE SCREENING W DAVE Radiology Routine Gynecologic exam normal Breast cancer screening by mammogram 1 Occurrences starting 01/18/2022 until 02/17/2023 CP [employer] Phone: Comment on above: 1 Occurrences starting 01/18/2022 until 02/17/2023 End: 03-26-2022 MARIAJOSE SCREENING W DAVE [employer] Work Phone: Comment on above: 1 Occurrences starting 03/26/2022 until 03/26/2022 MARIAJOSE SCREENING W DAVE MARIAJOSE SCREENI NG W DAVE Radiology Routine Gynecologic exam normal Breast cancer screening by mammogram 1 Occurrences starting 05/25/2023 [employer] Work Phone: Comment on above: 1 Occurrences starting 05/25/2023 PAP REFLEX HPV MRNA WHEN ASCUS PAP REFLEX HPV MRNA WHEN ASCUS Lab Routine Gynecologic exam normal Encounter for screening for malignant neoplasm of vagina Ordered: 01/18/2022 [employer] Work Phone: Comment on above: Ordered: 01/18/2022 PAP REFLEX HPV MRNA WHEN ASCUS PAP REFLEX HPV MRNA WHEN ASCUS Lab Routine Gynecologic exam normal Ordered: 05/30/2024 [facility] Comment on above: Ordered: 05/30/2024 End: 11-15-2019 Screening digital breast tomosynthesis bi Mariajose Dave Digital Screen Bilateral Imaging Routine Once for 1 Occurrences starting 11/15/2019 until 11/15/2019 [facility], [place] Comment on above: Once for 1 Occurrences starting 11/15/19 20 until 11/15/2019 Screening digital breast tomosynthesis bi Mariajose Dave Digital Screen Bilateral Imaging Routine 11/15/2019 11:10 AM EDT [facility], [place] SURESWAB(R) ADV GRISELDA VAGINITIS (CV), TMA SURESWAB(R) ADV GRISELDA VAGINITIS (CV), TMA Lab Routine Vaginal discharge Ordered: 05/25/2023 [employer] Work Phone: Comment on above: Ordered: 05/25/2023 [facility] Immunizations Immunization Date Immunization Notes Care Provider Harvinder chang 06-07-2023 Influenza, Seasonal, Quadrivalent, Adjuvanted Jasper Zeng DO Work Phone: [email or web address] 06-07-2023 influenza virus vacc ine, unspecified formulation Thomas Fields PA-C Work Phone: [email or web address] 06-11-2022 Pneumococcal Conjuga te PCV20, Pf (Prevnar 20) Jasper Zeng DO Work Phone: [email or web address] 04-02-2021 Influenza, High-dose , Quadv, 65 yrs +, IM (Fluzone) Jasper Zeng DO Work Phone: [facility] Work Phone: 04-02-2021 pneumococcal polysaccharide vaccine, 23 valent Jasper Zeng DO Work Phone: [facility] Work Phone: 04-02-2021 influenza virus vacc ine, unspecified formulation Jasper Zeng DO Work Phone: [facility] 02-14-2020 influenza, injectabl e, quadrivalent, preservative free Jasper Zeng [place] 03-23-2019 influenza, injectabl e, quadrivalent, preservative free Leonor Rodas [facility] 01-12-2018 influenza, injectabl e, quadrivalent, preservative free Janes Cooney MD Work Phone: [facility] 03-25-2017 influenza, injectabl e, quadrivalent, preservative free Leonor Rodas [facility] 02-16-2016 influenza virus vacc ine, unspecified formulation Janes Cooney MD Work Phone: [facility] Work Phone: 02-16-2016 influenza, injectabl e, quadrivalent, contains preservative Leonortarah Rodas [facility] 02-17-2015 influenza nasal, unspecified formulation Josselyn Owusu MD Work Phone: [facility] 02-17-2015 influenza virus vacc ine, unspecified formulation [facility]: 02-17-2015 influenza virus vacc ine, whole virus Janes Cooney MD Work Phone: [facility] 02-18-2014 influenza nasal, unspecified formulation Josselyn Owusu MD Work Phone: [facility] 02-18-2014 influenza virus vacc ine, unspecified formulation Leonor [facility] Work Phone: 02-18-2014 influenza, injectabl e, quadrivalent, contains preservative Jasper Zeng DO Work Phone: [facility] Work Phone: 02-18-2014 influenza, seasonal, injectable Janes Cooney MD Work Phone: [facility] Payers Date Payer Category Payer Self-pay 2021 Medicare HMO [employer] MED[employer] [id number] 2021 Medicare [id number] 2021 Medicare (Managed Care) [employer] NE DICARE [id number] 2021 Medicare [id number] 2020 Medicare MEDICARE MEDICAR E A AND B [id number] 2020-Present [phone] [place] [address] Medicare [id number] 2020 Medicare MEDICARE MEDICAR E PART A AND B [id number] 2020-Present [phone] [place] [address] [id number] 2015 Unknown [id number] 1959 Unknown [id number] 1955 Unknown [id number] 1955 Unknown [id number] 1955 Unknown [id number] 1955 Unknown [id number] Unknown [id number] Unknown [id number] Unknown [id number] Social History Date Type Detail Facility Start: 09-21-2019 End: 11-18-2023 Tobacco smoking status [facility] Never smoker [facility] Work Phone: Start: 09-21-2019 End: 11-18-2023 Tobacco use and exposure Never used [email or web address] Start: 09-21-2019 End: 05-30-2024 Alcohol intake Current drinker of alcohol (finding) [place] Start: 09-22-2018 History SDOH Alcohol Frequency 2 [place] Start: 09-22-2018 End: 10-01-2020 History SDOH Alcohol Std Drinks 1 [place] Start: 09-22-2018 History SDOH [employer] Phone 4 [place] Start: 09-22-2018 History SDOH [facility] Get Together 3 [place] Start: 09-22-2018 History SDOH [facility] Living 8 [place] Start: 09-22-2018 History SDOH Physica l Activity DPW 0 [place] Start: 09-22-2018 End: 10-01-2020 History SDOH Financial 5 [place], [place] Start: 1955 Sex Assigned At Not on file M [place] Start: 06-26-2021 End: 08-21-2021 Alcohol intake Current non-drinker of alcohol (finding) [facility] Start: 1955 Sex Assigned At Female C [facility] Start: 06-16-2021 End: 12-03-2022 Exposure to SARS-CoV-2 (event) Not sure [facility] Start: 10-20-2021 End: 12-06-2023 Alcohol intake [facility] Work Phone: Start: 10-13-2022 End: 12-06-2023 Tobacco use panel [facility] Work Phone: Adult Depression Screening Assessment 0 [facility] Work Phone: Start: 05-03-2020 Gender identity Identifies as female gender (finding) [facility] History of tobacco use Passive smoker [facility] Start: 11-18-2023 End: 12-03-2024 Alcoholic beverage intake Ex-drinker (finding) [facility] Start: 11-18-2023 Alcohol Comment twice yearly [facility] Jamin de la rosa Has the [employer], or [employer] threatened to shut off services in your home in past 12Mo No [facility] Health Do you belong to any clubs or organizations such as protestant groups, unions, fraternal or athletic groups, or school groups? Yes [facility] Are you now , , , , never or living with a partner? [facility] How often to you hav e a drink containing alcohol? Monthly or less [facility] How many standard dr inks containing alcohol do you have on a typical day? 1 or 2 [email or web address] How often do you hav e 6 or more drinks on 1 occasion? Never [email or web address] Do you feel stress - tense, restless, nervous, or anxious, or unable to sleep at night because your mind is troubled all the time - these days [OSQ] Not at all [email or web address] Start: 11-16-2021 End: 07-13-2024 Sex Female (finding) [email or web address] Tobacco smoking stat us FLIS Unknown if ever smoked [facility] Work Phone: Goals Date Patient Goal Desired Activity /State Comment on above: Lose weight Barriers: lack of motivation, overwhelmed by complexity of regimen and stress Plan for overcoming my barriers: Just doing it. Confidence: 06/25 Anticipated Goal Completion Date: 09/23/2019 Formatting of this n ote might be different from the original. Lose weight Barriers: lack of motivation, overwhelmed by complexity of regimen and stress Plan for overcoming my barriers: Just doing it. Confidence: 06/25 Anticipated Goal Completion Date: 09/23/2019 Functional Status Date Assessment Result Facility 09-01-2021 Are you deaf, or do you have serious difficulty hearing No 09/01/2021 5:57 PM Petty Eduardo RN No [facility] 09-01-2021 Are you blind, or do you have serious difficulty seeing, even when wearing glasses No 09/01/2021 5:57 PM Petty Eduardo RN No [facility] 09-01-2021 Do you have serious difficulty walking or climbing stairs No 09/01/2021 5:57 PM Petty Eduardo RN No [facility] 09-01-2021 Do you have difficul ty dressing or bathing No 09/01/2021 5:57 PM Petty Eduardo RN No [facility] 09-01-2021 Because of a physica l, mental, or emotional condition, do you have difficulty doing errands alone such as visiting a physician's office or shopping No 09/01/2021 5:57 PM Petty Eduardo RN No [facility] Mental Status Date Assessment Result Facility 09-01-2021 Because of a physica l, mental, or emotional condition, do you have serious difficulty concentrating, remembering, or making decisions No 09/01/2021 5:57 PM EDT Petty Ac, CALLIE No [facility] Clinical Notes 07-15-2021 to 12-03-2024 Telephone Encounter - Xin Onofre - 12/03/2024 10:10 AM EDTTelephone Encounter - Xin Jemima - 12/03/2024 10:10 AM EDTTelephone Encounter - Patricia Medellin MA - 06/08/2024 12:25 PM EST Note Date & Type Note Facility 12-03-2024 Note Referral to [facility] for dx and doctor's signature [facility] 12-03-2024 Telephone encounter Note Referral to [facility] for dx and doctor's signature [facility] 12-03-2024 Miscellaneous Notes Referral to [facility] for dx and doctor's signature documented in this encounter [facility] 07-04-2024 Radiology Diagnostic study note [facility] Imaging Services [address] [place] [id number] Kidney and Bladder MR#: [id number] Acct: [id number] Name: JOVANY SOMMERS Rep #: [id number] : 1955 F 68 From: Kae Husain MD PCP: Dr. Jasper Zeng, DO Status: RE G CLI Study:Kidney and Bladder Date of Exam: 0 07/04/24 Exam# [id number] Ordering Dr: Shanel Almaraz MD EXAM: US Retroperitoneal Limited, Renal CLINICAL INDICATION: UTI TECHNIQUE: Real-time limited ultrasound of the retroperitoneum with image documentation. COMPARISON: No relevant prior studies available. FINDINGS: RIGHT KIDNEY: 4 mm right renal pelvic calculus without obstruction. Right renal cyst measuring up to 1.9 cm. The right kidney measures 11.5 x 5.1 x 5.0 cm. LEFT KIDNEY: Unremarkable. No stones. No hydronephrosis. The left kidney measures 12.2 x 4.6 x 5.3 cm. BLADDER: Anechoic lesion anterior to the urinary bladder measuring up to 0.9 cmcould be a cyst or diverticulum. Bladder wall thickening which may be due to the decompressed state of the bladder or due to cystitis. Urinary bladder wall measures up to 5.5 mm thick. OTHER FINDINGS: Prevoid volume 187 cc. Postvoid volume 28 cc. US/Kidney and Bladder IMPRESSION: 1. Anechoic lesion anterior to the urinary bladder measuring up to 0.9 cm couldbe a cyst or diverticulum. 2. Bladder wall thickening which may be due to the decompressed state of the bladder or due to cystitis. 3. 4 mm right renal pelvic calculus without obstruction. Reading Location: [facility] CC: Dr. Jasper Zeng DO; Dr. Shanel Almaraz MD ~ [place] Supervisor: Signed [facility] 06-08-2024 Telephone encounter Note Spoke with patient and advised, patient stated she needs refill on hydralazine. Medication pended for you're review. [facility] 06-08-2024 Miscellaneous Notes Spoke with patient and advised, patient stated she needs refill on hydralazine. Medication pended for you're review. S: [facility] regarding medication question and concern B: Onset of symptoms/concern [facility] 06/05/24 A: Calls regarding medication confusion. At [facility] 06/05/24, she was clarifying medication on arrival, and is home now and reviewing her medications and found a discrepancy. Thought she was taking hydrochlorothiazide and when she went home, she found she has been taking hydralazine 25 mg twice daily, and notes bottle reads three times daily. (Has 1 month left left of this) She was prescribed hydrochlorothiazide with this visit, but states she has not taken this since perhaps a cardiology [facility] visit? R: Message to provider for review and recommendation. Advised she will continue hydralazine twice daily until she hears back from provider. Patient understands care advice. No further needs at this time. Patient instructed to call back with new or worsening symptoms. Reason for Disposition Caller has NON-URGENT medicine question about med that PCP or specialist prescribed and triager unable to answer question Protocols used: Medication Question [id number] documented in this encounter [facility] 06-08-2024 Telephone encounter Note S: Patient spoke with [facility] nurse regarding medication question and concern B: Onset of symptoms/concern [facility] 06/05/24 A: Calls regarding medication confusion. At [facility] 06/05/24, she was clarifying medication on arrival, and is home now and reviewing her medications and found a discrepancy. Thought she was taking hydrochlorothiazide and when she went home, she found she has been taking hydralazine 25 mg twice daily, and notes bottle reads three times daily. (Has 1 month left left of this) She was prescribed hydrochlorothiazide with this visit, but states she has not taken this since perhaps a cardiology [facility] visit? R: Message to provider for review and recommendation. Advised she will continue hydralazine twice daily until she hears back from provider. Patient understands care advice. No further needs at this time. Patient instructed to call back with new or worsening symptoms. Reason for Disposition Caller has NON-URGENT medicine question about med that PCP or specialist prescribed and triager unable to answer question Protocols used: Medication Question [id number] [facility] 06-05-2024 Note Referral to [facility] for dx and doctor's signature [facility] 06-05-2024 Telephone encounter Note Referral to [facility] for dx and doctor's signature [facility] 06-05-2024 Miscellaneous Notes Referral to [facility] for dx and doctor's signature documented in this encounter [facility] 06-05-2024 History of Present illness Narrative Images from the original note were not included. [facility] - [address] [facility] [id number] Visit type: Established Patient Reason for Visit: Follow-up (Med check) Assessment / Plan: Jovany was seen today for follow-up. Diagnoses and all orders for this visit: Essential hypertension (Primary) Comments: Stable, continue Aceon and hydrochlorothiazide Orders: - CBC auto differential; Future - Comprehensive metabolic panel; Future - CBC auto differential - Comprehensive metabolic panel Intrinsic eczema Gastroesophageal reflux disease without esophagitis Comments: Stable, continue Prilosec and GI referral Mixed hypercholesterolemia and hypertriglyceridemia Comments: Stable on Lipitor Orders: - Lipid panel; Future - Lipid panel Colon cancer screening Non-seasonal allergic rhinitis due to other allergic trigger Comments: Stable on Flonase and Singulair Osteopenia, unspecified location Comments: Noted, risk of bisphosphonate as discussed, begin Fosamax Family history of diabetes mellitus Other orders - atorvastatin (Lipitor) 40 MG tablet; Take 1 tablet (40 mg) by mouth daily. - hydroCHLOROthiazide (HYDRODiuril) 25 MG tablet; Take 1 tablet (25 mg) by mouth 2 times daily. - montelukast (Singulair) 10 MG tablet; Take 1 tablet (10 mg) by mouth Nightly. - omeprazole (PriLOSEC) [address] capsule; Take 1 capsule (40 mg) by mouth daily. - perindopril (Aceon) 8 MG tablet; Take 1 tablet (8 mg) by mouth 2 times daily. - clotrimazole (Lotrimin) 1 % cream; Apply topically 2 times daily. - triamcinolone (Kenalog) 0.5 % cream; Apply topically 3 times daily. - fluticasone (Flonase Sensimist) 27.5 MCG/SPRAY nasal spray; Administer 1-2 sprays into each nostril daily. - alendronate (Fosamax) 35 MG tablet; Take 1 tablet (35 mg) by mouth every 7 days. Take in the morning with a full glass of water, on an empty stomach, and do not take anything else by mouth or lie down for the next 30 min. Subjective: Patient ID: Jovany Sommers is a 68 y.o. female. HPI hypertension lipid management for patient that was found to have no coronary disease last year. She feels well. Recent mammogram noted. Did have a bone density showed persistent osteopenia. Has been on vitamin D and calcium and was not offered any alternate med. She is tries to stay active and stays healthy overall Review of Systems no recent earache sore throat or cough. Denies chest pain palpitations PND orthopnea claudication or edema. No breakthrough heartburn on her meds. Does not smoke or drink. Bowels are regular. Overdue for colonoscopy. No melena or blood constipation diarrhea. No postmenopausal vaginal bleeding. No breast complaints. Extreme rare use of Celebrex. Perhaps a half a dozen pills a year. Allergies Allergen Reactions Chlorpheniramine-Phenylephrine Current Outpatient Medications on File Prior to Visit Medication Sig Dispense Refill acetaminophen (Tylenol 8 Hour) 650 MG ER tablet aspirin 81 MG EC tablet Every 24 hours. cholecalciferol (D3-5) 5,000 Units tablet Take by mouth. Coenzyme Q10 100 MG tablet Take by mouth daily. LUTEIN PO Take by mouth daily. Multiple Vitamin (multivitamin) tablet Take 1 tablet by mouth daily. [DISCONTINUED] atorvastatin (Lipitor) 40 MG tablet TAKE 1 TABLET DAILY 90 tablet 3 [DISCONTINUED] clotrimazole (Lotrimin) 1 % cream Apply topically 2 times daily. [DISCONTINUED] hydroCHLOROthiazide (HYDRODiuril) 25 MG tablet Take 25 mg by mouth twice a day. [DISCONTINUED] montelukast (Singulair) 10 MG tablet Take 1 tablet (10 mg) by mouth Nightly. 90 tablet 1 [DISCONTINUED] omeprazole (PriLOSEC) [address] capsule TAKE 1 CAPSULE DAILY 90 capsule 3 [DISCONTINUED] perindopril (Aceon) 8 MG tablet Take 1 tablet (8 mg) by mouth 2 times daily. 180 tablet 1 [DISCONTINUED] triamcinolone (Kenalog) 0.5 % cream Apply topically 3 times daily. 45 g 1 celecoxib (CeleBREX) 100 MG capsule take 1 capsule by mouth q day prn with food (Patient not taking: Reported on 06/05/2024) 90 capsule 1 [DISCONTINUED] hydrALAZINE (Apresoline) 25 MG tablet Increase to one TID (Patient not taking: Reported on 06/05/2024) 270 tablet 1 No current facility-administered medications on file prior to visit. Patient Active Problem List Diagnosis LBBB (left bundle branch block) OAB (overactive bladder) Osteoarthritis, shoulder Plantar fasciitis of left foot Allergic rhinitis Eczema Multiple renal cysts Family history of coronary artery disease Carpal tunnel syndrome Family history of diabetes mellitus Essential hypertension GERD (gastroesophageal reflux disease) Gall bladder polyp Family history of lung cancer Mixed hypercholesterolemia and hypertriglyceridemia TIA (transient ischemic attack) Nonrheumatic mitral valve regurgitation Encounter for monitoring NSAID therapy Primary osteoarthritis of knee Prediabetes [place] CAC score, <100 Social History Tobacco Use Smoking status: Never Passive exposure: Past Smokeless tobacco: Never Substance Use Topics Alcohol use: Not Currently Comment: twice yearly Past Surgical History: Procedure Laterality Date BLADDER SUSPENSION 2020 CARPAL TUNNEL RELEASE Left 2013 Dr. Lion COLONOSCOPY 04/2014 Ramonita, due 2024 CYSTOSCOPY 06/2021 Ivet- no stone evident DILATION AND CURETTAGE OF UTERUS MENISCECTOMY Right 2016 [place] TONSILLECTOMY AND ADENOIDECTOMY (HISTORICAL) TOTAL VAGINAL HYSTERECTOMY 2020 Dr. Mae, [facility]-- for prolapsed uterus and bladder TUBAL LIGATION UPPER GASTROINTESTINAL ENDOSCOPY 2014 [place]- due 2019- pt deferring UPPER GASTROINTESTINAL ENDOSCOPY 2008 [facility] Family History Problem Relation Name Age of Onset Lung cancer Mother Raven 60 Hypertension Mother Raven Diabetes type II Mother Raven oral rx Dementia Mother Raven Colon polyps Mother Raven COPD Mother Raven 77 smoker Pacemaker Mother Raven Lung cancer Father Zheng Delgado father 64 smoker Hypertension Sister Miracle alive age 77 Other ([id number]) Sister Perla Spinal DDD w/neuropathy, alive age 60 Coronary artery disease Sister Sheila 55 CABG, alive age 74 Hypertension Sister Sheila Kidney disease Sister Sheila Diabetes Sister Sheila oral rx Cancer Sister Coleen ? primary stomach to liver at age 60 Prostate cancer Brother Zheng Coronary artery disease Brother Zheng stent, alive age 72, TAA Rheum arthritis Brother Zheng Hypertension Brother Zheng Cancer Maternal Grandmother Valerie breast Diabetes type II Maternal Grandfather Mathew Diabetes type II Paternal Grandmother Alison COPD Paternal Grandfather Objective: BP 138/76 (BP Location: Right arm, Patient Position: Sitting, BP Cuff Size: Adult long) Pulse 68 Temp 37.2 C (98.9 F) (Temporal) Ht 5' 1 (1.549 m) Wt 163 lb (73.9 kg) SpO2 98% BMI 30.80 kg/m Physical Exam The physical exam is generally normal. Patient appears well, alert and oriented x 3, pleasant, cooperative. Vitals are as noted. Neck supple, no abnormal adenopathy, thyroid lesions or masses.. Lungs are clear to auscultation. Heart is regular, without murmurs, gallops or ectopy. Abdomen is soft, non tender, without masses, hepatosplenomegaly, or bruits. Normal BS evident. Extremities are normal without edema. Peripheral pulses are good. No worrisome skin lesions. Screening neurological exam is normal without focal deficits. documented in this encounter [facility] 05-30-2024 History of Present illness Narrative SUBJECTIVE Jovany Sommers is a 68 year old woman who presents for her annual exam. Last pap- 01/18/22. Last mammo- 03/30/24. Last dexascan-03/30/24. No LMP recorded. Patient has had a hysterectomy. Denies vaginal itching, burning, discharge. Discussed health maintenance, including regular aerobic exercise, low sugar diet, and periodic exams. Completed depression screening. Pt feels like she always have a UTI and urgency. Pt has an appointment with a urologist on Tuesday. Pt says she has to drink a lot of water and take the cranberry pills then she get a lot of urgency and has to be close to a bathroom. But if she doesn't drink the water and take the pills then she get's the burning and chill feeling. HISTORIES FAMILY HISTORY Problem Relation Age of Onset Hypertension Mother Diabetes Mother COPD Mother other (lung cancer) Mother 67 other (lung cancer) Father 65 other (stomach cancer) Sister 59 stomach/liver Liver Cancer Sister Hypertension Sister Heart disease Sister Coronary Artery Disease Sister Diabetes Sister Skin Cancer Sister Prostate Cancer Brother 56 Heart Brother enlarged heart Breast Cancer Maternal Grandmother Diabetes Paternal Grandmother Drug abuse Son No Known Problems Granddaughter PAST MEDICAL HISTORY Diagnosis Date Abnormal Pap smear of cervix 11/2011 ascus/-HPV 10/02 pap wnl/-HPV Calculus, renal Cystocele, midline Esophageal reflux Facial droop 08/31/2021 GERD (gastroesophageal reflux disease) Hematuria Hemorrhoids HLD (hyperlipidemia) Hypertension LBBB (left bundle branch block) Menopause Other atopic dermatitis Rectocele Short-term memory loss Slurred speech 08/31/2021 Stress incontinence Uterine fibroid Uterovaginal prolapse PAST SURGICAL HISTORY Procedure Laterality Date CARPAL TUNNEL 2013 COLONOSCOPY 2014 due in 5 years KNEE SURGERY HX 2015 PAST SURGICAL HISTORY OF 06/2021 kidney stone TONSILLECTOMY HX TUBAL LIGATION UTERINE ARTERY EMBOLIZ 10/2003 VAGINAL HYSTERECTOMY 2020 partial Social History Tobacco Use Smoking status: Never Smokeless tobacco: Never Vaping Use Vaping status: Never Used Substance Use Topics Alcohol use: Yes Drug use: No ACTIVE PROBLEM LIST Calcaneal Spur Plantar Fasciitis Atopic Rhinitis Carpal Tunnel Syndrome Eczema Gerd (Gastroesophageal Reflux Disease) Hypertension Multiple Renal Cysts Osteoarthritis of Shoulder Polyp of Gallbladder Torn Cartilage Mixed Hypercholesterolemia and Hypertriglyceridemia Tia (Transient Ischemic Attack) Nephrolithiasis Prediabetes Class 1 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 hydroCHLOROthiazide 25 mg tablet Take 25 mg by mouth two times a day. acetaminophen 650 mg CR tablet celecoxib (CELEBREX) 100 mg capsule Take 100 mg by mouth as needed for pain. atorvastatin (LIPITOR) 40 mg tablet Take 1 tablet by mouth daily at bedtime. omeprazole (PRILOSEC) 40 mg capsule Take 1 capsule by mouth once daily. This will decrease the efficacy of your Plavix so you should not take this until after you are off Plavix. aspirin, enteric coated (ASPIRIN, ENTERIC COATED) 81 mg EC tablet Take 1 tablet by mouth once daily. montelukast (SINGULAIR) 10 mg tablet Take 10 mg by mouth daily at bedtime. perindopril (ACEON) 8 mg tablet Take 4 mg by mouth twice daily. No current facility-administered medications for this visit. REVIEW OF SYSTEMS GENERAL: No weight loss, malaise or fevers HEENT: No changes in hearing or vision NECK: Negative for lumps, goiter, pain and significant neck swelling RESPIRATORY: Negative for cough, wheezing, dyspnea or shortness of breath CARDIOVASCULAR: Negative for chest pain or palpitations GI: Negative for abdominal discomfort, blood in stools or black stools, change in bowel habit, diarrhea, nausea, vomiting, constipation : No history of dysuria, frequency or incontinence SLATE HANDLER: Negative for abnormal vaginal bleeding, abnormal vaginal discharge or Breast symptoms ENDOCRINE: Negative for cold or heat intolerance, polyuria, polydipsia and goiter NEURO: No history of headaches, syncope, paralysis, seizures or tremors OBJECTIVE: urine dip: +3 leukocytes, +1 protein. BP 138/86 Ht 5' 1 (1.55m) Wt 168 lb (76.2kg) BMI 31.76 kg/(m^2). HEENT: Within normal limits NECK: Supple, no thyromegaly BREASTS: No masses, no nipple discharge HEART: Regular rate and rhythm without murmur, rub, or gallop LUNGS: Clear bilaterally to auscultation ABDOMEN: No masses, non tender, no hernias, no hepatosplenomegaly PELVIC: EGBUS: No lesions, normal appearance VAGINA: No discharge, no blood, no lesions;cystocele gr 1; fair kegel tone CERVIX: absent UTERUS: Absent ADNEXA: Non tender, no masses RECTOVAGINAL: Not examined EXTREMITIES: No edema, no calf tenderness NEUROLOGICAL: Grossly intact ASSESSMENT/PLAN: 1. Gynecologic exam normal - ICD9: V72.31, ICD10: Z01.419 (primary diagnosis) - Completed pelvic and breast exam - Encouraged monthly BSE - Follow up for annual exam in one year. - PAP REFLEX HPV MRNA WHEN ASCUS 2. Encounter for screening for malignant neoplasm of vagina - ICD9: V76.47, ICD10: Z12.72 3. Breast cancer screening by mammogram - ICD9: V76.12, ICD10: Z12.31 - MARIAJOSE SCREENING W DAVE 4. Menopause - ICD9: 627.2, ICD10: Z78.0 5. Dysuria - ICD9: 788.1, ICD10: R30.0 - BACTERIAL CULTURE, URINE 6. Urinary frequency - ICD9: 788.41, ICD10: R35.0 - BACTERIAL CULTURE, URINE MD Felisha Salvador MA No follow-ups on file. documented in this encounter [facility] 05-15-2024 Telephone encounter Note Recent Visits Date Type Provider Dept 12/06/23 Office Visit Jasper Zeng DO [facility] 11[facility]08[facility] Jasper Zeng DO [facility] Showing recent visits within past 365 days and meeting all other requirements Future Appointments Date Type Provider Dept 06/05/24 Appointment DO Savita [facility] Showing future appointments within next 90 days and meeting all other requirements Requested Prescriptions Pending Prescriptions Disp Refills atorvastatin (Lipitor) 40 MG tablet [Pharmacy Med Name: ATORVASTATIN TABS 40MG] 90 tablet 3 Sig: TAKE 1 TABLET DAILY omeprazole (PriLOSEC) [address] capsule [Pharmacy Med Name: OMEPRAZOLE DR CAPS 40MG] 90 capsule 3 Sig: TAKE 1 CAPSULE DAILY Provider: Jasper Zeng DO Verified pharmacy: yes Verified day(s) supplied: yes Verified refill(s) needed (previous prescription showing no refills in chart): Yes Have you received any controlled medications from any other provider? No Overdue for visit: No If yes - patient scheduled? Yes Most recent labs completed in chart? Yes Cholesterol: Lab Results Component Value Date CHOLESTEROLT 144 12/06/2023 HDLCHOLESTER 52 12/06/2023 TRIGLYCERIDE 120 12/06/2023 LDLCHOLESTER 71 12/06/2023 CHOLHDLCRATI 2.8 12/06/2023 NONHDLCHOLES 92 12/06/2023 [facility] [email or web address] 05-15-2024 Miscellaneous Notes Recent Visits Date Type Provider Dept 12/06/23 Office Visit Jasper Zeng DO [facility] 11/08/[facility] Visit Jasper Zeng DO [facility] Showing recent visits within past 365 days and meeting all other requirements Future Appointments Date Type Provider Dept 06/05/24 Appointment Jasper Cotton DO [facility] Showing future appointments within next 90 days and meeting all other requirements Requested Prescriptions Pending Prescriptions Disp Refills atorvastatin (Lipitor) 40 MG tablet [Pharmacy Med Name: ATORVASTATIN TABS 40MG] 90 tablet 3 Sig: TAKE 1 TABLET DAILY omeprazole (PriLOSEC) [address] capsule [Pharmacy Med Name: OMEPRAZOLE DR CAPS 40MG] 90 capsule 3 Sig: TAKE 1 CAPSULE DAILY Provider: Jasper Zeng DO Verified pharmacy: yes Verified day(s) supplied: yes Verified refill(s) needed (previous prescription showing no refills in chart): Yes Have you received any controlled medications from any other provider? No Overdue for visit: No If yes - patient scheduled? Yes Most recent labs completed in chart? Yes Cholesterol: Lab Results Component Value Date CHOLESTEROLT 144 12/06/2023 HDLCHOLESTER 52 12/06/2023 TRIGLYCERIDE 120 12/06/2023 LDLCHOLESTER 71 12/06/2023 CHOLHDLCRATI 2.8 12/06/2023 NONHDLCHOLES 92 12/06/2023 documented in this encounter [facility] 05-01-2024 Telephone encounter Note noted [facility] 05-01-2024 Miscellaneous Notes noted S: pt calling [facility] with urinary frequency B: ongoing A: frequent urination. Pt states if she drinks enough water she does not have this problem. Has been ongoing since October 2023. Does not happen every day. Pushing fluids. Does urinate a lot when she does go. R: RN scheduled pt for first available on 05/08, also advised pt to call her urologist at [facility] for appt as well, pt voiced understanding. Reason for Disposition All other urine symptoms Protocols used: Urinary [id number] documented in this encounter [facility] 05-01-2024 Telephone encounter Note S: pt calling [facility] with urinary frequency B: ongoing A: frequent urination. Pt states if she drinks enough water she does not have this problem. Has been ongoing since October 2023. Does not happen every day. Pushing fluids. Does urinate a lot when she does go. R: RN scheduled pt for first available on 05/08, also advised pt to call her urologist at [facility] for appt as well, pt voiced understanding. Reason for Disposition All other urine symptoms Protocols used: Urinary [id number] [facility] 04-03-2024 Telephone encounter Note Pt has been informed with her results. Felisha Delgado MA [facility] 04-03-2024 Telephone encounter Note ----- Message from Josselyn Owusu MD sent at 04/03/2024 3:13 PM EST ----- Your dexascan showed osteopenia with improvement in hip and FRAX score.. T score spine -1.7. (-0.9 04/08) T score hip -1.7 (-2.2 04/08) Frax:.10.1%/1.5% (11.8%/2.2% 04/08) We recommend supplementing 1200mg daily calcium, 2000IUs daily Vitamin D3, limit caffeine, carbonation, alcohol to less than 2 drinks per day. Increase weight bearing exercise. Josselyn Owusu MD [facility] 04-03-2024 Miscellaneous Notes Pt has been informed with her results. Felisha Delgado MA ----- Message from Josselyn Owusu MD sent at 04/03/2024 3:13 PM EST ----- Your dexascan showed osteopenia with improvement in hip and FRAX score.. T score spine -1.7. (-0.9 04/08) T score hip -1.7 (-2.2 04/08) Frax:.10.1%/1.5% (11.8%/2.2% 04/08) We recommend supplementing 1200mg daily calcium, 2000IUs daily Vitamin D3, limit caffeine, carbonation, alcohol to less than 2 drinks per day. Increase weight bearing exercise. Josselyn Owusu MD documented in this encounter [facility] 04-03-2024 Telephone encounter Note Pt called back and was given her results. Felisha Delgado MA [facility] 04-03-2024 Miscellaneous Notes Pt called back and was given her results. Felisha Delgado MA Left message for pt to call the office. Felisha Delgado MA ----- Message from Josselyn Owusu MD sent at 04/03/2024 10:07 AM EST ----- Your dexascan showed osteopenia. T score spine -1.7. T score hip -1.7 Frax: 10.1%/1.5% We recommend supplementing 1200mg daily calcium, 2000IUs daily Vitamin D3, limit caffeine, carbonation, alcohol to less than 2 drinks per day. Increase/maintain weight bearing exercise. Josselyn Owusu MD documented in this encounter [facility] 04-03-2024 Telephone encounter Note Left message for pt to call the office. Felisha Delgado MA [facility] 04-03-2024 Telephone encounter Note ----- Message from Josselyn Owusu MD sent at 04/03/2024 10:07 AM EST ----- Your dexascan showed osteopenia. T score spine -1.7. T score hip -1.7 Frax: 10.1%/1.5% We recommend supplementing 1200mg daily calcium, 2000IUs daily Vitamin D3, limit caffeine, carbonation, alcohol to less than 2 drinks per day. Increase/maintain weight bearing exercise. Josselyn Owusu MD [facility] 03-30-2024 History of Present illness Narrative Radiology Service Progress Note PATIENT NAME: Jovany Sommers DATE OF SERVICE: March 30, 2024 TIME: 8:09 AM PATIENT IDENTITY VERIFICATION COMPLETED USING TWO (2) IDENTIFIERS: Name and Date of confirmed by patient verbally. FALL SCREENING: Has the patient had 2 falls in the last year or 1 fall with injury or currently using an Ambulatory Assistive Device (Walker, Cane, Wheelchair, Crutches, etc.)? No PATIENT GENDER DATA: Female. status: : No status: NO. PATIENT RELEVANT IMPLANT DATA REVIEWED: Yes PATIENT PRESENTS WITH AN IMPLANTABLE OR ATTACHED CLOTH COLORER: No RADIOLOGY DEPARTMENT: Mammography PERIPHERAL IV DATA: Not applicable SIGNED BY: RT Christiano(R) March 30, 2024 8:09 AM documented in this encounter [facility] 03-30-2024 Note HNO ID: [id number] Author: MIRACLE LEVIN RT(Bria) Service: ? Author Type: Technologist Type: Progress Notes Filed: 03/30/2024 08:09 Note Text: Radiology Service Progress Note PATIENT NAME: Jovany Sommers DATE OF SERVICE: March 30, 2024 TIME: 8:09 AM PATIENT IDENTITY VERIFICATION COMPLETED USING TWO (2) IDENTIFIERS: Name and Date of confirmed by patient verbally. FALL SCREENING: Has the patient had 2 falls in the last year or 1 fall with injury or currently using an Ambulatory Assistive Device (Walker, Cane, Wheelchair, Crutches, etc.)? No PATIENT GENDER DATA: Female. status: : No status: NO. PATIENT RELEVANT IMPLANT DATA REVIEWED: Yes PATIENT PRESENTS WITH AN IMPLANTABLE OR ATTACHED CLOTH COLORER: No RADIOLOGY DEPARTMENT: Mammography PERIPHERAL IV DATA: Not applicable SIGNED BY: RT Christiano(R) March 30, 2024 8:09 AM [facility] 03-30-2024 History of Present illness Narrative Radiology Service Progress Note PATIENT NAME: Jovany Sommers DATE OF SERVICE: March 30, 2024 TIME: 8:04 AM PATIENT IDENTITY VERIFICATION COMPLETED USING TWO (2) IDENTIFIERS: Name and Date of confirmed by patient verbally. FALL SCREENING: Has the patient had 2 falls in the last year or 1 fall with injury or currently using an Ambulatory Assistive Device (Walker, Cane, Wheelchair, Crutches, etc.)? No PATIENT GENDER DATA: Female. status: : No status: NO. PATIENT RELEVANT IMPLANT DATA REVIEWED: Not Applicable PATIENT PRESENTS WITH AN IMPLANTABLE OR ATTACHED CLOTH COLORER: No RADIOLOGY DEPARTMENT: Bone Density PERIPHERAL IV DATA: Not applicable SIGNED BY: RT Hank(R) March 30, 2024 8:04 AM documented in this encounter [facility] 03-30-2024 Note HNO ID: [id number] Author: MANUEL DAWN RT(Bria) Service: ? Author Type: Industrial Cleaning Technician Type: Progress Notes Filed: 03/30/2024 08:04 Note Text: Radiology Service Progress Note PATIENT NAME: Jovany Sommers DATE OF SERVICE: March 30, 2024 TIME: 8:04 AM PATIENT IDENTITY VERIFICATION COMPLETED USING TWO (2) IDENTIFIERS: Name and Date of confirmed by patient verbally. FALL SCREENING: Has the patient had 2 falls in the last year or 1 fall with injury or currently using an Ambulatory Assistive Device (Walker, Cane, Wheelchair, Crutches, etc.)? No PATIENT GENDER DATA: Female. status: : No status: NO. PATIENT RELEVANT IMPLANT DATA REVIEWED: Not Applicable PATIENT PRESENTS WITH AN IMPLANTABLE OR ATTACHED CLOTH COLORER: No RADIOLOGY DEPARTMENT: Bone Density PERIPHERAL IV DATA: Not applicable SIGNED BY: RT Hank(R) March 30, 2024 8:04 AM [facility] 02-08-2024 History of Present illness Narrative The patient, Jovany Sommers, identity was verified by name and . Supervising provider for clinic visit: Dr. Jasper Zeng Chief Complaint Patient presents with Blood Pressure Check Reason for visit: Elevated BP Reading at last visit Jovany Sommers has validated current medications Patient states compliant with medications as written: Yes BP medication taken prior to this visit? Yes Are you having any symptoms? Yes - Current Blood Pressure: 138/76 Current Heart Rate:71 Did Blood Pressure need rechecked: no Second Blood Pressure Reading: Second Heart Rate: Assessment/Plan: Jovany was seen today for blood pressure check. Diagnoses and all orders for this visit: Essential hypertension - Vitamin B12; Future - Vitamin B12 normal Future Appointments Date Time Provider Department Center 06/05/2024 7:00 AM Jasper Zeng DO [facility] 12/06/2024 7:00 AM Jasper Zeng DO [facility] Cc'd provider blood pressure readings? Yes Blood pressure stable, no med changes Talked to patient and relayed message and she verbalized understanding. documented in this encounter [facility] 01-10-2024 History of Present illness Narrative The patient, Jovany Sommers, identity was verified by name and . Supervising provider for clinic visit: Dr. Zeng Chief Complaint Patient presents with Blood Pressure Check Reason for visit: follow up on BP Jovany Sommers is taking medication list verified for HTN Patient states compliant with medications as written: Yes BP medication taken prior to this visit? Yes Are you having any symptoms? No Current Blood Pressure:139/82 Current Heart Rate:60 Did Blood Pressure need rechecked: no Second Blood Pressure Reading: Second Heart Rate: Assessment/Plan: There are no diagnoses linked to this encounter. normal Future Appointments Date Time Provider Department Center 06/05/2024 7:00 AM DO SAVITA [facility] 12/06/2024 7:00 AM DO SAVITA Marin [facility] Cc'd provider blood pressure readings? Yes Patient came in today for BP: BP: 139/82 P- 60 Blood pressure improved but her goal should be systolic less than 130 and diastolic less than 80. I recommend increasing hydralazine to 25 mg 3 times daily. Recheck blood pressure and pulse in another 4 weeks documented in this encounter [facility] 01-10-2024 History of Present illness Narrative The patient, Jovany Sommers, identity was verified by name and . Supervising provider for clinic visit: Dr. Zeng Chief Complaint Patient presents with Blood Pressure Check Reason for visit: follow up on BP Jovany Sommers is taking medication list verified for HTN Patient states compliant with medications as written: Yes BP medication taken prior to this visit? Yes Are you having any symptoms? No Current Blood Pressure:139/82 Current Heart Rate:60 Did Blood Pressure need rechecked: no Second Blood Pressure Reading: Second Heart Rate: Assessment/Plan: There are no diagnoses linked to this encounter. normal Future Appointments Date Time Provider Department Center 06/05/2024 7:00 AM DO SAVITA [facility] 12/06/2024 7:00 AM Jasper Zeng DO [facility] Cc'd provider blood pressure readings? Yes Patient came in today for BP: BP: 139/82 P- 60 Blood pressure improved but her goal should be systolic less than 130 and diastolic less than 80. I recommend increasing hydralazine to 25 mg 3 times daily. Recheck blood pressure and pulse in another 4 weeks Placed call to patient. Two patient identifers confirmed. Was able to speak to patient. All concerns in message have been addressed and she will increase her medication. Patient is scheduled for BP recheck 02/08/24 documented in this encounter [facility] 12-06-2023 History of Present illness Narrative Images from the original note were not included. [facility] [address] [facility] [id number] Dept: [phone] Dept Chief Complaint: Jovany Sommers is an 67 y.o. female here for an annual wellness visit. Hypertension lipid management patient with history of left bundle branch block. Recent cardiac workup noted. Normal renal Doppler as well. Overall she feels well. Blood pressure better at home in the 120 range. Assessment/Plan : Problem List Items Addressed This Visit LBBB (left bundle branch block) Essential hypertension Relevant Medications hydrALAZINE (Apresoline) 25 MG tablet GERD (gastroesophageal reflux disease) Mixed hypercholesterolemia and hypertriglyceridemia Relevant Orders TSH Lipid panel Nonrheumatic mitral valve regurgitation Other Visit Diagnoses Encounter for subsequent annual wellness visit (AWV) in Medicare patient - Primary Subacute cough Relevant Orders XR chest 2 views I have reviewed and reconciled the medication list with the patient today. Current Outpatient Medications Medication Sig Dispense Refill acetaminophen (Tylenol 8 Hour) 650 MG ER tablet aspirin 81 MG EC tablet Every 24 hours. atorvastatin (Lipitor) 40 MG tablet TAKE 1 TABLET DAILY (Patient taking differently: Take 40 mg by mouth every other day.) 90 tablet 1 celecoxib (CeleBREX) 100 MG capsule take 1 capsule by mouth q day prn with food 90 capsule 1 cholecalciferol (D3-5) 5,000 Units tablet Take by mouth. clotrimazole (Lotrimin) 1 % cream Apply topically 2 times daily. Coenzyme Q10 100 MG tablet Take by mouth daily. LUTEIN PO Take by mouth daily. Multiple Vitamin (multivitamin) tablet Take 1 tablet by mouth daily. omeprazole (PriLOSEC) [address] capsule TAKE 1 CAPSULE DAILY 90 capsule 1 triamcinolone (Kenalog) 0.5 % cream Apply topically 3 times daily. 45 g 1 hydrALAZINE (Apresoline) 25 MG tablet One BID 180 tablet 1 montelukast (Singulair) 10 MG tablet Take 1 tablet (10 mg) by mouth Nightly. 90 tablet 1 perindopril (Aceon) 8 MG tablet Take 1 tablet (8 mg) by mouth 2 times daily. 180 tablet 1 No current facility-administered medications for this visit. Also reviewed during this visit: Tobacco Surg Hx The following health maintenance schedule was reviewed with the patient and provided in printed form in the after visit summary: Health Maintenance Topic Date Due Hepatitis C Screening Never done DTaP/Tdap/Td Vaccines (1 - Tdap) Never done Zoster Vaccines (1 of 2) Never done RSV Immunization aged 60 or older (1 - 1-dose 60+ series) Never done Mammogram 11/14/2020 Diabetes Screening 09/01/2022 COVID-19 Vaccine ( - 2022-24 season) Never done Medicare Advantage Annual Wellness Visit Never done Colorectal Cancer Screening 04/23/2024 Influenza Vaccine (1) 12/18/2023 Depression Screening 12/05/2024 Lipid Panel 06/07/2028 Pneumococcal Vaccine: 65+ Years Completed Bone Density Scan Completed RSV Immunization under 20 Months Aged Out HIB Vaccines Aged Out Hepatitis B Vaccines Aged Out IPV Vaccines Aged Out Hepatitis A Vaccines Aged Out Meningococcal Vaccine Aged Out Rotavirus Vaccines Aged Out HPV Vaccines Aged Out List of current healthcare providers: Patient Care Team: Jasper Zeng DO as PCP - General Orders Placed This Encounter Procedures XR chest 2 views Standing Status: Future Standing Expiration Date: 12/05/2024 TSH Standing Status: Future Number of Occurrences: 1 Standing Expiration Date: 12/05/2024 Lipid panel Standing Status: Future Number of Occurrences: 1 Standing Expiration Date: 12/05/2024 Review of Systems no constitutional symptoms. Allergies and sometimes a dry cough. No pleuritic pain. No purulent phlegm or fever or wheezing. Takes Singulair daily. Due for panendoscopy in April. No dysphagia. History of acid reflux but minimal use of Celebrex. PPI is effective. No early satiety melena or blood. Bowels are regular. No lower abdominal pain. History of osteoporosis and will be getting bone density and mammogram this winter. No breast complaints. Some knee arthralgias. Otherwise trying to do exercise and eat properly. LDL is at goal. Physical Exam The physical exam is generally normal. Patient appears well, alert and oriented x 3, pleasant, cooperative. Vitals are as noted. No carotid bruits. Neck supple, no abnormal adenopathy, thyroid lesions or masses. Ears, nose and throat are normal without acute findings. Lungs are clear to auscultation. Heart is regular, without murmurs, gallops or ectopy. Abdomen is soft, non tender, without masses, hepatosplenomegaly, or bruits. Normal BS evident. Extremities are normal without edema. Peripheral pulses are fair. No worrisome skin lesions. Screening neurological exam is normal without focal deficits. Objective : BP (!) 148/88 Pulse 71 Temp 36.1 C (97 F) (Temporal) Ht 5' 1.5 (1.562 m) Wt 161 lb (73 kg) SpO2 98% BMI 29.93 kg/m No results found. Subjective : Health Risk Assessment: General: General In general, how would you say your health is?: (P) Good In the past 7 days, have you experienced any of the following: New or Increased Pain, New or Increased Fatigue, Loneliness, Social Isolation, Stress or Anger?: (P) No Do you get the social and emotional suppport you need?: (P) Yes Health Habits/Nutrition: Health Habits / Nutrition On average, how many days per week do you engage in moderate to strenous exercise (like a brisk walk)?: (P) 5 days On average, how man minutes do you engage in exercise at this level?: (P) 60 min Have you lost any weight without trying in the past 3 months? : (P) No Have you seen the dentist within the past year?: (P) Yes Hearing/ Vision: Hearing / Vision Do you or your family notice any trouble with your hearing that hasn't been managed with hearing aids?: (P) No Do you have difficulty driving, watching TV, or doing any of your daily activities because of your eyesight?: (P) No Have you had an eye exam within the past year?: (P) Yes No results found. Safety: Safety Do you have a working smoke detector?: (P) Yes Do you have any tripping hazards - loose or unsecured carpets or rugs?: (P) No Do you have any tripping hazards - clutter in doorways, halls, or stairs?: (P) No Do you have either shower bars, grab bars, non-slip mats or non-slip surfaces in your shower or bathtub? : (!) (P) No Do all your stairways have a railing or banister? : (P) Not Applicable Do you fasten your seatbelt when you are in a car?: (P) Yes Interventions: Patient declines any further evaluation / treatment for this issue ADL: ADL In the past 7 days, did you need help from others to perform any of the following everyday activities: Eating, dressing, grooming,bathing, toileting, or walking / balance? : (P) No In the past 7 days, did you need help from others to take care of any of the following: laundry, housekeeping, banking / finances,shopping, telephone use, food preparation, transportation, or taking medications? : (P) No Living Will: Living Will Do you have a living will?: (P) No Interventions: Patient declines ACP discussion / assistance Cognitive: Cognitive Screening: Mini-Cog Clock Drawing Test (CDT): 2 Words Recalled: 3 Total Score: 5 Total Score Interpretation: Normal Mini-Cog Fall Risk: Fall Risk One or more falls in the last year:: (P) No Advised to use a cane or walker to get around safely:: (P) No Feels unsteady when walking:: (P) No Steadies self on furniture while walking at home:: (P) No Worried about falling:: (P) No Depression Screening: Over the past 2 weeks, how often have you been bothered by any of the following problems? Little interest or pleasure in doing things: Not at all Feeling down, depressed, or hopeless: Not at all Patient Health Questionnaire-2 Score: 0 Interventions: Patient declines any further evaluation / treatment for this issue Tobacco Use: Social History Tobacco Use Smoking Status Never Passive exposure: Past Smokeless Tobacco Never Alcohol Use: Audit Alcohol Screening Q1: How often do you have a drink containing alcohol?: Monthly or less Q2: How many drinks containing alcohol do you have on a typical day when you are drinking?: 1 or 2 Q3: How often do you have six or more drinks on one occasion?: Never Audit-C Score: 1 Skip to questions 9-10?: 1 1. Essential hypertension Uncontrolled, increase hydralazine 25 3 times daily. BP check 4 weeks continue all other meds - hydrALAZINE (Apresoline) 25 MG tablet; One BID Dispense: 180 tablet; Refill: 1 2. LBBB (left bundle branch block) Reassurance 3. Mixed hypercholesterolemia and hypertriglyceridemia Check lab continue lipitor - TSH; Future - Lipid panel; Future - TSH - Lipid panel 4. Gastroesophageal reflux disease without esophagitis Stable, continue omeprazole in April 5. Nonrheumatic mitral valve regurgitation Stabl 6. Encounter for subsequent annual wellness visit (AWV) in Medicare patient Stable continue low-fat low-carb meals cardio exercise 7. Subacute cough Probably allergic, check x-ra yeah - XR chest 2 views; Future documented in this encounter [facility] 12-06-2023 Instructions Jasper Zeng DO - 12/06/2023 7:00 AM EDT BP ch 4 wks Personalized Preventative Plan for Jovany Sommers - 12/06/2023 Medicare offers a range of preventative health benefits. Some of the tests and screenings are paid in full while others may be subject to a deductible, co-insurance, and / or copay. Some of these benefits include a comprehensive review of your medical history including lifestyle, illnesses that may run in your family, and various assessments and screenings as appropriate. After reviewing your medical record and screening and assessments performed today, your provider may have ordered immunizations, labs, imaging, and / or referrals for you. A list of these orders (if applicable) as well as your Preventative Care list are included within your After Visit Summary for your review. Other Preventative Recommendations: A preventive eye exam by an seeing eye dog trainer is recommended every 1-2 years to screen for glaucoma, cataracts, macular degeneration, and other eye disorders. A preventive dental visit is recommended every 6 months. Try to get at least 150 minutes of exercise per week or 10,000 steps per day on a pedometer. You need 1200-1500mg of calcium and 0870-1280 international units of vitamin D per day. It is possible to meet your calcium requirement with diet alone, but a vitamin D supplement is usually necessary to meet this goal. When exposed to the sun, use a sunscreen that protects against both UVA and UVB radiation with an SPF of 30 or greater. Reapply every 2-3 hours or after sweating, drying off with a towel, or swimming. Always wear a seat belt when traveling in a car. Always wear a helmet when riding a bicycle or a motorcycle documented in this encounter [facility] 11-28-2023 Telephone encounter Note Recent Visits Date Type Provider Dept 11/08/23 Office Visit Thomas Fields PA-C [facility] 06/07/23 Office Visit Jasper Zeng DO [facility] 12/03/22 Office Visit Jasper Zeng DO [facility] Showing recent visits within past 365 days and meeting all other requirements Future Appointments Date Type Provider Dept 12/06/23 Appointment Jasper Zeng DO [facility] Showing future appointments within next 90 days and meeting all other requirements Requested Prescriptions Pending Prescriptions Disp Refills perindopril (Aceon) 8 MG tablet [Pharmacy Med Name: PERINDOPRIL ERBUMINE TABS 8MG] 180 tablet 3 Sig: TAKE 1 TABLET TWICE A DAY Provider: Jasper Zeng DO Overdue for visit: No If yes - patient scheduled? N/A Most recent labs completed in chart? Yes Verified pharmacy: yes Verified day(s) supplied: yes Verified refill(s) needed (previous prescription showing no refills in chart): Yes Have you received any controlled medications from any other provider? N/A [facility] 11-28-2023 Miscellaneous Notes Recent Visits Date Type Provider Dept 11/08/23 Office Visit Thomas Fields PA-C [facility] 06/07/23 Office Visit Jasper Zeng DO [facility] 12/03/22 Office Visit Jasper Zeng DO [facility] Showing recent visits within past 365 days and meeting all other requirements Future Appointments Date Type Provider Dept 12/06/23 Appointment Jasper Zegn DO [facility] Showing future appointments within next 90 days and meeting all other requirements Requested Prescriptions Pending Prescriptions Disp Refills perindopril (Aceon) 8 MG tablet [Pharmacy Med Name: PERINDOPRIL ERBUMINE TABS 8MG] 180 tablet 3 Sig: TAKE 1 TABLET TWICE A DAY Provider: Jasper Zeng DO Overdue for visit: No If yes - patient scheduled? N/A Most recent labs completed in chart? Yes Verified pharmacy: yes Verified day(s) supplied: yes Verified refill(s) needed (previous prescription showing no refills in chart): Yes Have you received any controlled medications from any other provider? N/A documented in this encounter [facility] 11-18-2023 History of Present illness Narrative Images from the original note were not included. [facility] [address] [place] [id number] Dept: [phone] Dept Loc: [phone] Visit type: New patient Reason for Visit: New Patient (Referred by Family Med) and Chest Pain Assessment and Plan 1. Mixed hypercholesterolemia and hypertriglyceridemia Assessment & Plan: She has LDL that is 72, she is on atorvastatin, she has a low coronary artery calcium score. Her current dose of atorvastatin is appropriate, we discussed briefly lifestyle modification 2. Chest pain, unspecified type Comments: She is not having classic angina, she has a coronary CTA from last month that does not show any obstructive coronary artery disease. Noncardiac chest pain. Orders: - [facility] 3. Left bundle branch block Assessment & Plan: She has a painless left bundle branch block, she does not have any significant cardiomyopathy, she not having heart failure symptoms. Orders: - [facility] 4. Nonrheumatic mitral valve regurgitation Assessment & Plan: She has 1+ mitral regurgitation noted in 2021, based on guidelines she have a repeat echocardiogram in 3-5 years, we can discuss repeating her echocardiogram next year. Certainly sooner if we believe she is developing any heart failure symptoms related to mitral regurgitation. Follow up in about 1 year (around 11/17/2024). Subjective HPI 67-year-old female who presents to reestablish with cardiology. She states she seen a jewelry repairer in the past after she was identified of having an abnormal ECG, this was a left bundle branch block and needed preoperative clearance. It appears that this likely led to additional testing which included an echocardiogram, as well as a coronary CTA. A coronary CTA was performed in April 2020, results are in care everywhere, there was a calcium score of 1, and 10% nonobstructive LAD plaque. Other coronary arteries were normal. Last echocardiogram was performed in August 2021, she had an LVEF of 53%, and some mild valvular disease. As noted she does have a left bundle branch block. In regards to symptoms today she reports that she has this occasional odd sensation in the left side of her chest. She states it feels like as if she needs to Nain her heart. She feels as if her heart is sometimes closer to her chest wall. She denies any classic anginal symptoms. She does not experience any associated dyspnea on exertion, nausea, diaphoresis. She is not experiencing any associated palpitations, dizziness or syncope. She does not experience routine orthopnea or PND or lower extremity edema. Notably for the symptoms she had a coronary CTA that was performed last month in October 2023. It showed the same 10% LAD plaque with her calcium score increasing from 1-55. Review of Systems Allergies Allergen Reactions Chlorpheniramine-Phenylephrine Current Outpatient Medications Medication Instructions acetaminophen (Tylenol 8 Hour) 650 MG ER tablet No dose, route, or frequency recorded. aspirin 81 MG EC tablet Every 24 hours atorvastatin (LIPITOR) 40 mg, Oral, Daily celecoxib (CeleBREX) 100 MG capsule take 1 capsule by mouth q day prn with food cholecalciferol (D3-5) 5,000 Units tablet Oral clindamycin (Cleocin) 2 % vaginal cream insert 1 applicatorful vaginally at bedtime for 7 days Coenzyme Q10 100 MG tablet Oral, Daily cyanocobalamin (Vitamin B-12) 100 MCG tablet Oral, Daily hydrALAZINE (APRESOLINE) 10 mg, Oral, 2 times daily LUTEIN PO Oral, Daily montelukast (SINGULAIR) 10 mg, Oral, Nightly Multiple Vitamin (multivitamin) tablet 1 tablet, Oral, Daily omeprazole (PRILOSEC) 40 mg, Oral, Daily perindopril (ACEON) 8 mg, Oral, 2 times daily sulfamethoxazole-trimethoprim (Bactrim DS) 800-160 MG tablet 1 tablet, Oral, 2 times daily triamcinolone (Kenalog) 0.5 % cream Topical, 3 times daily Past Medical History: Diagnosis Date Agatston CAC score, <100 11/10/2023 1. Trivial nonobstructive coronary atherosclerosis, technically difficult study.2. The coronary calcium score is 55.4 (Agatston method).3.Mildly dilated ascending aorta.CAD-RADS 1 Recommendation: Preventive pharmacotherapy and risk factor modification. Consider non-atherosclerotic causes of symptoms. Allergic rhinitis Breast cancer screening 03/2022 Carpal tunnel syndrome Eczema Family history of coronary artery disease Family history of diabetes mellitus Family history of lung cancer Gall bladder polyp GERD (gastroesophageal reflux disease) 2008 repeat EGD done 05/02 [facility] H/O colonoscopy 04/2014 Turowski- due 04/2024 Heart murmur History of hysterectomy 05/2020 prolapse History of renal stone 04/2021 left side, cysto per Dr. Cooney History of shingles 2013 Hypertension 2008 Mixed hypercholesterolemia and hypertriglyceridemia 02/14/2020 LDL goal <70 Multiple renal cysts 2007 OAB (overactive bladder) 2019 Osteoarthritis, shoulder Osteopenia 2017 per [facility] - no ch 04/08 BD Plantar fasciitis of left foot 2013 Prediabetes 09/01/2021 A1c 5.8%- defer recheck as needed with PCP Routine gynecological examination TIA (transient ischemic attack) 08/2021 Social History Tobacco Use Smoking status: Never Passive exposure: Past Smokeless tobacco: Never Substance Use Topics Alcohol use: Not Currently Comment: twice yearly Past Surgical History: Procedure Laterality Date BLADDER SUSPENSION 2020 CARPAL TUNNEL RELEASE Left 2013 Dr. Lion COLONOSCOPY 04/2014 Turowski, due 2024 CYSTOSCOPY 06/2021 Ivet- no stone evident DILATION AND CURETTAGE OF UTERUS MENISCECTOMY Right 2016 [place] TONSILLECTOMY AND ADENOIDECTOMY (HISTORICAL) TOTAL VAGINAL HYSTERECTOMY 2020 [facility] TUBAL [facility]IG[facility] UPPER GASTROINTESTINAL ENDOSCOPY 2014 Turowski- due 2020- pt deferring UPPER GASTROINTESTINAL ENDOSCOPY 2008 [facility] Family History Problem Relation Name Age of Onset Cancer Mother Raven 60 lung Hypertension Mother Raven Diabetes type II Mother Raven Dementia Mother Raven Colon polyps Mother Raven COPD Mother Raven 77 Pacemaker Mother Raven Asthma Mother Raven Lung disease Mother Raven Cancer Father Zheng Delgado father 64 lung Hypertension Sister Miracle Other ([id number]) Sister Perla Spinal DDD w/neuropathy Multiple sclerosis Sister Perla Hypertension Sister Perla Heart disease Sister Sheila 55 Diabetes type II Sister Sheila Coronary artery disease Sister Sheila 55 CABG Hypertension Sister Sheila Kidney disease Sister Sheila Cancer Sister Coleen ? primary stomach to liver at age 60 Cancer Brother Zheng prostate Heart disease Brother Zheng Rheum arthritis Brother Zheng Hypertension Brother Zheng Cancer Maternal Grandmother Valerie breast Diabetes type II Maternal Grandfather Mathew Diabetes type II Paternal Grandmother Alison COPD Paternal Grandfather Objective BP 110/78 (BP Location: Right arm, Patient Position: Sitting, BP Cuff Size: Adult) Pulse 80 Ht 5' 1 (1.549 m) Wt 158 lb 3.2 oz (71.8 kg) SpO2 96% BMI 29.89 kg/m Constitutional: [see vitals above] patient with no acute distress, resting comfortably, well groomed, appears stated age Eyes: Normal conjunctivae and lids,sclera anicteric ENMT: External ears and nose normal appearing, no xanthomas Neck: No JVD, JVP ~5 cmH2O Respiratory: Normal effort, lungs CTAB CV: Normal rate, regular rhythm, normal S1/S2, no S3/S4, 2/6 systolic murmur, no edema in BL LE ABD: Abdomen normal size, non distended, non tender Psych: Oriented to person, place, and time, normal mood and affect, appropriate insight Data Reviewed and Summarized Review of tests/labs done/ordered within my specialty: EKG in office: Review of tests/labs done/ordered outside my specialty: Independent interpretation of tests: Rj Fields MD Department of Cardiovascular Disease, Division of Heart Failure [facility] [place] documented in this encounter [facility] 11-18-2023 Evaluation + Plan note Associated Problem(s): Nonrheumatic mitral valve regurgitation She has 1+ mitral regurgitation noted in 2021, based on guidelines she have a repeat echocardiogram in 3-5 years, we can discuss repeating her echocardiogram next year. Certainly sooner if we believe she is developing any heart failure symptoms related to mitral regurgitation. [facility] 11-18-2023 Miscellaneous Notes Associated Problem(s): Nonrheumatic mitral valve regurgitation She has 1+ mitral regurgitation noted in 2021, based on guidelines she have a repeat echocardiogram in 3-5 years, we can discuss repeating her echocardiogram next year. Certainly sooner if we believe she is developing any heart failure symptoms related to mitral regurgitation. Associated Problem(s): Mixed hypercholesterolemia and hypertriglyceridemia She has LDL that is 72, she is on atorvastatin, she has a low coronary artery calcium score. Her current dose of atorvastatin is appropriate, we discussed briefly lifestyle modification Associated Problem(s): Left bundle branch block She has a painless left bundle branch block, she does not have any significant cardiomyopathy, she not having heart failure symptoms. documented in this encounter [facility] 11-18-2023 Evaluation + Plan note Associated Problem(s): Mixed hypercholesterolemia and hypertriglyceridemia She has LDL that is 72, she is on atorvastatin, she has a low coronary artery calcium score. Her current dose of atorvastatin is appropriate, we discussed briefly lifestyle modification [facility] 11-18-2023 Evaluation + Plan note Associated Problem(s): Left bundle branch block She has a painless left bundle branch block, she does not have any significant cardiomyopathy, she not having heart failure symptoms. [facility] 11-18-2023 Instructions Rj Fields MD - 11/18/2023 8:30 AM EDT Check with your primary care about checking your A1c again (diabetes) as you were in the prediabetic range in 2021 No new work up at this point See me in 1 year The following attachments cannot be sent through Care Everywhere.Mediterranean Diet ([place])documented in this encounter [facility] 11-16-2023 Telephone encounter Note Recent Visits Date Type Provider Dept 11/08/23 Office Visit Thomas Fields PA-C [facility] 06/07/23 Office Visit Jasper Zeng DO [facility] 12/03/22 Office Visit Jasper Zeng DO [facility] Showing recent visits within past 365 days and meeting all other requirements Future Appointments Date Type Provider Dept 12/06/23 Appointment Jasper Zeng DO [facility] Showing future appointments within next 90 days and meeting all other requirements Requested Prescriptions Pending Prescriptions Disp Refills omeprazole (PriLOSEC) [address] capsule [Pharmacy Med Name: OMEPRAZOLE DR CAPS 40MG] 90 capsule 3 Sig: TAKE 1 CAPSULE DAILY montelukast (Singulair) 10 MG tablet [Pharmacy Med Name: MONTELUKAST SODIUM TABS 10MG] 90 tablet 3 Sig: TAKE 1 TABLET NIGHTLY atorvastatin (Lipitor) 40 MG tablet [Pharmacy Med Name: ATORVASTATIN TABS 40MG] 90 tablet 3 Sig: TAKE 1 TABLET DAILY Provider: Jasper Zeng DO Overdue for visit: Yes If yes - patient scheduled? Yes Most recent labs completed in chart? Yes Verified pharmacy: yes Verified day(s) supplied: yes Verified refill(s) needed (previous prescription showing no refills in chart): Yes Have you received any controlled medications from any other provider? N/A [facility] 11-16-2023 Miscellaneous Notes Recent Visits Date Type Provider Dept 11/08/23 Office Visit Thomas Fields PA-C [facility] 06/07/23 Office Visit Jasper Zeng DO [facility] 12/03/22 Office Visit Jasper Zeng DO [facility] Showing recent visits within past 365 days and meeting all other requirements Future Appointments Date Type Provider Dept 12/06/23 Appointment Jasper Zeng DO [facility] Showing future appointments within next 90 days and meeting all other requirements Requested Prescriptions Pending Prescriptions Disp Refills omeprazole (PriLOSEC) [address] capsule [Pharmacy Med Name: OMEPRAZOLE DR CAPS 40MG] 90 capsule 3 Sig: TAKE 1 CAPSULE DAILY montelukast (Singulair) 10 MG tablet [Pharmacy Med Name: MONTELUKAST SODIUM TABS 10MG] 90 tablet 3 Sig: TAKE 1 TABLET NIGHTLY atorvastatin (Lipitor) 40 MG tablet [Pharmacy Med Name: ATORVASTATIN TABS 40MG] 90 tablet 3 Sig: TAKE 1 TABLET DAILY Provider: Jasper Zeng DO Overdue for visit: Yes If yes - patient scheduled? Yes Most recent labs completed in chart? Yes Verified pharmacy: yes Verified day(s) supplied: yes Verified refill(s) needed (previous prescription showing no refills in chart): Yes Have you received any controlled medications from any other provider? N/A documented in this encounter [facility] 11-08-2023 History of Present illness Narrative Images from the original note were not included. [facility] [address] [facility] [id number] Dept: [phone] Dept Loc: [phone] Visit type: Established Patient Reason for Visit: Hypertension (Been running high, 150/82 P-62, 162/83 P-79, 158/93/) and Chest Pain Assessment and Plan 1. Dysuria - AMB POC URINE DIP STICK MANUAL W/O MICRO - Urine culture (clean catch) 2. Chest pain, unspecified type - ECG 12 lead - CTA HEART CORONARY ANGIOGRAM WITH PROV FFR-CT - [facility] - CBC auto differential - Comprehensive metabolic panel 3. Essential hypertension - Vascular US renal artery duplex complete - hydrALAZINE (Apresoline) 10 MG tablet; Take 1 tablet (10 mg) by mouth 2 times daily., Starting 11/08/2023, Until 01/07/2024, Normal 4. Left bundle branch block - CTA HEART CORONARY ANGIOGRAM WITH PROV FFR-CT - [facility] Patient is having symptoms of dysuria, frequency and urgency with urination but this has been ongoing for some time. Reluctant to immediately jump on antibiotics as her urine dip here in the office is really not overwhelmingly convincing for UTI will send for formal culture and reevaluate once cultures available if there is bacteria present and antibiotic will be called in for the patient. She is having nonspecific chest this pain discomfort she never truly called the chest pain she describes more as a pressure or a sensation of chest certainly could be esophageal degenerative but given her previous history of an underlying left bundle block was able to find a CT angiogram that he could not initially find that was done in 2020 which does show a small speck of disease in the proximal left anterior descending my concern would be that this is worsening. I believe a stress test to be possibly left beneficial at this point, did order repeat CT angio of the heart to further quantify this lesion. However given her symptoms of fatigue periodic shortness of breath and chest discomfort with a known left bundle branch block and elevated blood pressure should be also referred over to cardiology more urgently for follow-up. Patient had seen Dr. Rome in the past she was looking for a new jewelry repairer for potential possible second opinion Blood pressure is persistently elevated here repeat again 182/96 due to the persistent elevation of blood pressure she is getting similar readings at home I did confer with Dr. Zeng and he agrees at this point time started on low-dose hydralazine trying to help with better blood pressure control cannot mitigate worsening of her heart rate as her heart rate here is bradycardic at 56. Given the history of left bundle branch block EKG today shows very similar findings of a left bundle branch block she will be referred over to cardiology as previously described. Patient was instructed should any of the symptoms change or worsen in the meantime prior to being seen and evaluated by cardiology should she feel anything unusual or different that she should seek evaluation emergently in the local ER. Follow up if symptoms worsen or fail to improve, for Next scheduled follow-up. Subjective HPI this is a 67-year-old female with underlying history of hypertension, hyperlipidemia, TIA, LBBB and GERD who was last seen by her primary care in May returns back to the office to discuss concerns about her blood pressure. Patient contacted the call center for an appointment on October 31 however no triage note was made. Feels like UTI, occ issues with freq and dysuria, has been drinking water and cranberry juice, and drinking about 40 ounces of water, and right at the end of the stream but theres a general discomfort she states she has had UTIs before this does not feel like a rib or UTI but nonetheless causing generalized discomfort. Concerns about blood pressure. Started around October first only unusual thing at that time was the starting of a multi vitamin. Trying to watch caffeine and eating healthier must less stress in live currently retired. She is concerned as she states she is trying to do things better and live her life healthier yet she still having symptoms of feeling generally fatigued blood pressure is climbing and rising she checks it routinely at home and getting persistent elevated readings at home Concerns about chest ache, started in October, no travel no surgery no pain swelling in calves, no cancer history Saw Dr. Rome in the past for LBBB years ago workup was done back in 2020 she is also had previous MRI/MRA of her brain and carotids which were unremarkable but she was told she had a TIA back in 2021. Was able later to find a CT angio of her heart that was done in 2020 which did show suspected disease within the proximal LAD that was felt to be none clinically significant at that time. Multiple family members with heart issues, old sister had CABG x 2 at about same age currently Carotids evaluated in 2021 appeared normal Review of Systems Constitutional: Negative for chills and fever. HENT: Negative for congestion and sore throat. Respiratory: Positive for cough (periodic in nature, more freqent lately over past few months), chest tightness and shortness of breath. Cardiovascular: Negative for chest pain. Gastrointestinal: Negative for abdominal pain, diarrhea, nausea and vomiting. Genitourinary: Negative for difficulty urinating, dysuria, frequency and urgency. Musculoskeletal: Negative for back pain. Neurological: Negative for dizziness and light-headedness. All other systems reviewed and are negative. Allergies Allergen Reactions Chlorpheniramine-Phenylephrine Outpatient Medications Prior to Visit Medication Sig Dispense Refill acetaminophen (Tylenol 8 Hour) 650 MG ER tablet aspirin 81 MG EC tablet Every 24 hours. atorvastatin (Lipitor) 40 MG tablet Take 1 tablet (40 mg) by mouth daily. 90 tablet 1 celecoxib (CeleBREX) 100 MG capsule take 1 capsule by mouth q day prn with food 90 capsule 1 clindamycin (Cleocin) 2 % vaginal cream insert 1 applicatorful vaginally at bedtime for 7 days montelukast (Singulair) 10 MG tablet Take 1 tablet (10 mg) by mouth Nightly. 90 tablet 1 Multiple Vitamin (multivitamin) tablet Take 1 tablet by mouth daily. omega-3 (Fish Oil) 1000 MG capsule 1 capsule Every 24 hours. omeprazole (PriLOSEC) [address] capsule Take 1 capsule (40 mg) by mouth daily. 90 capsule 1 perindopril (Aceon) 8 MG tablet Take 1 tablet (8 mg) by mouth 2 times daily for 360 doses. 180 tablet 1 triamcinolone (Kenalog) 0.5 % cream Apply topically 3 times daily. 45 g 1 cholecalciferol (D3-5) 5,000 Units tablet Take by mouth. Coenzyme Q10 100 MG tablet Take by mouth daily. tamsulosin (Flomax) 0.4 MG 24 hr capsule Take 0.4 mg by mouth daily. No facility-administered medications prior to visit. Past Medical History: Diagnosis Date Allergic rhinitis Breast cancer screening 03/[address] Owusu Carpal tunnel syndrome bilateral Eczema Family history of coronary artery disease sister and brother 50s Family history of diabetes mellitus mother and sister Family history of lung cancer both parents Gall bladder polyp GERD (gastroesophageal reflux disease) 2008 repeat EGD done 05/02 [place] H/O colonoscopy 04/2014 [facility]- due 04/2024 History of hysterectomy 05/2020 prolapse History of renal stone 04/2021 left side, cysto per Dr. Cooney History of shingles 2013 mid thorax, rt side Hypertension 2008 09/06 ECHO LVEF 53% Left bundle branch block 01/2020 LVEF 45 % per ECHO- had Cardiology consult w/ Dr. Rome , CT scan, no cath Multiple renal cysts 2007 OAB (overactive bladder) 2019 Osteoarthritis, shoulder Osteopenia 2017 per [facility] - no ch 04/08 [facility] Plantar fasciitis of left foot 2013 hx of podiatry/ortho eval Routine gynecological examination [facility] care per Chung Merida. TIA (transient ischemic attack) 08/2021 left facial weakness for few min, ? complicated migraine Social History Tobacco Use Smoking status: Never Smokeless tobacco: Never Substance Use Topics Alcohol use: Yes Alcohol/week: 0.0 standard drinks of alcohol Past Surgical History: Procedure Laterality Date BLADDER SUSPENSION 2020 CARPAL TUNNEL RELEASE Left 2013 Dr. Lion COLONOSCOPY 04/2014 [place], due 2024 CYSTOSCOPY 06/2021 Ivet- no stone evident DILATION AND CURETTAGE OF UTERUS MENISCECTOMY Right 2016 [place] TONSILLECTOMY AND ADENOIDECTOMY (HISTORICAL) TOTAL VAGINAL HYSTERECTOMY 2020 Dr. Mae, [facility] TUBAL LIGATION UPPER GASTROINTESTINAL ENDOSCOPY 2014 Turowski- due 2019- pt deferring UPPER GASTROINTESTINAL ENDOSCOPY 2008 [place] Family History Problem Relation Name Age of Onset Dementia Mother High Blood Pressure Mother 70 pacemaker, Colon polyps Mother Lung cancer Mother 60 COPD Mother age 77 of COPD- smoker Diabetes Mother Lung cancer Father 64 age 67 , smoker No Known Problems Sister Miracle Other ([id number]) Sister Perla Spinal DDD w/neuropathy Multiple sclerosis Sister Perla Diabetes Sister Sheila Coronary artery disease Sister Sheila 55 CABG Cancer Sister Coleen ? primary stomach to liver at age 60 Rheum arthritis Brother Zheng Prostate cancer Brother Zheng Coronary artery disease Brother Zheng Breast cancer Maternal Grandmother ?age Diabetes Maternal Grandfather Diabetes Paternal Grandmother COPD Paternal Grandfather Objective BP (!) 170/94 Pulse 74 Temp 36.4 C (97.5 F) (Temporal) Ht 5' 1.5 (1.562 m) Wt 159 lb (72.1 kg) SpO2 98% BMI 29.56 kg/m Physical Exam Vitals reviewed. Constitutional: General: She is not in acute distress. Appearance: Normal appearance. She is not ill-appearing or toxic-appearing. Eyes: General: No scleral icterus. Conjunctiva/sclera: Conjunctivae normal. Pupils: Pupils are equal, round, and reactive to light. Neck: Vascular: No carotid bruit. Cardiovascular: Rate and Rhythm: Normal rate and regular rhythm. Heart sounds: Normal heart sounds. No murmur heard. Pulmonary: Effort: Pulmonary effort is normal. No respiratory distress. Breath sounds: Normal breath sounds. No wheezing or rales. Abdominal: General: Bowel sounds are normal. There is no distension. Palpations: Abdomen is soft. Tenderness: There is no abdominal tenderness. There is no guarding. Musculoskeletal: Cervical back: Normal range of motion and neck supple. No rigidity or tenderness. Right lower leg: No edema. Left lower leg: No edema. Skin: General: Skin is warm and dry. Coloration: Skin is not jaundiced or pale. Neurological: Mental Status: She is alert. Psychiatric: Mood and Affect: Mood normal. Data Reviewed and Summarized Labs: ECHO done 02/27/2020 1. Left ventricle: Average myocardial peak systolic LV global longitudinal strain is -14 (Mildly impaired, pattern suggestive of LV dyssynchrony). The cavity size is normal. Wall thickness is mildly increased. Systolic function is mildly decreased by visual assessment. The estimated ejection fraction is 45%. Mild global hypokinesis with paradoxical septal motion due to LBBB. Doppler parameters are consistent with abnormal left ventricular relaxation (grade 1 diastolic dysfunction). 2. Right ventricle: The cavity size is normal. Systolic function is normal. Right ventricular systolic pressure is within the normal range. 3. No significant valve disease. Imaging/Testing: Thomas Fields PA-C 11/08/2023 Please note that portions of this note may have been completed with voice recognition software. Documentation reviewed prior to signing but minor errors in applications systems analyst may have occurred. documented in this encounter [facility] 11-08-2023 History of Present illness Narrative Images from the original note were not included. [facility] [address] [facility] [address] Dept: [phone] Dept Loc: [phone] Visit type: Established Patient Reason for Visit: Hypertension (Been running high, 150/82 P-62, 162/83 P-79, 158/93/) and Chest Pain Assessment and Plan 1. Dysuria - AMB POC URINE DIP STICK MANUAL W/O MICRO - Urine culture (clean catch) 2. Chest pain, unspecified type - ECG 12 lead - [facility] HE[facility] CORONARY ANGIOGRAM WITH PROV FFR-CT - [facility] - CBC auto differential - Comprehensive metabolic panel 3. Essential hypertension - Vascular US renal artery duplex complete - hydrALAZINE (Apresoline) 10 MG tablet; Take 1 tablet (10 mg) by mouth 2 times daily., Starting 11/08/2023, Until 01/07/2024, Normal 4. Left bundle branch block - [facility] HE[facility] CORONARY ANGIOGRAM WITH PROV FFR-CT - [facility] Patient is having symptoms of dysuria, frequency and urgency with urination but this has been ongoing for some time. Reluctant to immediately jump on antibiotics as her urine dip here in the office is really not overwhelmingly convincing for UTI will send for formal culture and reevaluate once cultures available if there is bacteria present and antibiotic will be called in for the patient. She is having nonspecific chest this pain discomfort she never truly called the chest pain she describes more as a pressure or a sensation of chest certainly could be esophageal degenerative but given her previous history of an underlying left bundle block was able to find a CT angiogram that he could not initially find that was done in 2020 which does show a small speck of disease in the proximal left anterior descending my concern would be that this is worsening. I believe a stress test to be possibly left beneficial at this point, did order repeat CT angio of the heart to further quantify this lesion. However given her symptoms of fatigue periodic shortness of breath and chest discomfort with a known left bundle branch block and elevated blood pressure should be also referred over to cardiology more urgently for follow-up. Patient had seen Dr. Rome in the past she was looking for a new jewelry repairer for potential possible second opinion Blood pressure is persistently elevated here repeat again 182/96 due to the persistent elevation of blood pressure she is getting similar readings at home I did confer with Dr. Zeng and he agrees at this point time started on low-dose hydralazine trying to help with better blood pressure control cannot mitigate worsening of her heart rate as her heart rate here is bradycardic at 56. Given the history of left bundle branch block EKG today shows very similar findings of a left bundle branch block she will be referred over to cardiology as previously described. Patient was instructed should any of the symptoms change or worsen in the meantime prior to being seen and evaluated by cardiology should she feel anything unusual or different that she should seek evaluation emergently in the local ER. 55 minutes was spent with the patient developing a medical care plan and reviewing her medical history discussing all of her medical testing with the patient as well as how to proceed forward, and performing her medical history and exam. Conversations were entertained with Dr. Zeng as well to discuss her medical history and progression. As well as an extensive review of her chart. Follow up if symptoms worsen or fail to improve, for Next scheduled follow-up. Subjective HPI this is a 67-year-old female with underlying history of hypertension, hyperlipidemia, TIA, LBBB and GERD who was last seen by her primary care in May returns back to the office to discuss concerns about her blood pressure. Patient contacted the call center for an appointment on October 31 however no triage note was made. Feels like UTI, occ issues with freq and dysuria, has been drinking water and cranberry juice, and drinking about 40 ounces of water, and right at the end of the stream but theres a general discomfort she states she has had UTIs before this does not feel like a rib or UTI but nonetheless causing generalized discomfort. Concerns about blood pressure. Started around October first only unusual thing at that time was the starting of a multi vitamin. Trying to watch caffeine and eating healthier must less stress in live currently retired. She is concerned as she states she is trying to do things better and live her life healthier yet she still having symptoms of feeling generally fatigued blood pressure is climbing and rising she checks it routinely at home and getting persistent elevated readings at home Concerns about chest ache, started in October, no travel no surgery no pain swelling in calves, no cancer history Saw Dr. Rome in the past for LBBB years ago workup was done back in 2020 she is also had previous MRI/MRA of her brain and carotids which were unremarkable but she was told she had a TIA back in 2021. Was able later to find a CT angio of her heart that was done in 2020 which did show suspected disease within the proximal LAD that was felt to be none clinically significant at that time. Multiple family members with heart issues, old sister had CABG x 2 at about same age currently Carotids evaluated in 2021 appeared normal Review of Systems Constitutional: Negative for chills and fever. HENT: Negative for congestion and sore throat. Respiratory: Positive for cough (periodic in nature, more freqent lately over past few months), chest tightness and shortness of breath. Cardiovascular: Negative for chest pain. Gastrointestinal: Negative for abdominal pain, diarrhea, nausea and vomiting. Genitourinary: Negative for difficulty urinating, dysuria, frequency and urgency. Musculoskeletal: Negative for back pain. Neurological: Negative for dizziness and light-headedness. All other systems reviewed and are negative. Allergies Allergen Reactions Chlorpheniramine-Phenylephrine Outpatient Medications Prior to Visit Medication Sig Dispense Refill acetaminophen (Tylenol 8 Hour) 650 MG ER tablet aspirin 81 MG EC tablet Every 24 hours. atorvastatin (Lipitor) 40 MG tablet Take 1 tablet (40 mg) by mouth daily. 90 tablet 1 celecoxib (CeleBREX) 100 MG capsule take 1 capsule by mouth q day prn with food 90 capsule 1 clindamycin (Cleocin) 2 % vaginal cream insert 1 applicatorful vaginally at bedtime for 7 days montelukast (Singulair) 10 MG tablet Take 1 tablet (10 mg) by mouth Nightly. 90 tablet 1 Multiple Vitamin (multivitamin) tablet Take 1 tablet by mouth daily. omega-3 (Fish Oil) 1000 MG capsule 1 capsule Every 24 hours. omeprazole (PriLOSEC) [address] capsule Take 1 capsule (40 mg) by mouth daily. 90 capsule 1 perindopril (Aceon) 8 MG tablet Take 1 tablet (8 mg) by mouth 2 times daily for 360 doses. 180 tablet 1 triamcinolone (Kenalog) 0.5 % cream Apply topically 3 times daily. 45 g 1 cholecalciferol (D3-5) 5,000 Units tablet Take by mouth. Coenzyme Q10 100 MG tablet Take by mouth daily. tamsulosin (Flomax) 0.4 MG 24 hr capsule Take 0.4 mg by mouth daily. No facility-administered medications prior to visit. Past Medical History: Diagnosis Date Allergic rhinitis Breast cancer screening 03/[address] Owusu Carpal tunnel syndrome bilateral Eczema Family history of coronary artery disease sister and brother 50s Family history of diabetes mellitus mother and sister Family history of lung cancer both parents Gall bladder polyp GERD (gastroesophageal reflux disease) 2008 repeat EGD done 05/02 [place] H/O colonoscopy 04/2014 [facility]- due 04/2024 History of hysterectomy 05/2020 prolapse History of renal stone 04/2021 left side, cysto per Dr. Cooney History of shingles 2013 mid thorax, rt side Hypertension 2008 09/06 ECHO LVEF 53% Left bundle branch block 01/2020 LVEF 45 % per ECHO- had Cardiology consult w/ Dr. Rome , CT scan, no cath Multiple renal cysts 2007 OAB (overactive bladder) 2019 Osteoarthritis, shoulder Osteopenia 2017 per [facility] - no ch 04/08 [facility] Plantar fasciitis of left foot 2013 hx of podiatry/ortho eval Routine gynecological examination [facility] care per Chung Merida. TIA (transient ischemic attack) 08/2021 left facial weakness for few min, ? complicated migraine Social History Tobacco Use Smoking status: Never Smokeless tobacco: Never Substance Use Topics Alcohol use: Yes Alcohol/week: 0.0 standard drinks of alcohol Past Surgical History: Procedure Laterality Date BLADDER SUSPENSION 2020 CARPAL TUNNEL RELEASE Left 2013 Dr. Lion COLONOSCOPY 04/2014 [place]ski, due 2024 CYSTOSCOPY 06/2021 Ivet- no stone evident DILATION AND CURETTAGE OF UTERUS MENISCECTOMY Right 2016 [place] TONSILLECTOMY AND ADENOIDECTOMY (HISTORICAL) TOTAL VAGINAL HYSTERECTOMY 2020 Dr. Mae, [facility] TUBAL LIGATION UPPER GASTROINTESTINAL ENDOSCOPY 2014 [place]ski- due 2019- pt deferring UPPER GASTROINTESTINAL ENDOSCOPY 2008 [place] Family History Problem Relation Name Age of Onset Dementia Mother High Blood Pressure Mother 70 pacemaker, Colon polyps Mother Lung cancer Mother 60 COPD Mother age 77 of COPD- smoker Diabetes Mother Lung cancer Father 64 age 67 , smoker No Known Problems Sister Miracle Other ([id number]) Sister Perla Spinal DDD w/neuropathy Multiple sclerosis Sister Perla Diabetes Sister Sheila Coronary artery disease Sister Sheila 55 CABG Cancer Sister Coleen ? primary stomach to liver at age 60 Rheum arthritis Brother Zheng Prostate cancer Brother Zheng Coronary artery disease Brother Zheng Breast cancer Maternal Grandmother ?age Diabetes Maternal Grandfather Diabetes Paternal Grandmother COPD Paternal Grandfather Objective BP (!) 170/94 Pulse 74 Temp 36.4 C (97.5 F) (Temporal) Ht 5' 1.5 (1.562 m) Wt 159 lb (72.1 kg) SpO2 98% BMI 29.56 kg/m Physical Exam Vitals reviewed. Constitutional: General: She is not in acute distress. Appearance: Normal appearance. She is not ill-appearing or toxic-appearing. Eyes: General: No scleral icterus. Conjunctiva/sclera: Conjunctivae normal. Pupils: Pupils are equal, round, and reactive to light. Neck: Vascular: No carotid bruit. Cardiovascular: Rate and Rhythm: Normal rate and regular rhythm. Heart sounds: Normal heart sounds. No murmur heard. Pulmonary: Effort: Pulmonary effort is normal. No respiratory distress. Breath sounds: Normal breath sounds. No wheezing or rales. Abdominal: General: Bowel sounds are normal. There is no distension. Palpations: Abdomen is soft. Tenderness: There is no abdominal tenderness. There is no guarding. Musculoskeletal: Cervical back: Normal range of motion and neck supple. No rigidity or tenderness. Right lower leg: No edema. Left lower leg: No edema. Skin: General: Skin is warm and dry. Coloration: Skin is not jaundiced or pale. Neurological: Mental Status: She is alert. Psychiatric: Mood and Affect: Mood normal. Data Reviewed and Summarized Labs: ECHO done 02/27/2020 1. Left ventricle: Average myocardial peak systolic LV global longitudinal strain is -14 (Mildly impaired, pattern suggestive of LV dyssynchrony). The cavity size is normal. Wall thickness is mildly increased. Systolic function is mildly decreased by visual assessment. The estimated ejection fraction is 45%. Mild global hypokinesis with paradoxical septal motion due to LBBB. Doppler parameters are consistent with abnormal left ventricular relaxation (grade 1 diastolic dysfunction). 2. Right ventricle: The cavity size is normal. Systolic function is normal. Right ventricular systolic pressure is within the normal range. 3. No significant valve disease. Imaging/Testing: Thomas Fields PA-C 11/08/2023 Please note that portions of this note may have been completed with voice recognition software. Documentation reviewed prior to signing but minor errors in applications systems analyst may have occurred. documented in this encounter [facility] 06-07-2023 Telephone encounter Note Referral pended for dx and doctor's signature [facility] 06-07-2023 Miscellaneous Notes Referral pended for dx and doctor's signature documented in this encounter [facility] 06-07-2023 History of Present illness Narrative Images from the original note were not included. [facility] [address] [place] [address] [address] [facility] [id number] Visit type: Established Patient Reason for Visit: Follow-up (6 month med check ) Assessment / Plan: Jovany was seen today for follow-up. Diagnoses and all orders for this visit: Essential hypertension (Primary) Comments: Stable, continue Aceon Orders: - CBC auto differential; Future - Comprehensive metabolic panel; Future - CBC auto differential - Comprehensive metabolic panel Mixed hypercholesterolemia and hypertriglyceridemia Comments: Stable, decrease Lipitor to 40 mg every other day at her request Orders: - Lipid panel; Future - Lipid panel Gastroesophageal reflux disease without esophagitis Comments: Stable, continue Prilosec and GI precautions with Celebrex Encounter for monitoring NSAID therapy Comments: Stable takes Celebrex extremely rare and with the Palpitations Comments: Unchanged EKG, left bundle branch noted. She defers cardiology eval Orders: - Magnesium; Future - Magnesium - ECG 12 lead; Future - ECG 12 lead Nonrheumatic mitral valve regurgitation Primary osteoarthritis of knee, unspecified laterality Comments: Minimal, Celebrex as needed Unable to lose weight Comments: Noted, low-carb meals, dietitian consultation Other orders - atorvastatin (Lipitor) 40 MG tablet; Take 1 tablet (40 mg) by mouth daily. - montelukast (Singulair) 10 MG tablet; Take 1 tablet (10 mg) by mouth Nightly. - omeprazole (PriLOSEC) [address] capsule; Take 1 capsule (40 mg) by mouth daily. - perindopril (Aceon) 8 MG tablet; Take 1 tablet (8 mg) by mouth 2 times daily for 360 doses. - triamcinolone (Kenalog) 0.5 % cream; Apply topically 3 times daily. - Flu vaccine quadrivalent, for patients ages 65+, (Fluad) preservative free Subjective: Patient ID: Jovany Sommers is a 67 y.o. female. HPI hypertensive patient with history of left bundle branch block and mild mitral regurgitation and lipid management presents for checkup. Overall feeling well. Disappointed some weight gain. He is taking Lipitor every other day. Denies exertional chest pain or shortness of breath but is having some rare palpitations. Are short-lived. Not really occur with activity. Might be precipitated by acid reflux. Review of Systems weight is slightly up. No recent earache sore throat or headache. No chest pain or exertional dyspnea. No PND orthopnea or edema. Of note echocardiogram showed possible diminished ejection fraction 3 years ago. No cardiology follow-up was recommended after consultation. No heartburn or dysphagia. Takes Celebrex rarely for left knee pain. Prilosec has been pretty effective. Needs panendoscopy next year. Recent breast exam normal. Mammogram pending. Allergies Allergen Reactions Chlorpheniramine-Phenylephrine Current Outpatient Medications on File Prior to Visit Medication Sig Dispense Refill acetaminophen (Tylenol 8 Hour) 650 MG ER tablet aspirin 81 MG EC tablet Every 24 hours. celecoxib (CeleBREX) 100 MG capsule take 1 capsule by mouth q day prn with food 90 capsule 1 cholecalciferol (D3-5) 5,000 Units tablet Take by mouth. Coenzyme Q10 100 MG tablet Take by mouth daily. [DISCONTINUED] atorvastatin (Lipitor) 40 MG tablet Take 1 tablet (40 mg) by mouth daily. 90 tablet 1 [DISCONTINUED] montelukast (Singulair) 10 MG tablet Take 1 tablet (10 mg) by mouth Nightly. 90 tablet 1 [DISCONTINUED] omeprazole (PriLOSEC) [address] capsule Take 1 capsule (40 mg) by mouth daily. 90 capsule 1 [DISCONTINUED] perindopril (Aceon) 8 MG tablet Take 1 tablet (8 mg) by mouth 2 times daily for 360 doses. 180 tablet 1 [DISCONTINUED] triamcinolone (Kenalog) 0.5 % cream Apply 1 application topically 3 times daily. clindamycin (Cleocin) 2 % vaginal cream insert 1 applicatorful vaginally at bedtime for 7 days omega-3 (Fish Oil) 1000 MG capsule 1 capsule Every 24 hours. tamsulosin (Flomax) 0.4 MG 24 hr capsule Take 0.4 mg by mouth daily. No current facility-administered medications on file prior to visit. Patient Active Problem List Diagnosis Left bundle branch block OAB (overactive bladder) Osteoarthritis, shoulder Plantar fasciitis of left foot Allergic rhinitis Eczema Multiple renal cysts Family history of coronary artery disease Carpal tunnel syndrome Family history of diabetes mellitus Essential hypertension GERD (gastroesophageal reflux disease) Gall bladder polyp Family history of lung cancer Mixed hypercholesterolemia and hypertriglyceridemia TIA (transient ischemic attack) Nonrheumatic mitral valve regurgitation Encounter for monitoring NSAID therapy Primary osteoarthritis of knee Social History Tobacco Use Smoking status: Never Smokeless tobacco: Never Substance Use Topics Alcohol use: Yes Alcohol/week: 0.0 standard drinks of alcohol Past Surgical History: Procedure Laterality Date BLADDER SUSPENSION 2020 CARPAL TUNNEL RELEASE Left 2013 Dr. Lion COLONOSCOPY 04/2014 Ramonita, due 2024 CYSTOSCOPY 06/2021 Ivet- no stone evident DILATION AND CURETTAGE OF UTERUS MENISCECTOMY Right 2016 [place] TONSILLECTOMY AND ADENOIDECTOMY (HISTORICAL) TOTAL VAGINAL HYSTERECTOMY 2020 Dr. Mae, [facility] TUBAL LIGATION UPPER GASTROINTESTINAL ENDOSCOPY 2014 [place]- due 2020- pt deferring UPPER GASTROINTESTINAL ENDOSCOPY 2008 [place] Family History Problem Relation Name Age of Onset Dementia Mother High Blood Pressure Mother 70 pacemaker, Colon polyps Mother Lung cancer Mother 60 COPD Mother age 77 of COPD- smoker Diabetes Mother Lung cancer Father 64 age 67 , smoker No Known Problems Sister Miracle Other ([id number]) Sister Perla Spinal DDD w/neuropathy Multiple sclerosis Sister Perla Diabetes Sister Sheila Coronary artery disease Sister Sheila 55 CABG Cancer Sister Coleen ? primary stomach to liver at age 60 Rheum arthritis Brother Zheng Prostate cancer Brother Zheng Coronary artery disease Brother Zheng Breast cancer Maternal Grandmother ?age Diabetes Maternal Grandfather Diabetes Paternal Grandmother COPD Paternal Grandfather Objective: BP 122/71 (BP Location: Left arm, Patient Position: Sitting, BP Cuff Size: Large adult) Pulse 69 Temp 36.2 C (97.1 F) (Temporal) Ht 5' 1.5 (1.562 m) Wt 161 lb (73 kg) SpO2 97% BMI 29.93 kg/m Physical Exam The physical exam is generally normal. Patient appears well, alert and oriented x 3, pleasant, cooperative. Vitals are as noted. No carotid bruits. Neck supple, no abnormal adenopathy, thyroid lesions or masses. Ears, nose and throat are normal without acute findings. Lungs are clear to auscultation. Heart is regular, with faint MR murmur, no gallops or ectopy. Abdomen is soft, non tender, without masses, hepatosplenomegaly, or bruits. Normal BS evident. Extremities are normal without edema. Peripheral pulses are fair. No worrisome skin lesions. Screening neurological exam is normal without focal deficits. documented in this encounter [facility] 05-30-2023 Miscellaneous Notes Patient is aware. Malena Pedroza ----- Message from Josselyn Owusu MD sent at 05/29/2023 6:01 PM EST ----- Please call patient. Your vaginal culture shows group B strep.a prescription for vaginal clindamycin will be sent to your pharmacy. Josselyn Owusu MD documented in this encounter [facility] 05-25-2023 History of Present illness Narrative SUBJECTIVE Jovany Sommers is a 67 year old woman who presents for her annual exam. Last pap- 01/18/22. Discussed discontinuing paps d/t normal paps and age; pt to decide. Last mammo- 03/26/22. Last dexascan-03/26/22. No LMP recorded. Patient has had a hysterectomy. Denies vaginal itching, burning, discharge. Discussed health maintenance, including regular aerobic exercise, low sugar diet, and periodic exams. Pt states every once in a while she feels like she has an infection but don't and sometimes after sex there is a raw feeling. HISTORIES FAMILY HISTORY Problem Relation Age of Onset Hypertension Mother Diabetes Mother COPD Mother other (lung cancer) Mother 67 other (lung cancer) Father 65 Cancer Sister 59 stomach/liver Prostate Cancer Brother 56 Heart Brother enlarged heart Breast Cancer Maternal Grandmother Diabetes Paternal Grandmother Hypertension Sister Heart disease Sister Coronary Artery Disease Sister Diabetes Sister Drug abuse Son No Known Problems Granddaughter PAST MEDICAL HISTORY Diagnosis Date Abnormal Pap smear of cervix 11/2011 ascus/-HPV 10/02 pap wnl/-HPV Calculus, renal Cystocele, midline Esophageal reflux Facial droop 08/31/2021 GERD (gastroesophageal reflux disease) Hematuria Hemorrhoids HLD (hyperlipidemia) Hypertension LBBB (left bundle branch block) Menopause Other atopic dermatitis Rectocele Short-term memory loss Slurred speech 08/31/2021 Stress incontinence Uterine fibroid Uterovaginal prolapse PAST SURGICAL HISTORY Procedure Laterality Date CARPAL TUNNEL 2013 COLONOSCOPY 2013 due in 5 years KNEE SURGERY HX 2015 PAST SURGICAL HISTORY OF 06/2021 kidney stone TONSILLECTOMY HX TUBAL LIGATION UTERINE ARTERY EMBOLIZ 10/2003 VAGINAL HYSTERECTOMY 2020 partial Social History Tobacco Use Smoking status: Never Smokeless tobacco: Never Vaping Use Vaping Use: Never used Substance Use Topics Alcohol use: Yes Drug use: No ACTIVE PROBLEM LIST Calcaneal Spur Plantar Fasciitis Atopic Rhinitis Carpal Tunnel Syndrome Eczema Gerd (Gastroesophageal Reflux Disease) Hypertension Multiple Renal Cysts Osteoarthritis of Shoulder Polyp of Gallbladder Torn Cartilage Mixed Hypercholesterolemia and Hypertriglyceridemia Tia (Transient Ischemic Attack) Nephrolithiasis Prediabetes Class 1 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 This will decrease the efficacy of your Plavix so you should not take this until after you are off Plavix. ubidecarenone (COENZYME Q10) 100 mg tab Take by mouth once daily. aspirin, enteric coated (ASPIRIN, ENTERIC COATED) 81 mg EC tablet Take 1 tablet by mouth once daily. cholecalciferol (VITAMIN D3) 5,000 unit tab Take 5,000 Units by mouth daily montelukast (SINGULAIR) 10 mg tablet Take 10 mg by mouth daily at bedtime. perindopril (ACEON) 8 mg tablet Take 4 mg by mouth twice daily. Red Yeast Rice Extract 600 mg cap 1 capsule. (Patient not taking: Reported on 05/25/2023) tamsulosin (FLOMAX) 0.4 mg Take 0.4 mg by mouth. (Patient not taking: Reported on 05/25/2023) triamcinolone acetonide (KENALOG) 0.5 % cream Apply 1 Application to affected area. (Patient not taking: Reported on 05/25/2023) doxazosin (CARDURA) 1 mg tablet TAKE 1 TABLET BY MOUTH NIGHTLY. (Patient not taking: Reported on 05/25/2023) lisinopril (ZESTRIL, PRINIVIL) 5 mg tablet Take 1 tablet by mouth. (Patient not taking: Reported on 05/25/2023) atorvastatin (LIPITOR) 40 mg tablet Take 1 tablet by mouth daily at bedtime. fluticasone (FLONASE) 50 mcg/actuation nasal spray Use 1 [place] in each nostril as needed. (Patient not taking: Reported on 05/25/2023) docosahexaenoic acid/epa (FISH OIL ORAL) Take 1 tablet by mouth. (Patient not taking: Reported on 05/25/2023) No current facility-administered medications for this visit. REVIEW OF SYSTEMS GENERAL: No weight loss, malaise or fevers HEENT: No changes in hearing or vision NECK: Negative for lumps, goiter, pain and significant neck swelling RESPIRATORY: Negative for cough, wheezing, dyspnea or shortness of breath CARDIOVASCULAR: Negative for chest pain or palpitations GI: Negative for abdominal discomfort, blood in stools or black stools, change in bowel habit, diarrhea, nausea, vomiting, constipation : No history of dysuria, frequency or incontinence SLATE HANDLER: Negative for abnormal vaginal bleeding, abnormal vaginal discharge or Breast symptoms ENDOCRINE: Negative for cold or heat intolerance, polyuria, polydipsia and goiter NEURO: No history of headaches, syncope, paralysis, seizures or tremors OBJECTIVE BP 118/74 Ht 5' 1 (1.55m) Wt 160 lb (72.6kg) BMI 30.25 kg/(m^2). HEENT: Within normal limits NECK: Supple, no thyromegaly BREASTS: No masses, no nipple discharge HEART: Regular rate and rhythm without murmur, rub, or gallop LUNGS: Clear bilaterally to auscultation ABDOMEN: No masses, non tender, no hernias, no hepatosplenomegaly PELVIC: EGBUS: No lesions, normal appearance VAGINA: atrophy, No discharge, no blood, no lesions CERVIX: absent UTERUS: Absent ADNEXA: Non tender, no masses RECTOVAGINAL: Not examined EXTREMITIES: No edema, no calf tenderness NEUROLOGICAL: Grossly intact ASSESSMENT/PLAN: 1. Gynecologic exam normal - ICD9: V72.31, ICD10: Z01.419 (primary diagnosis) - Completed pelvic and breast exam - Encouraged monthly BSE - Follow up for annual exam in one year. - MARIAJOSE SCREENING W DAVE 2. Breast cancer screening by mammogram - ICD9: V76.12, ICD10: Z12.31 - MARIAJOSE SCREENING W DAVE 3. Screening for osteoporosis - ICD9: V82.81, ICD10: Z13.820 - DXA-AXIAL SKELETON 4. Menopause - ICD9: 627.2, ICD10: Z78.0 - DXA-AXIAL SKELETON 5. Vaginal discharge - ICD9: 623.5, ICD10: N89.8 - SURESWAB(R) ADV GRISELDA VAGINITIS (CV), TMA - CULTURE, AEROBIC BACTERIA 6. Colon cancer screening - ICD9: V76.51, ICD10: Z12.11 - COLOGUARD 7. Vaginal atrophy - ICD9: 627.3, ICD10: N95.2 VIA sample given; declines estrogen or DHEA MD Felisha aSlvador MA No follow-ups on file. documented in this encounter [facility] 12-03-2022 History of Present illness Narrative Images from the original note were not included. [facility] [address] [id number] Visit type: Established Patient Reason for Visit: Follow-up (6 month) Assessment / Plan: Jovany was seen today for follow-up. Diagnoses and all orders for this visit: Essential hypertension (Primary) Comments: Stable, continue Aceon Orders: - CBC auto differential; Future - Comprehensive metabolic panel; Future - CBC auto differential - Comprehensive metabolic panel Mixed hypercholesterolemia and hypertriglyceridemia Comments: Stable, continue Lipitor Orders: - Lipid panel; Future - TSH; Future - Lipid panel - TSH Gastroesophageal reflux disease without esophagitis Encounter for monitoring NSAID therapy History of TIA (transient ischemic attack) Comments: Noted, possible complicated migraine, continue aspirin and other meds Other orders - celecoxib (CeleBREX) 100 MG capsule; take 1 capsule by mouth q day prn with food - atorvastatin (Lipitor) 40 MG tablet; Take 1 tablet (40 mg) by mouth daily. - montelukast (Singulair) 10 MG tablet; Take 1 tablet (10 mg) by mouth Nightly. - omeprazole (PriLOSEC) [address] capsule; Take 1 capsule (40 mg) by mouth daily. - perindopril (Aceon) 8 MG tablet; Take 1 tablet (8 mg) by mouth 2 times daily for 360 doses. Subjective: Patient ID: Jovany Sommers is a 66 y.o. female. HPI hypertension lipid management and NSAID monitoring. Recently was placed on Celebrex by Ortho and she feels better. Taking it a few days a week. Exercising regularly. Having some knee arthralgia. No NSAID issues with that med. Of note stop visual supplements and acid reflux and belching improved. Contacted GI who deferred doing colonoscopy since she has no history of polyps. No history of colon cancer. Acid reflux is stable and takes omeprazole daily. Does not smoke or drink. Review of Systems no recent phlegm cough or fever. No chest pain palpitations dyspnea. No recurrent TIA symptoms. No dysphagia. No abdominal pain. Bowels regular. No melena or blood. Overall feeling well and enjoying her jail Allergies Allergen Reactions Chlorpheniramine-Phenylephrine Current Outpatient Medications on File Prior to Visit Medication Sig Dispense Refill acetaminophen (Tylenol 8 Hour) 650 MG ER tablet aspirin 81 MG EC tablet Every 24 hours. cholecalciferol (D3-5) 5,000 Units tablet Take by mouth. Coenzyme Q10 100 MG tablet Take by mouth daily. [DISCONTINUED] atorvastatin (Lipitor) 40 MG tablet Take 1 tablet (40 mg) by mouth daily. 90 tablet 1 [DISCONTINUED] celecoxib (CeleBREX) 100 MG capsule take 1 capsule by mouth twice a day if needed [DISCONTINUED] montelukast (Singulair) 10 MG tablet Take 1 tablet (10 mg) by mouth Nightly. 90 tablet 1 [DISCONTINUED] omeprazole (PriLOSEC) [address] capsule Take 1 capsule (40 mg) by mouth daily. 90 capsule 1 [DISCONTINUED] perindopril (Aceon) 8 MG tablet Take 1 tablet (8 mg) by mouth 2 times daily for 180 doses. 180 tablet 1 omega-3 (Fish Oil) 1000 MG capsule 1 capsule Every 24 hours. tamsulosin (Flomax) 0.4 MG 24 hr capsule Take 0.4 mg by mouth daily. triamcinolone (Kenalog) 0.5 % cream Apply 1 application topically 3 times daily. No current facility-administered medications on file prior to visit. Patient Active Problem List Diagnosis Left bundle branch block Prolapsed uterus OAB (overactive bladder) Osteoarthritis, shoulder Plantar fasciitis of left foot Allergic rhinitis Eczema Multiple renal cysts Family history of coronary artery disease Carpal tunnel syndrome Family history of diabetes mellitus Essential hypertension GERD (gastroesophageal reflux disease) Gall bladder polyp Family history of lung cancer Mixed hypercholesterolemia and hypertriglyceridemia TIA (transient ischemic attack) Social History Tobacco Use Smoking status: Never Smokeless tobacco: Never Substance Use Topics Alcohol use: Yes Alcohol/week: 0.0 standard drinks of alcohol Past Surgical History: Procedure Laterality Date BLADDER SUSPENSION 2020 CARPAL TUNNEL RELEASE Left 2013 Dr. Lion COLONOSCOPY 04/2014 [place]ski, due 2024 CYSTOSCOPY 06/2021 Ivet- no stone evident DILATION AND CURETTAGE OF UTERUS MENISCECTOMY Right 2015 [place] TONSILLECTOMY AND ADENOIDECTOMY (HISTORICAL) TOTAL VAGINAL HYSTERECTOMY 2020 Dr. Mae, [facility] TUBAL LIGATION UPPER GASTROINTESTINAL ENDOSCOPY 2014 Turowski- due 2020- pt deferring UPPER GASTROINTESTINAL ENDOSCOPY 2008 [place] Family History Problem Relation Name Age of Onset Dementia Mother High Blood Pressure Mother 70 pacemaker, Colon polyps Mother Lung cancer Mother 60 COPD Mother age 77 of COPD- smoker Diabetes Mother Lung cancer Father 64 age 67 , smoker No Known Problems Sister Miracle Other ([id number]) Sister Perla Spinal DDD w/neuropathy Diabetes Sister Sheila Coronary artery disease Sister Sheila 55 CABG Cancer Sister Coleen ? primary stomach to liver at age 60 Rheum arthritis Brother Zheng Prostate cancer Brother Zheng Coronary artery disease Brother Zheng Breast cancer Maternal Grandmother ?age Diabetes Maternal Grandfather Diabetes Paternal Grandmother COPD Paternal Grandfather Objective: BP 127/77 (BP Location: Left arm, Patient Position: Sitting, BP Cuff Size: Large adult) Pulse 72 Temp 36.6 C (97.8 F) (Temporal) Ht 5' 1.5 (1.562 m) Wt 159 lb 9.6 oz (72.4 kg) SpO2 96% BMI 29.67 kg/m Physical Exam The physical exam is generally normal. Patient appears well, alert and oriented x 3, pleasant, cooperative. Vitals are as noted. No carotid bruits. Neck supple, no abnormal adenopathy. Lungs are clear to auscultation. Heart is regular, without murmurs, gallops or ectopy. Abdomen is soft, non tender, without masses, hepatosplenomegaly, or bruits. Normal BS evident. Extremities are normal without edema. Peripheral pulses are fair. No worrisome skin lesions. Screening neurological exam is normal without focal deficits. documented in this encounter [facility] 06-11-2022 History of Present illness Narrative Images from the original note were not included. [facility] [address] [place] [id number] Visit type: Established Patient Reason for Visit: Follow-up (6 month) Assessment / Plan: Jovany was seen today for follow-up. Diagnoses and all orders for this visit: Essential hypertension (Primary) - CBC auto differential; Future - Comprehensive metabolic panel; Future - CBC auto differential - Comprehensive metabolic panel Gastroesophageal reflux disease without esophagitis Mixed hypercholesterolemia and hypertriglyceridemia - Lipid panel; Future - Lipid panel Other orders - atorvastatin (Lipitor) 40 MG tablet; Take 1 tablet (40 mg) by mouth daily. - montelukast (Singulair) 10 MG tablet; Take 1 tablet (10 mg) by mouth Nightly. - omeprazole (PriLOSEC) [address] capsule; Take 1 capsule (40 mg) by mouth daily. - perindopril (Aceon) 8 MG tablet; Take 1 tablet (8 mg) by mouth 2 times daily for 180 doses. - Pneumococcal conjugate vaccine 20-valent IM (PREVNAR 20) Subjective: Patient ID: Jovany Sommers is a 66 y.o. female. HPI see other note Review of Systems see other note Allergies Allergen Reactions Chlorpheniramine-Phenylephrine Current Outpatient Medications on File Prior to Visit Medication Sig Dispense Refill acetaminophen (Tylenol 8 Hour) 650 MG ER tablet aspirin 81 MG EC tablet Every 24 hours. cholecalciferol (D3-5) 5,000 Units tablet Take by mouth. Coenzyme Q10 100 MG tablet Take by mouth daily. doxazosin (Cardura) 1 MG tablet omega-3 (Fish Oil) 1000 MG capsule 1 capsule Every 24 hours. [DISCONTINUED] atorvastatin (Lipitor) 40 MG tablet [DISCONTINUED] montelukast (Singulair) 10 MG tablet [DISCONTINUED] omeprazole (PriLOSEC) [address] capsule Take 1 capsule by mouth daily. [DISCONTINUED] perindopril (Aceon) 8 MG tablet Every 24 hours. tamsulosin (Flomax) 0.4 MG 24 hr capsule Take 0.4 mg by mouth daily. triamcinolone (Kenalog) 0.5 % cream Apply 1 application topically 3 times daily. No current facility-administered medications on file prior to visit. Patient Active Problem List Diagnosis Left bundle branch block Prolapsed uterus OAB (overactive bladder) Osteoarthritis, shoulder Plantar fasciitis of left foot Allergic rhinitis Eczema Multiple renal cysts Family history of coronary artery disease Carpal tunnel syndrome Family history of diabetes mellitus Essential hypertension GERD (gastroesophageal reflux disease) Gall bladder polyp Family history of lung cancer Mixed hypercholesterolemia and hypertriglyceridemia TIA (transient ischemic attack) Social History Tobacco Use Smoking status: Never Smokeless tobacco: Never Substance Use Topics Alcohol use: Yes Alcohol/week: 0.0 standard drinks Past Surgical History: Procedure Laterality Date BLADDER SUSPENSION 05/2020 CARPAL TUNNEL RELEASE Left 03/2014 Dr. Lion COLONOSCOPY 04/2014 Turowski, due 2019 CYSTOSCOPY 06/2021 Ivet- no stone evident DILATION AND CURETTAGE OF UTERUS MENISCECTOMY Right 04/2015 [place] TONSILLECTOMY AND ADENOIDECTOMY (HISTORICAL) TOTAL VAGINAL HYSTERECTOMY 05/2020 Dr. Mae, [facility] TUBAL LIGATION UPPER GASTROINTESTINAL ENDOSCOPY 2014 Turowski- due 2019 UPPER GASTROINTESTINAL ENDOSCOPY 2008 [place] Family History Problem Relation Name Age of Onset Lung cancer Father 64.00 age 67 , smoker Dementia Mother No Known Problems Sister Miracle High Blood Pressure Mother 70.00 pacemaker, Colon polyps Mother Lung cancer Mother 60.00 Breast cancer Maternal Grandmother ?age Other ([id number]) Sister Perla neuropathy COPD Mother age 77 of COPD- smoker Rheum arthritis Brother Zheng Prostate cancer Brother Zheng Coronary artery disease Brother Zheng Diabetes Mother Diabetes Sister Sheila Coronary artery disease Sister Sheila 55.00 CABG Cancer Sister Coleen ? primary stomach to liver at age 60 Objective: BP 135/86 (BP Location: Left arm, Patient Position: Sitting, BP Cuff Size: Large adult) Pulse 67 Temp 36.6 C (97.8 F) (Temporal) Ht 5' 1.5 (1.562 m) Wt 165 lb 12.8 oz (75.2 kg) SpO2 98% BMI 30.82 kg/m Physical Exam see other note Images from the original note were not included. [facility] [address] [id number] Visit type: Established Patient Reason for Visit: Follow-up (6 month) Assessment / Plan: Jovany was seen today for follow-up. Diagnoses and all orders for this visit: Essential hypertension (Primary) Comments: Stable, continue Aceon and stop Cardura Orders: - CBC auto differential; Future - Comprehensive metabolic panel; Future - CBC auto differential - Comprehensive metabolic panel Gastroesophageal reflux disease without esophagitis Mixed hypercholesterolemia and hypertriglyceridemia Comments: Stable, continue Lipitor Orders: - Lipid panel; Future - Lipid panel Colon cancer screening - [facility]; Future Other orders - atorvastatin (Lipitor) 40 MG tablet; Take 1 tablet (40 mg) by mouth daily. - montelukast (Singulair) 10 MG tablet; Take 1 tablet (10 mg) by mouth Nightly. - omeprazole (PriLOSEC) [address] capsule; Take 1 capsule (40 mg) by mouth daily. - perindopril (Aceon) 8 MG tablet; Take 1 tablet (8 mg) by mouth 2 times daily for 180 doses. - Pneumococcal conjugate vaccine 20-valent IM (PREVNAR 20) Subjective: Patient ID: Jovany Sommers is a 66 y.o. female. HPI hypertension lipid management. Patient stopped ACEI due to difficulty urinating. Feeling a lot better. Recent mammogram up-to-date. Needs colonoscopy. Review of Systems no recurrent TIA symptoms. Compliant with meds. [facility]. No recent earache sore throat or cough. No chest pain palpitations PND orthopnea claudication or edema. No heartburn or dysphagia. No melena or blood. Bowels are regular. No postmenopausal bleeding. Rare arthralgia. Allergies Allergen Reactions Chlorpheniramine-Phenylephrine Current Outpatient Medications on File Prior to Visit Medication Sig Dispense Refill acetaminophen (Tylenol 8 Hour) 650 MG ER tablet aspirin 81 MG EC tablet Every 24 hours. cholecalciferol (D3-5) 5,000 Units tablet Take by mouth. Coenzyme Q10 100 MG tablet Take by mouth daily. omega-3 (Fish Oil) 1000 MG capsule 1 capsule Every 24 hours. [DISCONTINUED] atorvastatin (Lipitor) 40 MG tablet [DISCONTINUED] doxazosin (Cardura) 1 MG tablet [DISCONTINUED] montelukast (Singulair) 10 MG tablet [DISCONTINUED] omeprazole (PriLOSEC) [address] capsule Take 1 capsule by mouth daily. [DISCONTINUED] perindopril (Aceon) 8 MG tablet Every 24 hours. tamsulosin (Flomax) 0.4 MG 24 hr capsule Take 0.4 mg by mouth daily. triamcinolone (Kenalog) 0.5 % cream Apply 1 application topically 3 times daily. No current facility-administered medications on file prior to visit. Patient Active Problem List Diagnosis Left bundle branch block Prolapsed uterus OAB (overactive bladder) Osteoarthritis, shoulder Plantar fasciitis of left foot Allergic rhinitis Eczema Multiple renal cysts Family history of coronary artery disease Carpal tunnel syndrome Family history of diabetes mellitus Essential hypertension GERD (gastroesophageal reflux disease) Gall bladder polyp Family history of lung cancer Mixed hypercholesterolemia and hypertriglyceridemia TIA (transient ischemic attack) Social History Tobacco Use Smoking status: Never Smokeless tobacco: Never Substance Use Topics Alcohol use: Yes Alcohol/week: 0.0 standard drinks Past Surgical History: Procedure Laterality Date BLADDER SUSPENSION 05/2020 CARPAL TUNNEL RELEASE Left 03/2014 Dr. Lion COLONOSCOPY 04/2014 [place], due 2019 CYSTOSCOPY 06/2021 Ivet- no stone evident DILATION AND CURETTAGE OF UTERUS MENISCECTOMY Right 04/2015 [place] TONSILLECTOMY AND ADENOIDECTOMY (HISTORICAL) TOTAL VAGINAL HYSTERECTOMY 05/2020 Dr. Mae, [facility] TUBAL LIGATION UPPER GASTROINTESTINAL ENDOSCOPY 2014 [place]- due 2019 UPPER GASTROINTESTINAL ENDOSCOPY 2008 [place] Family History Problem Relation Name Age of Onset Lung cancer Father 64.00 age 67 , smoker Dementia Mother No Known Problems Sister Miracle High Blood Pressure Mother 70.00 pacemaker, Colon polyps Mother Lung cancer Mother 60.00 Breast cancer Maternal Grandmother ?age Other ([id number]) Sister Perla neuropathy COPD Mother age 77 of COPD- smoker Rheum arthritis Brother Zheng Prostate cancer Brother Zheng Coronary artery disease Brother Zheng Diabetes Mother Diabetes Sister Sheila Coronary artery disease Sister Sheila 55.00 CABG Cancer Sister Coleen ? primary stomach to liver at age 60 Objective: BP 135/86 (BP Location: Left arm, Patient Position: Sitting, BP Cuff Size: Large adult) Pulse 67 Temp 36.6 C (97.8 F) (Temporal) Ht 5' 1.5 (1.562 m) Wt 165 lb 12.8 oz (75.2 kg) SpO2 98% BMI 30.82 kg/m Physical Exam The physical exam is generally normal. Patient appears well, alert and oriented x 3, pleasant, cooperative. Vitals are as noted. No carotid bruits. Neck supple, no abnormal adenopathy, thyroid lesions or masses. Ears, nose and throat are normal without acute findings. Lungs are clear to auscultation. Heart is regular, without murmurs, gallops or ectopy. Abdomen is soft, non tender, without masses, hepatosplenomegaly, or bruits. Normal BS evident. Extremities are normal without edema. Peripheral pulses are fair. No worrisome skin lesions. Screening neurological exam is normal without focal deficits. documented in this encounter [facility] 04-29-2022 Miscellaneous Notes Spoke with pt she did not have additional imaging because Dr. Owusu says it was no longer needed. See addendum on mammogram results After comparing your mammogram to prior 2017 imaging, there has been no interval change. A repeat screening mammogram is recommended in 1 yr. Josselyn Owsuu MD Left message to return call to office to see if she had imaging done yet.. Aarti Betancourt documented in this encounter [facility] 03-26-2022 History of Present illness Narrative Radiology Service Progress Note PATIENT NAME: Jovany Sommers DATE OF SERVICE: March 26, 2022 TIME: 9:11 AM PATIENT IDENTITY VERIFICATION COMPLETED USING TWO (2) IDENTIFIERS: Name and Date of confirmed by patient verbally. FALL SCREENING: Has the patient had 2 falls in the last year or 1 fall with injury or currently using an Ambulatory Assistive Device (Walker, Cane, Wheelchair, Crutches, etc.)? No PATIENT GENDER DATA: Female. status: : No status: NO. PATIENT RELEVANT IMPLANT DATA REVIEWED: Yes RADIOLOGY DEPARTMENT: Mammography PERIPHERAL IV DATA: Not applicable SIGNED BY: RT Christiano(R) March 26, 2022 9:11 AM documented in this encounter [facility] 01-18-2022 History of Present illness Narrative SUBJECTIVE Jovany Sommers is a 66 year old woman who presents for her annual exam. Last pap- 10/10/19. Last mammo- 11/20/19. Last dexascan-11/20/19. No LMP recorded. Patient has had a hysterectomy. Denies vaginal itching, burning, discharge. Discussed health maintenance, including regular aerobic exercise, low sugar diet, and periodic exams. Encouraged flu vaccine. HISTORIES FAMILY HISTORY Problem Relation Age of Onset Hypertension Mother Diabetes Mother COPD Mother other (lung cancer) Mother 67 other (lung cancer) Father 65 Cancer Sister 59 stomach/liver Prostate Cancer Brother 56 Heart Brother enlarged heart Breast Cancer Maternal Grandmother Diabetes Paternal Grandmother Hypertension Sister Heart disease Sister Coronary Artery Disease Sister Diabetes Sister Drug abuse Son No Known Problems Granddaughter PAST MEDICAL HISTORY Diagnosis Date Abnormal Pap smear of cervix 11/2011 ascus/-HPV 10/02 pap wnl/-HPV Calculus, renal Cystocele, midline Esophageal reflux Facial droop 08/31/2021 GERD (gastroesophageal reflux disease) Hematuria Hemorrhoids HLD (hyperlipidemia) Hypertension LBBB (left bundle branch block) Menopause Other atopic dermatitis Rectocele Short-term memory loss Slurred speech 08/31/2021 Stress incontinence Uterine fibroid Uterovaginal prolapse PAST SURGICAL HISTORY Procedure Laterality Date CARPAL TUNNEL 2014 COLONOSCOPY 2014 due in 5 years KNEE SURGERY HX 2015 PAST SURGICAL HISTORY OF 06/2021 kidney stone TONSILLECTOMY HX TUBAL LIGATION UTERINE ARTERY EMBOLIZ 10/2003 VAGINAL HYSTERECTOMY 2020 partial Social History Tobacco Use Smoking status: Never Smokeless tobacco: Never Vaping Use Vaping Use: Never used Substance Use Topics Alcohol use: Yes Drug use: No ACTIVE PROBLEM LIST Calcaneal Spur Plantar Fasciitis Atopic Rhinitis Carpal Tunnel Syndrome Eczema Gerd (Gastroesophageal Reflux Disease) Hypertension Multiple Renal Cysts Osteoarthritis of Shoulder Polyp of Gallbladder Torn Cartilage Mixed Hypercholesterolemia and Hypertriglyceridemia Tia (Transient Ischemic Attack) Nephrolithiasis Prediabetes Class 1 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 lisinopril (ZESTRIL, PRINIVIL) 5 mg tablet Take 1 tablet by mouth. atorvastatin (LIPITOR) 40 mg tablet Take 1 tablet by mouth daily at bedtime. omeprazole (PRILOSEC) 40 mg capsule Take 1 capsule by mouth once daily. This will decrease the efficacy of your Plavix so you should not take this until after you are off Plavix. ubidecarenone (COENZYME Q10) 100 mg tab Take by mouth once daily. aspirin, enteric coated (ASPIRIN, ENTERIC COATED) 81 mg EC tablet Take 1 tablet by mouth once daily. cholecalciferol (VITAMIN D3) 5,000 unit tab Take 5,000 Units by mouth daily fluticasone (FLONASE) 50 mcg/actuation nasal spray Use 1 [place] in each nostril as needed. montelukast (SINGULAIR) 10 mg tablet Take 10 mg by mouth daily at bedtime. docosahexaenoic acid/epa (FISH OIL ORAL) Take 1 tablet by mouth. perindopril (ACEON) 8 mg tablet Take 4 mg by mouth twice daily. clopidogrel (PLAVIX) 75 mg tablet Take 1 tablet by mouth once daily for 21 days. atenolol (TENORMIN) 50 mg tablet Take 50 mg by mouth once daily. (Patient not taking: Reported on 01/18/2022) No current facility-administered medications for this visit. REVIEW OF SYSTEMS GENERAL: No weight loss, malaise or fevers HEENT: No changes in hearing or vision NECK: Negative for lumps, goiter, pain and significant neck swelling RESPIRATORY: Negative for cough, wheezing, dyspnea or shortness of breath CARDIOVASCULAR: Negative for chest pain or palpitations GI: Negative for abdominal discomfort, blood in stools or black stools, change in bowel habit, diarrhea, nausea, vomiting, constipation : No history of dysuria, frequency or incontinence SLATE HANDLER: Negative for abnormal vaginal bleeding, abnormal vaginal discharge or Breast symptoms ENDOCRINE: Negative for cold or heat intolerance, polyuria, polydipsia and goiter NEURO: No history of headaches, syncope, paralysis, seizures or tremors OBJECTIVE Ht 5' 1 (1.55m) Wt 163 lb (73.9kg) BMI 30.81 kg/(m^2). HEENT: Within normal limits NECK: Supple, no thyromegaly BREASTS: No masses, no nipple discharge HEART: Regular rate and rhythm without murmur, rub, or gallop LUNGS: Clear bilaterally to auscultation ABDOMEN: No masses, non tender, no hernias, no hepatosplenomegaly PELVIC: EGBUS: No lesions, normal appearance VAGINA: No discharge, no blood, no lesions CERVIX: No lesions, non tender UTERUS: Anteverted, normal size, non tender ADNEXA: Non tender, no masses RECTOVAGINAL: Neg for heme or mass (FIT) EXTREMITIES: No edema, no calf tenderness NEUROLOGICAL: Grossly intact ASSESSMENT/PLAN: 1. Gynecologic exam normal - ICD9: V72.31, ICD10: Z01.419 (primary diagnosis) - PAP REFLEX HPV MRNA WHEN ASCUS - MARIAJOSE SCREENING W DAVE 2. Encounter for screening for malignant neoplasm of vagina - ICD9: V76.47, ICD10: Z12.72 - PAP REFLEX HPV MRNA WHEN ASCUS 3. Breast cancer screening by mammogram - ICD9: V76.12, ICD10: Z12.31 - MARIAJOSE SCREENING W DAVE 4. Screening for osteoporosis - ICD9: V82.81, ICD10: Z13.820 - DXA-AXIAL SKELETON 5. Menopause - ICD9: 627.2, ICD10: Z78.0 - DXA-AXIAL SKELETON MD Aarti Salvador No follow-ups on file. documented in this encounter [facility] 09-01-2021 Note HNO ID: [id number] Author: Zayda Otto RN Service: Care Management Author Type: Registered Nurse Type: Care Mgt Progress Note Filed: 09/01/2021 4:19 PM Note Text: CARE MANAGEMENT PROGRESS NOTE SERVICE DATE: 09/01/2021 SERVICE TIME: 4:12 PM LOS: 0 days 65 yr female admitted with Slurred Speech, L Facial Droop. Neuro consulted. This patient has been screened for Care Management Transitional Planning Services. At this time, it does not appear this patient will require transition planning services. Should this change, and the patient require transition planning services during this admission, please contact the case packer and sealer assigned to the floor. Thank you. SIGNATURE: Zayda Otto RN,BSN, ACM PATIENT NAME: Jovany Sommers DATE: September 01, 2021 TIME: 4:12 PM PAGER/CONTACT #: [phone] [facility] 08-31-2021 Note COVID 19 RESULT: SARS-CoV-2 (Agent of COVID-19) Not Detected by RT-PCR or equivalent method. This test has been authorized by FDA under an Emergency Use Authorization (EUA). INFLUENZA A PCR: Negative for Influenza A by RT-PCR INFLUENZA B PCR: Negative for Influenza B by RT-PCR RSV PCR: Negative for Respiratory Syncytial Virus (RSV) by PCR [facility] Comment on above: Performed By: #### [id number] ####[facility] [id number] [place] [address] [place] 08-31-2021 History of Past i llness Narrative Problem Noted Date Resolved Date Slurred speech 08/31/2021 09/01/2021 Facial droop 08/31/2021 09/01/2021 documented as of this encounter (statuses as of 01/18/2022) [facility] History of Past illness Narrative* Problem Noted Date Resolved Date Slurred speech 08/31/2021 09/01/2021 Facial droop 08/31/2021 09/01/2021 documented as of this encounter (statuses as of 03/27/2022) [facility] History of Past illness Narrative* Problem Noted Date Resolved Date Slurred speech 08/31/2021 09/01/2021 Facial droop 08/31/2021 09/01/2021 documented as of this encounter (statuses as of 03/29/2022) [facility] History of Past illness Narrative* Problem Noted Date Resolved Date Slurred speech 08/31/2021 09/01/2021 Facial droop 08/31/2021 09/01/2021 documented as of this encounter (statuses as of 04/29/2022) [facility] History of Past illness Narrative* Problem Noted Date Diagnosed Date Resolved Date Slurred speech 08/31/2021 09/01/2021 Facial droop 08/31/2021 09/01/2021 documented as of this encounter (statuses as of 05/25/2023) [facility] History of Past illness Narrative* Problem Noted Date Diagnosed Date Resolved Date Slurred speech 08/31/2021 09/01/2021 Facial droop 08/31/2021 09/01/2021 documented as of this encounter (statuses as of 05/30/2023) [facility] History and physical note* Imelda Murphy APRN.DELIVERER [employer]OD - 08/21/2021 8:00 AM EDT HISTORY AND PHYSICAL EXAMINATION SERVICE DATE: 08/20/2021 SERVICE TIME: 8:17 AM PRIMARY CARE PHYSICIAN: Jasper Zeng REASON FOR VISIT: Jovany Sommers is a 65 year old female who is scheduled for Procedure(s): EXTRACORPOREAL SHOCKWAVE LITHOTRIPSY UNILATERAL (Left) at the request of Dr. Janes Cooney for routine H&P. My final recommendation will be communicated back to the requesting physician by way ofshared medical record or letter. Subjective The patient has the following: ACTIVE PROBLEM LIST Calcaneal Spur Plantar Fasciitis Atopic Rhinitis Carpal Tunnel Syndrome Eczema Gastroesophageal Reflux Disease Hypertension Multiple Renal Cysts Osteoarthritis of Shoulder Polyp of Gallbladder Torn Cartilage Mixed Hypercholesterolemia and Hypertriglyceridemia COVID-19 Immunization Status Overdue - COVID-19 VACCINE (1) Overdue - never done No completion, postpone, frequency change, or communication history exists for this topic. CHIEF COMPLAINT: Calculus, renal (N20.0) HPI: Patient is a 65 year old female here for a preoperative exam. Pt has a history of kidney stones. She presented to the ED in April 2021 with flank pain and nausea. She recently had surgery to remove a stone in June of 2021. Pt has a 6mm left renal stone present. Pr currently denies pain, hematuria or dysuria. Pt is scheduled for ESWL with Dr. Cooney. Pt discussed with surgeon and agrees tosurgical intervention. REVIEW OF SYSTEMS: General: Negative for: unintentional weight change, malaise and fever. Neurological: Negative for: headaches, seizures and strokes. Respiratory: Negative for: asthma, COPD, URI < 2 weeks and obstructive sleep apnea. Cardiovascular: Positive for: hyperlipidemia and hypertension Negative for: arrhythmia, CAD, chest pain, CHF and DVT/PE. GI: Positive for: GERD Negative for: abdominal pain, nausea and vomiting. : See HPI Positive for: nephrolithiasis. Negative for: dysuria, hematuria and renal failure. SLATE HANDLER: Negative for abnormal vaginal bleeding, abnormal vaginal discharge. Endocrine: Negative for: diabetes mellitus and hypothyroidism. Hematology: Positive for: chronic anti-coagulation/platelet meds. Patient is on anti- coagulation/platelet medication(s): Aspirin. Negative for: anemia, factor V Leiden and von Willebrand disease. Oncology: No history of CA metastasis, chemo within 30 days, or radiotherapy within 90 days. No history of oncological symptoms or problems. Psych: Negative for: anxiety and depression. Musculoskeletal: Negative for joint pain or swelling, back pain or muscle pain. Skin: Negative for lesions, rash and itching. PAST MEDICAL HISTORY Diagnosis Date Abnormal Pap smear of cervix 11/2011 ascus/-HPV 6/17 pap wnl/-HPV Calculus, renal Cystocele, midline Esophageal reflux GERD (gastroesophageal reflux disease) Hematuria Hemorrhoids HLD (hyperlipidemia) Hypertension LBBB (left bundle branch block) Menopause Other atopic dermatitis Rectocele Short-term memory loss Stress incontinence Uterine fibroid Uterovaginal prolapse PAST SURGICAL HISTORY Procedure Laterality Date CARPAL TUNNEL 2014 COLONOSCOPY 2014 due in 5 years KNEE SURGERY HX 2015 PAST SURGICAL HISTORY OF 06/2021 kidney stone TONSILLECTOMY HX TUBAL LIGATION UTERINE ARTERY EMBOLIZ 10/2003 VAGINAL HYSTERECTOMY 2020 partial FAMILY HISTORY Problem Relation Age of Onset Hypertension Mother Diabetes Mother COPD Mother other (lung cancer) Mother 67 other (lung cancer) Father 65 Cancer Sister 59 stomach/liver Prostate Cancer Brother 56 Heart Brother enlarged heart Breast Cancer Maternal Grandmother Diabetes Paternal Grandmother Hypertension Sister Heart disease Sister Coronary Artery Disease Sister Diabetes Sister Drug abuse Son No Known Problems Granddaughter Social History Tobacco Use Smoking status: Never Smoker Smokeless tobacco: Never Used Vaping Use Vaping Use: Never used Substance Use Topics Alcohol use: No Drug use: No Prior to Admission medications as of 08/21/21 0751 Medication Sig Last Dose Taking ubidecarenone (COENZYME Q10) 100 mg tab Take by mouth once daily. Taking Yes aspirin, enteric coated (ASPIRIN, ENTERIC COATED) 81 mg EC tablet Take 1 tablet by mouth once daily. Taking Yes atenolol (TENORMIN) 50 mg tablet Take 50 mg by mouth once daily. Taking Yes keTORolac (TORADOL) 10 mg tablet Take 1 tablet by mouth every 6 hours as needed for up to 15 doses.Taking Yes cholecalciferol (VITAMIN D3) 5,000 unit tab Take 5,000 Units by mouth daily Taking Yes fluticasone (FLONASE) 50 mcg/actuation nasal spray Use 1 [place] in each nostril as needed. Taking Yes montelukast (SINGULAIR) 10 mg tablet Take 10 mg by mouth daily at bedtime. Taking Yes omeprazole 40 mg capsule Take 40 mg by mouth once daily. Taking Yes docosahexaenoic acid/epa (FISH OIL ORAL) Take 1 tablet by mouth. Taking Yes perindopril (ACEON) 8 mg tablet Take 4 mg by mouth twice daily. Taking Yes Naproxen Sodium (ALEVE) 220 mg ORAL Tab Take by mouth as needed. Taking Yes tamsulosin (FLOMAX) 0.4 mg take 1 capsule by mouth once daily Patient not taking: Reported on 08/20/2021 No medication comments found. ALLERGIES No Known Allergies Objective PHYSICAL EXAM: General: alert and oriented and healthy appearance. Pertinent negatives noted - not distressed. Skin: normal color, no rash or lesions. HEENT: No additional findings for patient's neck. Cardiovascular: regular rate and rhythm, normal S1 and S2, no rub, murmurs, or gallop. Respiratory: normal breath sounds, no wheezes or crackles. No chest wall deformity or tenderness. Abdomen: bowel sounds present and soft. Pertinent negatives noted - not tender. Extremities: no deformity, no edema or tenderness, no joint swelling or clubbing. Neurological: normal cognition and motor skills. Gait normal. No weakness or sensory deficit. PAIN ASSESSMENT: VITALS: BP 146/79 Pulse 54 Temp 98.8 Resp 18 Ht 5' 1 (1.55m) Wt 154 lb (69.9kg) SpO2 97% BMI29.11 kg/(m^2). Diagnostic tests reviewed for today's visit: Lab Value Units Date High Low HB 13.7 g/dL 05/05/2021 15.5 11.5 HCT 41.5 % 05/05/2021 46.0 36.0 WBC 14.27 k/uL 05/05/2021 11.00 3.70 PLT 223 k/uL 05/05/2021 400 150 NA 138 mmol/L 05/05/2021 144 136 K 3.7 mmol/L 05/05/2021 5.1 3.7 GLUC 126 mg/dL 05/05/2021 99 74 BUN 19 mg/dL 05/05/2021 21 7 CREAT 0.76 mg/dL 05/05/2021 0.96 0.58 PTSEC No results within date range. INR No results within date range. APTT No results within date range. ALT No results within date range. AST No results within date range. TBILI No results within date range. TSH No results within date range. Lab Value Units Date High Low HCGQT No results within date range. UHCG No results within date range. HCG, BODY* No results within date range. Lab Value Units Date High Low ABORHD No results within date range. ABSCREEN No results within date range. No results found for: HBA1C Recent Results (from the past 8760 hour(s)) ECG COMPLETE Collection Time: 06/19/21 11:10 AM Result Value Ventricular Rate 45 Atrial Rate 45 P-R Interval 180 QRS Duration 150 QT Interval 528 QTC Calculation (Bazett) 456 Calculated P [place] 16 Calculated R [place] 114 Calculated T [place] -101 Impression SINUS BRADYCARDIA POSSIBLE LEFT ATRIAL ENLARGEMENT NON-SPECIFIC INTRA-VENTRICULAR CONDUCTION BLOCK POSSIBLE LATERAL INFARCT , AGE UNDETERMINED ABNORMAL ECG NO PREVIOUS ECGS AVAILABLE Confirmed by MD MAYELA, ZEN ([id number]) on 06/23/2021 8:59:45 AM No results found for this or any previous visit (from the past 25059 hour(s)). Assessment No problem-specific Assessment & Plan notes found for this encounter. Implantable Devices: None Patient has the following medical conditions which may affect muna-operative course HTN - Well controlled on medication, Instructed to take morning of surgery. BP elevated in PST, pt denies PEDERSEN, CP or vision changes. Pt advised to monitor and discuss with PCP Hyperlipidemia - diet controlled Left Bundle Branch Block - CT coronary angiography normal, no significant coronary atherosclerosis 04/2020 Pt taking ASA for heart health I instructed hold 7 days prior to surgery. The Following Tests/Procedures Have Been Initiated: No orders per surgeon in [facility]. Urine culture ordered per NILSA in PST. Assessment/Plan Diagnosis: Calculus, renal [N20.0] PLAN Planned Procedure: Procedure(s): EXTRACORPOREAL SHOCKWAVE LITHOTRIPSY UNILATERAL (Left) METS: Climb a flight of stairs or walk up a hill (5.50 METs) DASI Score: 5.5; Patient denies any chest pain or undue shortness of breath with the above physicalactivity. ANESTHESIA FINDINGS: Intubation History: No history of difficult intubation. No abnormal airway history Significant Anesthesia Considerations: none Airway History: No history of difficult airway No abnormal airway history I - PHYSICAL EVALUATION DENTAL Dental findings: teeth intact. II - ANESTHESIA PLAN Anesthetic Plan: general Prepared for Surgery: . No consults pending CONSULTS: The Following Tests/Procedures Have Been Initiated: Orders Placed This Encounter Urine Culture Standing Status: Future Standing Expiration Date: 10/19/2021 Order Specific Question: QUEST - SOURCE Answer: URINE- MIDSTREAM CLEAN CATCH (537) Planned Anesthetic: general Instructions Given to Patient: Instructions located in the after visit summary. Patient given verbal and written preop instructions and voices comprehension and compliance. SIGNATURE: Imelda Murphy APRN.CNP PATIENT NAME: Jovany Sommers DATE: August 20, 2021 TIME: 9:30 AM PAGER/CONTACT #: [facility] Instructions* Patient Instructions* Imelda Murphy APRN.CNP - 08/21/2021 8:00 AM EDT PATIENT PREOPERATIVE INSTRUCTIONS Dr. Cooney has scheduled you for your procedure at this surgery center: [facility]: [phone], [address], [place] [address] Please read below carefully for your personalized instructions. Arrival Time for Surgery: DATE: 09/01/2021 OR TIME: 10:15 AM CHECK IN TIME: 8:15 AM Please be aware that emergency situations arise, which may delay or change your surgical time. If this happens, we will notify you as soon as possible and regret any inconvenience. Dietary Restrictions: - No solid food after midnight. - You may have 12 ounces of clear liquids (water, clear juices such as apple juice or gatorade, carbonated beverages, clear tea, black coffee, jello) until 2 hours before scheduled arrival at facility. Do not eat or drink anything, including water and coffee, after 6:15 AM on the morning of your surgery. This is important because if you do, your surgery may have to be cancelled Blood Thinning Medications: - Stop NSAIDS (Ibuprofen, Advil, Aleve, Motrin, Celebrex, Mobic, Voltaren, Diclofenac etc.) 7 days before surgery, as directed by your surgeon. IF YOU TAKE ANY OF THE FOLLOWING BLOOD THINNERS, PLEASE CONTACT YOUR SURGEON AND THE PHYSICIAN WHO PRESCRIBES IT FOR YOU IN ORDER TO GET PERIOPERATIVE INSTRUCTIONS SOON POSSIBLE. BLOOD THINNERS: Aspirin , Coumadin, Plavix, Eliquis, Pradaxa, Xarelto, Lovenox, Brilinta, Effient, Savaysa, Arixtra, etc - Stop Vitamin E, fish oil, multivitamins, Marijuana, CBD oil and other over the counter herbals and dietary supplements 7 days before surgery. ?-This would not apply to cancer patients who are prescribed Marinol or any other prescription formon marijuana or CBD. Medications: Approved medications to take the morning of surgery with a sip of water: BP, Heart, thyroid, psych,seizure, and pain medications excluding NSAIDS. Use inhalers as prescribed. Please bring inhalers. Please follow up with the provider that manages your diabetes and how to prepare you for surgery. If you are taking the following medications for Type 2 diabetes: Canagliflozin (INVOKANA), dapagliflozin (FARXIGA), and empagliflozin (JARDIANCE) should each be discontinued at least 3 days before scheduled surgery. Ertugliflozin (STEGLATRO) should be discontinued at least four days before scheduled surgery. Pain Medications: - Your pain medication may cause thinning of your blood. Please see directions for Blood Thinning Medications. Medications to be taken with small amount of fluid on the morning of surgery: see medication list If you start any new medications after today's visit, please contact the surgeon's office. Important Reminders: -- If you have a stimulator, implant or pump that requires a remote please bring the remote with you day of surgery. - If you use CPAP/BIPAP, bring the machine with you to the surgery center. - If you are prescribed inhalers for breathing, continue using them AND bring them to the surgery center. - Candy, mints, gum and tobacco products are NOT permitted the morning of surgery. - Hearing aids, dentures and glasses may be worn the morning of surgery. - NO jewelry, body piercings, makeup, hairpins or contacts are to be worn the day of surgery. -NO keys, wallet, watches, or purses -Oral hygiene and a shower or bath is required the evening before or the morning of surgery. Use the Loop88 body wash supplied to you along with the instruction. - NO lotion, creams, powders or deodorants on the skin the day of surgery -Wear loose, comfortable clothing that will accommodate bandages. -Your length of stay will be determined by your surgeon - You will need to have someone else (Family or friend) drive you home once discharged from the hospital. You are not allowed to drive yourself home after surgery. - YOU MUST HAVE A RESPONSIBLE CAR WASH ATTENDANT TAKE YOU HOME. A DEBRANDER, CAB OR UBER CAR WASH ATTENDANT CANNOT BE MADEA RESPONSIBLE CAR WASH ATTENDANT. - We recommend that a responsible person stays with you overnight to take care of you. - You cannot stay in a hotel alone after outpatient surgery. You will not be permitted to have yoursurgery, if you do not have someone to take care of you. --IF you are having a TOTAL KNEE or HIP REPLACEMENT please bring your walker into the building withyou. Update to visitor policy. Current policy will allow for 2 visitors. We are not allowing children inour waiting room. No food or drink is allowed. Everyone must keep their masks on. We are not allowing a visitor in our PACU area unless a minor, japanese interpreter or a special circumstance. Each patient isallowed two visitor on the day of surgery/procedure. Visitors will be asked to wear a mask that covers their nose and mouth at all times. The visitors will be allowed to stay with the patient prior to going to surgery/procedure. No visitors are allowed in our recovery room. -It is recommended patients have a 72 hour period between getting their vaccine and date of surgery. If you develop symptoms such as a fever, cold, or flu, or have other changes to your health within TWO DAYS of scheduled surgery or the morning of surgery, please contact the surgery center above. Personal Belongings: - Leave ALL valuables and money at home or with family members. - You will need a form of ID and insurance card to check in the morning of surgery. - You will have to wear a hospital gown during your stay but if you wish to bring undergarments forafter surgery you may. Imelda Murphy APRN.CNP 08/19/21 [facility] History of Present illness Narrative* Janes Cooney MD - 07/15/2021 4:52 PM EDT VIRTUAL VISIT PROGRESS NOTE This is a virtual visit using [facility] video visit. It required patient-provider interaction for themedical decision making as documented below. Jovany Sommers is a 65 year old female seen for stone follow up. HISTORY REVIEWED (electronic chart updated): PAST MEDICAL HISTORY Diagnosis Date Abnormal Pap smear of cervix 11/2011 ascus/-HPV 6/17 pap wnl/-HPV Cystocele, midline Esophageal reflux GERD (gastroesophageal reflux disease) Hematuria Hemorrhoids HLD (hyperlipidemia) Hypertension LBBB (left bundle branch block) Menopause Other atopic dermatitis Rectocele Stress incontinence Uterine fibroid Uterovaginal prolapse PAST SURGICAL HISTORY Procedure Laterality Date CARPAL TUNNEL 2014 COLONOSCOPY 2014 due in 5 years KNEE SURGERY HX 2015 TONSILLECTOMY HX TUBAL LIGATION UTERINE ARTERY EMBOLIZ 10/2003 VAGINAL HYSTERECTOMY 2020 partial FAMILY HISTORY Problem Relation Age of Onset Hypertension Mother Diabetes Mother COPD Mother other (lung cancer) Mother 67 other (lung cancer) Father 65 Cancer Sister 59 stomach/liver Prostate Cancer Brother 56 Heart Brother enlarged heart Breast Cancer Maternal Grandmother Diabetes Paternal Grandmother Hypertension Sister Heart disease Sister Coronary Artery Disease Sister Diabetes Sister Drug abuse Son No Known Problems Granddaughter Social History Tobacco Use Smoking status: Never Smoker Smokeless tobacco: Never Used Vaping Use Vaping Use: Never used Substance Use Topics Alcohol use: No Drug use: No Current Outpatient Medications Medication Sig tamsulosin (FLOMAX) 0.4 mg take 1 capsule by mouth once daily atenolol (TENORMIN) 50 mg tablet keTORolac (TORADOL) 10 mg tablet Take 1 tablet by mouth every 6 hours as needed for up to 15 doses. Azelastine HCl (OPTIVAR) 0.05 % ophthalmic solution instill 1 drop into both eyes twice a day if needed (Patient not taking: Reported on 06/26/2021) cholecalciferol (VITAMIN D3) 5,000 unit tab Take 5,000 Units by mouth daily fluticasone (FLONASE) 50 mcg/actuation nasal spray montelukast (SINGULAIR) 10 mg tablet omeprazole 40 mg capsule docosahexaenoic acid/epa (FISH OIL ORAL) Take 1 tablet by mouth. aspirin-calcium carbonate 81 mg-300 mg calcium(777 mg) tab Take 81 mg by mouth. POTASSIUM CHLORIDE (KLOR-CON ORAL) Take by mouth. (Patient not taking: Reported on 06/26/2021 ) perindopril (ACEON) 8 mg tablet Take 8 mg by mouth once daily. Naproxen Sodium (ALEVE) 220 mg ORAL Tab prn No current facility-administered medications for this visit. ALLERGIES Allergen Reactions Novahistine [Chlorp* canker sore REVIEW OF SYSTEMS: GENERAL: feeling well without fatigue, no recent change in weight PHYSICAL EXAMINATION: VIDEO EXAM: (if completed, performed via video enabled technology) No exam performed 06/26/2021 C&P, left ureteroscopy-neg 05/05/2021 CT flank left 6mm distal, mod hydro, left 6mm renal, right mildly complex cyst PLAN: Left ureteral stone- pt passed, ureteroscopy was negative, pt feels great and no issues Left renal stone- 6mm renal stone, we discussed treatment options of following conservatively with repeat imaging or proceeding with ESWL. She is concerned about a acute colic episode again and thus wants to proceed with ESWL We discussed ESWL as well as the risks associated as outlined below ESWL / Emergent secondary procedure (ureteroscopy/stent) 04/999 Serious blood loss with transfusion After considering her options she wants to proceed with ESWL with the understanding that if the stone is not visible on KUB we will need to do a cystoscopy and pyelogram in addition to the ESWL I again stressed that her risk of steinstrasse (obstructing ureteral fragments) requiring urgent surgical intervention is about 1:100 and risk of serious bleeding requiring blood transfusion is about1:1000. I explained that stone may not break with ESWL and/or that fragments could get stuck in he ureter post op and thus additional procedures including ureteral stenting may be needed. I also discussed the fact that I Dr Cooney is a member of [employer] have an ownership percentage in the company providing your treatment and I thus benefit financially from kidney stone treatment procedures. If you have any questions about this, please discuss with me (Or call the [place] Management and Conflict of Interest Office at [phone]). ESWL pre-op checklist: Anticoagulants? no Ucx ordered yes Stone visible ? ; if no KUB ordered? yes Schedule left ESWL, urine cx order in (have pt do) There are no Patient Instructions on file for this visit. I spent a total of 15 minutes on the date of the service which included preparing to see the patient, [id number] patient care and completing clinical documentation Janes Cooney MD [facility] Diagnosis Left renal stone- Primary documented in this encounter [facility]* Diagnosis Left ureteral stone- Primary Calculus, renal Calculus of kidney documented in this [facility]* Diagnosis Preop examination- Primary Preoperative examination, unspecified Calculus, renal Calculus of kidney Hypertension, unspecified type Hyperlipidemia, unspecified hyperlipidemia type Left bundle branch block Other left bundle branch block Calculus, renal Calculus of kidney documented in this [facility]* Diagnosis Transient cerebral ischemic attack, unspecified TIA (transient ischemic attack) Unspecified transient cerebral ischemia documented in this encounter [facility] Work Phone: Evaluation note* Diagnosis Gynecologic exam normal- Primary Encounter for screening for malignant neoplasm of vagina Special screening for malignant neoplasms, vagina Breast cancer screening by mammogram Screening for osteoporosis Special screening for osteoporosis Menopause Symptomatic menopausal or female climacteric states [facility] Diagnosis Gynecologic exam normal Breast cancer screening by mammogram documented in this encounter [facility]* Diagnosis Abnormal mammogram- Primary Abnormal mammogram, unspecified documented in this [facility]* Diagnosis Essential hypertension- Primary Unspecified essential hypertension Mixed hypercholesterolemia and hypertriglyceridemia Mixed hyperlipidemia Gastroesophageal reflux disease without esophagitis Esophageal reflux Encounter for monitoring NSAID therapy History of TIA (transient ischemic attack) [facility]* Diagnosis Gynecologic exam normal- Primary Breast cancer screening by mammogram Screening for osteoporosis Special screening for osteoporosis Menopause Symptomatic menopausal or female climacteric states Vaginal discharge Leukorrhea, not specified as infective Colon cancer screening Special screening for malignant neoplasms, colon Vaginal atrophy Postmenopausal atrophic vaginitis documented in this encounter [facility] note* Diagnosis Essential hypertension- Primary Unspecified essential hypertension Mixed hypercholesterolemia and hypertriglyceridemia Mixed hyperlipidemia Gastroesophageal reflux disease without esophagitis Esophageal reflux Encounter for monitoring NSAID therapy Palpitations Nonrheumatic mitral valve regurgitation Primary osteoarthritis of knee, unspecified laterality Unable to lose weight [facility] Diagnosis Mixed hypercholesterolemia and hypertriglyceridemia- Primary Mixed hyperlipidemia Unable to lose weight [facility]* Diagnosis Dysuria- Primary Chest pain, unspecified type Essential hypertension Unspecified essential hypertension Left bundle branch block Other left bundle branch block [facility]* Diagnosis Dysuria- Primary Chest pain, unspecified type Essential hypertension Unspecified essential hypertension Left bundle branch block Other left bundle branch block [facility]* Diagnosis Chest pain, unspecified type Left bundle branch block Other left bundle branch block [facility]* Diagnosis Essential hypertension Unspecified essential hypertension [facility]* Diagnosis Mixed hypercholesterolemia and hypertriglyceridemia- Primary Mixed hyperlipidemia Chest pain, unspecified type Left bundle branch block Other left bundle branch block Nonrheumatic mitral valve regurgitation [facility]* Diagnosis Encounter for subsequent annual wellness visit (AWV) in Medicare patient- Primary Essential hypertension Unspecified essential hypertension LBBB (left bundle branch block) Other left bundle branch block Mixed hypercholesterolemia and hypertriglyceridemia Mixed hyperlipidemia Gastroesophageal reflux disease without esophagitis Esophageal reflux Nonrheumatic mitral valve regurgitation Subacute cough Routine general medical examination at [facility] Routine general medical examination at a [facility] Diagnosis Subacute cough [facility]* Diagnosis Encounter for subsequent annual wellness visit (AWV) in Medicare patient- Primary Essential hypertension Unspecified essential hypertension LBBB (left bundle branch block) Other left bundle branch block Mixed hypercholesterolemia and hypertriglyceridemia Mixed hyperlipidemia Gastroesophageal reflux disease without esophagitis Esophageal reflux Nonrheumatic mitral valve regurgitation Subacute cough Routine general medical examination at [facility] Routine general medical examination at a [facility] Subacute cough [facility] Diagnosis Essential hypertension Unspecified essential hypertension [facility]* Diagnosis Essential hypertension Unspecified essential hypertension [facility]* Diagnosis Essential hypertension Unspecified essential hypertension [facility]* Diagnosis Mixed hypercholesterolemia and hypertriglyceridemia- Primary Mixed hyperlipidemia Chest pain, unspecified type Left bundle branch block Other left bundle branch block Nonrheumatic mitral valve regurgitation Essential hypertension Unspecified essential hypertension Fatigue, unspecified type [facility]* Diagnosis Screening for osteoporosis Special screening for osteoporosis Menopause Symptomatic menopausal or female climacteric states [facility]* Diagnosis Gynecologic exam normal Breast cancer screening by mammogram documented in this [facility]* Diagnosis Essential hypertension- Primary Unspecified essential hypertension Gastroesophageal reflux disease without esophagitis Esophageal reflux Mixed hypercholesterolemia and hypertriglyceridemia Mixed hyperlipidemia Colon cancer screening Special screening for malignant neoplasms, colon [facility]* Diagnosis Gynecologic exam normal- Primary Encounter for screening for malignant neoplasm of vagina Special screening for malignant neoplasms, vagina Breast cancer screening by mammogram Menopause Symptomatic menopausal or female climacteric states Dysuria Urinary frequency Screening for depression documented [facility] this [facility]* Diagnosis Mixed hypercholesterolemia and hypertriglyceridemia- Primary Mixed hyperlipidemia Chest pain, unspecified type Left bundle branch block Other left bundle branch block Nonrheumatic mitral valve regurgitation Essential hypertension- Primary Unspecified essential hypertension Intrinsic eczema Gastroesophageal reflux disease without esophagitis Esophageal reflux Mixed hypercholesterolemia and hypertriglyceridemia Mixed hyperlipidemia Colon cancer screening Special screening for malignant neoplasms, colon Non-seasonal allergic rhinitis due to other allergic trigger Osteopenia, unspecified location Family history of diabetes mellitus [facility]* Diagnosis Mixed hypercholesterolemia and hypertriglyceridemia- Primary Mixed hyperlipidemia Chest pain, unspecified type Left bundle branch block Other left bundle branch block Nonrheumatic mitral valve regurgitation Colon cancer screening Special screening for malignant neoplasms, colon documented in this encounter [facility]* Diagnosis Mixed hypercholesterolemia and hypertriglyceridemia- Primary Mixed hyperlipidemia Chest pain, unspecified type Left bundle branch block Other left bundle branch block Nonrheumatic mitral valve regurgitation Essential hypertension Unspecified essential hypertension documented in this encounter [facility] noteNo assessment information availableWCoshocton [facility] Work Phone: Evaluation note* Diagnosis Mixed hypercholesterolemia and hypertriglyceridemia- Primary Mixed hyperlipidemia Chest pain, unspecified type Left bundle branch block Other left bundle branch block Nonrheumatic mitral valve regurgitation Essential hypertension Unspecified essential hypertension documented in this encounter [facility]* Diagnosis Onset Date Resolution Status Admit Date Abnormal results on imaging study of genitourinary system acute Au 2024 9:15am Recurrent UTI acute November 19, 2024 9:15am [facility] Work Phone: Evaluation note* Diagnosis Mixed hypercholesterolemia and hypertriglyceridemia- Primary Mixed hyperlipidemia Chest pain, unspecified type Left bundle branch block Other left bundle branch block Nonrheumatic mitral valve regurgitation Encounter for subsequent annual wellness visit (AWV) in Medicare patient- Primary LBBB (left bundle branch block) Other left bundle branch block Essential hypertension Unspecified essential hypertension Gastroesophageal reflux disease without esophagitis Esophageal reflux Mixed hypercholesterolemia and hypertriglyceridemia Mixed hyperlipidemia OAB (overactive bladder) Non-seasonal allergic rhinitis due to other allergic trigger Colon cancer screening Special screening for malignant neoplasms, colon Routine general medical examination at health care facility Routine general medical examination at a health care facility Gastroesophageal reflux disease without esophagitis- Primary Esophageal reflux Colon cancer screening Special screening for malignant neoplasms, colon documented in this encounter [facility] (narrative)* Diagnostic Procedure Only (Routine) - Pending Review Specialty Diagnoses / Procedures Referred By Contac t Referred To Contact [facility] Diagnoses Gynecologic exam normal Breast cancer screening by mammogram Procedures MARIAJOSE SCREENING W DAVE SCREENING DIGITAL BREAST TOMOSYNTHESIS BI SCREENING MAMMOGRAPHY BI 2-VIEW BREAST INC Josselyn Alex MD [address] [address] [facility] [place] [address] Referral ID Status Reason Start Date Expiration Date Visits Requested Visits Authorized [id number] Pending Review Auto-Generat ed Referral 01/18/2022 02/17/2023 1 1 [facility] for referral (narrative)* Diagnostic Procedure Only (Routine) - Closed Specialty Diagnoses / Procedures Referred By Yeseniaac t Referred To Contact [facility] Diagnoses Gynecologic exam normal Breast cancer screening by mammogram Procedures MARIAJOSE SCREENING W DAVE SCREENING DIGITAL BREAST TOMOSYNTHESIS BI SCREENING MAMMOGRAPHY BI 2-[place] [address] [place] [address] [facility] [address] [place] [address] Referral ID Status Reason Start Date Expiration Date V isits Requested Visits Authorized [id number] Closed Auto-Generate d Referral 01/18/2022 02/17/2023 1 1 [facility] for referral (narrative)* Diagnostic Procedure Only (Routine) - Pending Review Specialty Diagnoses / Procedures Referred By Coleman avitia Referred To Contact [facility] Diagnoses Abnormal mammogram Procedures MARIAJOSE DIAGNOSTIC RT DIAGNOSTIC MAMMOGRAPHY COMPUTER[place] [address] [place] [address] [facility] [address] [place] [address] Referral ID Status Reason Start Date Expiration Date Visits Requested Visits Authorized [id number] Pending Review Auto-Generat ed Referral 04/28/2023 1 1 * Diagnostic Procedure Only (Routine) - Pending Review Specialty Diagnoses / Procedures Referred By Coleman avitia Referred To Contact [facility] Diagnoses Abnormal mammogram Procedures MARIAJOSE DIAGNOSTIC LT DIAGNOSTIC MAMMOGRAPHY COMPUTER-AIDED DETCJ Josselyn Carnes MD [address] [address] [facility] [address] [place] [address] Referral ID Status Reason Start Date Expiration Date Visits Requested Visits Authorized [id number] Pending Review Auto-Generat ed Referral 2 04/28/2023 1 1 [facility] for referral (narrative)* Diagnostic Procedure Only (Routine) - Authorized Specialty Diagnoses / Procedures Referred By Contac t Referred To Contact [facility] Diagnoses Gynecologic exam normal Breast cancer screening by mammogram Procedures MARIAJOSE SCREENING W DAVE SCREENING DIGITAL BREAST TOMOSYNTHESIS BI SCREENING MAMMOGRAPHY BI 2-VIEW BREAST INC CAD Josselyn Owusu MD [address] [address] [facility] [address] [place] [address] Referral ID Status Reason Start Date Expiration Date Visits Requested Visits Authorized [id number] Authorized Auto-Generat ed Referral 05/25/2023 06/23/2024 1 1 [facility] for referral (narrative)* Consultation (Routine) - Pending Review Specialty Diagnoses / Procedures Referred By Coleman t Referred To Contact Nutrition / Internal Medicine Diagnoses Mixed hypercholesterolemia and hypertriglyceridemia Unable to lose weight Procedures SD OFFICE/OUTPATIENT NEW HIGH MDM 60 MINUTES Jasper Zeng DO [address] [facility] [address] [place] [address] [facility] [address] [place] [address] Referral ID Status Reason Start Date Expiration Date Visits Requested Visits Authorized [id number] Pending Review Specialty Services Required 06/07/2023 06/06/2024 1 1 [facility] for referral (narrative)* Consultation (Urgent) - Pending Review Specialty Diagnoses / Procedures Referred By Contac t Referred To Contact Cardiology Diagnoses Chest pain, unspecified type Left bundle branch block Procedures SD OFFICE/OUTPATIENT NEW HIGH MDM 60 MINUTES Thomas Fields PA-C [address] [place] [address] [facility] [address] [place] [address] Referral ID Status Reason Start Date Expiration Date Visits Requested Visits Authorized [id number] Pending Review Specialty Services Required 11/08/2023 11/07/2024 1 1 * Imaging (Emergency) - Pending Review Specialty Diagnoses / Procedures Referred By Contac t Referred To Contact Radiology Diagnoses Chest pain, unspecified type Left bundle branch block Procedures CTA HEART CORONARY ANGIOGRAM WITH PROV FFR-CT Thomas Fields PA-C [address] [place] [address] Referral ID Status Reason Start Date Expiration Date V isits Requested Visits Authorized [id number] Pending Review 11/08/2023 11/07/2024 1 1 * Imaging (Routine) - Pending Review Specialty Diagnoses / Procedures Referred By Contac t Referred To Contact Cardiology Diagnoses Essential hypertension Procedures Vascular US renal artery duplex complete Thomas Fields PA-C [address] [place] [address] Referral ID Status Reason Start Date Expiration Date V isits Requested Visits Authorized [id number] Pending Review 11/08/2023 11/07/2024 1 1 [facility] for referral (narrative)* Consultation (Urgent) - Authorized Specialty Diagnoses / Procedures Referred By Contac t Referred To Contact Cardiology Diagnoses Chest pain, unspecified type Left bundle branch block Procedures SD OFFICE/OUTPATIENT NEW HIGH MDM 60 MINUTES Thomas Fields PA-C [address] [place] [address] Rj Fields MD [address] [place] [address] Referral ID Status Reason Start Date Expiration Date Visits Requested Visits Authorized [id number] Authorized Specialty Services Required 11/08/2023 11/07/2024 1 1 * Imaging (Emergency) - Authorized Specialty Diagnoses / Procedures Referred By Contac t Referred To Contact Radiology Diagnoses Chest pain, unspecified type Left bundle branch block Procedures CTA HEART CORONARY ANGIOGRAM WITH PROV FFR-CT Thomas Fields PA-C [address] [place] [address] Referral ID Status Reason Start Date Expiration Date V isits Requested Visits Authorized [id number] Authorized 11/08/2023 11/07/2024 1 1 * Imaging (Routine) - Authorized Specialty Diagnoses / Procedures Referred By Contac t Referred To Contact Cardiology Diagnoses Essential hypertension Procedures Vascular US renal artery duplex complete Thomas Fields PA-C [address] [place] [address] Referral ID Status Reason Start Date Expiration Date V isits Requested Visits Authorized [id number] Authorized 11/08/2023 11/07/2024 1 1 [facility] for referral (narrative)* Consultation (Routine) - Pending Review Specialty Diagnoses / Procedures Referred By Contac t Referred To Contact Gastroenterology Diagnoses Encounter for screening for malignant neoplasm of colon Procedures SD OFFICE/OUTPATIENT NEW HIGH MDM 60-74 MINUTES Jasper Zeng, [address] [place] [address] Alberta Philippe MD [address] [place] [address] Referral ID Status Reason Start Date Expiration Date Visits Requested Visits Authorized [id number] Pending Review Specialty Services Required 06/11/2022 06/11/2023 1 1 [facility] for referral (narrative)No reason for referral information availableWCoshocton [facility] Work Phone: Advance Directives No Advanced Directives Records FoundDocuments on File Type Date Recorded Patient Travel Service Consultant Expl anation Advance Directives and Living Will Power of Metal Sprayer Protective Coating Documents on File Type Date Recorded Patient Travel Service Consultant Expl anation ACP-Advance Directive ACP-Power of Metal Sprayer Protective Coating Documents on File Type Date Recorded Patient Travel Service Consultant Expl anation Advance Directive(s) 06/26/2021 9:09 AM Advance Directive(s) 05/05/2021 2:45 PM Advance Directive(s) 02/26/2020 6:25 AM Latest Code Status on File Code Status Date Activated Date Inactivated Comments Full Code 08/31/2021 8:39 PM 09/01/2021 9:33 PM Full Code Order Discussed With: Patient Latest Code Status on File Code Status Date Activated Date Inactivated Comments Full Code 08/31/2021 8:39 PM 09/01/2021 9:33 PM Latest Code Status on File Code Status Date Activated Date Inactivated Comments Full Code 08/31/2021 8:39 PM 09/01/2021 9:33 PM Question Answer Comments Full Code Order Discussed With: Patient Latest Code Status on File Code Status Date Activated Date Inactivated Comments Full Code 08/31/2021 8:39 PM 09/01/2021 9:33 PM Question Answer Comments Full Code Order Discussed With: Patient Date Activated Date Inactivated Comments 08/31/2021 8:39 PM 09/01/2021 9:33 PM Question Answer Comments Full Code Order Discussed With: Patient Date Activated Date Inactivated Comments 08/31/2021 8:39 PM 09/01/2021 9:33 PM Question Answer Comments Full Code Order Discussed With: Patient Summary Purpose Family History No Family History Records Found Relationship Condition Age at Onset Recorded Date/T royal grandmother Malignant neoplasm of breast Unknown mother Malignant neoplasm of lung Unknown Diabetes mellitus Unknown Presence of cardiac pacemaker Unknown Cardiac disease Unknown father Malignant neoplasm of lung Unknown brother Malignant neoplasm of prostate Unknown Status post double v essel coronary artery bypass Unknown sister Malignant neoplasm of liver Unknown Reason for Referral Status Reason Specialty Diagnoses / Procedures Referre d By Contact Referred To Contact Open Cardiology Diagnoses Essential hypertension Left bundle branch block Procedures ECHO Complete 2D W Doppler W Color Jasper Zeng, DO [address] [place] [address] Specialty Diagnoses / Procedures Referred By Coleman t Referred To Contact Radiology Diagnoses TIA (transient ischemic attack) Procedures Cardiac event monitor Jasper Zeng, DO [address] [place] [address] Referral ID Status Reason Start Date Expiration Date Visits Re quested Visits Authorized [id number] Open 10/08/2021 10/08/2022 1 1 Specialty Diagnoses / Procedures Referred By Coleman t Referred To Contact Radiology Diagnoses Chest pain, unspecified type Left bundle branch block Procedures CTA HEART CORONARY ANGIOGRAM WITH PROV FFR-CT Thomas Fields PA-C [address] [place] [address] Referral ID Status Reason Start Date Expiration Date Visits Re quested Visits Authorized [id number] Closed 11/08/2023 11/07/2024 1 1 Specialty Diagnoses / Procedures Referred By Coleman t Referred To Contact Cardiology Diagnoses Essential hypertension Procedures Vascular US renal artery duplex complete Thomas Fields PA-C [address] [place] [address] Referral ID Status Reason Start Date Expiration Date Visits Re quested Visits Authorized [id number] Closed 11/08/2023 11/07/2024 1 1 Assessments Diagnosis Essential hypertension Unspecified essential hypertension Left bundle branch block Other left bundle branch block Chief Complaint and Reason for Visit Chief Complaint Admit Date UTI July 04, 2024 11: 49am Chief Complaint Admit Date MED F/U 3MO November 19, 2024 9:1 5am Reason for Visit Admit Date Abnormal results on imaging study of gen itourinary system November 19, 2024 9:15am Recurrent UTI November 19, 2024 9:1 5am Additional Source Comments INFORMATION SOURCE (unrecogn ized section and content) DATE CREATED AUTHOR 11/21/2019 [facility] DATE CREATED AUTHOR AUTHOR'S ORGANIZ ATION 02/28/2020 [facility] DATE CREATED AUTHOR AUTHOR'S ORGANIZ ATION 05/09/2020 [facility] DATE CREATED AUTHOR AUTHOR'S ORGANIZ ATION 06/18/2020 [facility] DATE CREATED AUTHOR AUTHOR'S ORGANIZ ATION 11/28/2020 [facility] DATE CREATED AUTHOR AUTHOR'S ORGANIZ ATION 09/04/2021 [facility] DATE CREATED AUTHOR AUTHOR'S ORGANIZ ATION 04/03/2024 [facility] DATE CREATED AUTHOR AUTHOR'S ORGANIZ ATION 12/03/2024 [facility] DATE CREATED AUTHOR AUTHOR'S ORGANIZ ATION 12/08/2024 [facility] Source Comments (unrecognize d section and content) In the event this informatio n is protected by the Federal Confidentiality of Alcohol and Drug Abuse Patient Records regulations: The Federal rules restrict any use of the information to criminally investigate or prosecute any alcohol or drug abuse patient.[facility] HospitalIn the event this information is protected by the Federal Confidentiality of Alcohol and Drug Abuse Patient Records regulations: The Federal rules restrict any use of the information to criminally investigate or prosecute any alcohol or drug abuse patient.[facility] HospitalIn the event this information is protected by the Federal Confidentiality of Alcohol and Drug Abuse Patient Records regulations: The Federal rules restrict any use of the information to criminally investigate or prosecute any alcohol or drug abuse patient.[facility] HospitalIn the event this information is protected by the Federal Confidentiality of Alcohol and Drug Abuse Patient Records regulations: The Federal rules restrict any use of the information to criminally investigate or prosecute any alcohol or drug abuse patient.[facility] HospitalIn the event this information is protected by the Federal Confidentiality of Alcohol and Drug Abuse Patient Records regulations: The Federal rules restrict any use of the information to criminally investigate or prosecute any alcohol or drug abuse patient.[facility] HospitalIn the event this information is protected by the Federal Confidentiality of Alcohol and Drug Abuse Patient Records regulations: The Federal rules restrict any use of the information to criminally investigate or prosecute any alcohol or drug abuse patient.[facility] HospitalIn the event this information is protected by the Federal Confidentiality of Alcohol and Drug Abuse Patient Records regulations: The Federal rules restrict any use of the information to criminally investigate or prosecute any alcohol or drug abuse patient.[facility] HospitalIn the event this information is protected by the Federal Confidentiality of Alcohol and Drug Abuse Patient Records regulations: The Federal rules restrict any use of the information to criminally investigate or prosecute any alcohol or drug abuse patient.[facility] HospitalIn the event this information is protected by the Federal Confidentiality of Alcohol and Drug Abuse Patient Records regulations: The Federal rules restrict any use of the information to criminally investigate or prosecute any alcohol or drug abuse patient.[facility] HospitalIn the event this information is protected by the Federal Confidentiality of Alcohol and Drug Abuse Patient Records regulations: The Federal rules restrict any use of the information to criminally investigate or prosecute any alcohol or drug abuse patient.[facility] HospitalIn the event this information is protected by the Federal Confidentiality of Alcohol and Drug Abuse Patient Records regulations: The Federal rules restrict any use of the information to criminally investigate or prosecute any alcohol or drug abuse patient.[facility] HospitalIn the event this information is protected by the Federal Confidentiality of Alcohol and Drug Abuse Patient Records regulations: The Federal rules restrict any use of the information to criminally investigate or prosecute any alcohol or drug abuse patient.[facility] HospitalIn the event this information is protected by the Federal Confidentiality of Alcohol and Drug Abuse Patient Records regulations: The Federal rules restrict any use of the information to criminally investigate or prosecute any alcohol or drug abuse patient.[facility] HospitalIn the event this information is protected by the Federal Confidentiality of Alcohol and Drug Abuse Patient Records regulations: The Federal rules restrict any use of the information to criminally investigate or prosecute any alcohol or drug abuse patient.[facility] HospitalIn the event this information is protected by the Federal Confidentiality of Alcohol and Drug Abuse Patient Records regulations: The Federal rules restrict any use of the information to criminally investigate or prosecute any alcohol or drug abuse patient.[facility] HospitalIn the event this information is protected by the Federal Confidentiality of Alcohol and Drug Abuse Patient Records regulations: The Federal rules restrict any use of the information to criminally investigate or prosecute any alcohol or drug abuse patient.[facility] Reason for Visit (unrecogniz ed section and content) Reason Comments Kidney Stones Reason Comments Hot Dipper Exam Reason Comments Radiology Mammogram Specialty Diagnoses / Procedures Referred By Contac t Referred To Contact BR IMAGING Diagnoses Gynecologic exam normal Breast cancer screening by mammogram Procedures MARIAJOSE SCREENING W DAVE SCREENING DIGITAL BREAST TOMOSYNTHESIS BI SCREENING MAMMOGRAPHY BI 2-VIEW BREAST INC Josselyn Alex MD [address] [place] [address] [facility] [address] [place] [address] Referral ID Status Reason Start Date Expiration Date V isits Requested Visits Authorized [id number] Closed Auto-Generate d Referral 01/18/2022 02/17/2023 1 1 Reason Comments Appointment Reason Comments Follow-up 6 month Reason Comments Results Reason Comments Follow-up 6 month med check Reason Onset Date Comments Referral 06/07/2023 Radiation / Chemistry Technician / Nutr ition Reason Comments Hypertension Been running high, 1 50/82 P-62, 162/83 P-79, 158/93 Chest Pain Specialty Diagnoses / Procedures Referred By Coleman t Referred To Contact Radiology Diagnoses Chest pain, unspecified type Left bundle branch block Procedures CTA HEART CORONARY ANGIOGRAM WITH PROV FFR-CT Thomas Fields PA-C [address] [place] [address] Referral ID Status Reason Start Date Expiration Date Visits Re quested Visits Authorized [id number] Closed 11/08/2023 11/07/2024 1 1 Specialty Diagnoses / Procedures Referred By Coleman t Referred To Contact Cardiology Diagnoses Essential hypertension Procedures Vascular US renal artery duplex complete Thomas Fields PA-C [address] [place] [address] Referral ID Status Reason Start Date Expiration Date Visits Re quested Visits Authorized [id number] Closed 11/08/2023 11/07/2024 1 1 Reason Comments Med Refill Reason Comments New Patient Referred by Family M ed Chest Pain Specialty Diagnoses / Procedures Referred By Coleman t Referred To Contact Cardiology Diagnoses Chest pain, unspecified type Left bundle branch block Procedures SD OFFICE/OUTPATIENT NEW HIGH MDM 60 MINUTES Thomas Fields PA-C [address] [place] [address] Rj Fields MD [address] [place] [address] Referral ID Status Reason Start Date Expiration Date V isits Requested Visits Authorized [id number] Closed Specialty Services Required 11/08/2023 11/07/2024 1 1 Reason Comments Medicare Annual Wellness Visit Subsequhanane t Reason Comments Blood Pressure Check Reason Comments Radiology Mammogram Specialty Diagnoses / Procedures Referred By Coleman t Referred To Contact BR IMAGING Diagnoses Gynecologic exam normal Breast cancer screening by mammogram Procedures MARIAJOSE SCREENING W DAVE SCREENING DIGITAL BREAST TOMOSYNTHESIS BI SCREENING MAMMOGRAPHY BI 2-VIEW BREAST INC CAD Josselyn Owusu MD [address] [address] [facility] [address] [place] [address] Referral ID Status Reason Start Date Expiration Date V isits Requested Visits Authorized [id number] Closed Auto-Generate d Referral 05/25/2023 06/23/2024 1 1 Reason Comments Follow-up 6 month Reason Onset Date Comments Urinary Frequency 05/01/2024 Reason Comments Follow-up Med check Reason Onset Date Comments Referral 06/05/2024 [facility] Reason Onset Date Comments Medication Problem 06/08/2024 Reason Onset Date Comments Referral 12/03/2024 [facility] (unrecognized sec tion and content) Aluminum Hydroxide Process Operator Relationship Specialty Start Date End Date [facility] [address] [address] PCP - General Family Practice 10/10/19 Leonor Rodas PA-C [address] [address] Women's Health Specialist 10/10/19 Flora Mae MD [address] [place] [address] [place] [address] POT ROOM TAPPER 11/06/19 Aluminum Hydroxide Process Operator Relationship Specialty Start Date End Date Jasper Zeng [address] [address] PCP - General Family Practice 10/10/19 Leonor Rodas PA-C [address] [address] Women's Health Specialist 10/10/19 Flora Mae MD [address] [place] [address] [place] [address] POT ROOM TAPPER 11/06/19 Aluminum Hydroxide Process Operator Relationship Specialty Start Date End Date Jasper Zeng F [address] [place] [address] PCP - General Family Practice 10/10/19 Leonor Rodas PA-C [address] [address] Women's Health Specialist 10/10/19 Flora Mae MD [address] [place] [address] [place] [address] POT ROOM TAPPER 11/06/19 Aluminum Hydroxide Process Operator Relationship Specialty Start Date End Date Jasper Zeng [address] [address] PCP - General Family Medicine 02/17/15 Aluminum Hydroxide Process Operator Relationship Specialty Start Date End Date Japser Zeng [address] [place] [address] PCP - General Family Medicine 10/10/19 Leonor Rodas PA-C [address] [address] Women's Health Specialist 10/10/19 Flora Mae MD [address] [place] [address] [place] [address] POT ROOM TAPPER 11/06/19 Aluminum Hydroxide Process Operator Relationship Specialty Start Date End Date Jasper Zeng [facility] [place] [address] PCP - General Family Medicine 10/10/19 Leonor Rodas PA-C [address] [address] Women's Health Specialist 10/10/19 Flora Mae MD [address] [place] [address] [place] [address] POT ROOM TAPPER 11/06/19 Aluminum Hydroxide Process Operator Relationship Specialty Start Date End Date Jasper Zeng [address] [place] [address] PCP - General Family Medicine 10/10/19 Leonor Rodas PA-C [address] [place] [address] Women's Health Specialist 10/10/19 Flora Mae MD [address] [place] [address] POT ROOM TAPPER 11/06/19 Aluminum Hydroxide Process Operator Relationship Specialty Start Date End Date Jasper Zeng [address] [place] [address] PCP - General Family Medicine 10/10/19 Leonor Rodas PA-C [address] [place] [address] Women's Health Specialist 10/10/19 Flora Mae MD [address] [place] [address] POT ROOM TAPPER 11/06/19 Aluminum Hydroxide Process Operator Relationship Specialty Start Date End Date Jasper Zeng, [address] [place] [address] PCP - General 02/17/15 Aluminum Hydroxide Process Operator Relationship Specialty Start Date End Date Jasper Zeng DO [address] [place] [address] PCP - General Family Medicine 10/10/19 Leonor Rodas PA-C [address] [id number] Women's Health Specialist 10/10/19 Flora Mae MD [address] [place] [address] Director Institution 11/06/19 Aluminum Hydroxide Process Operator Relationship Specialty Start Date End Date Jasper Zeng DO [address] [place] [id number] PCP - General Family Medicine 10/10/19 Leonor Rodas PA-C [address] [address] Women's Health Specialist 10/10/19 Flora Mae MD [address] [place], [place] [address] Director Institution 11/06/19 Aluminum Hydroxide Process Operator Relationship Specialty Start Date End Date Jasper Zeng DO [address] [place] [address] PCP - General 02/17/15 Aluminum Hydroxide Process Operator Relationship Specialty Start Date End Date Jasper Zeng DO [address] [place] [address] PCP - General 02/17/15 Aluminum Hydroxide Process Operator Relationship Specialty Start Date End Date Jasper Zeng DO [address] [place] [address] PCP - General 02/17/15 Aluminum Hydroxide Process Operator Relationship Specialty Start Date End Date Jasper Zeng, DO [address] [place] [address] PCP - General 02/17/15 Aluminum Hydroxide Process Operator Relationship Specialty Start Date End Date Jasper Zeng, DO [address] [place] [address] PCP - General 02/17/15 Aluminum Hydroxide Process Operator Relationship Specialty Start Date End Date Jasper Zeng, DO [address] [place] [address] PCP - General 02/17/15 Aluminum Hydroxide Process Operator Relationship Specialty Start Date End Date Jasper Zeng, DO [address] [place] [address] PCP - General 02/17/15 Aluminum Hydroxide Process Operator Relationship Specialty Start Date End Date Jasper Zeng, DO [address] [place] [address] PCP - General 02/17/15 Aluminum Hydroxide Process Operator Relationship Specialty Start Date End Date Jasper Zeng, DO [address] [place] [address] PCP - General 02/17/15 Aluminum Hydroxide Process Operator Relationship Specialty Start Date End Date Jasper Zeng, DO [address] [place] [place] [address] PCP - General 02/17/15 Aluminum Hydroxide Process Operator Relationship Specialty Start Date End Date Jasper Zeng, DO [address] [place] [address] PCP - General 02/17/15 Aluminum Hydroxide Process Operator Relationship Specialty Start Date End Date Jasper Zeng DO [address] [place] [address] PCP - General 02/17/15 Aluminum Hydroxide Process Operator Relationship Specialty Start Date End Date Jasper Zeng DO [address] [place] [address] PCP - General 02/17/15 Aluminum Hydroxide Process Operator Relationship Specialty Start Date End Date Jasper Zeng DO [address] [place] [address] PCP - General 02/17/15 Aluminum Hydroxide Process Operator Relationship Specialty Start Date End Date HieuJasper bashir DO [address] [place], [place] [id number] PCP - General Family Medicine 10/10/19 Leonor Rodas PA-C [facility] [address] [address] Women's Health Specialist 10/10/19 Flora Mae MD [address] [place] [address] Director Institution 11/06/19 Aluminum Hydroxide Process Operator Relationship Specialty Start Date End Date Jasper Zeng DO [address] [place], [place] [id number] PCP - General Family Medicine 10/10/19 Leonor Rodas PA-C [address] [facility] [address] [place] [address] Women's Health Specialist 10/10/19 Flora Mae MD [address] [place] [address] Director Institution 11/06/19 Aluminum Hydroxide Process Operator Relationship Specialty Start Date End Date Jasper Zeng DO [address] [place], [place] [id number] PCP - General 02/17/15 Aluminum Hydroxide Process Operator Relationship Specialty Start Date End Date Jasper Zeng DO [address] [place] [address] PCP - General Family Medicine 10/10/19 Leonor Rodas PA-C [address] [address] Women's Health Specialist 10/10/19 Flora Mae MD [address] [place] [address] Director Institution 11/06/19 Aluminum Hydroxide Process Operator Relationship Specialty Start Date End Date Jasper Zeng DO [address] [place] [address] [address] [place] [address] PCP - General 02/17/15 Aluminum Hydroxide Process Operator Relationship Specialty Start Date End Date Jasper Zeng DO [address] [place] [address] PCP - General Family Medicine 10/10/19 Leonor Rodas PA-C [address] [address] Women's Health Specialist 10/10/19 Flora Mae MD [address] [place] [address] Director Institution 11/06/19 Shanel Almaraz MD [address] [place] [address] Urology 05/30/24 Aluminum Hydroxide Process Operator Relationship Specialty Start Date End Date Jasper Zeng DO [address] [place] [address] PCP - General Family Medicine 10/10/19 Leonor Rodas PA-C [address] [place] [address] Women's Health Specialist 10/10/19 Flora Mae MD [address] [place] [address] Director Institution 11/06/19 Shanel Almaraz MD [address] [place] [address] Urology 05/30/24 Aluminum Hydroxide Process Operator Relationship Specialty Start Date End Date Jasper Zeng DO [address] [place] [address] PCP - General 02/17/15 Aluminum Hydroxide Process Operator Relationship Specialty Start Date End Date Jasper Zeng DO [address] [place] [address] PCP - General 02/17/15 Aluminum Hydroxide Process Operator Relationship Specialty Start Date End Date Jasper Zeng DO [address] [place] [address] PCP - General 02/17/15 Team Status: Active Member Role Status Dates Dr. Jasper Zeng DO Primary Care Provider Active Team Status: Inactive Member Role Status Dates Dr. Jasper Zeng DO Primary Care Provider Active Start: July 04, 2024 End: July 04, 2024 Dr. Shanel Almaraz MD Attending Provider Active Start: July 04, 2024 End: July 04, 2024 Dr. Shanel Almaraz MD Referring Provider Active Start: July 04, 2024 End: July 04, 2024 Aluminum Hydroxide Process Operator Relationship Specialty Start Date End Date Jasper Zeng DO [address] [place] [id number] PCP - General Family Medicine 10/10/19 Leonor Rodas PA-C [address] [address] Women's Health Specialist 10/10/19 Flora Mae MD [address] [facility] [address] [place] [address] Director Institution 11/06/19 Shanel Almaraz MD [address] [place] [address] Urology 05/30/24 Team Status: Active Member Role/Relationship Status Dates Dr. Jasper Zeng DO Primary Care Provider Active Team Status: Inactive Member Role/Relationship Status Dates Dr. Jasper Zeng DO Primary Care Provider Active Start: October 16, 2024 Dr. Shanel Almaraz MD Attending Provider Active Start: October 16, 2024 Team Status: Inactive Member Role/Relationship Status Dates Dr. Jasper Zeng DO Primary Care Provider Active Start: November 19, 2024 End: November 19, 2024 Dr. Jasper Zeng DO Referring Provider Active Start: November 19, 2024 End: November 19, 2024 Dr. Shanel Almaraz MD Attending Provider Active Start: November 19, 2024 End: November 19, 2024 Aluminum Hydroxide Process Operator Relationship Specialty Start Date End Date Jasper Zeng DO [address] [facility] [address] [place] [address] PCP - General 02/17/15 Goals (unrecognized section and content) Goals may be documented in a n alternate sectionGoals may be documented in an alternate section FOR RECORDS PERTAINING TO PATIENTS WHO ARE OR HAVE BEEN ENROLLED IN A CHEMICAL DEPENDENCY/SUBSTANCEABUSE PROGRAM, SOME INFORMATION MAY BE OMITTED. This clinical summary was aggregated from multiple sources. Caution should be exercised in using it in the provision of clinical care. This summary normalizes information from multiple sources, and as a consequence, information in this document may materially change the coding, format and clinical context of patient data. In addition, data may be omitted in some cases. CLINICAL DECISIONS SHOULD BE BASED ON THE PRIMARY CLINICAL RECORDS. [facility] [employer] provides no warranty or guarantee of the accuracy or completeness of information in this document.
== END | disposition home or self-care (01) ==
LOC: CT 06:33
PROVIDERS: PCP Family Medicine; Referring Provider Urology; Visit Provider Urology
DX: R93.89 Abnormal findings on diagnostic imaging of other specified body structures (principal); N39.0 Urinary tract infection, site not specified
CPT/HCPCS: 74178; Q9967